=== PATIENT | male | born 1985 | race Caucasian/White ===

== ENCOUNTER 2017-03-16 23:32 | Inpatient (IN) | payer MEDICAID, OTHER ==
[~2017-03-16] VITALS: Ht 175.3 cm; Wt 144.3 kg
[~2017-03-16 23:32] MED LIST: ASPIRIN EC81 MG PO; CARVEDILOL3.125 MG PO; COREG12.5 MG PO; FUROSEMIDE40 MG PO; LIPITOR20 MG; LISINOPRIL10 MG PO; METFORMIN HCL500 MG PO; POTASSIUM CHLO20 ME1 PO; PROAIR HFA INH8.5 GM INH; TRAZODONE HCL50 MG PO
[2017-03-16] MEDS ORDERED: FUROSEMIDE INJ 10 MG/ML 4 ML VIAL IV ONE (23:45)
[2017-03-16] MEDS ORDERED: ASPIRIN 81 MG CHEW TAB PO ONE (23:45)
[2017-03-17] VITALS (84 sets, daily range): BP systolic 106–174; BP diastolic 52–111
[2017-03-17 00:07] LABS: BASOPHILS # (AUTO) 0.1 (0.0-0.1); BASOPHILS % 0.9 % (0.0-1.0); EOSINOPHILS # (AUTO) 0.3 (0.0-0.4); EOSINOPHILS % 4.1 % (0.0-6.0); HEMATOCRIT 63.8 % (38.2-49.6); HEMOGLOBIN 17.3 g/dL (14.0-18.0); LYMPHOCYTES # (AUTO) 1.2 (1.0-3.2); LYMPHOCYTES % 18.2 % (18.0-39.1); MEAN CORPUSCULAR HEMOGLOBIN 24.9 pg (28-32); MEAN CORPUSCULAR HGB CONC 27.1 g/dL (31-35); MEAN CORPUSCULAR VOLUME 91.8 fL (81-99); MONOCYTES # (AUTO) 0.7 (0.2-0.8); MONOCYTES % 10.7 % (4.4-11.3); NEUTROPHILS # (AUTO) 4.2 (2.1-6.9); NEUTROPHILS % 65.9 % (38.7-80.0); PLATELET COUNT 102 x10e3/uL (140-360); RED BLOOD COUNT 6.95 x10e6/uL (4.3-5.7); RED CELL DISTRIBUTION WIDTH 22.2 % (11.7-14.4)
[2017-03-17 00:15] LABS: INR 1.29; PROTHROMBIN TIME 16.8 seconds (11.9-14.5)
[2017-03-17 00:16] LABS: PARTIAL THROMBOPLASTIN TIME 31.5 seconds (23.8-35.5)
[2017-03-17 00:23] LABS: ALANINE AMINOTRANSFERASE 13 IU/L (0-55); ALBUMIN/GLOBULIN RATIO 0.7 (0.8-2.0); ALKALINE PHOSPHATASE 77 IU/L (40-150); ANION GAP 9.3 mmol/L (8-16); BLOOD UREA NITROGEN 10 mg/dL (7-26); BUN/CREATININE RATIO 13 (6-25); CALCIUM 8.2 mg/dL (8.4-10.2); CARBON DIOXIDE 38 mmol/L (22-29); CHLORIDE 99 mmol/L (98-107); CREATINE KINASE 55 IU/L (30-200); EST GLOMERULAR FILTRATION RATE > 60 ML/MIN (60-); GLUCOSE 114 mg/dL (74-118); POTASSIUM 4.3 mmol/L (3.5-5.1); SODIUM 142 mmol/L (136-145)
--- NOTE | 2017-03-17 00:47 | Diagnostic Imaging Report ---
EXAM: CHEST SINGLE (PORTABLE), AP 1 view ORDER DATE: 03/16/2017 11:44 PM Time stamp on exam: 0013 hours INDICATION: Shortness of breath, chest pain COMPARISON: AP view of the chest August 17, 2016 FINDINGS: Very limited exam secondary to body habitus and portable technique LINES/TUBES: None LUNGS: Probable pulmonary edema PLEURA: Limited evaluation HEART AND MEDIASTINUM: Stable enlargement of the cardiomediastinal silhouette BONES AND SOFT TISSUES: No acute findings. IMPRESSION: Cardiomegaly and likely pulmonary edema. Signed by: Dr. Lora Leon M.D. on 03/17/2017 12:43 AM
[2017-03-17] MEDS ORDERED: ASPIRIN 81 MG CHEW TAB PO ONE (01:45)
--- OUTSIDE RECORDS SUMMARY | 2017-03-17 01:46 | XMS REPORT ---
Author Author [facility] Address Unknown Phone Unavailable Care Team Providers Care Marketing Researcher Name Role Phone LEI BRYANT Unavailable Unavailable Problems This patient has no known problems. Allergies, Adverse Reactions, Alerts This patient has no known allergies or adverse reactions. Medications This patient has no known medications. Results Test Description Test Time Test Comments Text Results Atomic Results Result Comments CHEST SINGLE (PORTABLE) [place] [address] Patient Name: CARLITOS TIWARI MR #: [id number] : 1985 Age/Sex: 32/M Req #: [id number] Adm Physician: Ordered by: LEI BRYANT MD Report #: [id number] Location: ER Room/Bed: Procedure: [id number] DX/CHEST SINGLE (PORTABLE) Exam Date: Exam Time: REPORT STATUS: Signed EXAM: CHEST SINGLE (PORTABLE ), AP 1 view ORDER DATE: 03/16/2017 11:44 PM Time stamp on exam: 0013 hours INDICATION: Shortness of breath, chest pain COMPARISON: AP view of the chest August 17, 2016 FINDINGS: Very limited exam secondary to body habitus and portable technique LINES/TUBES: None LUNGS: Probable pulmonary edema PLEURA: Limited evaluation HEART AND MEDIASTINUM: Stable enlargement of the cardiomediastinal silhouette BONES AND SOFT TISSUES: No acute findings. IMPRESSION: Cardiomegaly and likely pulmonary edema. Signed by: Dr. Krystal Prater M.D. on 03/17/2017 12:43 AM Dictated By: KRYSTAL PRATER MD Transcribed By: RONALD on 03/17/1742 COPY TO: LEI BRYANT MD
[2017-03-17] MEDS ORDERED: HYDRALAZINE HCL 20 MG/ML VIAL IV STA (02:10)
[2017-03-17] MEDS ORDERED: HYDRALAZINE HCL 20 MG/ML VIAL ONE (02:17)
[2017-03-17 05:19] LABS: ABG PH 7.31 (7.31-7.41)
[2017-03-17 05:22] LABS: ABG HCO3 44 mmol/L (23-28); ABG PCO2 85 mmHg (41-51); ABG PO2 69 mmHg (80-105)
[2017-03-17] MEDS ORDERED: SUCCINYLCHOLINE CHLORIDE 20 MG/ML 10ML VIAL ONE (06:36)
[2017-03-17] MEDS ORDERED: PROPOFOL IV EMULSION 10MG/ML 100 ML ONE (06:36)
[2017-03-17] MEDS ORDERED: ETOMIDATE 2 MG/ML 10 ML INJ IV ONE (06:36)
--- NOTE | 2017-03-17 06:38 | Diagnostic Imaging Report ---
EXAM: CHEST SINGLE (PORTABLE), AP 1 view ORDER DATE: 03/17/2017 5:29 AM Time stamp on exam: 0534 hours INDICATION: Shortness of breath, G COMPARISON: AP view of the chest were second 2017 FINDINGS: See impression IMPRESSION: Images are essentially nondiagnostic. Recommend repeat imaging excluding the upper abdomen to optimize visualization of the lungs in this patient with large body habitus. Signed by: Dr. Lora Leon M.D. on 03/17/2017 6:34 AM
[2017-03-17] MEDS ORDERED: ROCURONIUM BROMIDE 1 ML ONE (07:20)
[2017-03-17] MEDS: PROPOFOL IV EMULSION 10MG/ML 100 ML IV PRN ×5 (07:30→22:38)
[2017-03-17] MEDS ORDERED: ROCURONIUM BROMIDE 10 MG/ML 5ML VIAL IV ONE (07:45)
--- NOTE | 2017-03-17 07:48 | Diagnostic Imaging Report ---
PROCEDURE: A single AP view of the chest. COMPARISON: Portable chest 08/17/2016. INDICATIONS: STATUS POST INTUBATION FINDINGS: Lines/tubes: Endotracheal catheter is present with the tip projecting over the expected region of the trachea, positioned 6 cm from the kvng. Lungs: Bilateral multifocal airspace opacifications. Pleura: Small left pleural effusion. No pneumothorax. Heart and mediastinum: The cardiac silhouette is enlarged. Prominent mediastinum. Bones: Degenerative changes of the thoracic spine. IMPRESSION: Enlarged cardiac silhouette may represent cardiomegaly or pericardial effusion. Bilateral multifocal airspace opacifications may represent pulmonary edema or developing pneumonia. Dictated by: Paulo Chapa M.D. on 03/17/2017 at 7:57 Electronically approved by: Paulo Chapa M.D. on 03/17/2017 at 7:57
[2017-03-17 08:10] LABS: ABG PH 7.29 (7.31-7.41)
[2017-03-17 08:11] LABS: ABG HCO3 43 mmol/L (23-28); ABG PCO2 90 mmHg (41-51); ABG PO2 76 mmHg (80-105)
[2017-03-17] MEDS ORDERED: FUROSEMIDE INJ 10 MG/ML 4 ML VIAL IV SCH (09:00)
[2017-03-17] MEDS ORDERED: LISINOPRIL 10 MG TAB PO SCH (09:00)
[2017-03-17 09:13] LABS: CREATINE KINASE MB 2.3 ng/mL (0.00-5.00)
[2017-03-17] MEDS: FUROSEMIDE INJ 10 MG/ML 4 ML VIAL IV SCH ×2 (09:41→17:08)
[2017-03-17] MEDS: INSULIN REGULAR, HUMAN 100 UNIT/1 ML 3ML VIAL SQ SCH ×3 (09:41→17:42)
[2017-03-17] MEDS ORDERED: DEXTROSE 50% SYRINGE 50 ML IV PRN ×2 (09:45→23:30)
[2017-03-17] MEDS: ENOXAPARIN SOD INJ 40 MG/0.4 ML SYR SC SCH (09:49)
[2017-03-17] MEDS: FAMOTIDINE 20 MG/2 ML VIAL IV SCH ×2 (09:49→20:00)
[2017-03-17 09:54] LABS: BLOOD UREA NITROGEN 9 mg/dL (7-26); BUN/CREATININE RATIO 11 (6-25); CALCIUM 8.3 mg/dL (8.4-10.2); CARBON DIOXIDE 36 mmol/L (22-29); CHLORIDE 97 mmol/L (98-107); CREATININE, SERUM 0.81 mg/dL (0.72-1.25); EST GLOMERULAR FILTRATION RATE > 60 ML/MIN (60-); GLUCOSE 103 mg/dL (74-118); MAGNESIUM 1.8 MG/DL (1.3-2.1); SODIUM 144 mmol/L (136-145)
--- NOTE | 2017-03-17 12:55 | Consultation ---
DATE OF CONSULTATION: March 17, 2017 CARDIOLOGY CONSULTATION ATTENDING PHYSICIAN: Dr. Kennedy Thank you so much for asking me to see this nice man again in consultation. Mr. Zavala is a 32-year-old man known to me for several years with morbid obesity, sleep apnea, pickwickian syndrome, who presented to the emergency room overnight evidently with chest discomfort and shortness of breath. HISTORY OF PRESENT ILLNESS: Not currently available as the patient has been sedated and intubated. PAST MEDICAL HISTORY: Significant for previous hospitalizations in 2016 and 2017 at this hospital and at [facility] for dyspnea, shortness of breath, chest discomfort and hypertension. Past medical history is significant for type-2, adult-onset diabetes and hypertension. He has morbid obesity and has been diagnosed with sleep apnea and began treatment for sleep apnea with CPAP machine in July 2016. PREVIOUS HOME MEDICATIONS: Include carvedilol, potassium, furosemide, trazodone, lisinopril, Ecotrin, metformin 500 mg b.i.d., ProAir inhaler and Lipitor. REVIEW OF SYSTEMS: Cardiac: Previous cardiac evaluations have been limited by his morbid obesity with his weight ranging between 400 and 450 pounds. Cannot have nuclear studies or cardiac catheterizations Previous echocardiograms have been relatively unremarkable. PERSONAL AND SOCIAL HISTORY AND REVIEW OF SYSTEMS: Not available at this time. PHYSICAL EXAMINATION: GENERAL: A morbidly obese white man who is sedated with propofol on a ventilator. About 5 feet 11 inches tall and about 400 to 450 pounds. HEENT: Unremarkable. NECK: Very thick. THORAX: Heart sounds S1, S2 are equal. Lungs have distant breath sounds. ABDOMEN: Markedly protuberant. EXTREMITIES: Have no significant cyanosis, clubbing or edema. EKG shows sinus rhythm and poor R-wave progression, which is an old change since June 2016. Chest x-ray suggests air-space consolidations. Influenza serology is negative. BNP is 272. Troponins are normal times 2. White cell count is normal at 6.3. Glucose 103, BUN 9, creatinine 0.8. ASSESSMENT 1. Respiratory insufficiency requiring intubation and mechanical ventilation. 2. Morbid obesity/sleep apnea, pickwickian syndrome. 3. Type-2, adult-onset diabetes. 4. Possible pneumonia. 5. History of hypertension. PLAN: Agree with supportive care with ventilator and antibiotics. Will recheck echocardiogram. Do not suspect he has any active coronary problems. His prognosis is guarded, however. Thank you for asking me to see him in consultation. Job#: [id number] cc:MD ANDREAS IRVIN M.D.
[2017-03-17] MEDS ORDERED: ALBUTEROL SULF 0.083% NEB SOLN 3 ML NEB NEB PRN (13:15)
[2017-03-17] MEDS ORDERED: LISINOPRIL 20 MG TAB PO SCH (14:00)
--- NOTE | 2017-03-17 16:49 | Consultation ---
DATE OF CONSULTATION: March 17, 2017 PULMONARY/CRITICAL CARE CONSULTATION REFERRING PHYSICIAN: Dr. Oscar Kennedy. CHIEF COMPLAINT: Respiratory failure. HISTORY OF PRESENT ILLNESS: The patient is a 32-year-old man. He required hospitalization twice in the late spring and early summer of 2016 for obesity-hypoventilation syndrome and respiratory failure. At that time, he was counseled about the urgent need for weight loss. He was seen by endocrinology and started on some antidiabetic medications as well as a weight loss regimen. Over the subsequent months, he lost 100 pounds but has since gained most of it back. The patient came to the emergency department early this morning complaining of chest pain and difficulty breathing. He was subsequently found to have elevated carbon dioxide and required intubation. He is now on a mechanical ventilator and propofol for sedation. PAST SURGICAL HISTORY 1. Right knee meniscal repair. 2. Deviated septum. 3. Tonsillectomy. PAST MEDICAL HISTORY 1. Obstructive sleep apnea. 2. Hypertension. FAMILY HISTORY: Noncontributory. SOCIAL HISTORY: The patient quit smoking several years ago. He is not a drinker. REVIEW OF SYSTEMS: He did not have fever or headache. He did not complain of neck pain. He did have some chest pain. He complained of dyspnea. There was no abdominal pain. He had no nausea or vomiting. He had no focal neurological complaints. He had no rashes. PHYSICAL EXAMINATION VITAL SIGNS: The patient is afebrile. Blood pressure is 142/95, and the pulse is 84. Respiratory rate is 16 with saturation 96%. He is on assist control mode of ventilation. HEENT: No facial swelling or erythema. Nasal mucosa is normal. There is an endotracheal tube in place. LYMPHATIC: No submandibular, cervical or supraclavicular adenopathy. CARDIAC: Regular rate and rhythm with a normal S1 and S2. There are no murmurs or rubs. LUNGS: Clear to auscultation lung fraser. Rhonchorous breath sounds bilaterally. There is no wheezing. ABDOMEN: Soft, nontender. There is no rebound or guarding. EXTREMITIES: 1 to 2+ leg edema. LABORATORY DATA: White blood cell count is 6, hemoglobin 17.3 and platelet count of 102. The RLR-tq-mdibprkvob ratio is normal. The other electrolytes are within normal limits. RADIOGRAPHIC DATA: Chest x-ray shows some cardiomegaly and infiltrates suggestive of congestive heart failure. IMPRESSION 1. Ziqiy-nj-rlexlxn respiratory failure. 2. Obesity-hypoventilation syndrome. 3. Obstructive sleep apnea. 4. Diabetes. 5. Congestive heart failure. PLAN 1. Patient will be given diuretics. 2. Monitor I's and O's closely. 3. Echocardiogram. 4. Continue assist control mode of ventilation for now and wean as tolerated. 5. Patient may require a tracheostomy. He will be high risk for recurrent respiratory failure until he loses weight. Job#: [id number]
[2017-03-17 16:51] LABS: CREATINE KINASE MB 1.9 ng/mL (0.00-5.00)
[2017-03-17] MEDS ORDERED: CARVEDILOL 12.5 MG TAB PO SCH (17:00)
[2017-03-17] MEDS ORDERED: METOPROLOL TARTRATE INJ 1 MG/ML VIAL IV PRN (17:30)
[2017-03-17] MEDS ORDERED: HYDRALAZINE HCL 20 MG/ML VIAL IV PRN (17:30)
[2017-03-17] MEDS: ENALAPRILAT IV INJ 1.25 MG/ML VIAL IV PRN ×2 (17:50→21:10)
[2017-03-17] MEDS ORDERED: ONDANSETRON HCL INJ 2 MG/ML VIAL IV PRN (19:45)
[2017-03-17] MEDS: ALBUTEROL SULF 0.083% NEB SOLN 3 ML NEB NEB SCH ×2 (20:20→23:32)
[2017-03-17] MEDS ORDERED: ENALAPRILAT IV INJ 1.25 MG/ML VIAL IV PRN (23:30)
[2017-03-18] VITALS (83 sets, daily range): BP systolic 95–174; BP diastolic 53–110
[2017-03-18] MEDS: FUROSEMIDE INJ 10 MG/ML 4 ML VIAL IV SCH ×4 (00:30→22:21)
--- NOTE | 2017-03-18 01:20 | Diagnostic Imaging Report ---
EXAM: CHEST SINGLE (PORTABLE), AP 1 view ORDER DATE: 03/18/2017 12:13 AM Time stamp on exam: 0047 hours INDICATION: OG-tube placement COMPARISON: None FINDINGS: See impression IMPRESSION: The tip of the orogastric tube cannot be seen. Signed by: Dr. Lora Leon M.D. on 03/18/2017 1:16 AM
[2017-03-18] MEDS: METOPROLOL TARTRATE INJ 1 MG/ML VIAL IV PRN (02:04)
[2017-03-18] MEDS: ALBUTEROL SULF 0.083% NEB SOLN 3 ML NEB NEB SCH ×6 (03:05→21:31)
[2017-03-18] MEDS: PROPOFOL IV EMULSION 10MG/ML 100 ML IV PRN ×5 (03:15→23:45)
[2017-03-18] MEDS: HYDRALAZINE HCL 20 MG/ML VIAL IV PRN ×2 (03:48→17:59)
[2017-03-18] MEDS: INSULIN REGULAR, HUMAN 100 UNIT/1 ML 3ML VIAL SQ SCH ×4 (06:00→17:59)
[2017-03-18 06:02] LABS: BASOPHILS # (AUTO) 0.1 (0.0-0.1); BASOPHILS % 0.5 % (0.0-1.0); EOSINOPHILS # (AUTO) 0.1 (0.0-0.4); EOSINOPHILS % 0.7 % (0.0-6.0); HEMATOCRIT 62.7 % (38.2-49.6); HEMOGLOBIN 17.4 g/dL (14.0-18.0); LYMPHOCYTES # (AUTO) 0.7 (1.0-3.2); LYMPHOCYTES % 5.3 % (18.0-39.1); MEAN CORPUSCULAR HEMOGLOBIN 24.9 pg (28-32); MEAN CORPUSCULAR HGB CONC 27.8 g/dL (31-35); MEAN CORPUSCULAR VOLUME 89.7 fL (81-99); MONOCYTES % 7.9 % (4.4-11.3); NEUTROPHILS # (AUTO) 10.6 (2.1-6.9); NEUTROPHILS % 85.1 % (38.7-80.0); PLATELET COUNT 118 x10e3/uL (140-360); RED BLOOD COUNT 6.99 x10e6/uL (4.3-5.7); RED CELL DISTRIBUTION WIDTH 22.4 % (11.7-14.4)
[2017-03-18 06:17] LABS: ALANINE AMINOTRANSFERASE 12 IU/L (0-55); ALBUMIN 2.8 g/dL (3.5-5.0); ALBUMIN/GLOBULIN RATIO 0.7 (0.8-2.0); ALKALINE PHOSPHATASE 71 IU/L (40-150); ANION GAP 13.6 mmol/L (8-16); BLOOD UREA NITROGEN 9 mg/dL (7-26); BUN/CREATININE RATIO 10 (6-25); CALCIUM 8.3 mg/dL (8.4-10.2); CHLORIDE 91 mmol/L (98-107); EST GLOMERULAR FILTRATION RATE > 60 ML/MIN (60-); GLUCOSE 98 mg/dL (74-118); MAGNESIUM 1.4 MG/DL (1.3-2.1); POTASSIUM 3.6 mmol/L (3.5-5.1); SODIUM 143 mmol/L (136-145)
[2017-03-18 06:31] LABS: CARBON DIOXIDE 42 mmol/L (22-29)
--- NOTE | 2017-03-18 06:34 | Diagnostic Imaging Report ---
EXAM: CHEST SINGLE (PORTABLE), AP 1 view ORDER DATE: 03/18/2017 6:30 AM Time stamp on exam: 0556 hours INDICATION: Respiratory failure COMPARISON: March 18, 2017 FINDINGS: LINES/TUBES: Endotracheal tube 4 cm above the kvng. Nasal/orogastric tube courses below the diaphragm with tip out of field of view. LUNGS: Pulmonary edema PLEURA: Indeterminate for effusions HEART AND MEDIASTINUM: Cardiomegaly BONES AND SOFT TISSUES: No acute findings. IMPRESSION: Cardiomegaly and pulmonary edema Signed by: Dr. Lora Leon M.D. on 03/18/2017 6:31 AM
[2017-03-18 06:38] LABS: FREE T4 (FREE THYROXINE) 1.05 ng/dL (0.9-1.8); THYROID STIMULATING HORMONE 1.609 uIU/mL (0.350-4.940)
[2017-03-18] MEDS: FAMOTIDINE 20 MG/2 ML VIAL IV SCH ×2 (08:02→22:21)
[2017-03-18] MEDS: LISINOPRIL 20 MG TAB PO SCH (08:03)
[2017-03-18] MEDS: CARVEDILOL 12.5 MG TAB PO SCH ×2 (08:03→17:59)
[2017-03-18] MEDS: ASPIRIN 81 MG ENTERIC COATED PO SCH (08:03)
[2017-03-18] MEDS ORDERED: ASPIRIN 81 MG ENTERIC COATED PO SCH (09:00)
[2017-03-18] MEDS ORDERED: LISINOPRIL 10 MG TAB PO SCH (09:00)
--- NOTE | 2017-03-18 11:15 | History and Physical ---
Primary care physician: The patient does not have a local PCP. CHIEF COMPLAINT: Respiratory distress/failure. HISTORY OF PRESENT ILLNESS: Mr. Zavala is a 32-year-old gentleman with morbid obesity. He weighs almost 500 pounds with pickwickian obstructive sleep apnea and pulmonary hypertension who presents with increasing respiratory distress over the last couple of days with increased swelling of the abdominal pannus and his lower extremities. The patient presented to the ED with respiratory distress which got worse. He had hypoxia and hypercapnic respiratory failure and was urgently intubated by the ER physician. REVIEW OF SYSTEMS: Unobtainable as the patient is intubated. PAST MEDICAL HISTORY: Significant for hypertension and type 2 diabetes, morbid obesity with pickwickian syndrome, chronic respiratory failure dependent on oxygen at home, chronic asthma and obstructive sleep apnea and pulmonary hypertension. PAST SURGICAL HISTORY: He denies any surgery history. REGULAR MEDICATIONS: Carvedilol 12.5 mg twice daily. Lisinopril 40 mg daily. Aspirin 81 mg daily. Metformin 500 mg twice daily. Trazodone 50 mg at bedtime. Lasix 40 mg twice daily. Lipitor 20 mg at bedtime. Albuterol inhaler and nebulizer treatments as needed. Potassium chloride 20 mEq daily. ALLERGIES: NO KNOWN DRUG ALLERGIES. FAMILY HISTORY: Significant for hypertension and diabetes. SOCIAL HISTORY: The patient is . [place]une[place] is his primary language. He does not smoke, drink or use illegal drugs and he is generally independently functioning. PHYSICAL EXAM: PSYCHIATRIC: Unobtainable as the patient is intubated. He is morbidly obese, easily 450 pounds or more, and currently is no distress because he is sedated. He is orally intubated. VITAL SIGNS: Blood pressure 158/101. Pulse 93 and regular. Respiratory rate 16, ventilated. O2 sat 96% on the ventilator. His temperature is 97.0. HEENT: Head is atraumatic. His eyes are anicteric with clear conjunctivae. Ears and nares are without erythema or discharge. Oropharynx is clear. NECK: Is supple with no mass or thyromegaly. LYMPHATIC SYSTEM: He has no palpable cervical, axillary or inguinal adenopathy. CARDIOVASCULAR: Heart has a regular rate and rhythm without murmur or extra heart sounds. He has no carotid bruit. He has trace bipedal edema with palpable dorsal pedal pulses. RESPIRATORY: Lungs reveal diminished breath sounds, some coarse airway noise. He is ventilated and orally intubated. GASTROINTESTINAL: Abdomen is soft without organomegaly, masses or tenderness. Is morbidly obese. He has normal bowel sounds present. CUTANEOUS: His skin is warm and dry to touch with no rash or skin breakdown. MUSCULOSKELETAL: His joints have normal without erythema or swelling. Has no calf tenderness. NEUROLOGIC: Exam is nonfocal. When weaned, the patient is moving all extremities. He had a normal exam prior to intubation. DIAGNOSTIC STUDIES: Chest x-ray shows cardiomegaly and pulmonary edema. His post intubation chest x-ray shows the same. His flu screen was negative. The first blood gas was pH 7.31. PCO2 85. pO2 of 69. Second blood gas oxygen showed a pH of 7.29, a PCO2 of 90 and a po2 of 76 and at that point the patient was intubated. His troponin is 0.015, 0.021. BNP is 272.1. His echocardiogram shows an ejection fraction of 60% to 65% with some right ventricular enlargement and left ventricle concentric left ventricular hypertrophy. His chemistry shows normal electrolytes. CO2 38. Creatinine 0.80. BUN10 for a normal GFR. Glucose 114. Calcium 8.2. His CBC shows a white count 6.38 with normal differential. Hemoglobin 17.3, hematocrit 63.8 and platelet count in 102,000. His PT 16.8 with an INR 1.29 which is basically normal. His transaminases and alkaline phos are normal. Bilirubin slightly elevated at 2.2. IMPRESSION AND PLAN 1. Acute on chronic diastolic heart failure. The patient will be placed on Lasix IV 40 mg q.6 hours. 2. Acute exacerbation of chronic obstructive pulmonary disease/obstructive sleep apnea. The patient will be getting aggressive nebulizer treatments. 3. Acute on chronic respiratory failure. The patient is intubated and will be going to the ICU on the ventilator with pulmonology managing the ventilator. 4. Hypertension. The patient being intubated. They are unable to place a nasogastric tube, it came back with blood from trauma and so will give p.r.n. IV hydralazine, Enalapril and Lopressor to control his blood pressure and heart rate. 5. Type 2 diabetes. Will hold his p.o. meds at this time and use sliding scale insulin q.6 hours to control his blood sugar. 6. For prophylaxis the patient is on Lovenox for DVT prophylaxis and Pepcid for GI prophylaxis. Job#: [id number] GH
[2017-03-18 12:20] LABS: ABG PH 7.44 (7.31-7.41)
[2017-03-18 12:21] LABS: ABG PCO2 74 mmHg (41-51)
[2017-03-18 12:22] LABS: ABG HCO3 49 mmol/L (23-28); ABG PO2 48 mmHg (80-105)
--- NOTE | 2017-03-18 13:37 | Progress Note ---
DATE: March 18, 2017 PULMONARY/CRITICAL CARE PROGRESS NOTE SUBJECTIVE: The patient is still in the emergency department on an assist-control mode of ventilation. He has been on Lasix q.4 h. and negative 5 liters since yesterday. OBJECTIVE VITAL SIGNS: The patient is afebrile. He is still on a pressure-regulated volume control with a tidal volume of 550 and a set rate of 16. His pulse is 99 and his blood pressure is 131/78. His saturation is 98%. HEENT: Shows no facial swelling or erythema. There is an oral endotracheal tube in place. LYMPHATIC: No submandibular, cervical or supraclavicular adenopathy. CARDIAC: Regular rate and rhythm with a normal S1 and S2. There are no murmurs or rubs. LUNGS: Auscultation reveals rhonchorous breath sounds bilaterally. There is no wheezing. ABDOMEN: Soft and nontender. There is no rebound or guarding. EXTREMITIES: Shows 2+ leg edema bilaterally. LABORATORY DATA: The hemoglobin is 17.4, white blood cell count is 12.5. Platelet count is 118. Other laboratory are within normal limits. RADIOGRAPHIC DATA: Chest x-ray shows cardiomegaly and pulmonary edema. IMPRESSION 1. Rwjkx-tf-aoqlnia respiratory failure. 2. Obesity. 3. Hypoventilation syndrome. 4. Cor pulmonale. 5. Type 2 diabetes. PLAN: 1. Continue diuretics. Switch to Diamox to help prevent further CO2 retention. 2. Repeat ABGs now. 3. Continue current antihypertensive regimen. Job#: [id number]
[2017-03-18] MEDS: ENOXAPARIN SOD INJ 40 MG/0.4 ML SYR SC SCH (17:59)
[2017-03-18] MEDS ORDERED: KETOROLAC TROMETHAMINE 30 MG/ML VIAL IV STA (21:56)
[2017-03-19] VITALS (67 sets, daily range): BP systolic 114–178; BP diastolic 53–101
[2017-03-19] MEDS: ALBUTEROL SULF 0.083% NEB SOLN 3 ML NEB NEB SCH ×6 (01:48→22:52)
[2017-03-19] MEDS: PROPOFOL IV EMULSION 10MG/ML 100 ML IV PRN ×5 (04:00→23:33)
[2017-03-19 06:20] LABS: BASOPHILS % 0.4 % (0.0-1.0); EOSINOPHILS # (AUTO) 0.4 (0.0-0.4); EOSINOPHILS % 3.6 % (0.0-6.0); HEMATOCRIT 61.2 % (38.2-49.6); HEMOGLOBIN 17.2 g/dL (14.0-18.0); LYMPHOCYTES # (AUTO) 0.8 (1.0-3.2); LYMPHOCYTES % 7.9 % (18.0-39.1); MEAN CORPUSCULAR HEMOGLOBIN 24.8 pg (28-32); MEAN CORPUSCULAR HGB CONC 28.1 g/dL (31-35); MEAN CORPUSCULAR VOLUME 88.2 fL (81-99); MONOCYTES # (AUTO) 0.8 (0.2-0.8); MONOCYTES % 8.5 % (4.4-11.3); NEUTROPHILS # (AUTO) 7.9 (2.1-6.9); NEUTROPHILS % 79.3 % (38.7-80.0); PLATELET COUNT 104 x10e3/uL (140-360); RED BLOOD COUNT 6.94 x10e6/uL (4.3-5.7); RED CELL DISTRIBUTION WIDTH 23.1 % (11.7-14.4)
[2017-03-19] MEDS: INSULIN REGULAR, HUMAN 100 UNIT/1 ML 3ML VIAL SQ SCH ×4 (06:35→17:58)
[2017-03-19 06:37] LABS: ALANINE AMINOTRANSFERASE 20 IU/L (0-55); ALBUMIN 2.7 g/dL (3.5-5.0); ALKALINE PHOSPHATASE 64 IU/L (40-150); ANION GAP 15.7 mmol/L (8-16); BILIRUBIN,DIRECT 2.5 mg/dL (0.0-5.0); BLOOD UREA NITROGEN 14 mg/dL (7-26); BUN/CREATININE RATIO 16 (6-25); CALCIUM 8.3 mg/dL (8.4-10.2); CARBON DIOXIDE 38 mmol/L (22-29); CHLORIDE 91 mmol/L (98-107); CREATININE, SERUM 0.86 mg/dL (0.72-1.25); EST GLOMERULAR FILTRATION RATE > 60 ML/MIN (60-); GLUCOSE 83 mg/dL (74-118); MAGNESIUM 1.7 MG/DL (1.3-2.1); POTASSIUM 3.7 mmol/L (3.5-5.1); SODIUM 141 mmol/L (136-145)
--- NOTE | 2017-03-19 06:38 | Diagnostic Imaging Report ---
EXAM: CHEST SINGLE (PORTABLE), AP 1 view ORDER DATE: 03/19/2017 5:00 AM Time stamp on exam: 0557 hours INDICATION: Congestive heart failure COMPARISON: AP view of the chest March 18, 2017 FINDINGS: LINES/TUBES: The endotracheal tube is at the thoracic inlet. Nasogastric orogastric tube courses below the diaphragm. LUNGS: Vascular congestion/pulmonary edema. PLEURA: No effusions or pneumothorax. HEART AND MEDIASTINUM: Chappell enlargement of the cardiomediastinal silhouette. BONES AND SOFT TISSUES: No acute findings. IMPRESSION: The endotracheal tube is at the thoracic inlet. No significant interval change in appearance of the chest. Signed by: Dr. Lora Leon M.D. on 03/19/2017 6:34 AM
[2017-03-19] MEDS: FUROSEMIDE INJ 10 MG/ML 4 ML VIAL IV SCH (09:05)
[2017-03-19] MEDS: LISINOPRIL 20 MG TAB PO SCH (09:05)
[2017-03-19] MEDS: CARVEDILOL 12.5 MG TAB PO SCH ×2 (09:05→16:28)
[2017-03-19] MEDS: FAMOTIDINE 20 MG/2 ML VIAL IV SCH ×2 (09:05→20:34)
[2017-03-19] MEDS: ASPIRIN 81 MG ENTERIC COATED PO SCH (09:05)
[2017-03-19 11:58] LABS: ABG PH 7.45 (7.31-7.41)
[2017-03-19 11:59] LABS: ABG PCO2 68 mmHg (41-51)
[2017-03-19 12:00] LABS: ABG HCO3 47 mmol/L (23-28); ABG PO2 49 mmHg (80-105)
[2017-03-19] MEDS ORDERED: CEFTRIAXONE SOD 1 GM/NS 50 ML 50 ML IV SCH (14:15)
[2017-03-19] MEDS: CEFTRIAXONE SOD 1 GM VIAL IV SCH (14:50)
[2017-03-19] MEDS: SODIUM CHLORIDE 0.9% 1000ML 1,000 ML IV SCH (14:59)
[2017-03-19] MEDS ORDERED: AZITHROMYCIN 500MG/NS 250 ML 250 ML IV SCH (15:00)
[2017-03-19] MEDS ORDERED: KETOROLAC TROMETHAMINE 30 MG/ML VIAL IV ONE (15:00)
[2017-03-19] MEDS ORDERED: IOPAMIDOL 370 MG/ML 200 ML INFUS..BTL INJ ONE (15:58)
[2017-03-19] MEDS ORDERED: SODIUM CHLORIDE 0.9% 50ML 50 ML ONE (15:58)
--- NOTE | 2017-03-19 16:11 | Diagnostic Imaging Report ---
EXAM: CT Abdomen and Pelvis WITH contrast INDICATION: Abdominal pain COMPARISON: None. TECHNIQUE: Abdomen and pelvis were scanned utilizing a multidetector helical scanner from the lung base to the pubic symphysis after administration of contrast. Coronal and sagittal reformations were obtained. The examination is limited due to decreased penetration and motion artifact. Protocol: General survey IV CONTRAST: 100 mL of Isovue 370 ORAL CONTRAST: None COMPLICATIONS: None RADIATION DOSE: Total Exam DLP: 943.2 mGy*cm. CTDIvol has been reviewed. It is below the limits set by the Radiation Protocol Committee (RPC). FINDINGS: LINES: Enteric feeding catheter is present with the tip position within the distal stomach. Lower thorax: Bilateral lower lobe airspace opacities. No pneumothorax. Small bilateral pleural effusions. Liver: No focal mass. No hepatomegaly. Normal parenchyma. The hepatic and portal veins are patent. Gallbladder: No gallstones. No gallbladder distention. Biliary tree: No intrahepatic duct dilation. No extrahepatic duct dilation. Spleen: No splenomegaly. No focal mass. Pancreas: Normal parenchymal enhancement. No focal mass. Normal pancreatic duct. No peripancreatic inflammatory changes. Kidneys: No obstructing calculi. No hydronephrosis. No solid enhancing mass. No cysts. No perinephric soft tissue inflammatory changes. Adrenal glands: No adrenal nodules.. Bladder: Nunez catheter is present in a decompressed urinary bladder. Pelvic organs: Normal. GI: No bowel wall thickening. No air-fluid levels. The stomach and small bowel are normal. The colon is normal. Normal appendix. A moderate amount of retained feces limits intraluminal evaluation of the colon. Peritoneum/retroperitoneum: No pneumoperitoneum. No ascites. No drainable fluid collection. Lymph nodes: No lymphadenopathy. . Vessels: The abdominal aorta and iliac vessels are patent. The celiac, superior mesenteric, and inferior mesenteric arteries are patent. Single bilateral renal arteries are patent. . Bones: No focal abnormality. Soft tissues: No focal abnormality. IMPRESSION: No acute abnormality of the abdomen and pelvis. Bilateral lower lobe airspace opacities may represent atelectasis or developing pneumonia. Small bilateral pleural effusions. Signed by: Dr. Paulo Chapa M.D. on 03/19/2017 4:07 PM
[2017-03-19] MEDS: ENOXAPARIN SOD INJ 40 MG/0.4 ML SYR SC SCH (16:28)
[2017-03-19] MEDS: AZITHROMYCIN 500MG/NS 250 ML 250 ML IV SCH (16:28)
[2017-03-19] MEDS: ACETAZOLAMIDE SODIUM 500 MG/VIAL IV SCH (16:48)
[2017-03-19 17:06] LABS: CREATINE KINASE MB 3.1 ng/mL (0.00-5.00)
[2017-03-19] MEDS: VANCOMYCIN 1GM/NS 250 ML 250 ML IV SCH (17:34)
[2017-03-20] VITALS (95 sets, daily range): BP systolic 107–205; BP diastolic 24–133
[2017-03-20] MEDS: SODIUM CHLORIDE 0.9% 1000ML 1,000 ML IV SCH ×3 (00:30→19:52)
[2017-03-20] MEDS: MORPHINE SULFATE 2 MG/ML SYR IV PRN ×4 (01:30→19:59)
[2017-03-20] MEDS ORDERED: MORPHINE SULFATE 2 MG/ML SYR ONE (01:30)
[2017-03-20] MEDS ORDERED: NALOXONE HCL INJ 0.4 MG/ML AMP IV PRN (01:30)
--- NOTE | 2017-03-20 02:16 | Diagnostic Imaging Report ---
EXAM: CHEST SINGLE (PORTABLE), AP 1 view ORDER DATE: 03/20/2017 1:59 AM Time stamp on exam: 0204 hours INDICATION: Endotracheal tube placement COMPARISON: AP view of the chest March 19, 2017 FINDINGS: LINES/TUBES: Endotracheal tube not well seen on this exam, probably still at the thoracic inlet. Distal aspect of nasal/orogastric tube not seen. LUNGS: Pulmonary edema PLEURA: Indeterminate for effusions HEART AND MEDIASTINUM: Stable enlargement of the cardiomediastinal silhouette BONES AND SOFT TISSUES: No acute findings. IMPRESSION: Endotracheal tube not well seen on this exam, probably still at the level of the thoracic inlet. Signed by: Dr. Lora Leon M.D. on 03/20/2017 2:13 AM
[2017-03-20] MEDS: ALBUTEROL SULF 0.083% NEB SOLN 3 ML NEB NEB SCH ×6 (02:40→23:00)
[2017-03-20] MEDS: CEFTRIAXONE SOD 1 GM VIAL IV SCH ×2 (03:21→14:46)
[2017-03-20] MEDS: PROPOFOL IV EMULSION 10MG/ML 100 ML IV PRN ×6 (04:46→22:40)
[2017-03-20] MEDS: INSULIN REGULAR, HUMAN 100 UNIT/1 ML 3ML VIAL SQ SCH ×5 (05:30→23:15)
[2017-03-20] MEDS: VANCOMYCIN 1GM/NS 250 ML 250 ML IV SCH ×2 (05:30→17:22)
[2017-03-20 06:09] LABS: BASOPHILS # (AUTO) 0.1 (0.0-0.1); BASOPHILS % 0.6 % (0.0-1.0); EOSINOPHILS # (AUTO) 0.7 (0.0-0.4); HEMATOCRIT 59.1 % (38.2-49.6); HEMOGLOBIN 16.8 g/dL (14.0-18.0); LYMPHOCYTES # (AUTO) 0.9 (1.0-3.2); LYMPHOCYTES % 8.1 % (18.0-39.1); MEAN CORPUSCULAR HEMOGLOBIN 25.2 pg (28-32); MEAN CORPUSCULAR HGB CONC 28.4 g/dL (31-35); MEAN CORPUSCULAR VOLUME 88.6 fL (81-99); MONOCYTES # (AUTO) 0.9 (0.2-0.8); MONOCYTES % 8.1 % (4.4-11.3); NEUTROPHILS # (AUTO) 8.3 (2.1-6.9); NEUTROPHILS % 76.9 % (38.7-80.0); PLATELET COUNT 126 x10e3/uL (140-360); RED BLOOD COUNT 6.67 x10e6/uL (4.3-5.7); RED CELL DISTRIBUTION WIDTH 22.9 % (11.7-14.4)
--- NOTE | 2017-03-20 06:21 | Diagnostic Imaging Report ---
EXAM: CHEST SINGLE (PORTABLE), AP 1 view ORDER DATE: 03/20/2017 6:00 AM Time stamp on exam: 0458 hours INDICATION: Shortness of breath COMPARISON: AP view of the chest March 20, 2017 at 0204 hours FINDINGS: LINES/TUBES: Endotracheal tube terminates personally 6 cm above the kvng. Nasal/orogastric tube courses below the diaphragm the tip is not seen. LUNGS: Pulmonary edema. PLEURA: No effusions or pneumothorax. HEART AND MEDIASTINUM: Enlargement of the cardiomediastinal silhouette. BONES AND SOFT TISSUES: No acute findings. IMPRESSION: No significant interval change. Signed by: Dr. Lora Leon M.D. on 03/20/2017 6:18 AM
[2017-03-20 06:32] LABS: ALANINE AMINOTRANSFERASE 21 IU/L (0-55); ALBUMIN 2.5 g/dL (3.5-5.0); ALBUMIN/GLOBULIN RATIO 0.6 (0.8-2.0); ALKALINE PHOSPHATASE 55 IU/L (40-150); ANION GAP 16.3 mmol/L (8-16); BLOOD UREA NITROGEN 13 mg/dL (7-26); BUN/CREATININE RATIO 17 (6-25); CALCIUM 8.5 mg/dL (8.4-10.2); CARBON DIOXIDE 34 mmol/L (22-29); CHLORIDE 92 mmol/L (98-107); CREATININE, SERUM 0.77 mg/dL (0.72-1.25); EST GLOMERULAR FILTRATION RATE > 60 ML/MIN (60-); GLUCOSE 89 mg/dL (74-118); POTASSIUM 3.3 mmol/L (3.5-5.1); SODIUM 139 mmol/L (136-145)
[2017-03-20 06:42] LABS: B-TYPE NATRIURETIC PEPTIDE2 20.5 pg/mL (0-100)
[2017-03-20 06:43] LABS: HYPOCHROMASIA SLIGHT; PLATELET ESTIMATE SLIGHTLY DECREASED; PLATELET MORPHOLOGY COMMENT FEW LARGE; RBC MORPHOLOGY COMMENT ABNORMAL
[2017-03-20 06:44] LABS: ANISOCYTOSIS SLIG; HOWELL-JOLLY BODIES FEW; POIKILOCYTOSIS SLIGHT
[2017-03-20] MEDS ORDERED: POTASSIUM CHLORIDE 20MEQ/100ML 200 ML IV ONE (08:00)
[2017-03-20] MEDS ORDERED: POTASSIUM CHLORIDE 100 ML IV ONE (08:30)
[2017-03-20] MEDS: ASPIRIN 81 MG ENTERIC COATED PO SCH (09:00)
[2017-03-20] MEDS ORDERED: ASPIRIN 81 MG CHEW TAB ONE (09:02)
[2017-03-20] MEDS: FUROSEMIDE INJ 10 MG/ML 4 ML VIAL IV SCH (09:24)
[2017-03-20] MEDS: ASPIRIN 81 MG CHEW TAB PO SCH (09:25)
[2017-03-20] MEDS: CARVEDILOL 12.5 MG TAB PO SCH ×2 (09:25→16:15)
[2017-03-20] MEDS: LISINOPRIL 20 MG TAB PO SCH (09:25)
[2017-03-20] MEDS: FAMOTIDINE 20 MG/2 ML VIAL IV SCH ×2 (09:25→20:01)
[2017-03-20 09:55] LABS: ABG HCO3 35 mmol/L (23-28); ABG PCO2 58 mmHg (41-51); ABG PH 7.39 (7.31-7.41); ABG PO2 66 mmHg (80-105)
[2017-03-20] MEDS: HYDRALAZINE HCL 20 MG/ML VIAL IV PRN (13:45)
[2017-03-20] MEDS ORDERED: LORAZEPAM INJ 2 MG/ML VIAL IV ONE (15:00)
[2017-03-20] MEDS: AZITHROMYCIN 500MG/NS 250 ML 250 ML IV SCH (16:15)
[2017-03-20] MEDS: ACETAZOLAMIDE SODIUM 500 MG/VIAL IV SCH (16:15)
[2017-03-20] MEDS: ENOXAPARIN SOD INJ 40 MG/0.4 ML SYR SC SCH (16:15)
--- NOTE | 2017-03-20 17:40 | Consultation ---
DATE OF CONSULTATION: March 20, 2017 GASTROENTEROLOGY CONSULTATION REFERRING PHYSICIAN: Dr. Kennedy REASON FOR CONSULTATION: Elevated LFTs. HISTORY OF PRESENT ILLNESS: Mr. Zavala is a 32-year-old man who is currently intubated in the ICU. He has history of pickwickian, obstructive sleep apnea and morbid obesity. He came in with increasing respiratory distress and has been intubated with hypercapnic respiratory failure. A trach is planned. He is not able to provide history for himself. His bilirubin has increased significantly from 2.2 to 6.5 from admission on March 16 to today, March 20. He has had one direct bilirubin checked which fell within normal parameters. His AST has also increased. Looking at his lifetime summary, he has a history of abnormal LFTs with a total bilirubin of 1.3 to 2 back in June 2016. Additionally, his labs are notable for unexplained thrombocytopenia. CT abdomen and pelvis did not show any abnormality of the liver parenchyma and no hepatomegaly. There are also no biliary issues or splenomegaly noted. PAST MEDICAL HISTORY 1. Diabetes. 2. Hypertension. 3. Morbid obesity. 4. Chronic respiratory failure dependent on oxygen at home. 5. Asthma. 6. Obstructive sleep apnea. 7. History of pulmonary hypertension. MEDICATIONS AND ALLERGIES: Reviewed, please see MAR medication reconciliation form. SOCIAL HISTORY: No alcohol, tobacco or illicit substances. FAMILY HISTORY: Hypertension, diabetes. REVIEW OF SYSTEMS: Unobtainable due to current medical status. PHYSICAL EXAMINATION GENERAL: He is sedated. He is intubated. Morbidly obese. HEENT: Mildly icteric sclera CARDIOVASCULAR: S1, S2. RESPIRATORY: Decreased breath sounds. He is orally intubated. ABDOMEN: Soft. Obese. He has abdominal striae. He has erythematous abdomen, also tattoos. NEUROLOGIC AND PSYCH: Unable to obtain as he is sedated. Hemeonc - no lymphadenopathy or large ecchymosis Electronic health records reviewed for laboratory and radiologic studies as well as history. ASSESSMENT: Elevated liver function tests: It is mostly a cholestatic pattern with the bilirubin increasing, although the AST is also somewhat elevated. His imaging does not detect any evidence of chronic liver disease. However, he does have unexplained thrombocytopenia. There does not appear to be any hepatobiliary issue causing obstruction. Therefore, it is most likely cholestasis. It makes sense to go ahead and check the hepatitis panel which is pending. Particularly tattoos which we noted put him at some risk for hepatitis C potentially. His comorbidities put him at risk for CARLOS and hepatic congestion. In the meantime, would try to optimize him from cardiopulmonary status in case pulmonary hypertension is contributing to strain on the liver and minimize hepatotoxic medications. For now, would continue to monitor LFTs and coags daily. It may be helpful to have hematology see him regarding the thrombocytopenia to discern if there is some other etiology for that. Pending hepatitis panel, we can run some other labs for chronic liver issues. Thank you very much for asking me to see Mr. Zavala. Any questions or concerns, please do not hesitate to contact me. Job#: [id number] MERYL TURNER
--- NOTE | 2017-03-20 22:10 | Consultation ---
DATE OF CONSULTATION: March 20, 2017 HISTORY OF PRESENT ILLNESS: I was kindly asked to see this 32-year-old morbidly obese man for evaluation of tracheostomy tube placement. Patient has required prolonged ventilator support and is unable to be weaned from the ventilator. It is anticipated he will continue to need ventilator support for a long period of time and may need tracheostomy for prolonged period of time for sleep apnea. His history of present illness, past medical history, and past surgical history were reviewed in detail on the chart. PHYSICAL EXAMINATION GENERAL: The patient is morbidly obese, intubated and he is on the ventilator. NECK: There is no abnormal neck anatomy noted. ASSESSMENT: Respiratory failure. PLAN: Tracheostomy Job#: [id number] CF MTDD
[2017-03-21] VITALS (96 sets, daily range): BP systolic 96–150; BP diastolic 48–106
[2017-03-21] MEDS: MORPHINE SULFATE 2 MG/ML SYR IV PRN ×5 (01:11→19:36)
[2017-03-21] MEDS: ALBUTEROL SULF 0.083% NEB SOLN 3 ML NEB NEB SCH ×6 (01:45→23:15)
[2017-03-21] MEDS: CEFTRIAXONE SOD 1 GM VIAL IV SCH ×2 (02:00→15:29)
[2017-03-21] MEDS: PROPOFOL IV EMULSION 10MG/ML 100 ML IV PRN ×5 (02:38→22:23)
[2017-03-21] MEDS: INSULIN REGULAR, HUMAN 100 UNIT/1 ML 3ML VIAL SQ SCH ×4 (05:11→23:23)
[2017-03-21] MEDS: SODIUM CHLORIDE 0.9% 1000ML 1,000 ML IV SCH ×2 (05:12→15:09)
[2017-03-21 06:00] LABS: BASOPHILS % 0.3 % (0.0-1.0); EOSINOPHILS # (AUTO) 0.8 (0.0-0.4); EOSINOPHILS % 7.5 % (0.0-6.0); HEMATOCRIT 58.9 % (38.2-49.6); HEMOGLOBIN 16.4 g/dL (14.0-18.0); LYMPHOCYTES # (AUTO) 0.8 (1.0-3.2); LYMPHOCYTES % 7.7 % (18.0-39.1); MEAN CORPUSCULAR HEMOGLOBIN 24.8 pg (28-32); MEAN CORPUSCULAR HGB CONC 27.8 g/dL (31-35); MEAN CORPUSCULAR VOLUME 89.2 fL (81-99); MONOCYTES % 9.4 % (4.4-11.3); NEUTROPHILS % 74.8 % (38.7-80.0); PLATELET COUNT 122 x10e3/uL (140-360); RED CELL DISTRIBUTION WIDTH 23.2 % (11.7-14.4)
[2017-03-21 06:23] LABS: ANION GAP 13.4 mmol/L (8-16); BLOOD UREA NITROGEN 16 mg/dL (7-26); BUN/CREATININE RATIO 20 (6-25); CALCIUM 8.1 mg/dL (8.4-10.2); CARBON DIOXIDE 30 mmol/L (22-29); CHLORIDE 97 mmol/L (98-107); CREATINE KINASE 879 IU/L (30-200); EST GLOMERULAR FILTRATION RATE > 60 ML/MIN (60-); GLUCOSE 90 mg/dL (74-118); LIPASE 9 U/L (8-78); MAGNESIUM 1.6 MG/DL (1.3-2.1); POTASSIUM 3.4 mmol/L (3.5-5.1); SODIUM 137 mmol/L (136-145)
[2017-03-21] MEDS: VANCOMYCIN 1GM/NS 250 ML 250 ML IV SCH ×2 (06:37→17:34)
[2017-03-21] MEDS: FAMOTIDINE 20 MG/2 ML VIAL IV SCH ×2 (08:32→20:01)
[2017-03-21] MEDS: FUROSEMIDE INJ 10 MG/ML 4 ML VIAL IV SCH (08:32)
[2017-03-21] MEDS: ASPIRIN 81 MG CHEW TAB PO SCH (08:32)
[2017-03-21] MEDS: LISINOPRIL 20 MG TAB PO SCH (08:32)
[2017-03-21] MEDS: CARVEDILOL 12.5 MG TAB PO SCH ×2 (08:32→17:00)
[2017-03-21] MEDS: ACETAZOLAMIDE SODIUM 500 MG/VIAL IV SCH (15:54)
[2017-03-21] MEDS: AZITHROMYCIN 500MG/NS 250 ML 250 ML IV SCH (16:16)
[2017-03-21] MEDS: ENOXAPARIN SOD INJ 40 MG/0.4 ML SYR SC SCH (17:10)
[2017-03-21] MEDS ORDERED: DIPHENHYDRAMINE HCL INJ 1 ML ONE (18:00)
[2017-03-21] MEDS: DIPHENHYDRAMINE HCL INJ 50 MG/ML VIAL IV SCH ×2 (18:05→23:13)
[2017-03-21] MEDS: METOCLOPRAMIDE HCL 10 MG/2ML VIAL IV SCH ×2 (18:05→23:13)
[2017-03-22] VITALS (52 sets, daily range): BP systolic 77–139; BP diastolic 35–85
[2017-03-22] MEDS: SODIUM CHLORIDE 0.9% 1000ML 1,000 ML IV SCH ×2 (01:00→12:30)
[2017-03-22] MEDS: MORPHINE SULFATE 2 MG/ML SYR IV PRN ×4 (01:51→19:00)
[2017-03-22] MEDS: ALBUTEROL SULF 0.083% NEB SOLN 3 ML NEB NEB SCH ×6 (02:15→23:45)
[2017-03-22] MEDS: ACETAZOLAMIDE SODIUM 500 MG/VIAL IV SCH (03:04)
[2017-03-22] MEDS: PROPOFOL IV EMULSION 10MG/ML 100 ML IV PRN ×5 (03:17→23:33)
[2017-03-22] MEDS: DIPHENHYDRAMINE HCL INJ 50 MG/ML VIAL IV SCH ×4 (05:17→23:31)
[2017-03-22] MEDS: INSULIN REGULAR, HUMAN 100 UNIT/1 ML 3ML VIAL SQ SCH ×4 (05:17→23:22)
[2017-03-22] MEDS: METOCLOPRAMIDE HCL 10 MG/2ML VIAL IV SCH ×4 (05:17→23:31)
[2017-03-22 06:03] LABS: BASOPHILS % 0.1 % (0.0-1.0); EOSINOPHILS # (AUTO) 0.5 (0.0-0.4); EOSINOPHILS % 3.6 % (0.0-6.0); HEMATOCRIT 57.2 % (38.2-49.6); LYMPHOCYTES # (AUTO) 0.5 (1.0-3.2); LYMPHOCYTES % 3.5 % (18.0-39.1); MEAN CORPUSCULAR HEMOGLOBIN 25.1 pg (28-32); MEAN CORPUSCULAR VOLUME 89.8 fL (81-99); MONOCYTES # (AUTO) 1.2 (0.2-0.8); MONOCYTES % 8.4 % (4.4-11.3); NEUTROPHILS # (AUTO) 12.2 (2.1-6.9); NEUTROPHILS % 84.1 % (38.7-80.0); PLATELET COUNT 128 x10e3/uL (140-360); RED BLOOD COUNT 6.37 x10e6/uL (4.3-5.7); RED CELL DISTRIBUTION WIDTH 23.1 % (11.7-14.4)
[2017-03-22 06:14] LABS: INR 1.08; PROTHROMBIN TIME 14.6 seconds (11.9-14.5)
[2017-03-22 06:26] LABS: ALANINE AMINOTRANSFERASE 21 IU/L (0-55); ALBUMIN 2.3 g/dL (3.5-5.0); ALBUMIN/GLOBULIN RATIO 0.5 (0.8-2.0); ALKALINE PHOSPHATASE 55 IU/L (40-150); ANION GAP 13.5 mmol/L (8-16); BILIRUBIN,DIRECT 5.2 mg/dL (0.0-5.0); BLOOD UREA NITROGEN 18 mg/dL (7-26); BUN/CREATININE RATIO 21 (6-25); CALCIUM 8.1 mg/dL (8.4-10.2); CARBON DIOXIDE 26 mmol/L (22-29); CHLORIDE 102 mmol/L (98-107); CREATINE KINASE 701 IU/L (30-200); CREATININE, SERUM 0.84 mg/dL (0.72-1.25); EST GLOMERULAR FILTRATION RATE > 60 ML/MIN (60-); GLUCOSE 107 mg/dL (74-118); POTASSIUM 3.5 mmol/L (3.5-5.1); SODIUM 138 mmol/L (136-145)
[2017-03-22 07:02] LABS: EOSINOPHILS % (MANUAL) 2 % (0-7); LYMPHOCYTES % (MANUAL) 2 % (19-48); MONOCYTES % (MANUAL) 7 % (3.4-9.0); NEUTROPHILS % (MANUAL) 89 % (40-74)
[2017-03-22 07:03] LABS: ANISOCYTOSIS SLIGHT
[2017-03-22 07:04] LABS: PLATELET ESTIMATE SLIGHTLY DECREASED; PLATELET MORPHOLOGY COMMENT FEW GIANT; POIKILOCYTOSIS SLIGHT
[2017-03-22 07:05] LABS: HOWELL-JOLLY BODIES FEW; RBC MORPHOLOGY COMMENT ABNORMAL
--- NOTE | 2017-03-22 07:24 | Diagnostic Imaging Report ---
PROCEDURE: CHEST SINGLE (PORTABLE) COMPARISON: Patients [facility], , CHEST SINGLE (PORTABLE), 03/20/2017, 4:58. INDICATIONS: REPOSITION ET TUBE FINDINGS: LUNGS: Moderate pulmonary edema. PLEURA: No effusions or pneumothorax. HEART \T\ MEDIASTINUM: The heart is enlarged. ET tube at the clavicular heads. BONES \T\ SOFT TISSUES: No acute findings. CONCLUSION: Cardiomegaly with moderate pulmonary edema not significantly changed. Mert Ambrose D.O. Dictated by: Mert Ambrose D.O. on 03/22/2017 at 7:34 Electronically approved by: Mert Ambrose D.O. on 03/22/2017 at 7:34
[2017-03-22] MEDS: ASPIRIN 81 MG CHEW TAB PO SCH (10:03)
[2017-03-22] MEDS: FAMOTIDINE 20 MG/2 ML VIAL IV SCH ×2 (10:03→21:08)
[2017-03-22] MEDS: CARVEDILOL 12.5 MG TAB PO SCH ×2 (10:03→17:00)
[2017-03-22] MEDS: FUROSEMIDE INJ 10 MG/ML 4 ML VIAL IV SCH ×2 (10:03→21:08)
[2017-03-22] MEDS: LISINOPRIL 20 MG TAB PO SCH (10:03)
[2017-03-22 16:48] LABS: ABG HCO3 27 mmol/L (23-28); ABG PCO2 48 mmHg (41-51); ABG PH 7.36 (7.31-7.41); ABG PO2 63 mmHg (80-105)
[2017-03-22] MEDS: ENOXAPARIN SOD INJ 40 MG/0.4 ML SYR SC SCH (17:40)
[2017-03-22] MEDS: ACETAMINOPHEN 325 MG/10 ML UDC NG PRN (20:55)
[2017-03-23] VITALS (25 sets, daily range): BP systolic 104–130; BP diastolic 53–80
[2017-03-23] MEDS: SODIUM CHLORIDE 0.9% 1000ML 1,000 ML IV SCH ×3 (03:00→23:00)
[2017-03-23] MEDS: ALBUTEROL SULF 0.083% NEB SOLN 3 ML NEB NEB SCH ×6 (03:15→23:30)
[2017-03-23] MEDS: ACETAMINOPHEN 325 MG/10 ML UDC NG PRN ×2 (04:31→20:43)
[2017-03-23] MEDS: PROPOFOL IV EMULSION 10MG/ML 100 ML IV PRN ×4 (04:31→23:58)
[2017-03-23] MEDS: MORPHINE SULFATE 2 MG/ML SYR IV PRN ×2 (04:54→09:09)
[2017-03-23] MEDS: INSULIN REGULAR, HUMAN 100 UNIT/1 ML 3ML VIAL SQ SCH ×4 (05:20→23:44)
[2017-03-23 06:00] LABS: BASOPHILS # (AUTO) 0.1 (0.0-0.1); BASOPHILS % 0.3 % (0.0-1.0); EOSINOPHILS # (AUTO) 0.4 (0.0-0.4); EOSINOPHILS % 2.4 % (0.0-6.0); HEMATOCRIT 55.5 % (38.2-49.6); HEMOGLOBIN 15.8 g/dL (14.0-18.0); LYMPHOCYTES # (AUTO) 0.9 (1.0-3.2); LYMPHOCYTES % 5.1 % (18.0-39.1); MEAN CORPUSCULAR HEMOGLOBIN 25.3 pg (28-32); MEAN CORPUSCULAR HGB CONC 28.5 g/dL (31-35); MEAN CORPUSCULAR VOLUME 88.9 fL (81-99); MONOCYTES # (AUTO) 1.4 (0.2-0.8); MONOCYTES % 7.8 % (4.4-11.3); NEUTROPHILS # (AUTO) 14.8 (2.1-6.9); NEUTROPHILS % 83.9 % (38.7-80.0); PLATELET COUNT 129 x10e3/uL (140-360); RED BLOOD COUNT 6.24 x10e6/uL (4.3-5.7); RED CELL DISTRIBUTION WIDTH 23.2 % (11.7-14.4)
[2017-03-23] MEDS: DIPHENHYDRAMINE HCL INJ 50 MG/ML VIAL IV SCH ×4 (06:05→23:43)
[2017-03-23] MEDS: METOCLOPRAMIDE HCL 10 MG/2ML VIAL IV SCH ×4 (06:05→23:43)
[2017-03-23 06:30] LABS: ALANINE AMINOTRANSFERASE 19 IU/L (0-55); ALBUMIN 2.3 g/dL (3.5-5.0); ALKALINE PHOSPHATASE 61 IU/L (40-150); ANION GAP 14.8 mmol/L (8-16); BILIRUBIN,DIRECT 5.8 mg/dL (0.0-5.0); BLOOD UREA NITROGEN 19 mg/dL (7-26); BUN/CREATININE RATIO 23 (6-25); CALCIUM 8.6 mg/dL (8.4-10.2); CARBON DIOXIDE 27 mmol/L (22-29); CHLORIDE 101 mmol/L (98-107); CREATININE, SERUM 0.82 mg/dL (0.72-1.25); EST GLOMERULAR FILTRATION RATE > 60 ML/MIN (60-); GLUCOSE 105 mg/dL (74-118); MAGNESIUM 1.7 MG/DL (1.3-2.1); POTASSIUM 3.8 mmol/L (3.5-5.1); SODIUM 139 mmol/L (136-145)
[2017-03-23 07:04] LABS: PLATELET ESTIMATE SLIGHTLY DECREASED; PLATELET MORPHOLOGY COMMENT FEW LARGE; POIKILOCYTOSIS SLIGHT; RBC MORPHOLOGY COMMENT ABNORMAL
[2017-03-23 07:05] LABS: ANISOCYTOSIS SLIG
[2017-03-23] MEDS: ASPIRIN 81 MG CHEW TAB PO SCH (09:00)
[2017-03-23] MEDS: CARVEDILOL 12.5 MG TAB PO SCH ×2 (09:00→18:42)
[2017-03-23] MEDS: LISINOPRIL 20 MG TAB PO SCH (09:00)
[2017-03-23] MEDS: FAMOTIDINE 20 MG/2 ML VIAL IV SCH ×2 (09:09→20:43)
[2017-03-23] MEDS: FUROSEMIDE INJ 10 MG/ML 4 ML VIAL IV SCH ×2 (09:31→20:43)
[2017-03-23 18:01] LABS: AMYLASE 19 U/L (25-125); LIPASE 9 U/L (8-78)
[2017-03-23] MEDS: ENOXAPARIN SOD INJ 40 MG/0.4 ML SYR SC SCH (18:42)
--- NOTE | 2017-03-23 18:51 | Consultation ---
DATE OF CONSULTATION: March 23, 2017 REASON FOR CONSULTATION: 1. Recommendation for antibiotic. 2. Fever. 3. Polyphagia. 4. Pneumonia. HISTORY OF PRESENT ILLNESS: This patient is a 32-year-old gentleman who is morbidly obese patient. He is more than 500 pounds with Pickwickian obstructive sleep apnea and pulmonary hypertension. Comes into the hospital at [facility] with shortness of breath for 3 to 4 days. The patient came to the emergency room and he had to be intubated urgently. He was hypercapnic. Patient has been in the intensive care unit. He has been on several courses of antibiotics and infectious disease consulted for fever. The patient is currently on the vent, comfortable and sedated. PAST MEDICAL HISTORY: Morbidly obese patient with hypertension, diabetes mellitus, Pickwickian syndrome, chronic respiratory failure and home oxygen, chronic asthma, obstructive sleep apnea, and hypertension. PAST SURGICAL HISTORY: Denied. ALLERGIES: NKA. SOCIAL HISTORY: Does not smoke. No drug abuse or alcohol abuse. FAMILY HISTORY: Hypertension and diabetes. HOME MEDICATIONS: He is on carvedilol, lisinopril, aspirin and metformin. Started on Lasix. REVIEW OF SYSTEMS: Could not be obtained except for the skin rash which was reported to me by RN, nothing new. He is intubated and comfortable. LABORATORY DATA: Reviewed. His white count is 17.6, hemoglobin 15ed hematocrit 55, his platelets are 129. Neutrophils 14.8. Blood gas 7.46, pCO2 of 48, pO2 of 63. Sodium 139, potassium 3.9, creatinine 0.82, magnesium 1.7, bilirubin 7.9. MEDICATIONS: He is currently on albuterol, furosemide, propofol, Pepcid, hydralazine, aspirin. PHYSICAL EXAMINATION: GENERAL: He is intubated, comfortable. VITAL SIGNS: Stable, afebrile now. No fever since admission. HEENT: Anicteric. NECK: Supple. CHEST: Hard to assess, just a few crackles. COR: No murmurs. ABDOMEN: Soft, obese. SKIN: Has diffuse erythematous rash. He had a CT of the abdomen and pelvis which was unremarkable, maybe pneumonia in the lower bases versus atelectasis. He had cardiomegaly. IMPRESSION: 1. Respiratory failure. 2. He will be followed by critical care and cardiology. 3. Skin rash, probably drug related. 4. Elevated bilirubin, rule out stasis, maybe from medication versus other. He had a CT scan that did not show any abnormality of the liver. I would suggest to continue antibiotics. I do not think he has pneumonia at the present time, and even if he did, it has been treated in the first few days with antibiotic. Will recheck CBC, recheck chem panel. Will check CBC with diff. Will observe this rash. He had diffuse papular rash all over his abdomen. Will follow. Job#: [id number]
[2017-03-24] VITALS (73 sets, daily range): BP systolic 61–165; BP diastolic 44–110
[2017-03-24] MEDS: ALBUTEROL SULF 0.083% NEB SOLN 3 ML NEB NEB SCH ×5 (03:30→20:00)
[2017-03-24 05:52] LABS: BASOPHILS # (AUTO) 0.1 (0.0-0.1); BASOPHILS % 0.5 % (0.0-1.0); EOSINOPHILS # (AUTO) 0.4 (0.0-0.4); EOSINOPHILS % 3.7 % (0.0-6.0); HEMATOCRIT 57.3 % (38.2-49.6); HEMOGLOBIN 15.9 g/dL (14.0-18.0); LYMPHOCYTES # (AUTO) 0.9 (1.0-3.2); LYMPHOCYTES % 7.6 % (18.0-39.1); MEAN CORPUSCULAR HEMOGLOBIN 24.9 pg (28-32); MEAN CORPUSCULAR HGB CONC 27.7 g/dL (31-35); MEAN CORPUSCULAR VOLUME 89.7 fL (81-99); MONOCYTES % 8.5 % (4.4-11.3); NEUTROPHILS % 79.3 % (38.7-80.0); PLATELET COUNT 158 x10e3/uL (140-360); RED BLOOD COUNT 6.39 x10e6/uL (4.3-5.7); RED CELL DISTRIBUTION WIDTH 23.4 % (11.7-14.4)
[2017-03-24] MEDS: DIPHENHYDRAMINE HCL INJ 50 MG/ML VIAL IV SCH ×3 (05:59→18:19)
[2017-03-24] MEDS: INSULIN REGULAR, HUMAN 100 UNIT/1 ML 3ML VIAL SQ SCH ×3 (05:59→18:00)
[2017-03-24] MEDS: METOCLOPRAMIDE HCL 10 MG/2ML VIAL IV SCH ×3 (05:59→18:20)
[2017-03-24 06:12] LABS: ALANINE AMINOTRANSFERASE 19 IU/L (0-55); ALBUMIN 2.3 g/dL (3.5-5.0); ALBUMIN/GLOBULIN RATIO 0.4 (0.8-2.0); ALKALINE PHOSPHATASE 64 IU/L (40-150); ANION GAP 13.5 mmol/L (8-16); BLOOD UREA NITROGEN 19 mg/dL (7-26); BUN/CREATININE RATIO 23 (6-25); CALCIUM 8.6 mg/dL (8.4-10.2); CARBON DIOXIDE 28 mmol/L (22-29); CHLORIDE 101 mmol/L (98-107); CREATININE, SERUM 0.83 mg/dL (0.72-1.25); EST GLOMERULAR FILTRATION RATE > 60 ML/MIN (60-); GLUCOSE 88 mg/dL (74-118); MAGNESIUM 1.7 MG/DL (1.3-2.1); POTASSIUM 3.5 mmol/L (3.5-5.1); SODIUM 139 mmol/L (136-145)
[2017-03-24] MEDS ORDERED: LIDOCAINE 1% W/EPINEPHRINE 20 ML VIAL ONE (06:26)
--- NOTE | 2017-03-24 06:33 | Diagnostic Imaging Report ---
EXAM: CHEST SINGLE (PORTABLE), AP 1 view ORDER DATE: 03/24/2017 5:00 AM Time stamp on exam: 0555 hours INDICATION: Pneumonia COMPARISON: 03/20/2017 FINDINGS: LINES/TUBES: Endotracheal tube terminates approximately 7.4 cm above the kvng. Advancement is recommended. Nasal/orogastric tube courses below the diaphragm the tip is not seen. LUNGS: Diffuse opacification of the lung fraser, worsening PLEURA: Small left pleural effusion is suspected HEART AND MEDIASTINUM: Severe enlargement of the cardiomediastinal silhouette. BONES AND SOFT TISSUES: No acute findings. IMPRESSION: Worsening airspace disease and consolidation suggestive of ARDS Endotracheal tube repositioning is advised Signed by: Dr. Antione Mcdaniel M.D. on 03/24/2017 6:29 AM
[2017-03-24] MEDS: PROPOFOL IV EMULSION 10MG/ML 100 ML IV PRN ×11 (06:50→22:00)
[2017-03-24 07:46] LABS: ANISOCYTOSIS SLIGHT; BAND NEUTROPHILS % (MANUAL) 1 %; EOSINOPHILS % (MANUAL) 2 % (0-7); LYMPHOCYTES % (MANUAL) 13 % (19-48); MONOCYTES % (MANUAL) 8 % (3.4-9.0); NEUTROPHILS % (MANUAL) 76 % (40-74); PLATELET ESTIMATE ADEQUATE; PLATELET MORPHOLOGY COMMENT FEW LARGE
[2017-03-24 07:47] LABS: POIKILOCYTOSIS SLIGHT
[2017-03-24 07:48] LABS: RBC MORPHOLOGY COMMENT NORMAL
--- NOTE | 2017-03-24 08:33 | Operative Report ---
DATE OF PROCEDURE: March 24, 2017 PREOPERATIVE DIAGNOSIS: Respiratory failure. POSTOPERATIVE DIAGNOSIS: Respiratory failure. PROCEDURE: Tracheostomy with #8 Shiley XLT proximal tracheostomy tube. ANESTHESIA: General. ESTIMATED BLOOD LOSS: Less than 10 mL. COMPLICATIONS: None. OPERATIVE FINDINGS: Normal neck anatomy. OPERATIVE INDICATIONS: This 32-year-old obese man presents with a history of pickwickian syndrome and respiratory failure. He has required prolonged ventilator support, and it is anticipated he will continue to need ventilator support and subsequent pulmonary toilette. The risks, benefits and alternatives to surgical intervention were discussed with the patient, and he gave his informed consent to have this procedure performed. NARRATIVE REPORT: After first obtaining adequate general endotracheal anesthesia through a previously placed endotracheal tube, the area of incision was infiltrated with 1% lidocaine with epinephrine 1:100,000. A total of 10 mL was used. The patient was then prepped and draped in the usual fashion. A 3-cm incision was then made 2 cm above the sternal notch and carried through the subcutaneous tissues with the Bovie educational coordinator. The strap muscles were identified and divided in the midline with the Debra hemostat, and reflected laterally with the Gelpi retractor. The thyroid isthmus was transected using the Bovie educational coordinator. A cricoid hook was inserted. An incision was then made between the 2nd and 3rd tracheal ring with a 15 blade. An inferiorly based flap was then created using curved Neal scissors. The endotracheal tube was partially withdrawn. A #8 Shiley XLT proximal tracheostomy tube then easily inserted through the tracheostomy site. CO2 was confirmed on exhaled gases. The retractors were then removed. The tracheostomy tube was sutured in place with 2-0 nylon and trach ties were applied. The patient was in satisfactory condition at the termination of the procedure. Job#: [id number] NEENA
[2017-03-24] MEDS: FUROSEMIDE INJ 10 MG/ML 4 ML VIAL IV SCH ×2 (09:49→21:00)
[2017-03-24] MEDS: ASPIRIN 81 MG CHEW TAB PO SCH (09:49)
[2017-03-24] MEDS: FAMOTIDINE 20 MG/2 ML VIAL IV SCH ×2 (09:49→21:00)
[2017-03-24] MEDS: LISINOPRIL 20 MG TAB PO SCH (09:50)
[2017-03-24] MEDS: CARVEDILOL 12.5 MG TAB PO SCH ×3 (09:50→21:00)
[2017-03-24] MEDS: MORPHINE SULFATE 2 MG/ML SYR IV PRN ×5 (11:35→22:00)
[2017-03-24] MEDS: ACETAMINOPHEN 325 MG/10 ML UDC NG PRN (13:30)
[2017-03-24 13:57] LABS: ABG HCO3 30 mmol/L (23-28); ABG PCO2 55 mmHg (41-51); ABG PH 7.35 (7.31-7.41); ABG PO2 54 mmHg (80-105)
[2017-03-24] MEDS ORDERED: MEROPENEM 500MG 500 MG in SODIUM CHLORIDE 0.9% 50ML 50 ML IV SCH (15:15)
[2017-03-24] MEDS: SODIUM CHLORIDE 0.9% 1000ML 1,000 ML IV SCH (15:23)
[2017-03-24] MEDS ORDERED: MEROPENEM 500 MG VIAL IV ONE (15:30)
[2017-03-24] MEDS ORDERED: SODIUM CHLORIDE 0.9% 250ML 250 ML ONE (16:19)
[2017-03-24] MEDS: METHYLPREDNISOLONE SOD SUCC 40 MG/ML VIAL IV SCH (16:24)
--- NOTE | 2017-03-24 16:29 | Progress Note ---
DATE: March 24, 2017 SUBJECTIVE: Mr. Zavala remains on the vent. His vent settings reviewed, seems a bit worse. OBJECTIVE VITAL SIGNS: He had fever today, now 101. HEENT: Normocephalic. CHEST: Few rhonchi. COR: S1 and S2. No murmur. ABDOMEN: Soft. SKIN: The skin rash seemed to be diffuse and erythematous. IMPRESSION 1. New fever, concerned about hospital-acquired pneumonia, vent related. We will start him on linezolid and meropenem. 2. Skin rash, probably drug related. I am not so sure it was Zosyn or the vancomycin. We will start him on Benadryl. 3. Concern about acute respiratory distress syndrome now. 4. Fever. We will check blood cultures. It could be infection versus developing acute respiratory distress syndrome. We will discuss with Dr. Barnes. 5. Fever could be related to acute respiratory distress syndrome. 6. We will follow with you. Prognosis is guarded. Job#: [id number] VAS
[2017-03-24] MEDS ORDERED: ROCURONIUM BROMIDE 10 MG/ML 5ML VIAL ONE (17:35)
[2017-03-24] MEDS ORDERED: SEVOFLURANE INHAL SOLN 250 ML PEN BTL ONE (17:35)
[2017-03-24] MEDS ORDERED: PROPOFOL IV EMULSION 10 MG/ML 20 ML VIAL ONE (17:35)
[2017-03-24] MEDS ORDERED: DESFLURANE 240 ML BTL INH ONE (17:35)
[2017-03-24] MEDS ORDERED: MIDAZOLAM HCL 2 MG/2 ML VIAL ONE (17:45)
[2017-03-24] MEDS ORDERED: FENTANYL CITRATE/PF 100MCG/2 ML INJ ONE (17:45)
[2017-03-24] MEDS: ENOXAPARIN SOD INJ 40 MG/0.4 ML SYR SC SCH (18:00)
[2017-03-24] MEDS: LINEZOLID 600 MG/D5W 300ML 300 ML IV SCH (18:20)
[2017-03-25] VITALS (81 sets, daily range): BP systolic 100–134; BP diastolic 57–86
[2017-03-25] MEDS: ALBUTEROL SULF 0.083% NEB SOLN 3 ML NEB NEB SCH ×7 (00:15→23:35)
[2017-03-25] MEDS: MORPHINE SULFATE 2 MG/ML SYR IV PRN ×3 (00:30→21:29)
[2017-03-25] MEDS: PROPOFOL IV EMULSION 10MG/ML 100 ML IV PRN ×12 (02:02→22:30)
[2017-03-25 05:33] LABS: BASOPHILS % 0.5 % (0.0-1.0); EOSINOPHILS # (AUTO) 0.3 (0.0-0.4); EOSINOPHILS % 3.7 % (0.0-6.0); LYMPHOCYTES % 11.2 % (18.0-39.1); MEAN CORPUSCULAR HEMOGLOBIN 24.9 pg (28-32); MEAN CORPUSCULAR HGB CONC 27.8 g/dL (31-35); MEAN CORPUSCULAR VOLUME 89.7 fL (81-99); MONOCYTES # (AUTO) 0.8 (0.2-0.8); MONOCYTES % 9.5 % (4.4-11.3); NEUTROPHILS # (AUTO) 6.6 (2.1-6.9); NEUTROPHILS % 74.6 % (38.7-80.0); PLATELET COUNT 191 x10e3/uL (140-360); RED BLOOD COUNT 6.02 x10e6/uL (4.3-5.7)
[2017-03-25] MEDS: INSULIN REGULAR, HUMAN 100 UNIT/1 ML 3ML VIAL SQ SCH ×4 (05:51→18:00)
[2017-03-25 05:52] LABS: ALANINE AMINOTRANSFERASE 15 IU/L (0-55); ALBUMIN 2.1 g/dL (3.5-5.0); ALBUMIN/GLOBULIN RATIO 0.4 (0.8-2.0); ALKALINE PHOSPHATASE 59 IU/L (40-150); ANION GAP 13.5 mmol/L (8-16); BLOOD UREA NITROGEN 21 mg/dL (7-26); BUN/CREATININE RATIO 25 (6-25); CALCIUM 8.4 mg/dL (8.4-10.2); CARBON DIOXIDE 29 mmol/L (22-29); CHLORIDE 100 mmol/L (98-107); CREATININE, SERUM 0.83 mg/dL (0.72-1.25); EST GLOMERULAR FILTRATION RATE > 60 ML/MIN (60-); GLUCOSE 87 mg/dL (74-118); POTASSIUM 3.5 mmol/L (3.5-5.1); SODIUM 139 mmol/L (136-145)
[2017-03-25] MEDS: DIPHENHYDRAMINE HCL INJ 50 MG/ML VIAL IV SCH ×3 (06:08→17:18)
[2017-03-25] MEDS: METOCLOPRAMIDE HCL 10 MG/2ML VIAL IV SCH ×4 (06:08→17:18)
[2017-03-25] MEDS: METHYLPREDNISOLONE SOD SUCC 40 MG/ML VIAL IV SCH (06:08)
[2017-03-25] MEDS: LINEZOLID 600 MG/D5W 300ML 300 ML IV SCH ×2 (06:08→17:19)
--- NOTE | 2017-03-25 06:21 | Diagnostic Imaging Report ---
EXAM: CHEST SINGLE (PORTABLE), AP 1 view ORDER DATE: 03/25/2017 6:30 AM Time stamp on exam: 0527 hours INDICATION: Respiratory failure COMPARISON: 03/24/2017 and 03/22/2017 FINDINGS: LINES/TUBES: Endotracheal tube terminates approximately 3.6 cm above the kvng. Nasal/orogastric tube courses below the diaphragm the tip is not seen. LUNGS: Diffuse opacification of the lung fraser, slightly improved PLEURA: Small left pleural effusion is suspected HEART AND MEDIASTINUM: Severe enlargement of the cardiomediastinal silhouette. BONES AND SOFT TISSUES: No acute findings. IMPRESSION: Slightly improved airspace disease and consolidation suggestive of ARDS Endotracheal tube is in good position Signed by: Dr. Antione Mcdaniel M.D. on 03/25/2017 6:18 AM
[2017-03-25] MEDS ORDERED: DEXTROSE 5%/0.45% SOD CHL 1,000 ML IV SCH (07:15)
--- NOTE | 2017-03-25 08:44 | Progress Note ---
DATE: March 25, 2017 TIME: 6:57 a.m. OVERNIGHT: Patient underwent tracheostomy placement. REVIEW OF SYSTEMS: Unobtainable. VITAL SIGNS: Have been reviewed. Currently on 100% FiO2 ventilatory support. T-max here was 100.5. Blood pressure as low as 97/54. PHYSICAL EXAMINATION GENERAL: A tired-appearing man resting in bed. HEENT: He has ET tube in place and OG tube in place. CARDIOVASCULAR: Normal S1 and S2. LUNGS: He has reduced breath sounds throughout. ABDOMEN: Soft, nontender, nondistended. EXTREMITIES: He has trace edema. SKIN: Dry. PSYCHIATRIC: Unable to assess. NEUROLOGIC: Not interactive, sedated. LABS: Reviewed. MEDICATIONS: Reviewed. ASSESSMENT AND PLAN: A 32-year-old man. 1. Acute respiratory failure/acute exacerbation of chronic obstructive pulmonary disease. He is status post tracheostomy. Continue vent support. He is on 100% FiO2. Will obtain ABG now. 2. Acute respiratory distress syndrome/pneumonia. Will continue regimen with Solu-Medrol 20 IV q.12 h., linezolid IV, furosemide 40 IV q.12 h. 3. Peripheral edema. Will continue diuretics. 4. Severe sepsis. Patient continues to have fever, low blood pressure. Leukocytosis has been improving. Continue antibiotics as described above. 5. Hyperbilirubinemia with bilirubin in the urine. Bilirubin now is 5.1 GI service on board. Will defer to GI at this time. 6. Hypoglycemia. Will use D5 half-normal saline for nutritional support at this time while the OG tube is on suction. He will need a PEG tube placement. GI service is on board. 7. Prophylaxis: Will continue Lovenox and Pepcid. 8. Disposition: Will hold antihypertensive medications. Will start D5 half-normal for nutritional support. Will ask GI to place a PEG tube. Will continue to treat his severe sepsis and acute respiratory failure with ARDS. Will obtain ABG now. Critical care time more than 35 minutes. Job#: [id number]
[2017-03-25 09:10] LABS: ABG PCO2 58 mmHg (41-51); ABG PH 7.33 (7.31-7.41); ABG PO2 65 mmHg (80-105)
[2017-03-25 09:11] LABS: ABG HCO3 31 mmol/L (23-28)
[2017-03-25] MEDS: ASPIRIN 81 MG CHEW TAB PO SCH (09:14)
[2017-03-25] MEDS: FUROSEMIDE INJ 10 MG/ML 4 ML VIAL IV SCH ×2 (09:14→21:28)
[2017-03-25] MEDS: LISINOPRIL 20 MG TAB PO SCH (09:14)
[2017-03-25] MEDS: FAMOTIDINE 20 MG/2 ML VIAL IV SCH ×2 (09:14→21:28)
[2017-03-25] MEDS: MEROPENEM 500 MG VIAL IV SCH ×2 (11:04→17:18)
[2017-03-25] MEDS ORDERED: MEROPENEM 500MG 500 MG in SODIUM CHLORIDE 0.9% 50ML 50 ML IV SCH (12:00)
[2017-03-25] MEDS: SODIUM CHLORIDE 0.9% 1000ML 1,000 ML IV SCH (15:00)
[2017-03-25] MEDS: ENOXAPARIN SOD INJ 40 MG/0.4 ML SYR SC SCH (17:18)
[2017-03-25] MEDS: CARVEDILOL 12.5 MG TAB PO SCH (17:19)
[2017-03-25] MEDS: HYDROCORTISONE SOD SUCCINATE 100 MG VIAL IV SCH (21:28)
[2017-03-26] VITALS (53 sets, daily range): BP systolic 90–137; BP diastolic 50–96
[2017-03-26] MEDS: DIPHENHYDRAMINE HCL INJ 50 MG/ML VIAL IV SCH ×4 (00:07→18:11)
[2017-03-26] MEDS: MEROPENEM 500 MG VIAL IV SCH ×4 (00:07→18:11)
[2017-03-26] MEDS: METOCLOPRAMIDE HCL 10 MG/2ML VIAL IV SCH ×4 (00:19→18:11)
[2017-03-26] MEDS: PROPOFOL IV EMULSION 10MG/ML 100 ML IV PRN ×14 (01:09→23:04)
[2017-03-26] MEDS: ALBUTEROL SULF 0.083% NEB SOLN 3 ML NEB NEB SCH ×6 (02:05→23:50)
[2017-03-26 05:45] LABS: BASOPHILS # (AUTO) 0.1 (0.0-0.1); BASOPHILS % 0.8 % (0.0-1.0); EOSINOPHILS # (AUTO) 0.1 (0.0-0.4); EOSINOPHILS % 1.6 % (0.0-6.0); HEMATOCRIT 54.7 % (38.2-49.6); HEMOGLOBIN 15.1 g/dL (14.0-18.0); LYMPHOCYTES # (AUTO) 0.9 (1.0-3.2); LYMPHOCYTES % 12.4 % (18.0-39.1); MEAN CORPUSCULAR HEMOGLOBIN 24.8 pg (28-32); MEAN CORPUSCULAR HGB CONC 27.6 g/dL (31-35); MONOCYTES # (AUTO) 0.9 (0.2-0.8); MONOCYTES % 11.9 % (4.4-11.3); NEUTROPHILS # (AUTO) 5.3 (2.1-6.9); NEUTROPHILS % 72.8 % (38.7-80.0); PLATELET COUNT 232 x10e3/uL (140-360); RED BLOOD COUNT 6.08 x10e6/uL (4.3-5.7); RED CELL DISTRIBUTION WIDTH 23.1 % (11.7-14.4)
[2017-03-26] MEDS: LINEZOLID 600 MG/D5W 300ML 300 ML IV SCH ×2 (06:00→18:16)
[2017-03-26 06:01] LABS: ALANINE AMINOTRANSFERASE 16 IU/L (0-55); ALBUMIN 2.2 g/dL (3.5-5.0); ALBUMIN/GLOBULIN RATIO 0.4 (0.8-2.0); ALKALINE PHOSPHATASE 60 IU/L (40-150); ANION GAP 12.7 mmol/L (8-16); BLOOD UREA NITROGEN 22 mg/dL (7-26); BUN/CREATININE RATIO 29 (6-25); CALCIUM 7.5 mg/dL (8.4-10.2); CARBON DIOXIDE 31 mmol/L (22-29); CHLORIDE 98 mmol/L (98-107); CREATININE, SERUM 0.76 mg/dL (0.72-1.25); EST GLOMERULAR FILTRATION RATE > 60 ML/MIN (60-); GLUCOSE 108 mg/dL (74-118); POTASSIUM 3.7 mmol/L (3.5-5.1); SODIUM 138 mmol/L (136-145)
--- NOTE | 2017-03-26 07:09 | Diagnostic Imaging Report ---
EXAM: CHEST SINGLE (PORTABLE), AP 1 view ORDER DATE: 03/26/2017 6:30 AM Time stamp on exam: 0639 hours INDICATION: Respiratory failure COMPARISON: 03/25/2017 and 03/24/2017 FINDINGS: LINES/TUBES: Endotracheal tube terminates approximately 3.6 cm above the kvng. Nasal/orogastric tube courses below the diaphragm the tip is not seen. LUNGS: Diffuse opacification of the lung fraser, unchanged PLEURA: Small left pleural effusion is suspected HEART AND MEDIASTINUM: Severe enlargement of the cardiomediastinal silhouette. BONES AND SOFT TISSUES: No acute findings. IMPRESSION: 1. No interval change in airspace disease and consolidation suggestive of ARDS 2. Endotracheal tube is in good position Signed by: Dr. Antione Mcdaniel M.D. on 03/26/2017 7:05 AM
[2017-03-26] MEDS: INSULIN REGULAR, HUMAN 100 UNIT/1 ML 3ML VIAL SQ SCH ×4 (07:17→18:00)
[2017-03-26] MEDS: SODIUM CHLORIDE 0.9% 1000ML 1,000 ML IV SCH (09:15)
[2017-03-26] MEDS: CARVEDILOL 12.5 MG TAB PO SCH ×2 (09:42→16:12)
[2017-03-26] MEDS: HYDROCORTISONE SOD SUCCINATE 100 MG VIAL IV SCH ×2 (09:42→22:00)
[2017-03-26] MEDS: FUROSEMIDE INJ 10 MG/ML 4 ML VIAL IV SCH ×2 (09:42→21:00)
[2017-03-26] MEDS: ASPIRIN 81 MG CHEW TAB PO SCH (09:42)
[2017-03-26] MEDS: FAMOTIDINE 20 MG/2 ML VIAL IV SCH ×2 (09:42→22:00)
[2017-03-26] MEDS: LISINOPRIL 20 MG TAB PO SCH (09:43)
[2017-03-26] MEDS: MORPHINE SULFATE 2 MG/ML SYR IV PRN ×2 (12:10→18:26)
--- NOTE | 2017-03-26 15:14 | Progress Note ---
DATE: March 26, 2017 TIME: 2 p.m. OVERNIGHT: Now on 90% FiO2 oxygen. PHYSICAL EXAMINATION GENERAL: Resting in bed. OGT tube in place. Tracheostomy in place. CARDIOVASCULAR: Normal S1 and S2. LUNGS: He has reduced breath sounds throughout. ABDOMEN: Soft, nontender, nondistended. Large abdomen. EXTREMITIES: He has 1 to 2+ edema bilaterally. SKIN: Dry. PSYCHIATRIC: Unable to assess. NEUROLOGIC: Sedated. LABS: Reviewed. MEDICATIONS: Reviewed. ASSESSMENT: A 32-year-old man. 1. Acute respiratory failure/acute exacerbation of chronic obstructive pulmonary disease. 2. Acute respiratory distress syndrome/pneumonia. 3. Peripheral edema. 4. Severe sepsis. 5. Hyperbilirubinemia with biliverdin in the urine. 6. Hypoglycemia. PLAN 1. Continue ventilatory support. The patient is on 90% FiO2 now and PEEP 15. 2. He will need PEG tube placement. 3. Continue OG tube feeding. 4. Discontinue D5 half-normal saline. 5. Start insulin drip. 6. Patient remains net positive, and we need him to be net negative. 7. Renal function normal. 8. Hyperbilirubinemia. Bilirubin level went down a bit from 5.1 down to 3.8. 9. No leukocytosis at this time. No fever. 10. All cultures remain negative. 11. Continue supportive care at this time and high PEEP. Critical care time more than 35 minutes. Job#: [id number]
[2017-03-26] MEDS: FUROSEMIDE INJ 100 MG in SODIUM CHLORIDE 0.9% 100 ML 90 ML IV SCH (16:11)
[2017-03-26] MEDS: ENOXAPARIN SOD INJ 40 MG/0.4 ML SYR SC SCH (17:00)
[2017-03-27] VITALS (39 sets, daily range): BP systolic 120–159; BP diastolic 75–90
[2017-03-27] MEDS: MEROPENEM 500 MG VIAL IV SCH ×5 (00:08→23:48)
[2017-03-27] MEDS: METOCLOPRAMIDE HCL 10 MG/2ML VIAL IV SCH ×5 (00:08→23:48)
[2017-03-27] MEDS: PROPOFOL IV EMULSION 10MG/ML 100 ML IV PRN ×11 (00:10→22:55)
[2017-03-27] MEDS: FUROSEMIDE INJ 100 MG in SODIUM CHLORIDE 0.9% 100 ML 90 ML IV SCH ×2 (04:00→16:08)
[2017-03-27] MEDS: ALBUTEROL SULF 0.083% NEB SOLN 3 ML NEB NEB SCH ×6 (05:00→23:25)
[2017-03-27 05:39] LABS: ALANINE AMINOTRANSFERASE 17 IU/L (0-55); ALBUMIN 2.2 g/dL (3.5-5.0); ALBUMIN/GLOBULIN RATIO 0.4 (0.8-2.0); ALKALINE PHOSPHATASE 66 IU/L (40-150); ANION GAP 12.6 mmol/L (8-16); BLOOD UREA NITROGEN 25 mg/dL (7-26); BUN/CREATININE RATIO 32 (6-25); CALCIUM 8.2 mg/dL (8.4-10.2); CARBON DIOXIDE 29 mmol/L (22-29); CHLORIDE 97 mmol/L (98-107); CREATININE, SERUM 0.77 mg/dL (0.72-1.25); EST GLOMERULAR FILTRATION RATE > 60 ML/MIN (60-); GLUCOSE 118 mg/dL (74-118); POTASSIUM 3.6 mmol/L (3.5-5.1); SODIUM 135 mmol/L (136-145)
[2017-03-27] MEDS: INSULIN REGULAR, HUMAN 100 UNIT/1 ML 3ML VIAL SQ SCH ×5 (06:00→23:49)
[2017-03-27] MEDS: DIPHENHYDRAMINE HCL INJ 50 MG/ML VIAL IV SCH ×5 (06:06→23:48)
[2017-03-27] MEDS: LINEZOLID 600 MG/D5W 300ML 300 ML IV SCH ×2 (06:07→17:37)
[2017-03-27 06:38] LABS: BASOPHILS # (AUTO) 0.1 (0.0-0.1); BASOPHILS % 0.9 % (0.0-1.0); EOSINOPHILS # (AUTO) 0.1 (0.0-0.4); EOSINOPHILS % 1.3 % (0.0-6.0); HEMATOCRIT 55.4 % (38.2-49.6); HEMOGLOBIN 15.5 g/dL (14.0-18.0); LYMPHOCYTES # (AUTO) 0.6 (1.0-3.2); LYMPHOCYTES % 7.6 % (18.0-39.1); MEAN CORPUSCULAR HEMOGLOBIN 25.2 pg (28-32); MEAN CORPUSCULAR VOLUME 89.9 fL (81-99); MONOCYTES # (AUTO) 0.7 (0.2-0.8); MONOCYTES % 9.5 % (4.4-11.3); NEUTROPHILS # (AUTO) 6.3 (2.1-6.9); NEUTROPHILS % 80.3 % (38.7-80.0); PLATELET COUNT 262 x10e3/uL (140-360); RED BLOOD COUNT 6.16 x10e6/uL (4.3-5.7); RED CELL DISTRIBUTION WIDTH 22.8 % (11.7-14.4)
[2017-03-27] MEDS: SODIUM CHLORIDE 0.9% 1000ML 1,000 ML IV SCH (07:00)
--- NOTE | 2017-03-27 07:04 | Diagnostic Imaging Report ---
EXAM: CHEST SINGLE (PORTABLE), AP 1 view ORDER DATE: 03/27/2017 6:30 AM Time stamp on exam: 0619 hours INDICATION: COMPARISON: 11/23/2017 FINDINGS: LINES/TUBES: Endotracheal tube terminates approximately 5.8 cm above the kvng. Nasal/orogastric tube courses below the diaphragm the tip is not seen. LUNGS: Improving diffuse opacification of the lung fraser PLEURA: Small left pleural effusion is suspected HEART AND MEDIASTINUM: Severe enlargement of the cardiomediastinal silhouette. BONES AND SOFT TISSUES: No acute findings. IMPRESSION: 1. Improving diffuse airspace disease and consolidation suggestive of ARDS Signed by: Dr. Antione Mcdaniel M.D. on 03/27/2017 7:00 AM
[2017-03-27] MEDS: FUROSEMIDE INJ 10 MG/ML 4 ML VIAL IV SCH (09:30)
[2017-03-27] MEDS: FAMOTIDINE 20 MG/2 ML VIAL IV SCH ×2 (09:30→20:19)
[2017-03-27] MEDS: ASPIRIN 81 MG CHEW TAB PO SCH (09:30)
[2017-03-27] MEDS: LISINOPRIL 20 MG TAB PO SCH (09:30)
[2017-03-27] MEDS: HYDROCORTISONE SOD SUCCINATE 100 MG VIAL IV SCH ×2 (09:30→20:19)
[2017-03-27] MEDS: CARVEDILOL 12.5 MG TAB PO SCH ×2 (09:30→16:44)
--- NOTE | 2017-03-27 10:13 | Progress Note ---
DATE: March 27, 2017 TIME: 5:30 a.m. OVERNIGHT: Remains on Lasix drip. Patient on 90% FIO2 oxygen now. REVIEW OF SYSTEMS: Unobtainable. PHYSICAL EXAMINATION VITAL SIGNS: Have been reviewed. GENERAL: A tired-appearing man resting in bed. HEENT: He has an OG tube in place. He has a tracheostomy in place. CARDIOVASCULAR: Normal S1 and S2. LUNGS: He has coarse breath sounds reduced throughout. ABDOMEN: Large abdomen. EXTREMITIES: He has 1-2+ edema bilaterally, but less than compared to yesterday SKIN: Dry. PSYCHIATRIC: Unable to assess. NEUROLOGICAL: Sedated. LABS: Reviewed. MEDICATIONS: Reviewed. ASSESSMENT: A 32-year-old man with: 1. Acute respiratory failure/acute exacerbation of chronic obstructive pulmonary disease. 2. Peripheral edema/fluid overload. 3. Acute respiratory distress syndrome/pneumonia. 4. Severe sepsis. 5. Hyperbilirubinemia. 6. Hypoglycemia. PLAN 1. Continue ventilator support and now on 90% FIO2 oxygen, 15 of PEEP. 2. Continue diuresis. Need to keep the patient at least 1 L negative. 3. PEG tube placement is pending. 4. Continue feeding by OG tube. 5. Continue Lasix drip. 6. Hyperbilirubinemia. Total bilirubin was 3.8 yesterday and previously 5.1. Will follow up labs this morning. 7. Hyperammonemia. Ammonia was 90 on March 20, 2017. Will obtain an ammonia level today. 8. Place PICC line for better access. 9. Leukocytosis has resolved. 10. Patient is on propofol sedative. 11. Hepatitis panel is negative and flu screen is negative. 12. I's and O's are 1900/2900, -1 L. 13. Continue IV meropenem and stress dose steroids and IV linezolid. 14. Critical care time more than 35 minutes. Job#: [id number] NE
[2017-03-27] MEDS: MORPHINE SULFATE 2 MG/ML SYR IV PRN ×2 (10:45→14:16)
[2017-03-27 15:07] LABS: ABG HCO3 34 mmol/L (23-28); ABG PCO2 59 mmHg (41-51); ABG PH 7.37 (7.31-7.41); ABG PO2 71 mmHg (80-105)
--- NOTE | 2017-03-27 16:23 | Diagnostic Imaging Report ---
PROCEDURE: A single AP view of the chest obtained at 1537 hrs. COMPARISON: Chest x-ray 0619 hours. INDICATIONS: PICC PLACEMENT FINDINGS: Images are compromised due to patient's generous body habitus and underpenetration of the images. Lines/tubes: Right PICC line terminates in the axillary vein. It does not enter the chest. Tracheostomy is in appropriate position. Enteric tube extends past the diaphragm. Lungs: Diffuse groundglass attenuation could be due to atelectasis or infiltrate. The left diaphragm remains opacified Pleura: No large effusions or pneumothorax. Heart and mediastinum: Stable cardiomegaly. Bones: No new findings. IMPRESSION: 1. Right PICC line terminates in the axillary vein. Other support devices as described above. 2. Persistent retrocardiac airspace disease suggestive of atelectasis or infiltrate. Small pleural effusion cannot be excluded. 3. Bilateral air space opacities suggestive of atelectasis or infiltrate. 4. Stable cardiomegaly. Dictated by: Isma Philippe M.D. on 03/27/2017 at 16:33 Electronically approved by: Isma Philippe M.D. on 03/27/2017 at 16:33
[2017-03-27] MEDS: ENOXAPARIN SOD INJ 40 MG/0.4 ML SYR SC SCH (17:00)
[2017-03-27] MEDS: ACETAMINOPHEN 325 MG/10 ML UDC NG PRN (20:19)
[2017-03-28] VITALS (48 sets, daily range): BP systolic 94–163; BP diastolic 48–104
[2017-03-28] MEDS: PROPOFOL IV EMULSION 10MG/ML 100 ML IV PRN ×11 (00:36→23:00)
[2017-03-28] MEDS: SODIUM CHLORIDE 0.9% 1000ML 1,000 ML IV SCH ×2 (03:00→23:00)
[2017-03-28] MEDS: ALBUTEROL SULF 0.083% NEB SOLN 3 ML NEB NEB SCH ×6 (03:05→23:10)
[2017-03-28] MEDS: FUROSEMIDE INJ 100 MG in SODIUM CHLORIDE 0.9% 100 ML 90 ML IV SCH ×2 (04:42→16:31)
[2017-03-28] MEDS: DIPHENHYDRAMINE HCL INJ 50 MG/ML VIAL IV SCH ×4 (05:49→23:53)
[2017-03-28] MEDS: METOCLOPRAMIDE HCL 10 MG/2ML VIAL IV SCH ×4 (05:49→23:53)
[2017-03-28] MEDS: MEROPENEM 500 MG VIAL IV SCH ×4 (05:49→23:53)
[2017-03-28] MEDS: LINEZOLID 600 MG/D5W 300ML 300 ML IV SCH ×2 (05:49→17:30)
[2017-03-28] MEDS: INSULIN REGULAR, HUMAN 100 UNIT/1 ML 3ML VIAL SQ SCH ×4 (05:57→23:53)
[2017-03-28 06:01] LABS: BASOPHILS # (AUTO) 0.1 (0.0-0.1); BASOPHILS % 0.8 % (0.0-1.0); EOSINOPHILS # (AUTO) 0.2 (0.0-0.4); EOSINOPHILS % 1.8 % (0.0-6.0); HEMOGLOBIN 15.2 g/dL (14.0-18.0); LYMPHOCYTES # (AUTO) 1.2 (1.0-3.2); MEAN CORPUSCULAR HEMOGLOBIN 25.1 pg (28-32); MEAN CORPUSCULAR HGB CONC 28.1 g/dL (31-35); MEAN CORPUSCULAR VOLUME 89.3 fL (81-99); MONOCYTES % 10.1 % (4.4-11.3); NEUTROPHILS # (AUTO) 7.3 (2.1-6.9); NEUTROPHILS % 74.9 % (38.7-80.0); PLATELET COUNT 248 x10e3/uL (140-360); RED BLOOD COUNT 6.05 x10e6/uL (4.3-5.7); RED CELL DISTRIBUTION WIDTH 22.5 % (11.7-14.4)
--- NOTE | 2017-03-28 06:29 | Diagnostic Imaging Report ---
CHEST SINGLE (PORTABLE), 03/28/2017 6:00 AM Technique: CHEST SINGLE (PORTABLE) Comparison: 03/27/2017 Clinical history: Respiratory failure Findings: See Impression Impression: Study is degraded by body habitus/portable technique. 1. Lines/Tubes: ET tube 6.9 cm above the kvng. NG tube extends subdiaphragmatically. 2. Persistent diffuse bilateral opacities which could reflect a component of edema or ARDS. 3. Cardiomediastinal silhouette is obscured. 4. Right costophrenic angle is excluded. Signed by: Dr Sasha Milton MD on 03/28/2017 6:25 AM
[2017-03-28 06:30] LABS: ALANINE AMINOTRANSFERASE 19 IU/L (0-55); ALBUMIN 2.2 g/dL (3.5-5.0); ALBUMIN/GLOBULIN RATIO 0.4 (0.8-2.0); ALKALINE PHOSPHATASE 76 IU/L (40-150); ANION GAP 12.3 mmol/L (8-16); BLOOD UREA NITROGEN 20 mg/dL (7-26); BUN/CREATININE RATIO 29 (6-25); CALCIUM 7.5 mg/dL (8.4-10.2); CARBON DIOXIDE 33 mmol/L (22-29); CHLORIDE 101 mmol/L (98-107); EST GLOMERULAR FILTRATION RATE > 60 ML/MIN (60-); GLUCOSE 100 mg/dL (74-118); POTASSIUM 3.3 mmol/L (3.5-5.1); SODIUM 143 mmol/L (136-145)
[2017-03-28 07:40] LABS: ANISOCYTOSIS SLIGHT; HYPOCHROMASIA SLIGHT; PLATELET ESTIMATE ADEQUATE; PLATELET MORPHOLOGY COMMENT FEW LARGE; RBC MORPHOLOGY COMMENT NORMAL
[2017-03-28] MEDS: FAMOTIDINE 20 MG/2 ML VIAL IV SCH ×2 (08:13→20:19)
[2017-03-28] MEDS: HYDROCORTISONE SOD SUCCINATE 100 MG VIAL IV SCH ×2 (08:13→20:19)
[2017-03-28] MEDS: ASPIRIN 81 MG CHEW TAB PO SCH (08:13)
[2017-03-28] MEDS: LISINOPRIL 20 MG TAB PO SCH (08:14)
[2017-03-28] MEDS: CARVEDILOL 12.5 MG TAB PO SCH ×2 (08:14→17:30)
--- NOTE | 2017-03-28 12:11 | Diagnostic Imaging Report ---
PROCEDURE: A single AP view of the chest. COMPARISON: Portable chest 03/28/2017 at 0555 hrs.. INDICATIONS: PICC LINE PLACEMENT FINDINGS: Lines/tubes: Tracheostomy catheter is present with the tip projecting over the expected region of the trachea, position 4 cm from the kvng. Enteric feeding catheter is present with the tip extending below the inferior margin of the examination, likely within the gastric body. Interval removal of a right peripherally inserted central venous catheter. Lungs: Bilateral multifocal airspace opacities. Pleura: There is no pleural effusion or pneumothorax. Heart and mediastinum: The heart and the mediastinum are unremarkable. Bones: No acute bony abnormality. IMPRESSION: Bilateral multifocal airspace opacities may represent edema or pneumonia. Dictated by: Paulo Chapa M.D. on 03/28/2017 at 12:20 Electronically approved by: Paulo Chapa M.D. on 03/28/2017 at 12:20
[2017-03-28] MEDS: MORPHINE SULFATE 2 MG/ML SYR IV PRN (14:09)
--- NOTE | 2017-03-28 14:18 | Diagnostic Imaging Report ---
PROCEDURE: A single AP view of the chest. COMPARISON: Portable chest 03/28/2017. INDICATIONS: PICC LINE PLACEMENT FINDINGS: Lines/tubes: Right peripherally inserted central venous catheter with tip projecting over the expected region of the left brachiocephalic vein. Tracheostomy catheter is present with the tip projecting over the expected region of the trachea, positioned 5 cm from the kvng. Enteric feeding catheter with tip extending below the inferior margin of the examination, likely within the gastric body. Lungs: Bilateral diffuse airspace opacities. Pleura: Small bilateral pleural effusions. No pneumothorax. Heart and mediastinum: Enlarged cardiac silhouette. Bones: No acute bony abnormality. IMPRESSION: Bilateral diffuse airspace opacities may represent pneumonia or edema. Dictated by: Paulo Chapa M.D. on 03/28/2017 at 14:27 Electronically approved by: Paulo Chapa M.D. on 03/28/2017 at 14:27
[2017-03-28] MEDS: FENTANYL CITRATE INJ 2,000 MCG in SODIUM CHLORIDE 0.9% 250ML 210 ML IV PRN (16:31)
[2017-03-28] MEDS: ENOXAPARIN SOD INJ 40 MG/0.4 ML SYR SC SCH (17:30)
[2017-03-28] MEDS: MIDAZOLAM HCL 2 MG/2 ML VIAL IV PRN (17:53)
--- NOTE | 2017-03-28 18:16 | Diagnostic Imaging Report ---
PROCEDURE: A single AP view of the chest. COMPARISON: Patients [facility], DX, CHEST XRAY LINE PLACEMENT, 03/28/2017, 9:44. INDICATIONS: TROUBLE BREATHING FINDINGS: See impression. IMPRESSION: 1. diffuse bilateral interstitial and airspace opacities are likely representing alveolar pulmonary edema versus ARDS. 2. Cardiac silhouette is obscured. 3. Enteric tube is noted below the left hemidiaphragm, however, the tip is not visualized. Right-sided chest PICC line is noted, however, the distal tip is difficult to visualize. The distal portion of the line projects in the proximal SVC. 4. A radiopaque line is partially visualized projecting over the upper trachea, and likely represents the previously visualized tracheostomy tube. Mark Anthony Cueva M.D. Dictated by: Mark Anthony Cueva M.D. on 03/28/2017 at 18:16 Electronically approved by: Mark Anthony Cueva M.D. on 03/28/2017 at 18:16
[2017-03-28] MEDS: ACETAMINOPHEN 325 MG/10 ML UDC NG PRN (23:55)
[2017-03-29] VITALS (130 sets, daily range): BP systolic 68–140; BP diastolic 30–94
[2017-03-29] MEDS: PROPOFOL IV EMULSION 10MG/ML 100 ML IV PRN ×4 (01:07→23:00)
[2017-03-29] MEDS: ALBUTEROL SULF 0.083% NEB SOLN 3 ML NEB NEB SCH ×6 (02:40→23:35)
[2017-03-29] MEDS: FENTANYL CITRATE INJ 2,000 MCG in SODIUM CHLORIDE 0.9% 250ML 210 ML IV PRN ×2 (03:25→17:39)
[2017-03-29] MEDS: FUROSEMIDE INJ 100 MG in SODIUM CHLORIDE 0.9% 100 ML 90 ML IV SCH (04:00)
[2017-03-29] MEDS: MEROPENEM 500 MG VIAL IV SCH ×2 (05:21→12:37)
[2017-03-29] MEDS: METOCLOPRAMIDE HCL 10 MG/2ML VIAL IV SCH ×3 (05:21→18:00)
[2017-03-29] MEDS: LINEZOLID 600 MG/D5W 300ML 300 ML IV SCH ×2 (05:21→18:00)
[2017-03-29] MEDS: DIPHENHYDRAMINE HCL INJ 50 MG/ML VIAL IV SCH ×3 (05:21→18:00)
[2017-03-29] MEDS: INSULIN REGULAR, HUMAN 100 UNIT/1 ML 3ML VIAL SQ SCH ×3 (05:27→18:00)
[2017-03-29 06:05] LABS: BASOPHILS # (AUTO) 0.1 (0.0-0.1); BASOPHILS % 0.6 % (0.0-1.0); EOSINOPHILS # (AUTO) 0.2 (0.0-0.4); EOSINOPHILS % 1.5 % (0.0-6.0); HEMATOCRIT 51.1 % (38.2-49.6); HEMOGLOBIN 13.8 g/dL (14.0-18.0); LYMPHOCYTES # (AUTO) 1.4 (1.0-3.2); MEAN CORPUSCULAR HEMOGLOBIN 25.1 pg (28-32); MEAN CORPUSCULAR VOLUME 92.9 fL (81-99); MONOCYTES # (AUTO) 1.3 (0.2-0.8); MONOCYTES % 8.8 % (4.4-11.3); NEUTROPHILS # (AUTO) 11.3 (2.1-6.9); NEUTROPHILS % 78.4 % (38.7-80.0); PLATELET COUNT 316 x10e3/uL (140-360); RED CELL DISTRIBUTION WIDTH 22.1 % (11.7-14.4)
[2017-03-29 06:13] LABS: INR 1.16; PARTIAL THROMBOPLASTIN TIME 31.2 seconds (23.8-35.5); PROTHROMBIN TIME 13.9 seconds (11.9-14.5)
[2017-03-29 06:30] LABS: ALBUMIN/GLOBULIN RATIO 0.4 (0.8-2.0); ANION GAP 14.3 mmol/L (8-16); CALCIUM 8.3 mg/dL (8.4-10.2); CREATININE, SERUM 1.6 mg/dL (0.72-1.25); POTASSIUM 3.3 mmol/L (3.5-5.1)
[2017-03-29 07:43] LABS: ANISOCYTOSIS SLIGHT; PLATELET ESTIMATE ADEQUATE; RBC MORPHOLOGY COMMENT NORMAL
[2017-03-29 07:44] LABS: PLATELET MORPHOLOGY COMMENT FEW LARGE
--- NOTE | 2017-03-29 08:32 | Progress Note ---
DATE: March 28, 2017 TIME: 6:15 a.m. OVERNIGHT: No events. Remains on ventilator by trach. REVIEW OF SYSTEMS: Unobtainable. PHYSICAL EXAMINATION VITAL SIGNS: Reviewed. GENERAL: A tired-appearing man resting in bed. HEENT: He has tracheostomy in place. He has OG tube in place. CARDIOVASCULAR: Normal S1 and S2. LUNGS: Coarse breath sounds. ABDOMEN: Large abdomen and nontender. EXTREMITIES: He has 2+ leg edema. SKIN: Dry. PSYCHIATRIC: Unable to assess. NEUROLOGIC: Not interactive and sedated. LABS: Reviewed. MEDICATIONS: Reviewed. ASSESSMENT: A 32-year-old man with: 1. Acute respiratory failure/acute exacerbation of chronic obstructive pulmonary disease. 2. Peripheral edema/fluid overload. 3. Acute respiratory distress syndrome/pneumonia. 4. Severe sepsis. 5. Hyperbilirubinemia. 6. Hypoglycemia. PLAN 1. Continue ventilatory support on 90% FIO2. Remains of 15 of PEEP. 2. Continue diuresis. Follow I's and O's. 3. PEG tube placement pending. 4. Continue feeding by OG tube. 5. Hepatitis panel was negative. Flu screen negative. 6. Continue broad-spectrum IV antibiotics. 7. All cultures remain negative. 8. Critical care time more than 35 minutes. Job#: [id number] NEENA
--- NOTE | 2017-03-29 08:47 | Progress Note ---
DATE: March 29, 2017 TIME: 8:12 a.m. OVERNIGHT: Patient's urine output has decreased. REVIEW OF SYSTEMS: Unobtainable. PHYSICAL EXAMINATION VITAL SIGNS: Reviewed. GENERAL: A tired-appearing man resting in bed. HEENT: He has a tracheostomy in place. He has an OG tube in place. CARDIOVASCULAR: Normal S1 and S2. LUNGS: Reduced breath sounds. Coarse breath sounds throughout. ABDOMEN: Large abdomen and nontender. EXTREMITIES: He has 1-2+ leg edema bilaterally. SKIN: Dry. : He has a Nunez in place with brown colored/tea colored urine. PSYCHIATRIC: Unable to assess. He is sedated. NEUROLOGIC: Not interactive. LABS: Reviewed. MEDICATIONS: Reviewed. ASSESSMENT: A 32-year-old man with: 1. Acute respiratory failure /acute exacerbation of chronic obstructive pulmonary disease. 2. Acute respiratory distress syndrome/pneumonia. 3. Peripheral edema. 4. Severe sepsis. 5. Hyperbilirubinemia. 6. Hypoglycemia. 7. Acute kidney injury. PLAN 1. He has decreased urine output. Will consult nephrology to assist in management. He remains on the Lasix drip at 8 mg per hour. 2. PEG tube placement is pending. 3. He has new leukocytosis this morning. His blood pressure is low at 89/51 and temperature 101. The patient is septic. Continues to have severe sepsis with organ dysfunction. All cultures remain negative. The patient is on linezolid and meropenem. I would consider adding antifungal, but this would have more of an impact on his liver. I will defer to infectious disease for management. 4. Acute kidney injury this morning. Will discontinue the Lasix while we await for nephrology assistance in management. 5. Will discontinue lisinopril and discontinue the Lasix drip as mentioned in the setting of acute kidney injury. 6. Medications will need to be renally dosed. 7. The patient continues to have hyperbilirubinemia now at 3.7, although the elevated AST has resolved. His ammonia level was 90 on March 20, 2017. Will check his ammonia level now. Alkaline phosphatase is normal. Hepatitis and flu screen were negative. 8. Will continue monitoring closely in the ICU. Critical care time more than 35 minutes. Job#: [id number] NEENA
[2017-03-29] MEDS: CARVEDILOL 12.5 MG TAB PO SCH ×2 (09:00→17:00)
[2017-03-29] MEDS: HYDROCORTISONE SOD SUCCINATE 100 MG VIAL IV SCH ×2 (09:21→21:00)
[2017-03-29] MEDS: FAMOTIDINE 20 MG/2 ML VIAL IV SCH ×2 (09:21→21:00)
[2017-03-29] MEDS: ASPIRIN 81 MG CHEW TAB PO SCH (09:21)
[2017-03-29] MEDS ORDERED: SODIUM CHLORIDE 0.9% 500ML 500 ML IV SCH (09:34)
--- NOTE | 2017-03-29 12:03 | Diagnostic Imaging Report ---
PROCEDURE: CHEST SINGLE (PORTABLE) COMPARISON: 03/28/2017. INDICATIONS: CHF FINDINGS: See conclusion CONCLUSION: Tracheostomy tube, enteric tube, and right upper extremity PICC remain difficult to visualize though are likely stable in position. No appreciable interval change in confluent bilateral consolidations which may reflect alveolar pulmonary edema or ARDS. Dictated by: David Perez M.D. on 03/29/2017 at 12:03 Electronically approved by: David Perez M.D. on 03/29/2017 at 12:03
[2017-03-29] MEDS: MIDAZOLAM HCL 2 MG/2 ML VIAL IV PRN (12:06)
[2017-03-29] MEDS ORDERED: MIDAZOLAM HCL 2 MG/2 ML VIAL ONE (12:09)
[2017-03-29] MEDS: ACETAMINOPHEN 325 MG/10 ML UDC NG PRN ×2 (12:18→18:30)
[2017-03-29] MEDS ORDERED: VECURONIUM BROMIDE FOR INJ 20 MG VIAL IV STA (13:13)
[2017-03-29 14:11] LABS: ABG HCO3 35 mmol/L (23-28); ABG PCO2 93 mmHg (41-51); ABG PH 7.18 (7.31-7.41); ABG PO2 83 mmHg (80-105)
[2017-03-29] MEDS ORDERED: SODIUM BICARBONATE 8.4% INJ 50 ML SYR IV STA (14:15)
[2017-03-29] MEDS ORDERED: CALCIUM GLUCONATE 10% INJ 0.465 MEQ/ML VIAL ONE (14:52)
[2017-03-29] MEDS ORDERED: SODIUM BICARBONATE 8.4% SYRING 100 ML ONE (14:52)
[2017-03-29] MEDS: MANNITOL 20% IV SCH (15:30)
[2017-03-29] MEDS: FUROSEMIDE IV SCH (15:30)
--- NOTE | 2017-03-29 16:23 | Consultation ---
DATE OF CONSULTATION: March 29, 2017 REASON FOR CONSULTATION: Acute kidney injury, ATN and anuria. History primarily from the chart. HISTORY OF PRESENT ILLNESS: A 32-year-old gentleman currently in the ICU, currently hypotensive, has a tracheostomy and unresponsive with blood gas showing severe respiratory acidosis. Oligoanuria with dark-colored urine suggestive of ATN. Has a chronic indwelling Nunez catheter as well a rate right-sided arm PICC line. Apparently morbidly obese with history of sleep apnea, Pickwickian syndrome with previous hospitalization, history of type 2 diabetes. Apparently, was sent here for respiratory failure from doctor's office. Eventually found to have pneumonia and respiratory failure and subsequently required intubation, and then subsequently has had a trach. No family available. Nurse by bedside. ALLERGIES: NO APPARENT DRUG ALLERGIES. CURRENT MEDICATIONS: Patient was on enalapril p.r.n. He is on hydrocortisone 100 mg IV q.12. He is on enoxaparin. Aspirin 81 mg daily. Albuterol Atrovent nebulizer. He is on a fentanyl drip. Was on Lasix 100 mg IV q.12 and Linezolid 600 mg IV q.12. Meropenem 500 mg IV daily. Was also on lisinopril 40 mg daily which has been stopped. He is on . Morphine p.r.n. For dose schedule, please see MAR. SOCIAL HISTORY: Please see primary care physician note. FAMILY HISTORY: Please see primary care physician note. PHYSICAL EXAMINATION: VITALS: Blood pressure 89 systolic, pulse rate 96, afebrile. Oxygen saturation 94%. HEAD AND NECK: Difficult to examine. He has an OG tube. LUNGS: Harsh vesicular breath sounds. Air entry equal bilaterally. HEART: S1 and S2 audible. ABDOMEN: Obese, soft and nontender. There are tattoos noted on the abdominal wall. FLANKS: Full lower extremity chronic changes with 1+ edema. EXTREMITIES: Tattoo on the arm. IMPRESSION 1. Multiorgan failure. 2. Sepsis. 3. Respiratory failure. 4. Severe respiratory acidosis. PLAN: Will give 2 amps of sodium bicarbonate IV push in addition to. Ordered, will also give 1 amp calcium gluconate. Will give mannitol 12.5 mg IV. Start mannitol, Lasix drip. Will get a temporary dialysis catheter placed in case he needs ultrafiltration. Overall prognosis extremely poor. Has underlying sepsis. Lisinopril appropriately discontinued. Will discontinue enalapril. Please see orders. Job#: [id number] GH
[2017-03-29] MEDS: ENOXAPARIN SOD INJ 40 MG/0.4 ML SYR SC SCH (17:00)
[2017-03-29] MEDS ORDERED: VECURONIUM BROMIDE FOR INJ 20 MG VIAL ONE (17:44)
[2017-03-30] VITALS (74 sets, daily range): BP systolic 81–123; BP diastolic 40–70
[2017-03-30] MEDS ORDERED: NOREPINEPHRINE BITARTRATE/ NS 250 ML ONE (00:04)
[2017-03-30] MEDS: METOCLOPRAMIDE HCL 10 MG/2ML VIAL IV SCH ×4 (00:30→18:00)
[2017-03-30] MEDS: DIPHENHYDRAMINE HCL INJ 50 MG/ML VIAL IV SCH ×4 (00:30→18:00)
[2017-03-30] MEDS: PROPOFOL IV EMULSION 10MG/ML 100 ML IV PRN ×4 (02:00→23:30)
[2017-03-30] MEDS: ALBUTEROL SULF 0.083% NEB SOLN 3 ML NEB NEB SCH ×6 (03:40→23:44)
[2017-03-30] MEDS ORDERED: SODIUM CHLORIDE 0.9% 250ML 250 ML ONE (04:14)
[2017-03-30 05:20] LABS: BASOPHILS # (AUTO) 0.1 (0.0-0.1); BASOPHILS % 0.5 % (0.0-1.0); EOSINOPHILS # (AUTO) 0.1 (0.0-0.4); EOSINOPHILS % 0.5 % (0.0-6.0); HEMATOCRIT 50.5 % (38.2-49.6); HEMOGLOBIN 13.5 g/dL (14.0-18.0); LYMPHOCYTES # (AUTO) 0.9 (1.0-3.2); LYMPHOCYTES % 4.6 % (18.0-39.1); MEAN CORPUSCULAR HGB CONC 26.7 g/dL (31-35); MEAN CORPUSCULAR VOLUME 93.7 fL (81-99); MONOCYTES # (AUTO) 1.5 (0.2-0.8); MONOCYTES % 7.9 % (4.4-11.3); NEUTROPHILS # (AUTO) 15.9 (2.1-6.9); NEUTROPHILS % 85.5 % (38.7-80.0); PLATELET COUNT 348 x10e3/uL (140-360); RED BLOOD COUNT 5.39 x10e6/uL (4.3-5.7); RED CELL DISTRIBUTION WIDTH 22.3 % (11.7-14.4)
[2017-03-30 05:31] LABS: INR 1.15; PROTHROMBIN TIME 13.8 seconds (11.9-14.5)
[2017-03-30 05:32] LABS: PARTIAL THROMBOPLASTIN TIME 28.9 seconds (23.8-35.5)
[2017-03-30 05:41] LABS: ALBUMIN/GLOBULIN RATIO 0.4 (0.8-2.0); ANION GAP 15.8 mmol/L (8-16); CALCIUM 8.5 mg/dL (8.4-10.2); CREATININE, SERUM 3.33 mg/dL (0.72-1.25); POTASSIUM 3.8 mmol/L (3.5-5.1)
[2017-03-30] MEDS: INSULIN REGULAR, HUMAN 100 UNIT/1 ML 3ML VIAL SQ SCH ×4 (06:00→18:00)
--- NOTE | 2017-03-30 06:41 | Diagnostic Imaging Report ---
CHEST SINGLE (PORTABLE), 03/30/2017 5:55 AM Technique: CHEST SINGLE (PORTABLE) Comparison: 03/29/2017 Clinical history: Ventilated Findings: See Impression Impression: Study is significantly degraded by body habitus/portable technique. 1. Lines/Tubes: ET tube 6.5 cm above the kvng. NG tube likely extends subdiaphragmatically, poorly seen distally. 2. Persistent diffuse bilateral opacities which could reflect a component of edema or ARDS. 3. Cardiomediastinal silhouette is partially obscured, enlarged. 4. Right costophrenic angle is excluded. Signed by: Dr Sasha Milton MD on 03/30/2017 6:38 AM
[2017-03-30] MEDS: LINEZOLID 600 MG/D5W 300ML 300 ML IV SCH ×2 (06:54→18:00)
--- NOTE | 2017-03-30 07:06 | Progress Note ---
DATE: March 30, 2017 TIME: 6:40 a.m. OVERNIGHT: The patient increased to 100% oxygen support, vent and 20 of PEEP. REVIEW OF SYSTEMS: Unobtainable. PHYSICAL EXAMINATION VITAL SIGNS: Have been reviewed. GENERAL: A tired-appearing man resting in bed. HEENT: He has an OG tube in place. He has tracheostomy in place. CARDIOVASCULAR: Normal S1 and S2. LUNGS: Coarse breath sounds throughout. Reduced breath sounds. ABDOMEN: Soft. Large abdomen. EXTREMITIES: Less edema, trace to 1+. : He has a Nunez in place. SKIN: Dry. PSYCHIATRIC: Unable to assess. NEUROLOGIC: Opens eyes. LABS: Reviewed. MEDICATIONS: Reviewed. ASSESSMENT: This is a 32-year-old man with: 1. Acute respiratory failure/acute exacerbation of chronic obstructive pulmonary disease. 2. Acute respiratory distress syndrome/pneumonia. 3. Peripheral edema. 4. Severe sepsis. 5. Hyperbilirubinemia. 6. Hypoglycemia. 7. Acute kidney injury. PLAN 1. Renal function not improving. Nephrology on board. Possibly will need dialysis. 2. PEG tube placement is on hold. The patient has an OG tube. Will continue to use that at this time. 3. Leukocytosis: Somewhat worse today. The patient is on linezolid and meropenem. 4. The patient has ARDS. Respiratory status is poor. He is on 100% FIO2 and 20 of PEEP. His ABG yesterday was 7.14/93/83. 5. Chest x-ray yesterday did not show any appreciable change in the bilateral consolidation and alveolar infiltrates. 6. Prognosis is poor. 7. Monitor closely in the ICU. Critical care time more than 35 minutes. Job#: [id number] NEENA
[2017-03-30] MEDS: CARVEDILOL 12.5 MG TAB PO SCH ×2 (08:58→17:00)
[2017-03-30] MEDS: MEROPENEM 500 MG VIAL IV SCH (09:00)
[2017-03-30] MEDS: FAMOTIDINE 20 MG/2 ML VIAL IV SCH ×2 (09:00→23:00)
[2017-03-30] MEDS ORDERED: MEROPENEM 500 MG VIAL IV SCH (09:00)
[2017-03-30] MEDS: ASPIRIN 81 MG CHEW TAB PO SCH (09:00)
[2017-03-30] MEDS: HYDROCORTISONE SOD SUCCINATE 100 MG VIAL IV SCH ×2 (09:00→23:00)
[2017-03-30 10:57] LABS: ABG PH 7.25 (7.31-7.41)
[2017-03-30 10:58] LABS: ABG HCO3 37 mmol/L (23-28); ABG PCO2 85 mmHg (41-51); ABG PO2 106 mmHg (80-105)
[2017-03-30] MEDS: MANNITOL 20% IV SCH ×3 (11:00)
[2017-03-30] MEDS: FUROSEMIDE IV SCH ×3 (11:00)
--- NOTE | 2017-03-30 12:49 | Diagnostic Imaging Report ---
PROCEDURE:ULTRASOUND GUIDANCE FOR VASCULAR ACCESS COMPARISON:None. INDICATIONS:TRIALYSIS CATHETER FINDINGS:The right IJ vein is noted to be patent. Ultrasound guidance was utilized for access for temporary hemodialysis catheter placement. CONCLUSION:Patent right internal jugular vein. Successful ultrasound guidance for temporary hemodialysis catheter placement. Mert Ambrose D.O. Dictated by: Mert Ambrose D.O. on 03/30/2017 at 12:48 Electronically approved by: Mert Ambrose D.O. on 03/30/2017 at 12:48
--- NOTE | 2017-03-30 13:17 | Diagnostic Imaging Report ---
PROCEDURE: A single AP view of the chest. COMPARISON: Patients [facility], DX, CHEST SINGLE (PORTABLE), 03/30/2017, 6:13. INDICATIONS: TRIALYSIS CATHETER PLACEMENT FINDINGS: Lines/tubes: Tracheostomy tube in place. There is also an NG tube with its tip obscured due to technique. Recently placed right internal jugular temporary hemodialysis catheter in appropriate location with tip near the cavoatrial junction. Lungs: Diffuse pulmonary edema slightly worse. Pleura: Bilateral pleural effusions. Heart and mediastinum: The heart is enlarged. Bones: No acute bony abnormality. IMPRESSION: 1. Cardiomegaly with diffuse pulmonary edema. 2. Status post right IJ temporary hemodialysis catheter placement. Mert Ambrose D.O. Dictated by: Mert Ambrose D.O. on 03/30/2017 at 13:17 Electronically approved by: Mert Ambrose D.O. on 03/30/2017 at 13:17
--- NOTE | 2017-03-30 13:20 | Diagnostic Imaging Report ---
PROCEDURE:NON-TUNNELLED CVC CATH PLACMNT COMPARISON:None. INDICATIONS: ISAIAS COMPLICATIONS: None MEDICATIONS: None BLOOD LOSS: Less than 2 cc PROCEDURE: The right internal jugular vein is patent. Local anesthesia with 1% Xylocaine was administered after sterile preparation. Ultrasound was utilized for venous access and puncture with a 21 gauge skinny needle and then placement of a 0.018 inch wire. Micropuncture sheath was then placed over the wire and a 0.035 inch Amplatz Super Stiff wire placed. Serial dilatation was accomplished. A 13 Italian Bard 20 cm long Trialysis catheter was then placed over the wire. Post procedure chest x-ray was ordered. CONCLUSION: Placement of a non-tunneled temporary hemodialysis catheter. Mert Ambrose D.O. Dictated by: Mert Ambrose D.O. on 03/30/2017 at 13:20 Electronically approved by: Mert Ambrose D.O. on 03/30/2017 at 13:20
[2017-03-30] MEDS ORDERED: SODIUM CHLORIDE 0.9% 1000ML 2,000 ML ONE (16:31)
[2017-03-30] MEDS ORDERED: ALBUMIN HUMAN 100 ML IV ONE (16:32)
[2017-03-30] MEDS ORDERED: HEPARIN SOD (PORCINE) 1000 UNIT/ML SDV ONE (16:33)
[2017-03-30] MEDS ORDERED: MANNITOL 25% 12.5GM/50ML 100 ML ONE (16:34)
[2017-03-30] MEDS: ENOXAPARIN SOD INJ 40 MG/0.4 ML SYR SC SCH (17:00)
[2017-03-30] MEDS: FENTANYL CITRATE INJ 2,000 MCG in SODIUM CHLORIDE 0.9% 250ML 210 ML IV PRN (20:33)
[2017-03-31] VITALS (69 sets, daily range): BP systolic 81–179; BP diastolic 40–99
[2017-03-31] MEDS: DIPHENHYDRAMINE HCL INJ 50 MG/ML VIAL IV SCH ×4 (01:08→18:22)
[2017-03-31] MEDS: METOCLOPRAMIDE HCL 10 MG/2ML VIAL IV SCH ×4 (01:08→18:35)
[2017-03-31] MEDS: PROPOFOL IV EMULSION 10MG/ML 100 ML IV PRN ×7 (02:30→22:45)
[2017-03-31] MEDS: ALBUTEROL SULF 0.083% NEB SOLN 3 ML NEB NEB SCH ×6 (03:20→23:40)
[2017-03-31] MEDS: LINEZOLID 600 MG/D5W 300ML 300 ML IV SCH ×2 (05:31→18:22)
[2017-03-31] MEDS: INSULIN REGULAR, HUMAN 100 UNIT/1 ML 3ML VIAL SQ SCH ×4 (06:00→18:24)
[2017-03-31 07:16] LABS: ALBUMIN/GLOBULIN RATIO 0.4 (0.8-2.0); ANION GAP 19.5 mmol/L (8-16); CALCIUM 8.9 mg/dL (8.4-10.2); CREATININE, SERUM 5.02 mg/dL (0.72-1.25); POTASSIUM 4.5 mmol/L (3.5-5.1)
[2017-03-31 07:29] LABS: HEMATOCRIT 51.6 % (38.2-49.6); HEMOGLOBIN 13.8 g/dL (14.0-18.0); MEAN CORPUSCULAR HEMOGLOBIN 25.2 pg (28-32); MEAN CORPUSCULAR HGB CONC 26.7 g/dL (31-35); MEAN CORPUSCULAR VOLUME 94.3 fL (81-99); PLATELET COUNT 438 x10e3/uL (140-360); RED BLOOD COUNT 5.47 x10e6/uL (4.3-5.7); RED CELL DISTRIBUTION WIDTH 22.3 % (11.7-14.4)
--- NOTE | 2017-03-31 07:31 | Progress Note ---
DATE: March 31, 2017 TIME: 6:15 a.m. OVERNIGHT: He is mentioning no urine output. REVIEW OF SYSTEMS: Unobtainable. Overnight, the patient remains on the ventilator. PHYSICAL EXAMINATION GENERAL: A tired-appearing man resting in bed. HEENT: He has a tracheostomy in place. He has an OG tube in place. CARDIOVASCULAR: Normal S1 and S2. LUNGS: Coarse breath sounds throughout. ABDOMEN: Soft and nontender. Large abdomen. EXTREMITIES: He has 2+ leg edema bilaterally. : He has a Nunez in place. SKIN: Dry. PSYCHIATRIC: Unable to assess. NEUROLOGIC: Not interactive. LABS: Reviewed. MEDICATIONS: Reviewed. ASSESSMENT: A 32-year-old man with: 1. Acute respiratory failure/acute exacerbation of chronic obstructive pulmonary disease. 2. Acute respiratory distress syndrome/pneumonia. 3. Peripheral edema. 4. Severe sepsis and septic shock. 5. Hyperbilirubinemia. 6. Hypoglycemia. 7. Acute kidney injury: Started on hemodialysis. PLAN 1. Dialysis per nephrology. 2. PEG tube on hold. 3. Still requires high ventilator support with 90% FIO2 oxygen. 4. Remains on mannitol. 5. The patient is on linezolid and meropenem. 6. Obtain labs this morning. 7. All cultures remain negative. 8. Obtain labs this morning. Supportive care. Prognosis is poor. Job#: [id number] NEENA
[2017-03-31 08:29] LABS: RBC MORPHOLOGY COMMENT NORMAL
[2017-03-31 08:30] LABS: ANISOCYTOSIS SLIG; HYPOCHROMASIA SLIGHT; PLATELET ESTIMATE ADEQUATE; PLATELET MORPHOLOGY COMMENT FEW LARGE; POIKILOCYTOSIS SLIGHT
[2017-03-31] MEDS: CARVEDILOL 12.5 MG TAB PO SCH ×2 (09:00→16:08)
[2017-03-31] MEDS ORDERED: SODIUM CHLORIDE 0.9% 1000ML 2,000 ML ONE (09:12)
[2017-03-31] MEDS: MEROPENEM 500 MG VIAL IV SCH (09:20)
[2017-03-31] MEDS: HYDROCORTISONE SOD SUCCINATE 100 MG VIAL IV SCH ×2 (09:20→22:30)
[2017-03-31] MEDS: ASPIRIN 81 MG CHEW TAB PO SCH (09:20)
[2017-03-31] MEDS: FAMOTIDINE 20 MG/2 ML VIAL IV SCH ×2 (09:20→22:30)
[2017-03-31] MEDS ORDERED: ALBUMIN HUMAN 100 ML IV ONE (09:22)
[2017-03-31] MEDS ORDERED: HEPARIN SOD (PORCINE) 1000 UNIT/ML SDV ONE (09:22)
[2017-03-31] MEDS: NOREPINEPHRINE BITARTRATE/ NS 250 ML IV PRN ×2 (12:03→22:35)
[2017-03-31] MEDS: FENTANYL CITRATE INJ 2,000 MCG in SODIUM CHLORIDE 0.9% 250ML 210 ML IV PRN (13:50)
[2017-03-31 17:18] LABS: ABG HCO3 30 mmol/L (23-28); ABG PCO2 68 mmHg (41-51); ABG PH 7.25 (7.31-7.41); ABG PO2 103 mmHg (80-105)
[2017-03-31] MEDS: ENOXAPARIN SOD INJ 40 MG/0.4 ML SYR SC SCH (18:35)
[2017-03-31] MEDS ORDERED: SODIUM CHLORIDE 0.9% 250ML 250 ML ONE (21:09)
[2017-03-31] MEDS: FUROSEMIDE IV SCH (22:30)
[2017-03-31] MEDS: MANNITOL 20% IV SCH (22:30)
[2017-04-01] VITALS (94 sets, daily range): BP systolic 88–152; BP diastolic 37–104
[2017-04-01] MEDS: DIPHENHYDRAMINE HCL INJ 50 MG/ML VIAL IV SCH ×5 (00:18→23:59)
[2017-04-01] MEDS: METOCLOPRAMIDE HCL 10 MG/2ML VIAL IV SCH ×5 (00:18→23:59)
[2017-04-01] MEDS: PROPOFOL IV EMULSION 10MG/ML 100 ML IV PRN ×6 (02:25→20:38)
[2017-04-01] MEDS: FENTANYL CITRATE INJ 2,000 MCG in SODIUM CHLORIDE 0.9% 250ML 210 ML IV PRN ×2 (03:14→17:25)
[2017-04-01] MEDS: ALBUTEROL SULF 0.083% NEB SOLN 3 ML NEB NEB SCH ×6 (03:20→23:25)
[2017-04-01 04:36] LABS: BASOPHILS # (AUTO) 0.1 (0.0-0.1); BASOPHILS % 0.8 % (0.0-1.0); EOSINOPHILS % 0.2 % (0.0-6.0); HEMATOCRIT 45.6 % (38.2-49.6); HEMOGLOBIN 12.7 g/dL (14.0-18.0); LYMPHOCYTES # (AUTO) 0.7 (1.0-3.2); LYMPHOCYTES % 5.1 % (18.0-39.1); MEAN CORPUSCULAR HEMOGLOBIN 25.4 pg (28-32); MEAN CORPUSCULAR HGB CONC 27.9 g/dL (31-35); MEAN CORPUSCULAR VOLUME 91.2 fL (81-99); MONOCYTES % 8.2 % (4.4-11.3); NEUTROPHILS # (AUTO) 10.8 (2.1-6.9); NEUTROPHILS % 84.9 % (38.7-80.0); PLATELET COUNT 386 x10e3/uL (140-360); RED CELL DISTRIBUTION WIDTH 21.5 % (11.7-14.4)
[2017-04-01 04:55] LABS: ALBUMIN 1.9 g/dL (3.5-5.0); ALBUMIN/GLOBULIN RATIO 0.4 (0.8-2.0); ANION GAP 19.8 mmol/L (8-16); CALCIUM 8.7 mg/dL (8.4-10.2); CREATININE, SERUM 5.76 mg/dL (0.72-1.25); POTASSIUM 4.8 mmol/L (3.5-5.1)
[2017-04-01] MEDS: LINEZOLID 600 MG/D5W 300ML 300 ML IV SCH ×2 (05:53→18:02)
[2017-04-01] MEDS: INSULIN REGULAR, HUMAN 100 UNIT/1 ML 3ML VIAL SQ SCH ×5 (05:53→23:59)
--- NOTE | 2017-04-01 06:05 | Diagnostic Imaging Report ---
CHEST SINGLE (PORTABLE), 04/01/2017 6:00 AM Technique: CHEST SINGLE (PORTABLE) Comparison: 03/30/2017 Clinical history: Respiratory failure Findings: See Impression Impression: Study is significantly degraded by body habitus/portable technique. 1. Lines/Tubes: ET tube 4.6 cm above the kvng. NG tube extends subdiaphragmatically. Right IJ CVC over the cavoatrial junction. Right PICC tip is poorly seen. 2. Mildly improved diffuse bilateral opacities which could reflect a component of edema. 3. Cardiomediastinal silhouette is stable, enlarged. Signed by: Dr Sasha Milton MD on 04/01/2017 6:01 AM
[2017-04-01] MEDS: CARVEDILOL 12.5 MG TAB PO SCH ×2 (09:00→17:00)
[2017-04-01] MEDS: MEROPENEM 500 MG VIAL IV SCH (09:31)
[2017-04-01] MEDS: FAMOTIDINE 20 MG/2 ML VIAL IV SCH ×2 (09:31→20:58)
[2017-04-01] MEDS: HYDROCORTISONE SOD SUCCINATE 100 MG VIAL IV SCH ×2 (09:31→21:30)
[2017-04-01] MEDS: ASPIRIN 81 MG CHEW TAB PO SCH (09:31)
[2017-04-01] MEDS ORDERED: HEPARIN SOD (PORCINE) 1000 UNIT/ML SDV ONE (09:33)
[2017-04-01] MEDS ORDERED: SODIUM CHLORIDE 0.9% 1000ML 2,000 ML ONE (09:34)
--- NOTE | 2017-04-01 15:06 | Progress Note ---
DATE: April 01, 2017 TIME: 11:30 a.m. OVERNIGHT: Patient is now down to 65% FiO2 oxygen by vent. REVIEW OF SYSTEMS: Unobtainable. PHYSICAL EXAMINATION VITAL SIGNS: Reviewed. GENERAL: A tired-appearing man, resting in bed. HEENT: He has OG tube in place. He has tracheostomy in place. CARDIOVASCULAR: Normal S1 and S2. LUNGS: Coarse breath sounds. ABDOMEN: Soft and nontender. Large abdomen. EXTREMITIES: 2+ leg edema bilaterally. : Nunez. SKIN: Dry. PSYCHIATRIC: Unable to assess. NEUROLOGIC: Not interactive, sedated, and restrained. LABS: Reviewed. MEDICATIONS: Reviewed. ASSESSMENT: A 32-year-old man with; 1. Acute respiratory failure/acute exacerbation of chronic obstructive pulmonary disease. 2. Acute respiratory distress syndrome/pneumonia. 3. Peripheral edema. 4. Severe sepsis and septic shock. 5. Hyperbilirubinemia. 6. Hypoglycemia. 7. Acute kidney injury, started on dialysis. PLAN 1. Plan for 3 liters removal by dialysis today. 2. Continue to feed him via OG tube. Possible PEG tube later next week. 3. Continue ventilator support. He is now down to 60% FiO2. 4. Leukocytosis continues to improve. 5. Anemia is stable. 6. Glucose is controlled. 7. Bilirubin level is still elevated at 3.3 total bilirubin. 8. Chest x-ray this morning showed ET tube in good position, some mild improvement in diffuse bilateral opacities seen. 9. Continue IV meropenem, IV linezolid, and IV Lasix. Job#: [id number] VAS
[2017-04-01 16:57] LABS: ABG HCO3 28 mmol/L (23-28); ABG PCO2 65 mmHg (41-51); ABG PH 7.25 (7.31-7.41); ABG PO2 73 mmHg (80-105)
[2017-04-01] MEDS: ENOXAPARIN SOD INJ 40 MG/0.4 ML SYR SC SCH (18:02)
[2017-04-01] MEDS: MANNITOL 20% IV SCH (18:13)
[2017-04-01] MEDS: FUROSEMIDE IV SCH (18:13)
[2017-04-01] MEDS: NOREPINEPHRINE BITARTRATE/ NS 250 ML IV PRN (21:54)
[2017-04-02] VITALS (90 sets, daily range): BP systolic 94–153; BP diastolic 51–95
[2017-04-02] MEDS: PROPOFOL IV EMULSION 10MG/ML 100 ML IV PRN ×7 (00:14→23:30)
[2017-04-02] MEDS: ALBUTEROL SULF 0.083% NEB SOLN 3 ML NEB NEB SCH ×6 (03:23→22:35)
[2017-04-02] MEDS: METOCLOPRAMIDE HCL 10 MG/2ML VIAL IV SCH ×3 (05:44→18:27)
[2017-04-02] MEDS: DIPHENHYDRAMINE HCL INJ 50 MG/ML VIAL IV SCH ×3 (05:44→18:27)
[2017-04-02] MEDS: INSULIN REGULAR, HUMAN 100 UNIT/1 ML 3ML VIAL SQ SCH ×3 (05:44→18:00)
[2017-04-02] MEDS: LINEZOLID 600 MG/D5W 300ML 300 ML IV SCH ×2 (05:44→18:27)
[2017-04-02 05:45] LABS: BASOPHILS # (AUTO) 0.1 (0.0-0.1); BASOPHILS % 0.8 % (0.0-1.0); EOSINOPHILS # (AUTO) 0.3 (0.0-0.4); EOSINOPHILS % 2.4 % (0.0-6.0); HEMATOCRIT 47.5 % (38.2-49.6); HEMOGLOBIN 13.1 g/dL (14.0-18.0); LYMPHOCYTES # (AUTO) 0.7 (1.0-3.2); LYMPHOCYTES % 6.8 % (18.0-39.1); MEAN CORPUSCULAR HGB CONC 27.6 g/dL (31-35); MEAN CORPUSCULAR VOLUME 90.8 fL (81-99); MONOCYTES % 9.4 % (4.4-11.3); NEUTROPHILS # (AUTO) 8.5 (2.1-6.9); NEUTROPHILS % 79.8 % (38.7-80.0); PLATELET COUNT 424 x10e3/uL (140-360); RED BLOOD COUNT 5.23 x10e6/uL (4.3-5.7); RED CELL DISTRIBUTION WIDTH 21.7 % (11.7-14.4)
[2017-04-02 06:12] LABS: ALBUMIN/GLOBULIN RATIO 0.4 (0.8-2.0); ANION GAP 19.5 mmol/L (8-16); CALCIUM 8.7 mg/dL (8.4-10.2); CREATININE, SERUM 5.5 mg/dL (0.72-1.25); POTASSIUM 4.5 mmol/L (3.5-5.1)
--- NOTE | 2017-04-02 06:23 | Diagnostic Imaging Report ---
CHEST SINGLE (PORTABLE), 04/02/2017 6:00 AM Technique: CHEST SINGLE (PORTABLE) Comparison: Previous day Clinical history: Respiratory failure Findings: See Impression Impression: Study is significantly degraded by body habitus/portable technique. 1. Lines/Tubes: ET tube 4.6 cm above the kvng. NG tube extends subdiaphragmatically. Right IJ CVC over the cavoatrial junction. Right PICC at least over the SVC, tip poorly seen. 2. Stable enlarged cardiomediastinal silhouette and diffuse pulmonary opacities. 3. Suspect underlying/layering pleural fluid. Left costophrenic angle is excluded. Signed by: Dr Sasha Milton MD on 04/02/2017 6:20 AM
[2017-04-02] MEDS: FENTANYL CITRATE INJ 2,000 MCG in SODIUM CHLORIDE 0.9% 250ML 210 ML IV PRN ×2 (07:35→20:14)
[2017-04-02] MEDS: MEROPENEM 500 MG VIAL IV SCH (08:24)
[2017-04-02] MEDS: FAMOTIDINE 20 MG/2 ML VIAL IV SCH ×2 (08:24→20:45)
[2017-04-02] MEDS: HYDROCORTISONE SOD SUCCINATE 100 MG VIAL IV SCH ×3 (08:24→21:00)
[2017-04-02] MEDS: CARVEDILOL 12.5 MG TAB PO SCH ×2 (08:24→17:00)
[2017-04-02] MEDS: ASPIRIN 81 MG CHEW TAB PO SCH (08:24)
--- NOTE | 2017-04-02 10:48 | Progress Note ---
DATE: April 02, 2017 TIME: 10 a.m. OVERNIGHT: Patient remains intubated. He is now on 60% FIO2. PHYSICAL EXAMINATION VITAL SIGNS: Reviewed. GENERAL: A tired-appearing man resting in bed. HEENT: He has an OG tube in place. He has a tracheostomy in place. On 60% FIO2. LUNGS: He has mildly coarse breath sounds. ABDOMEN: Large and nontender. EXTREMITIES: He has 1-2+ leg edema. SKIN: Dry. PSYCHIATRIC: Unable to assess. : Nunez in place. LABS: Reviewed. MEDICATIONS: Reviewed. ASSESSMENT: This is a 32-year-old man with: 1. Acute respiratory failure/acute exacerbation of chronic obstructive pulmonary disease. 2. Acute respiratory distress syndrome/pneumonia. 3. Peripheral edema. 4. Severe sepsis and septic shock. 5. Hyperbilirubinemia. 6. Hypoglycemia. 7. Acute kidney injury: Started on dialysis. PLAN 1. Continue dialysis. Fluid status is improving. Less peripheral edema. 2. Continue vent support. He is now on 60% FIO2 and doing better. 3. PEG tube planned for tomorrow morning. 4. Hyperbilirubinemia remains. 5. Continue IV meropenem and IV linezolid and IV Lasix. 6. All cultures remain negative. 7. Leukocytosis has resolved. 8. Worsening hyponatremia. Will need to recheck later today and reduce water flushes. Job#: [id number] NEENA
[2017-04-02 12:02] LABS: BAND NEUTROPHILS % (MANUAL) 7 %; EOSINOPHILS % (MANUAL) 4 % (0-7); LYMPHOCYTES % (MANUAL) 3 % (19-48); MONOCYTES % (MANUAL) 11 % (3.4-9.0); NEUTROPHILS % (MANUAL) 75 % (40-74); PLATELET ESTIMATE ADEQUATE; PLATELET MORPHOLOGY COMMENT NORMAL; RBC MORPHOLOGY COMMENT NORMAL
[2017-04-02 13:41] LABS: ABG HCO3 27 mmol/L (23-28); ABG PCO2 56 mmHg (41-51); ABG PH 7.29 (7.31-7.41); ABG PO2 79 mmHg (80-105)
[2017-04-02 15:13] LABS: ANION GAP 19.9 mmol/L (8-16); CALCIUM 8.7 mg/dL (8.4-10.2); CREATININE, SERUM 5.59 mg/dL (0.72-1.25); POTASSIUM 4.9 mmol/L (3.5-5.1)
[2017-04-03] VITALS (108 sets, daily range): BP systolic 76–170; BP diastolic 32–101
[2017-04-03] MEDS: DIPHENHYDRAMINE HCL INJ 50 MG/ML VIAL IV SCH ×5 (00:22→23:31)
[2017-04-03] MEDS: METOCLOPRAMIDE HCL 10 MG/2ML VIAL IV SCH ×5 (00:22→23:31)
[2017-04-03] MEDS: ALBUTEROL SULF 0.083% NEB SOLN 3 ML NEB NEB SCH ×6 (02:20→22:45)
[2017-04-03] MEDS: PROPOFOL IV EMULSION 10MG/ML 100 ML IV PRN ×3 (03:10→21:45)
[2017-04-03] MEDS: NOREPINEPHRINE BITARTRATE/ NS 250 ML IV PRN ×4 (04:20→21:46)
[2017-04-03] MEDS: INSULIN REGULAR, HUMAN 100 UNIT/1 ML 3ML VIAL SQ SCH ×5 (06:00→23:31)
[2017-04-03] MEDS: LINEZOLID 600 MG/D5W 300ML 300 ML IV SCH (06:02)
[2017-04-03 06:23] LABS: BASOPHILS # (AUTO) 0.1 (0.0-0.1); BASOPHILS % 0.7 % (0.0-1.0); EOSINOPHILS # (AUTO) 0.1 (0.0-0.4); EOSINOPHILS % 0.7 % (0.0-6.0); HEMATOCRIT 44.7 % (38.2-49.6); HEMOGLOBIN 12.4 g/dL (14.0-18.0); LYMPHOCYTES % 9.1 % (18.0-39.1); MEAN CORPUSCULAR HEMOGLOBIN 25.3 pg (28-32); MEAN CORPUSCULAR HGB CONC 27.7 g/dL (31-35); MONOCYTES # (AUTO) 0.9 (0.2-0.8); MONOCYTES % 8.1 % (4.4-11.3); NEUTROPHILS # (AUTO) 8.7 (2.1-6.9); NEUTROPHILS % 80.7 % (38.7-80.0); PLATELET COUNT 384 x10e3/uL (140-360); RED BLOOD COUNT 4.91 x10e6/uL (4.3-5.7); RED CELL DISTRIBUTION WIDTH 21.2 % (11.7-14.4)
--- NOTE | 2017-04-03 06:38 | Diagnostic Imaging Report ---
CHEST SINGLE (PORTABLE), 04/03/2017 5:00 AM Technique: CHEST SINGLE (PORTABLE) Comparison: Previous day Clinical history: Respiratory failure Findings: See Impression Impression: Study is significantly degraded by body habitus/portable technique. 1. Lines/Tubes: ET tube about 5 cm above the kvng, poorly seen. NG tube extends subdiaphragmatically. Right IJ CVC over the cavoatrial junction. Right PICC near the cavoatrial junction, tip poorly seen. 2. Stable enlarged cardiomediastinal silhouette and diffuse pulmonary opacities. 3. Suspect underlying/layering pleural fluid. Right costophrenic angle is excluded. Signed by: Dr Sasha Milton MD on 04/03/2017 6:34 AM
[2017-04-03 07:06] LABS: ANION GAP 19.5 mmol/L (8-16); CALCIUM 8.7 mg/dL (8.4-10.2); CREATININE, SERUM 5.52 mg/dL (0.72-1.25); POTASSIUM 4.5 mmol/L (3.5-5.1)
[2017-04-03] MEDS ORDERED: SODIUM CHLORIDE 0.9% 1000ML 2,000 ML ONE (07:45)
[2017-04-03] MEDS ORDERED: HEPARIN SOD (PORCINE) 1000 UNIT/ML SDV ONE (08:04)
[2017-04-03] MEDS ORDERED: ALBUMIN HUMAN 0 ML IV ONE (08:05)
[2017-04-03] MEDS ORDERED: MANNITOL 25% 12.5GM/50ML 100 ML ONE (08:05)
[2017-04-03 08:13] LABS: ANISOCYTOSIS SLIG; HYPOCHROMASIA SLIGHT; PLATELET ESTIMATE ADEQUATE; PLATELET MORPHOLOGY COMMENT FEW LARGE; POIKILOCYTOSIS SLIG
[2017-04-03 08:14] LABS: RBC MORPHOLOGY COMMENT NORMAL
[2017-04-03] MEDS: CARVEDILOL 12.5 MG TAB PO SCH ×2 (08:39→14:21)
[2017-04-03] MEDS: HYDROCORTISONE SOD SUCCINATE 100 MG VIAL IV SCH ×2 (08:55→21:44)
[2017-04-03] MEDS: FAMOTIDINE 20 MG/2 ML VIAL IV SCH ×2 (08:55→20:52)
[2017-04-03] MEDS: ASPIRIN 81 MG CHEW TAB PO SCH (08:55)
[2017-04-03] MEDS: MEROPENEM 500 MG VIAL IV SCH (08:55)
[2017-04-03] MEDS: FENTANYL CITRATE INJ 2,000 MCG in SODIUM CHLORIDE 0.9% 250ML 210 ML IV PRN ×2 (09:15→20:54)
[2017-04-03] MEDS ORDERED: VASOPRESSIN 100 UNIT in DEXTROSE 5% 100ML 100 ML IV PRN (11:00)
[2017-04-03] MEDS ORDERED: MANNITOL 25% 12.5GM/50 ML VIAL IV PRN (11:00)
[2017-04-03] MEDS ORDERED: ALTEPLASE RECOMBINANT 2 MG/2 ML VIAL IV PRN (11:00)
[2017-04-03] MEDS: VASOPRESSIN 100 UNIT in DEXTROSE 5% 100ML 100 ML IV PRN (11:14)
[2017-04-03] MEDS ORDERED: ALBUMIN HUMAN 50 ML IV PRN (11:15)
[2017-04-03] MEDS: FUROSEMIDE INJ 100 MG in SODIUM CHLORIDE 0.9% 100 ML 90 ML IV SCH ×2 (12:40→12:53)
[2017-04-03] MEDS: ENOXAPARIN SOD INJ 40 MG/0.4 ML SYR SC SCH (17:02)
[2017-04-04] VITALS (102 sets, daily range): BP systolic 65–202; BP diastolic 37–109
[2017-04-04] MEDS: PROPOFOL IV EMULSION 10MG/ML 100 ML IV PRN ×7 (01:28→23:56)
[2017-04-04] MEDS: ALBUTEROL SULF 0.083% NEB SOLN 3 ML NEB NEB SCH ×7 (03:08→23:10)
[2017-04-04 05:45] LABS: BASOPHILS # (AUTO) 0.1 (0.0-0.1); BASOPHILS % 0.8 % (0.0-1.0); EOSINOPHILS # (AUTO) 0.3 (0.0-0.4); EOSINOPHILS % 2.5 % (0.0-6.0); HEMATOCRIT 44.2 % (38.2-49.6); HEMOGLOBIN 12.4 g/dL (14.0-18.0); LYMPHOCYTES # (AUTO) 1.5 (1.0-3.2); LYMPHOCYTES % 12.6 % (18.0-39.1); MEAN CORPUSCULAR HEMOGLOBIN 25.5 pg (28-32); MEAN CORPUSCULAR HGB CONC 28.1 g/dL (31-35); MEAN CORPUSCULAR VOLUME 90.9 fL (81-99); MONOCYTES # (AUTO) 1.4 (0.2-0.8); MONOCYTES % 12.1 % (4.4-11.3); NEUTROPHILS # (AUTO) 8.3 (2.1-6.9); NEUTROPHILS % 71.1 % (38.7-80.0); PLATELET COUNT 311 x10e3/uL (140-360); RED BLOOD COUNT 4.86 x10e6/uL (4.3-5.7); RED CELL DISTRIBUTION WIDTH 21.6 % (11.7-14.4)
[2017-04-04] MEDS: INSULIN REGULAR, HUMAN 100 UNIT/1 ML 3ML VIAL SQ SCH ×4 (06:00→23:54)
[2017-04-04 06:04] LABS: ALBUMIN 2.2 g/dL (3.5-5.0); ALBUMIN/GLOBULIN RATIO 0.4 (0.8-2.0); ANION GAP 19.9 mmol/L (8-16); CALCIUM 8.8 mg/dL (8.4-10.2); CREATININE, SERUM 5.18 mg/dL (0.72-1.25); POTASSIUM 3.9 mmol/L (3.5-5.1)
[2017-04-04] MEDS: VASOPRESSIN 100 UNIT in DEXTROSE 5% 100ML 100 ML IV PRN (07:00)
[2017-04-04 08:29] LABS: EOSINOPHILS % (MANUAL) 3 % (0-7); LYMPHOCYTES % (MANUAL) 8 % (19-48); MONOCYTES % (MANUAL) 10 % (3.4-9.0); NEUTROPHILS % (MANUAL) 79 % (40-74)
[2017-04-04 08:34] LABS: ANISOCYTOSIS SLIGHT; HYPOCHROMASIA SLIGHT; PLATELET ESTIMATE ADEQUATE; PLATELET MORPHOLOGY COMMENT FEW LARGE; POIKILOCYTOSIS SLIGHT
[2017-04-04 08:35] LABS: RBC MORPHOLOGY COMMENT NORMAL
[2017-04-04] MEDS: CARVEDILOL 12.5 MG TAB PO SCH ×2 (08:52→16:19)
[2017-04-04] MEDS ORDERED: HEPARIN SOD (PORCINE) 1000 UNIT/ML SDV IV PRN (09:00)
[2017-04-04] MEDS: NOREPINEPHRINE BITARTRATE/ NS 250 ML IV PRN ×7 (09:30→18:26)
[2017-04-04] MEDS: ASPIRIN 81 MG CHEW TAB PO SCH (09:30)
[2017-04-04] MEDS: FENTANYL CITRATE INJ 2,000 MCG in SODIUM CHLORIDE 0.9% 250ML 210 ML IV PRN ×3 (10:00→18:26)
[2017-04-04] MEDS ORDERED: SODIUM CHLORIDE 0.9% 1000ML 2,000 ML ONE (12:08)
[2017-04-04] MEDS: DIPHENHYDRAMINE HCL INJ 50 MG/ML VIAL IV SCH ×4 (14:05→23:49)
[2017-04-04] MEDS: METOCLOPRAMIDE HCL 10 MG/2ML VIAL IV SCH ×4 (14:05→23:49)
[2017-04-04] MEDS: FAMOTIDINE 20 MG/2 ML VIAL IV SCH ×2 (14:05→21:07)
[2017-04-04] MEDS: HYDROCORTISONE SOD SUCCINATE 100 MG VIAL IV SCH ×2 (14:05→21:07)
[2017-04-04] MEDS: FUROSEMIDE INJ 100 MG in SODIUM CHLORIDE 0.9% 100 ML 90 ML IV SCH ×2 (15:10→18:42)
[2017-04-04 16:08] LABS: ABG PCO2 62 mmHg (41-51); ABG PH 7.26 (7.31-7.41); ABG PO2 70 mmHg (80-105)
[2017-04-04 16:10] LABS: ABG HCO3 28 mmol/L (23-28)
[2017-04-04] MEDS ORDERED: ENOXAPARIN SOD INJ 40 MG/0.4 ML SYR SC SCH (17:00)
[2017-04-05] VITALS (80 sets, daily range): BP systolic 69–175; BP diastolic 36–123
[2017-04-05] MEDS: NOREPINEPHRINE BITARTRATE/ NS 250 ML IV PRN (00:42)
[2017-04-05] MEDS: FUROSEMIDE INJ 100 MG in SODIUM CHLORIDE 0.9% 100 ML 90 ML IV SCH ×5 (00:51→21:15)
[2017-04-05] MEDS: ALBUTEROL SULF 0.083% NEB SOLN 3 ML NEB NEB SCH ×5 (02:55→19:20)
[2017-04-05] MEDS: FENTANYL CITRATE INJ 2,000 MCG in SODIUM CHLORIDE 0.9% 250ML 210 ML IV PRN ×3 (02:55→16:51)
[2017-04-05] MEDS: PROPOFOL IV EMULSION 10MG/ML 100 ML IV PRN ×5 (02:56→23:05)
[2017-04-05 06:03] LABS: ANION GAP 18.8 mmol/L (8-16); CREATININE, SERUM 3.78 mg/dL (0.72-1.25); MAGNESIUM 2.2 MG/DL (1.3-2.1); POTASSIUM 4.8 mmol/L (3.5-5.1)
--- NOTE | 2017-04-05 06:09 | Diagnostic Imaging Report ---
CHEST SINGLE (PORTABLE), 04/05/2017 5:00 AM Technique: CHEST SINGLE (PORTABLE) Comparison: 04/03/2017 Clinical history: Pneumonia Findings: See Impression Impression: Study is significantly degraded by body habitus/portable technique. 1. Lines/Tubes: ET tube about 4.4 cm above the kvng, poorly seen. NG tube extends subdiaphragmatically. Right IJ CVC reaching the cavoatrial junction. Right PICC near the cavoatrial junction, tip not seen. 2. Stable enlarged cardiomediastinal silhouette and diffuse pulmonary edema. 3. Suspect underlying/layering pleural fluid bilaterally. Signed by: Dr. Antione Mcdaniel M.D. on 04/05/2017 6:06 AM
[2017-04-05] MEDS: DIPHENHYDRAMINE HCL INJ 50 MG/ML VIAL IV SCH ×3 (06:45→17:51)
[2017-04-05] MEDS: METOCLOPRAMIDE HCL 10 MG/2ML VIAL IV SCH ×3 (06:45→17:51)
[2017-04-05] MEDS: INSULIN REGULAR, HUMAN 100 UNIT/1 ML 3ML VIAL SQ SCH ×3 (06:49→17:49)
[2017-04-05 07:10] LABS: BASOPHILS # (AUTO) 0.1 (0.0-0.1); BASOPHILS % 0.6 % (0.0-1.0); EOSINOPHILS # (AUTO) 0.2 (0.0-0.4); EOSINOPHILS % 1.8 % (0.0-6.0); HEMATOCRIT 44.4 % (38.2-49.6); HEMOGLOBIN 12.6 g/dL (14.0-18.0); LYMPHOCYTES # (AUTO) 0.9 (1.0-3.2); LYMPHOCYTES % 9.2 % (18.0-39.1); MEAN CORPUSCULAR HEMOGLOBIN 25.5 pg (28-32); MEAN CORPUSCULAR HGB CONC 28.4 g/dL (31-35); MEAN CORPUSCULAR VOLUME 89.9 fL (81-99); MONOCYTES % 9.8 % (4.4-11.3); NEUTROPHILS # (AUTO) 7.8 (2.1-6.9); NEUTROPHILS % 77.7 % (38.7-80.0); PLATELET COUNT 322 x10e3/uL (140-360); RED BLOOD COUNT 4.94 x10e6/uL (4.3-5.7); RED CELL DISTRIBUTION WIDTH 21.2 % (11.7-14.4)
[2017-04-05 07:48] LABS: HYPOCHROMASIA SLIGHT; PLATELET ESTIMATE ADEQUATE; RBC MORPHOLOGY COMMENT NORMAL
[2017-04-05 07:49] LABS: PLATELET MORPHOLOGY COMMENT NORMAL
[2017-04-05] MEDS: CARVEDILOL 12.5 MG TAB PO SCH ×2 (08:57→16:52)
[2017-04-05] MEDS: ASPIRIN 81 MG CHEW TAB PO SCH (09:00)
[2017-04-05] MEDS: FAMOTIDINE 20 MG/2 ML VIAL IV SCH ×2 (09:00→21:34)
[2017-04-05] MEDS: HYDROCORTISONE SOD SUCCINATE 100 MG VIAL IV SCH ×2 (09:00→21:34)
[2017-04-05] MEDS: MIDAZOLAM HCL 2 MG/2 ML VIAL IV PRN (12:20)
[2017-04-05] MEDS ORDERED: CEFAZOLIN SOD 1 GM/NS 50ML 50 ML IV ONE (13:30)
[2017-04-05] MEDS ORDERED: CEFAZOLIN SOD 1 GM VIAL IV NR (14:00)
[2017-04-05 15:54] LABS: ABG PCO2 67 mmHg (41-51); ABG PH 7.28 (7.31-7.41)
[2017-04-05 15:55] LABS: ABG HCO3 32 mmol/L (23-28); ABG PO2 78 mmHg (80-105)
--- NOTE | 2017-04-05 16:03 | Progress Note ---
DATE: April 05, 2017 The patient continues to require propofol and high-dose Fentanyl for sedation. He is on a Lasix drip. He remains on pressure-regulated volume control with a PEEP of 12 and an FI02 of 60%. PHYSICAL EXAMINATION VITAL SIGNS: The patient is afebrile. The vital signs are stable. HEENT: Shows no facial swelling or erythema. The tracheostomy is in good position. CARDIAC: Regular rate and rhythm with normal S1 and S2. There are no murmurs or rubs. LUNGS: Auscultation of the lungs reveals clear breath sounds bilaterally. There is no wheezing. ABDOMEN: Soft and nontender. There is no rebound or guarding. EXTREMITIES: Examination reveals no leg edema or calf tenderness. There is no cyanosis or clubbing. SKIN: Shows no rashes. IMPRESSION 1. [id number] respiratory failure. 2. Ventilator-associated pneumonia. 3. Acute respiratory distress syndrome. 4. Acute renal failure. PLAN: 1. Repeat ABGs. 2. Continue Lasix drip and perform dialysis as indicated by nephrology. 3. Continue antibiotics per infectious disease. 4. Repeat chest x-ray in the a.m. Job#: [id number]
[2017-04-06] VITALS (58 sets, daily range): BP systolic 67–166; BP diastolic 38–109
[2017-04-06] MEDS: DIPHENHYDRAMINE HCL INJ 50 MG/ML VIAL IV SCH ×4 (00:16→17:28)
[2017-04-06] MEDS: METOCLOPRAMIDE HCL 10 MG/2ML VIAL IV SCH ×4 (00:16→17:28)
[2017-04-06] MEDS: ALBUTEROL SULF 0.083% NEB SOLN 3 ML NEB NEB SCH ×6 (02:30→23:15)
[2017-04-06] MEDS: FUROSEMIDE INJ 100 MG in SODIUM CHLORIDE 0.9% 100 ML 90 ML IV SCH ×2 (02:37→07:01)
[2017-04-06 05:39] LABS: BASOPHILS # (AUTO) 0.1 (0.0-0.1); BASOPHILS % 0.6 % (0.0-1.0); EOSINOPHILS # (AUTO) 0.4 (0.0-0.4); HEMOGLOBIN 12.4 g/dL (14.0-18.0); LYMPHOCYTES # (AUTO) 1.1 (1.0-3.2); MEAN CORPUSCULAR HEMOGLOBIN 25.3 pg (28-32); MEAN CORPUSCULAR HGB CONC 28.2 g/dL (31-35); MEAN CORPUSCULAR VOLUME 89.8 fL (81-99); MONOCYTES # (AUTO) 1.2 (0.2-0.8); MONOCYTES % 9.8 % (4.4-11.3); PLATELET COUNT 331 x10e3/uL (140-360); RED CELL DISTRIBUTION WIDTH 21.1 % (11.7-14.4)
[2017-04-06 05:49] LABS: INR 1.05; PROTHROMBIN TIME 12.9 seconds (11.9-14.5)
[2017-04-06 05:59] LABS: ALBUMIN 2.5 g/dL (3.5-5.0); ALBUMIN/GLOBULIN RATIO 0.5 (0.8-2.0); ANION GAP 17.7 mmol/L (8-16); CALCIUM 9.2 mg/dL (8.4-10.2); CREATININE, SERUM 2.63 mg/dL (0.72-1.25); POTASSIUM 3.7 mmol/L (3.5-5.1)
[2017-04-06] MEDS: INSULIN REGULAR, HUMAN 100 UNIT/1 ML 3ML VIAL SQ SCH ×4 (06:00→18:00)
[2017-04-06] MEDS: FENTANYL CITRATE INJ 2,000 MCG in SODIUM CHLORIDE 0.9% 250ML 210 ML IV PRN ×5 (07:21→22:20)
[2017-04-06] MEDS: ASPIRIN 81 MG CHEW TAB PO SCH (07:31)
[2017-04-06] MEDS: FAMOTIDINE 20 MG/2 ML VIAL IV SCH ×2 (07:44→21:11)
[2017-04-06] MEDS: HYDROCORTISONE SOD SUCCINATE 100 MG VIAL IV SCH ×2 (07:44→21:11)
[2017-04-06] MEDS: PROPOFOL IV EMULSION 10MG/ML 100 ML IV PRN ×5 (07:45→23:19)
--- NOTE | 2017-04-06 08:01 | Diagnostic Imaging Report ---
PROCEDURE: CHEST SINGLE (PORTABLE) COMPARISON: 04/05/2017. INDICATIONS: RESPIRATORY FAILURE FINDINGS: Images significantly degraded by patient body habitus. Tracheostomy and right internal jugular central venous catheter are unchanged in position. Interval removal of enteric tube. Stable cardiomegaly with interstitial and alveolar pulmonary edema relative to 04/05/2017. CONCLUSION: Interval removal of enteric tube. Stable position of remaining support lines and tubes. Unchanged cardiomegaly and pulmonary edema. Dictated by: David Perez M.D. on 04/06/2017 at 8:01 Electronically approved by: David Perez M.D. on 04/06/2017 at 8:01
[2017-04-06] MEDS: CARVEDILOL 12.5 MG TAB PO SCH ×2 (08:27→17:00)
[2017-04-06] MEDS: METOPROLOL TARTRATE INJ 1 MG/ML VIAL IV PRN ×2 (08:52→20:14)
[2017-04-06] MEDS: MIDAZOLAM HCL 2 MG/2 ML VIAL IV PRN ×3 (08:52→17:28)
[2017-04-06 13:38] LABS: ABG HCO3 35 mmol/L (23-28); ABG PCO2 67 mmHg (41-51); ABG PH 7.33 (7.31-7.41); ABG PO2 87 mmHg (80-105)
[2017-04-06] MEDS ORDERED: SODIUM CHLORIDE 0.9% 250ML 250 ML ONE (13:41)
--- NOTE | 2017-04-06 14:35 | Operative Report ---
DATE OF PROCEDURE: 2017 PROCEDURE PERFORMED: Upper endoscopy with percutaneous endoscopic gastrotomy placement. POSTOPERATIVE DIAGNOSIS 1. Percutaneous endoscopic gastrotomy placement. 2. Hiatal hernia. 3. Gastritis. ANESTHESIA: IV general. INDICATION: Dysphagia. PROCEDURE IN DETAIL: The risks and benefits were discussed with the patient's family prior to the procedure. Family understands the risks of bleeding, infection and perforation, as well as medication reactions. After the patient was sedated comfortably with MAC anesthesia, an Olympus gastroscope was inserted in the mouth. Subsequently the esophagus was intubated. Evaluation of the esophagus appeared to be normal. Evaluation of the stomach in the forward and retroflex fashions showed evidence of a hiatal hernia as well as gastritis. The duodenum appeared to be normal. The gastroscope was withdrawn back into the stomach. Thumbprinting as well as light reflection was obtained. Subsequently the area was sterilized and then lidocaine local anesthetic was given. Then a 0.5 cm incision was made, and then a trocar needle was inserted into the stomach under direct vision. A wire then was inserted into the stomach under direct vision, and the new 20-[place] PEG was placed. Placement was confirmed endoscopically, and the outer bumper was seen at about 3 cm. Procedure was done without any problem. RECOMMENDATION: Continue on the current care at this point and resume tube feeding later this afternoon. ARLEY TAFOYA MD Job#: [id number] EV Cc: SHONNA LR MD
[2017-04-06] MEDS ORDERED: LIDOCAINE HCL 2% LOCAL INJ 5 ML SDV VIAL INJ ONE (18:15)
[2017-04-06] MEDS ORDERED: PROPOFOL IV EMULSION 10 MG/ML 20 ML VIAL ONE (18:15)
[2017-04-06] MEDS ORDERED: MIDAZOLAM HCL 2 MG/2 ML VIAL ONE (18:32)
[2017-04-07] VITALS (75 sets, daily range): BP systolic 79–137; BP diastolic 43–92
[2017-04-07] MEDS: DIPHENHYDRAMINE HCL INJ 50 MG/ML VIAL IV SCH ×5 (00:15→23:35)
[2017-04-07] MEDS: METOCLOPRAMIDE HCL 10 MG/2ML VIAL IV SCH ×5 (00:15→23:35)
[2017-04-07] MEDS: PROPOFOL IV EMULSION 10MG/ML 100 ML IV PRN ×8 (01:16→23:34)
[2017-04-07] MEDS: ALBUTEROL SULF 0.083% NEB SOLN 3 ML NEB NEB SCH ×6 (02:45→23:15)
[2017-04-07 05:35] LABS: BASOPHILS # (AUTO) 0.1 (0.0-0.1); BASOPHILS % 0.8 % (0.0-1.0); EOSINOPHILS # (AUTO) 0.3 (0.0-0.4); EOSINOPHILS % 3.2 % (0.0-6.0); HEMATOCRIT 42.3 % (38.2-49.6); HEMOGLOBIN 11.8 g/dL (14.0-18.0); LYMPHOCYTES # (AUTO) 1.1 (1.0-3.2); LYMPHOCYTES % 11.6 % (18.0-39.1); MEAN CORPUSCULAR HEMOGLOBIN 25.6 pg (28-32); MEAN CORPUSCULAR HGB CONC 27.9 g/dL (31-35); MEAN CORPUSCULAR VOLUME 91.8 fL (81-99); MONOCYTES # (AUTO) 1.1 (0.2-0.8); MONOCYTES % 12.3 % (4.4-11.3); NEUTROPHILS # (AUTO) 6.5 (2.1-6.9); NEUTROPHILS % 71.2 % (38.7-80.0); PLATELET COUNT 306 x10e3/uL (140-360); RED BLOOD COUNT 4.61 x10e6/uL (4.3-5.7); RED CELL DISTRIBUTION WIDTH 20.7 % (11.7-14.4)
[2017-04-07] MEDS: FENTANYL CITRATE INJ 2,000 MCG in SODIUM CHLORIDE 0.9% 250ML 210 ML IV PRN ×3 (05:40→22:14)
[2017-04-07 05:58] LABS: ALBUMIN 2.6 g/dL (3.5-5.0); ALBUMIN/GLOBULIN RATIO 0.5 (0.8-2.0); ANION GAP 15.4 mmol/L (8-16); CALCIUM 9.2 mg/dL (8.4-10.2); CREATININE, SERUM 1.77 mg/dL (0.72-1.25); MAGNESIUM 2.1 MG/DL (1.3-2.1); PHOSPHORUS 4.7 MG/DL (2.3-4.7); POTASSIUM 3.4 mmol/L (3.5-5.1)
[2017-04-07] MEDS: INSULIN REGULAR, HUMAN 100 UNIT/1 ML 3ML VIAL SQ SCH ×4 (06:00→17:07)
--- NOTE | 2017-04-07 06:47 | Diagnostic Imaging Report ---
CHEST SINGLE (PORTABLE), 04/07/2017 6:30 AM Technique: CHEST SINGLE (PORTABLE) Comparison: 04/05/2017 Clinical history: Respiratory failure Findings: See Impression Impression: Study is significantly degraded by body habitus/portable technique. 1. Lines/Tubes: ET tube about 4.4 cm above the kvng, poorly seen. NG tube extends subdiaphragmatically. Right IJ CVC reaching the cavoatrial junction. Right PICC near the cavoatrial junction, tip not seen. 2. Stable enlarged cardiomediastinal silhouette and diffuse pulmonary edema . 3. More confluent opacity in the left lower lobe retrocardiac region may represent aspiration or pneumonia Signed by: Dr. Antione Mcdaniel M.D. on 04/07/2017 6:44 AM
[2017-04-07] MEDS: ASPIRIN 81 MG CHEW TAB PO SCH (08:47)
[2017-04-07] MEDS: FAMOTIDINE 20 MG/2 ML VIAL IV SCH ×2 (08:47→20:07)
[2017-04-07] MEDS: CARVEDILOL 12.5 MG TAB PO SCH ×2 (08:47→15:04)
[2017-04-07] MEDS: HYDROCORTISONE SOD SUCCINATE 100 MG VIAL IV SCH ×2 (08:47→20:07)
[2017-04-07] MEDS: MIDAZOLAM HCL 2 MG/2 ML VIAL IV PRN ×2 (09:15→11:30)
[2017-04-07] MEDS ORDERED: POTASSIUM CHLORIDE 40 MEQ in DEXTROSE 5% 1,000 ML IV ONE (10:45)
[2017-04-07] MEDS: LINEZOLID 600 MG/D5W 300ML 300 ML IV SCH ×2 (12:19→23:35)
[2017-04-07] MEDS: ACETAMINOPHEN 325 MG/10 ML UDC NG PRN (13:08)
[2017-04-07] MEDS: ENOXAPARIN SOD INJ 40 MG/0.4 ML SYR SC SCH (17:03)
[2017-04-07 20:40] LABS: BASOPHILS # (AUTO) 0.1 (0.0-0.1); EOSINOPHILS # (AUTO) 0.4 (0.0-0.4); EOSINOPHILS % 4.3 % (0.0-6.0); HEMATOCRIT 42.5 % (38.2-49.6); HEMOGLOBIN 11.8 g/dL (14.0-18.0); LYMPHOCYTES # (AUTO) 1.4 (1.0-3.2); LYMPHOCYTES % 13.7 % (18.0-39.1); MEAN CORPUSCULAR HEMOGLOBIN 25.4 pg (28-32); MEAN CORPUSCULAR HGB CONC 27.8 g/dL (31-35); MEAN CORPUSCULAR VOLUME 91.6 fL (81-99); MONOCYTES # (AUTO) 1.3 (0.2-0.8); MONOCYTES % 13.4 % (4.4-11.3); NEUTROPHILS # (AUTO) 6.6 (2.1-6.9); NEUTROPHILS % 66.4 % (38.7-80.0); PLATELET COUNT 286 x10e3/uL (140-360); RED BLOOD COUNT 4.64 x10e6/uL (4.3-5.7); RED CELL DISTRIBUTION WIDTH 20.9 % (11.7-14.4)
[2017-04-07 20:49] LABS: INR 1.15; PROTHROMBIN TIME 13.8 seconds (11.9-14.5)
[2017-04-07 20:50] LABS: PARTIAL THROMBOPLASTIN TIME 30.5 seconds (23.8-35.5)
--- NOTE | 2017-04-07 21:40 | Diagnostic Imaging Report ---
CHEST SINGLE (PORTABLE), 04/07/2017 8:28 PM Technique: CHEST SINGLE (PORTABLE) Comparison: 04/07/2017 at 6:19 AM Clinical history: PICC line placement Findings: See Impression Impression: Study is significantly degraded by body habitus/portable technique. 1. Lines/Tubes: Interval placement of right upper extremity PICC line with tip overlying the subclavian vessels. ET tube about 4.4 cm above the kvng. NG tube extends subdiaphragmatically. Right IJ CVC reaching the cavoatrial junction. Right PICC near the cavoatrial junction, tip not seen. 2. Stable enlarged cardiomediastinal silhouette and diffuse pulmonary edema . 3. More confluent opacity in the left lower lobe retrocardiac region may represent aspiration or pneumonia Signed by: Dr. Antione Mcdaniel M.D. on 04/07/2017 9:37 PM
[2017-04-08] VITALS (84 sets, daily range): BP systolic 96–163; BP diastolic 52–98
[2017-04-08] MEDS: PROPOFOL IV EMULSION 10MG/ML 100 ML IV PRN ×10 (02:30→22:48)
[2017-04-08] MEDS: ALBUTEROL SULF 0.083% NEB SOLN 3 ML NEB NEB SCH ×6 (03:25→22:35)
[2017-04-08] MEDS: FENTANYL CITRATE INJ 2,000 MCG in SODIUM CHLORIDE 0.9% 250ML 210 ML IV PRN ×3 (04:07→17:20)
[2017-04-08] MEDS: METOCLOPRAMIDE HCL 10 MG/2ML VIAL IV SCH ×4 (05:02→23:44)
[2017-04-08] MEDS: DIPHENHYDRAMINE HCL INJ 50 MG/ML VIAL IV SCH ×4 (05:02→23:44)
[2017-04-08 05:24] LABS: BASOPHILS # (AUTO) 0.1 (0.0-0.1); BASOPHILS % 0.9 % (0.0-1.0); EOSINOPHILS # (AUTO) 0.5 (0.0-0.4); EOSINOPHILS % 4.6 % (0.0-6.0); HEMATOCRIT 40.2 % (38.2-49.6); LYMPHOCYTES # (AUTO) 1.1 (1.0-3.2); LYMPHOCYTES % 10.7 % (18.0-39.1); MEAN CORPUSCULAR HEMOGLOBIN 25.5 pg (28-32); MEAN CORPUSCULAR HGB CONC 27.4 g/dL (31-35); MEAN CORPUSCULAR VOLUME 93.1 fL (81-99); MONOCYTES # (AUTO) 1.1 (0.2-0.8); MONOCYTES % 10.1 % (4.4-11.3); NEUTROPHILS # (AUTO) 7.7 (2.1-6.9); NEUTROPHILS % 72.8 % (38.7-80.0); PLATELET COUNT 295 x10e3/uL (140-360); RED BLOOD COUNT 4.32 x10e6/uL (4.3-5.7); RED CELL DISTRIBUTION WIDTH 20.7 % (11.7-14.4)
[2017-04-08 05:42] LABS: ANION GAP 13.8 mmol/L (8-16); BLOOD UREA NITROGEN 73 mg/dL (7-26); BUN/CREATININE RATIO 67 (6-25); CALCIUM 9.2 mg/dL (8.4-10.2); CARBON DIOXIDE 33 mmol/L (22-29); CHLORIDE 104 mmol/L (98-107); CREATININE, SERUM 1.09 mg/dL (0.72-1.25); EST GLOMERULAR FILTRATION RATE > 60 ML/MIN (60-); GLUCOSE 112 mg/dL (74-118); POTASSIUM 3.8 mmol/L (3.5-5.1); SODIUM 147 mmol/L (136-145)
[2017-04-08] MEDS: INSULIN REGULAR, HUMAN 100 UNIT/1 ML 3ML VIAL SQ SCH ×4 (06:00→18:00)
[2017-04-08] MEDS: FAMOTIDINE 20 MG/2 ML VIAL IV SCH ×2 (08:06→19:54)
[2017-04-08] MEDS: ASPIRIN 81 MG CHEW TAB PO SCH (08:06)
[2017-04-08] MEDS: HYDROCORTISONE SOD SUCCINATE 100 MG VIAL IV SCH ×2 (08:06→19:54)
[2017-04-08] MEDS: CARVEDILOL 12.5 MG TAB PO SCH ×2 (09:00→16:47)
[2017-04-08] MEDS: BALSAM PERU/CASTOR OIL 60 GM OINT...G. TP SCH ×4 (09:01→19:53)
[2017-04-08] MEDS: LINEZOLID 600 MG/D5W 300ML 300 ML IV SCH ×2 (11:23→23:44)
[2017-04-08] MEDS ORDERED: MIDAZOLAM HCL 2 MG/2 ML VIAL IV PRN (14:00)
[2017-04-08] MEDS: MIDAZOLAM HCL 2 MG/2 ML VIAL IV PRN ×3 (14:15→22:50)
[2017-04-08] MEDS: DEXTROSE 5% 1,000 ML IV SCH (15:02)
[2017-04-08] MEDS ORDERED: FUROSEMIDE INJ 10 MG/ML 2 ML VIAL IV ONE (15:30)
[2017-04-08 16:03] LABS: ABG HCO3 36 mmol/L (23-28); ABG PCO2 64 mmHg (41-51); ABG PH 7.36 (7.31-7.41); ABG PO2 81 mmHg (80-105)
[2017-04-08] MEDS: ENOXAPARIN SOD INJ 40 MG/0.4 ML SYR SC SCH (17:19)
[2017-04-09] VITALS (71 sets, daily range): BP systolic 100–167; BP diastolic 59–108
[2017-04-09] MEDS: INSULIN REGULAR, HUMAN 100 UNIT/1 ML 3ML VIAL SQ SCH ×5 (00:06→23:45)
[2017-04-09] MEDS: PROPOFOL IV EMULSION 10MG/ML 100 ML IV PRN ×13 (00:25→21:45)
[2017-04-09] MEDS: DEXTROSE 5% 1,000 ML IV SCH (00:56)
[2017-04-09] MEDS: FENTANYL CITRATE INJ 2,000 MCG in SODIUM CHLORIDE 0.9% 250ML 210 ML IV PRN ×4 (01:32→22:14)
[2017-04-09] MEDS: ALBUTEROL SULF 0.083% NEB SOLN 3 ML NEB NEB SCH ×6 (02:45→23:25)
[2017-04-09 05:35] LABS: BASOPHILS # (AUTO) 0.1 (0.0-0.1); BASOPHILS % 0.8 % (0.0-1.0); EOSINOPHILS # (AUTO) 0.7 (0.0-0.4); EOSINOPHILS % 6.6 % (0.0-6.0); HEMATOCRIT 39.6 % (38.2-49.6); HEMOGLOBIN 10.9 g/dL (14.0-18.0); LYMPHOCYTES # (AUTO) 1.1 (1.0-3.2); LYMPHOCYTES % 10.9 % (18.0-39.1); MEAN CORPUSCULAR HEMOGLOBIN 25.4 pg (28-32); MEAN CORPUSCULAR HGB CONC 27.5 g/dL (31-35); MEAN CORPUSCULAR VOLUME 92.3 fL (81-99); MONOCYTES # (AUTO) 0.9 (0.2-0.8); MONOCYTES % 9.3 % (4.4-11.3); NEUTROPHILS # (AUTO) 7.2 (2.1-6.9); NEUTROPHILS % 71.8 % (38.7-80.0); PLATELET COUNT 273 x10e3/uL (140-360); RED BLOOD COUNT 4.29 x10e6/uL (4.3-5.7); RED CELL DISTRIBUTION WIDTH 20.8 % (11.7-14.4)
[2017-04-09] MEDS: METOCLOPRAMIDE HCL 10 MG/2ML VIAL IV SCH ×4 (05:46→23:45)
[2017-04-09] MEDS: DIPHENHYDRAMINE HCL INJ 50 MG/ML VIAL IV SCH ×4 (05:46→23:45)
[2017-04-09 05:56] LABS: ANION GAP 12.6 mmol/L (8-16); BLOOD UREA NITROGEN 48 mg/dL (7-26); BUN/CREATININE RATIO 55 (6-25); CALCIUM 9.1 mg/dL (8.4-10.2); CARBON DIOXIDE 34 mmol/L (22-29); CHLORIDE 104 mmol/L (98-107); CREATININE, SERUM 0.88 mg/dL (0.72-1.25); EST GLOMERULAR FILTRATION RATE > 60 ML/MIN (60-); GLUCOSE 118 mg/dL (74-118); MAGNESIUM 1.3 MG/DL (1.3-2.1); POTASSIUM 3.6 mmol/L (3.5-5.1); SODIUM 147 mmol/L (136-145)
--- NOTE | 2017-04-09 07:06 | Diagnostic Imaging Report ---
CHEST SINGLE (PORTABLE), 04/09/2017 6:30 AM Technique: CHEST SINGLE (PORTABLE) Comparison: 04/07/2017 at 2057 hours Clinical history: Respiratory failure Findings: See Impression Impression: Study is significantly degraded by body habitus/portable technique. 1. Lines/Tubes: Stable position of the right IJ central line catheter with tip overlying at the atriocaval junction. 2. Stable enlarged cardiomediastinal silhouette and diffuse pulmonary edema . 3. Stable confluent opacities bilaterally more significant in the left lower lobe suspicious for developing infection/aspiration Signed by: Dr. Antione Mcdaniel M.D. on 04/09/2017 7:03 AM
[2017-04-09] MEDS: MIDAZOLAM HCL 2 MG/2 ML VIAL IV PRN ×6 (07:38→19:48)
[2017-04-09] MEDS: CARVEDILOL 12.5 MG TAB PO SCH ×2 (09:00→17:00)
[2017-04-09] MEDS: ACETAZOLAMIDE SODIUM 500 MG/VIAL IV SCH (09:18)
[2017-04-09] MEDS: FAMOTIDINE 20 MG/2 ML VIAL IV SCH ×2 (09:18→19:48)
[2017-04-09] MEDS: HYDROCORTISONE SOD SUCCINATE 100 MG VIAL IV SCH ×2 (09:19→19:48)
[2017-04-09] MEDS: BALSAM PERU/CASTOR OIL 60 GM OINT...G. TP SCH ×3 (09:21→19:48)
[2017-04-09] MEDS: ASPIRIN 81 MG CHEW TAB PO SCH (09:21)
[2017-04-09] MEDS ORDERED: DEXTROSE 5% 1,000 ML IV ONE (11:52)
[2017-04-09] MEDS ORDERED: FUROSEMIDE INJ 10 MG/ML 4 ML VIAL IV ONE (12:00)
[2017-04-09] MEDS: LINEZOLID 600 MG/D5W 300ML 300 ML IV SCH ×2 (12:09→23:45)
[2017-04-09] MEDS ORDERED: DEXTROSE 5% 2,000 ML IV ONE (12:15)
[2017-04-09] MEDS: ENOXAPARIN SOD INJ 40 MG/0.4 ML SYR SC SCH (17:54)
[2017-04-10] VITALS (71 sets, daily range): BP systolic 87–154; BP diastolic 49–101
[2017-04-10] MEDS: PROPOFOL IV EMULSION 10MG/ML 100 ML IV PRN ×13 (00:06→23:15)
[2017-04-10] MEDS: ALBUTEROL SULF 0.083% NEB SOLN 3 ML NEB NEB SCH ×6 (02:10→23:20)
[2017-04-10] MEDS: MIDAZOLAM HCL 2 MG/2 ML VIAL IV PRN ×2 (03:53→08:29)
[2017-04-10] MEDS: FENTANYL CITRATE INJ 2,000 MCG in SODIUM CHLORIDE 0.9% 250ML 210 ML IV PRN (03:54)
[2017-04-10] MEDS: INSULIN REGULAR, HUMAN 100 UNIT/1 ML 3ML VIAL SQ SCH ×3 (05:37→18:00)
[2017-04-10] MEDS: METOCLOPRAMIDE HCL 10 MG/2ML VIAL IV SCH ×4 (05:37→23:03)
[2017-04-10] MEDS: DIPHENHYDRAMINE HCL INJ 50 MG/ML VIAL IV SCH ×4 (05:37→23:03)
[2017-04-10 06:03] LABS: BASOPHILS # (AUTO) 0.1 (0.0-0.1); BASOPHILS % 0.6 % (0.0-1.0); EOSINOPHILS # (AUTO) 0.7 (0.0-0.4); EOSINOPHILS % 9.2 % (0.0-6.0); HEMATOCRIT 37.4 % (38.2-49.6); HEMOGLOBIN 10.5 g/dL (14.0-18.0); LYMPHOCYTES # (AUTO) 1.2 (1.0-3.2); LYMPHOCYTES % 14.7 % (18.0-39.1); MEAN CORPUSCULAR HEMOGLOBIN 25.6 pg (28-32); MEAN CORPUSCULAR HGB CONC 28.1 g/dL (31-35); MEAN CORPUSCULAR VOLUME 91.2 fL (81-99); MONOCYTES # (AUTO) 0.9 (0.2-0.8); MONOCYTES % 11.6 % (4.4-11.3); NEUTROPHILS # (AUTO) 5.1 (2.1-6.9); NEUTROPHILS % 63.4 % (38.7-80.0); PLATELET COUNT 276 x10e3/uL (140-360); RED CELL DISTRIBUTION WIDTH 20.8 % (11.7-14.4)
[2017-04-10 06:26] LABS: ANION GAP 13.6 mmol/L (8-16); BLOOD UREA NITROGEN 31 mg/dL (7-26); BUN/CREATININE RATIO 38 (6-25); CALCIUM 9.1 mg/dL (8.4-10.2); CARBON DIOXIDE 33 mmol/L (22-29); CHLORIDE 99 mmol/L (98-107); CREATININE, SERUM 0.82 mg/dL (0.72-1.25); EST GLOMERULAR FILTRATION RATE > 60 ML/MIN (60-); GLUCOSE 97 mg/dL (74-118); POTASSIUM 3.6 mmol/L (3.5-5.1); SODIUM 142 mmol/L (136-145)
[2017-04-10] MEDS ORDERED: FUROSEMIDE INJ 10 MG/ML 4 ML VIAL IV NR (07:45)
[2017-04-10 07:46] LABS: ANISOCYTOSIS SLIG; HYPOCHROMASIA SLIGHT; PLATELET ESTIMATE ADEQUATE; POIKILOCYTOSIS SLIGHT
[2017-04-10 07:48] LABS: PLATELET MORPHOLOGY COMMENT FEW LARGE; RBC MORPHOLOGY COMMENT ABNORMAL
[2017-04-10] MEDS: CARVEDILOL 12.5 MG TAB PO SCH ×2 (10:09→17:00)
[2017-04-10] MEDS: ASPIRIN 81 MG CHEW TAB PO SCH (10:09)
[2017-04-10] MEDS: BALSAM PERU/CASTOR OIL 60 GM OINT...G. TP SCH ×3 (10:09→21:54)
[2017-04-10] MEDS: HYDROCORTISONE SOD SUCCINATE 100 MG VIAL IV SCH ×2 (10:09→21:54)
[2017-04-10] MEDS: FAMOTIDINE 20 MG/2 ML VIAL IV SCH ×2 (10:09→21:54)
[2017-04-10] MEDS: ACETAZOLAMIDE SODIUM 500 MG/VIAL IV SCH (10:09)
[2017-04-10] MEDS: LINEZOLID 600 MG/D5W 300ML 300 ML IV SCH ×2 (12:17→22:46)
[2017-04-10] MEDS ORDERED: MEROPENEM 500MG 500 MG in SODIUM CHLORIDE 0.9% 50ML 50 ML IV SCH (14:00)
[2017-04-10] MEDS: MEROPENEM 500 MG VIAL IV SCH ×2 (14:23→21:58)
[2017-04-10 16:28] LABS: ABG HCO3 36 mmol/L (23-28); ABG PCO2 59 mmHg (41-51); ABG PH 7.39 (7.31-7.41); ABG PO2 70 mmHg (80-105)
[2017-04-10] MEDS: ENOXAPARIN SOD INJ 40 MG/0.4 ML SYR SC SCH (18:06)
[2017-04-11] VITALS (53 sets, daily range): BP systolic 78–152; BP diastolic 35–106
[2017-04-11] MEDS: ALBUTEROL SULF 0.083% NEB SOLN 3 ML NEB NEB SCH ×6 (00:05→19:05)
[2017-04-11] MEDS: PROPOFOL IV EMULSION 10MG/ML 100 ML IV PRN ×15 (01:00→22:44)
[2017-04-11] MEDS ORDERED: POLYETHYLENE GLYCOL 3350 17 GM PACK PO PRN ×2 (01:30→06:30)
[2017-04-11] MEDS: FENTANYL CITRATE INJ 2,000 MCG in SODIUM CHLORIDE 0.9% 250ML 210 ML IV PRN ×3 (02:32→18:33)
[2017-04-11 05:29] LABS: BASOPHILS # (AUTO) 0.1 (0.0-0.1); BASOPHILS % 0.8 % (0.0-1.0); EOSINOPHILS # (AUTO) 0.8 (0.0-0.4); EOSINOPHILS % 9.2 % (0.0-6.0); HEMATOCRIT 34.9 % (38.2-49.6); HEMOGLOBIN 9.8 g/dL (14.0-18.0); LYMPHOCYTES # (AUTO) 1.2 (1.0-3.2); LYMPHOCYTES % 14.8 % (18.0-39.1); MEAN CORPUSCULAR HEMOGLOBIN 25.4 pg (28-32); MEAN CORPUSCULAR HGB CONC 28.1 g/dL (31-35); MEAN CORPUSCULAR VOLUME 90.4 fL (81-99); MONOCYTES # (AUTO) 0.9 (0.2-0.8); MONOCYTES % 10.7 % (4.4-11.3); NEUTROPHILS # (AUTO) 5.4 (2.1-6.9); NEUTROPHILS % 63.9 % (38.7-80.0); PLATELET COUNT 272 x10e3/uL (140-360); RED BLOOD COUNT 3.86 x10e6/uL (4.3-5.7)
[2017-04-11 05:48] LABS: ANION GAP 12.5 mmol/L (8-16); BLOOD UREA NITROGEN 25 mg/dL (7-26); BUN/CREATININE RATIO 30 (6-25); CALCIUM 8.8 mg/dL (8.4-10.2); CARBON DIOXIDE 33 mmol/L (22-29); CHLORIDE 97 mmol/L (98-107); CREATININE, SERUM 0.83 mg/dL (0.72-1.25); EST GLOMERULAR FILTRATION RATE > 60 ML/MIN (60-); GLUCOSE 98 mg/dL (74-118); MAGNESIUM 1.2 MG/DL (1.3-2.1); PHOSPHORUS 5.3 MG/DL (2.3-4.7); POTASSIUM 3.5 mmol/L (3.5-5.1); SODIUM 139 mmol/L (136-145)
[2017-04-11] MEDS: INSULIN REGULAR, HUMAN 100 UNIT/1 ML 3ML VIAL SQ SCH ×5 (06:00→23:23)
[2017-04-11] MEDS: MEROPENEM 500 MG VIAL IV SCH ×3 (06:19→20:58)
[2017-04-11] MEDS: DIPHENHYDRAMINE HCL INJ 50 MG/ML VIAL IV SCH ×4 (06:19→23:11)
[2017-04-11] MEDS: METOCLOPRAMIDE HCL 10 MG/2ML VIAL IV SCH ×4 (06:19→23:11)
--- NOTE | 2017-04-11 06:57 | Diagnostic Imaging Report ---
EXAM: CHEST SINGLE (PORTABLE), AP 1 view ORDER DATE: 04/11/2017 6:30 AM Time stamp on exam: 0636 hours INDICATION: Respiratory failure COMPARISON: April 09 2017 at 0502 hours FINDINGS: LINES/TUBES: Stable right internal jugular vein central line and endotracheal tube and right approach PICC. LUNGS: Complete opacification of the left lung. Increased opacification of the right lung. PLEURA: Indeterminate for effusion on the left. HEART AND MEDIASTINUM: Completely obscured. BONES AND SOFT TISSUES: No acute findings. IMPRESSION: New opacification of the left lung. This could be due to left lung collapse from mucous plugging or effusion. Increased edema in the right lung. Signed by: Dr. Lora Leon M.D. on 04/11/2017 6:53 AM
[2017-04-11] MEDS ORDERED: MAGNESIUM SULFATE 2GM/50ML 50 ML IV ONE (07:30)
[2017-04-11] MEDS ORDERED: POTASSIUM CHLORIDE 20MEQ/100ML 100 ML IV ONE (07:30)
[2017-04-11] MEDS ORDERED: POTASSIUM CHLORIDE IV ONE (08:15)
[2017-04-11] MEDS ORDERED: SODIUM CHLORIDE 0.9% IV ONE (08:15)
[2017-04-11] MEDS: ASPIRIN 81 MG CHEW TAB PO SCH (09:00)
[2017-04-11] MEDS: ACETAZOLAMIDE SODIUM 500 MG/VIAL IV SCH (09:35)
[2017-04-11] MEDS: FAMOTIDINE 20 MG/2 ML VIAL IV SCH ×2 (09:35→19:43)
[2017-04-11] MEDS: HYDROCORTISONE SOD SUCCINATE 100 MG VIAL IV SCH ×3 (09:35→21:04)
[2017-04-11] MEDS: FUROSEMIDE INJ 10 MG/ML 4 ML VIAL IV SCH (09:35)
[2017-04-11] MEDS: COLLAGENASE OINTMENT 30 GM TUBE TP SCH (09:36)
[2017-04-11] MEDS: BALSAM PERU/CASTOR OIL 60 GM OINT...G. TP SCH ×3 (09:36→19:43)
[2017-04-11] MEDS: CARVEDILOL 12.5 MG TAB PO SCH ×2 (10:02→17:00)
[2017-04-11] MEDS: LINEZOLID 600 MG/D5W 300ML 300 ML IV SCH ×2 (11:50→23:11)
[2017-04-11 16:27] LABS: ABG PH 7.34 (7.31-7.41)
[2017-04-11 16:28] LABS: ABG HCO3 35 mmol/L (23-28); ABG PCO2 65 mmHg (41-51); ABG PO2 48 mmHg (80-105)
[2017-04-11] MEDS: ENOXAPARIN SOD INJ 40 MG/0.4 ML SYR SC SCH (17:00)
[2017-04-11] MEDS: MIDAZOLAM HCL 2 MG/2 ML VIAL IV PRN (19:44)
[2017-04-12] VITALS (61 sets, daily range): BP systolic 90–154; BP diastolic 49–103
[2017-04-12] MEDS: PROPOFOL IV EMULSION 10MG/ML 100 ML IV PRN ×10 (00:15→22:45)
[2017-04-12] MEDS: FENTANYL CITRATE INJ 2,000 MCG in SODIUM CHLORIDE 0.9% 250ML 210 ML IV PRN ×2 (00:15→16:00)
[2017-04-12] MEDS: ALBUTEROL SULF 0.083% NEB SOLN 3 ML NEB NEB SCH ×7 (03:15→23:30)
[2017-04-12] MEDS: MEROPENEM 500 MG VIAL IV SCH ×3 (05:11→22:00)
[2017-04-12] MEDS: DIPHENHYDRAMINE HCL INJ 50 MG/ML VIAL IV SCH ×3 (05:12→17:18)
[2017-04-12] MEDS: METOCLOPRAMIDE HCL 10 MG/2ML VIAL IV SCH ×3 (05:12→17:18)
[2017-04-12] MEDS: INSULIN REGULAR, HUMAN 100 UNIT/1 ML 3ML VIAL SQ SCH ×3 (05:53→17:17)
--- NOTE | 2017-04-12 05:58 | Diagnostic Imaging Report ---
EXAM: CHEST SINGLE (PORTABLE), AP 1 view INDICATION: Respiratory failure COMPARISON: AP view of the chest the 2017 at 0636 hours FINDINGS: LINES/TUBES: Stable tracheostomy, right internal jugular vein temporary hemodialysis catheter. Tip of right PICC not well seen on this exam. LUNGS: Slight improved aeration of the left lung. Slight decrease in edema on the right. PLEURA: Indeterminate on the left. HEART AND MEDIASTINUM: Normal size and contour. BONES AND SOFT TISSUES: No acute findings. IMPRESSION: Slight improved aeration of the left lung with likely persistent collapse of the left lower lobe. Signed by: Dr. Lora Leon M.D. on 04/12/2017 5:54 AM
[2017-04-12 06:07] LABS: BASOPHILS # (AUTO) 0.1 (0.0-0.1); EOSINOPHILS # (AUTO) 0.8 (0.0-0.4); EOSINOPHILS % 11.8 % (0.0-6.0); HEMATOCRIT 36.3 % (38.2-49.6); HEMOGLOBIN 10.3 g/dL (14.0-18.0); LYMPHOCYTES # (AUTO) 1.1 (1.0-3.2); LYMPHOCYTES % 15.6 % (18.0-39.1); MEAN CORPUSCULAR HEMOGLOBIN 25.5 pg (28-32); MEAN CORPUSCULAR HGB CONC 28.4 g/dL (31-35); MEAN CORPUSCULAR VOLUME 89.9 fL (81-99); MONOCYTES # (AUTO) 0.8 (0.2-0.8); MONOCYTES % 11.6 % (4.4-11.3); NEUTROPHILS # (AUTO) 4.1 (2.1-6.9); NEUTROPHILS % 59.6 % (38.7-80.0); PLATELET COUNT 252 x10e3/uL (140-360); RED BLOOD COUNT 4.04 x10e6/uL (4.3-5.7)
[2017-04-12 06:24] LABS: ANION GAP 12.8 mmol/L (8-16); BLOOD UREA NITROGEN 21 mg/dL (7-26); BUN/CREATININE RATIO 27 (6-25); CALCIUM 8.8 mg/dL (8.4-10.2); CARBON DIOXIDE 34 mmol/L (22-29); CHLORIDE 97 mmol/L (98-107); CREATININE, SERUM 0.77 mg/dL (0.72-1.25); EST GLOMERULAR FILTRATION RATE > 60 ML/MIN (60-); GLUCOSE 95 mg/dL (74-118); MAGNESIUM 1.5 MG/DL (1.3-2.1); PHOSPHORUS 4.8 MG/DL (2.3-4.7); POTASSIUM 3.8 mmol/L (3.5-5.1); SODIUM 140 mmol/L (136-145)
[2017-04-12] MEDS: MIDAZOLAM HCL 2 MG/2 ML VIAL IV PRN ×7 (07:47→13:31)
[2017-04-12 08:21] LABS: HYPOCHROMASIA SLIGHT; PLATELET ESTIMATE ADEQUATE; PLATELET MORPHOLOGY COMMENT MODERATE LARGE; RBC MORPHOLOGY COMMENT ABNORMAL
[2017-04-12 08:22] LABS: ANISOCYTOSIS MODE; POIKILOCYTOSIS MODERATE; STOMATOCYTES SLIGHT
[2017-04-12] MEDS: CARVEDILOL 12.5 MG TAB PO SCH ×2 (09:00→17:00)
[2017-04-12] MEDS: ASPIRIN 81 MG CHEW TAB PO SCH (09:30)
[2017-04-12] MEDS: FUROSEMIDE INJ 10 MG/ML 4 ML VIAL IV SCH (09:30)
[2017-04-12] MEDS: FAMOTIDINE 20 MG/2 ML VIAL IV SCH ×2 (09:30→21:00)
[2017-04-12] MEDS: ACETAZOLAMIDE SODIUM 500 MG/VIAL IV SCH (09:30)
[2017-04-12] MEDS: HYDROCORTISONE SOD SUCCINATE 100 MG VIAL IV SCH ×2 (09:30→21:00)
[2017-04-12] MEDS: COLLAGENASE OINTMENT 30 GM TUBE TP SCH (10:25)
[2017-04-12] MEDS: BALSAM PERU/CASTOR OIL 60 GM OINT...G. TP SCH ×2 (10:26→14:48)
[2017-04-12] MEDS: LINEZOLID 600 MG/D5W 300ML 300 ML IV SCH ×2 (11:05→22:55)
[2017-04-12] MEDS: MIDAZOLAM HCL 25 MG in SODIUM CHLORIDE 0.9% 50ML 45 ML IV PRN ×2 (14:00→17:51)
[2017-04-12] MEDS ORDERED: SODIUM CHLORIDE 0.9% 250ML 250 ML ONE (22:22)
[2017-04-13] VITALS (82 sets, daily range): BP systolic 108–162; BP diastolic 53–119
[2017-04-13] MEDS: PROPOFOL IV EMULSION 10MG/ML 100 ML IV PRN ×11 (00:30→23:51)
[2017-04-13] MEDS: ALBUTEROL SULF 0.083% NEB SOLN 3 ML NEB NEB SCH ×5 (03:10→18:45)
[2017-04-13] MEDS: METOPROLOL TARTRATE INJ 1 MG/ML VIAL IV PRN (04:15)
[2017-04-13 05:35] LABS: BASOPHILS # (AUTO) 0.1 (0.0-0.1); BASOPHILS % 0.7 % (0.0-1.0); EOSINOPHILS # (AUTO) 0.3 (0.0-0.4); EOSINOPHILS % 3.1 % (0.0-6.0); HEMATOCRIT 34.8 % (38.2-49.6); LYMPHOCYTES # (AUTO) 0.9 (1.0-3.2); LYMPHOCYTES % 9.7 % (18.0-39.1); MEAN CORPUSCULAR HEMOGLOBIN 25.5 pg (28-32); MEAN CORPUSCULAR HGB CONC 28.7 g/dL (31-35); MEAN CORPUSCULAR VOLUME 88.8 fL (81-99); MONOCYTES # (AUTO) 0.7 (0.2-0.8); MONOCYTES % 7.8 % (4.4-11.3); NEUTROPHILS # (AUTO) 7.1 (2.1-6.9); NEUTROPHILS % 78.4 % (38.7-80.0); PLATELET COUNT 272 x10e3/uL (140-360); RED BLOOD COUNT 3.92 x10e6/uL (4.3-5.7); RED CELL DISTRIBUTION WIDTH 20.8 % (11.7-14.4)
[2017-04-13 05:49] LABS: ANION GAP 14.3 mmol/L (8-16); BLOOD UREA NITROGEN 18 mg/dL (7-26); BUN/CREATININE RATIO 25 (6-25); CALCIUM 8.9 mg/dL (8.4-10.2); CARBON DIOXIDE 32 mmol/L (22-29); CHLORIDE 98 mmol/L (98-107); CREATININE, SERUM 0.73 mg/dL (0.72-1.25); EST GLOMERULAR FILTRATION RATE > 60 ML/MIN (60-); GLUCOSE 103 mg/dL (74-118); MAGNESIUM 1.3 MG/DL (1.3-2.1); POTASSIUM 4.3 mmol/L (3.5-5.1); SODIUM 140 mmol/L (136-145)
[2017-04-13] MEDS: INSULIN REGULAR, HUMAN 100 UNIT/1 ML 3ML VIAL SQ SCH ×4 (06:00→18:00)
[2017-04-13] MEDS: BALSAM PERU/CASTOR OIL 60 GM OINT...G. TP SCH ×4 (06:10→21:00)
[2017-04-13] MEDS: MEROPENEM 500 MG VIAL IV SCH ×3 (06:18→22:00)
[2017-04-13] MEDS: DIPHENHYDRAMINE HCL INJ 50 MG/ML VIAL IV SCH ×4 (06:18→17:08)
[2017-04-13] MEDS: METOCLOPRAMIDE HCL 10 MG/2ML VIAL IV SCH ×4 (06:25→17:08)
[2017-04-13] MEDS: ACETAZOLAMIDE SODIUM 500 MG/VIAL IV SCH (08:43)
[2017-04-13] MEDS: FAMOTIDINE 20 MG/2 ML VIAL IV SCH ×2 (08:43→21:00)
[2017-04-13] MEDS: FUROSEMIDE INJ 10 MG/ML 4 ML VIAL IV SCH (08:43)
[2017-04-13] MEDS: ASPIRIN 81 MG CHEW TAB PO SCH (08:44)
[2017-04-13] MEDS: HYDROCORTISONE SOD SUCCINATE 100 MG VIAL IV SCH ×2 (08:44→21:00)
[2017-04-13] MEDS: CARVEDILOL 12.5 MG TAB PO SCH ×2 (08:45→17:08)
[2017-04-13] MEDS: COLLAGENASE OINTMENT 30 GM TUBE TP SCH (08:45)
[2017-04-13] MEDS: FENTANYL CITRATE INJ 2,000 MCG in SODIUM CHLORIDE 0.9% 250ML 210 ML IV PRN (09:13)
[2017-04-13] MEDS: LINEZOLID 600 MG/D5W 300ML 300 ML IV SCH ×2 (11:48→23:45)
[2017-04-13] MEDS: MIDAZOLAM HCL 25 MG in SODIUM CHLORIDE 0.9% 50ML 45 ML IV PRN ×4 (13:04→23:30)
[2017-04-13] MEDS: ENOXAPARIN SOD INJ 40 MG/0.4 ML SYR SC SCH (17:07)
[2017-04-13 17:24] LABS: ABG HCO3 34 mmol/L (23-28); ABG PCO2 53 mmHg (41-51); ABG PH 7.42 (7.31-7.41); ABG PO2 59 mmHg (80-105)
[2017-04-13] MEDS: HYDROMORPHONE 0.2MG/ML-SOD CHL 30ML PCA SYRINGE IV PRN (20:50)
[2017-04-14] VITALS (45 sets, daily range): BP systolic 112–153; BP diastolic 64–95
[2017-04-14] MEDS: PROPOFOL IV EMULSION 10MG/ML 100 ML IV PRN ×17 (00:51→23:11)
[2017-04-14] MEDS: ALBUTEROL SULF 0.083% NEB SOLN 3 ML NEB NEB SCH ×6 (03:05→23:15)
[2017-04-14] MEDS: MIDAZOLAM HCL 25 MG in SODIUM CHLORIDE 0.9% 50ML 45 ML IV PRN ×4 (04:15→20:38)
[2017-04-14] MEDS: METOCLOPRAMIDE HCL 10 MG/2ML VIAL IV SCH ×4 (06:00→17:11)
[2017-04-14] MEDS: INSULIN REGULAR, HUMAN 100 UNIT/1 ML 3ML VIAL SQ SCH ×4 (06:00→18:00)
[2017-04-14] MEDS: DIPHENHYDRAMINE HCL INJ 50 MG/ML VIAL IV SCH ×4 (06:00→17:11)
[2017-04-14] MEDS: MEROPENEM 500 MG VIAL IV SCH ×3 (06:00→21:30)
[2017-04-14 06:04] LABS: BASOPHILS # (AUTO) 0.1 (0.0-0.1); BASOPHILS % 0.7 % (0.0-1.0); EOSINOPHILS # (AUTO) 0.6 (0.0-0.4); EOSINOPHILS % 4.6 % (0.0-6.0); HEMATOCRIT 36.7 % (38.2-49.6); HEMOGLOBIN 10.7 g/dL (14.0-18.0); LYMPHOCYTES # (AUTO) 0.8 (1.0-3.2); LYMPHOCYTES % 6.8 % (18.0-39.1); MEAN CORPUSCULAR HEMOGLOBIN 25.9 pg (28-32); MEAN CORPUSCULAR HGB CONC 29.2 g/dL (31-35); MEAN CORPUSCULAR VOLUME 88.9 fL (81-99); MONOCYTES # (AUTO) 0.6 (0.2-0.8); NEUTROPHILS # (AUTO) 10.1 (2.1-6.9); NEUTROPHILS % 82.5 % (38.7-80.0); PLATELET COUNT 284 x10e3/uL (140-360); RED BLOOD COUNT 4.13 x10e6/uL (4.3-5.7); RED CELL DISTRIBUTION WIDTH 20.7 % (11.7-14.4)
[2017-04-14] MEDS: HYDRALAZINE HCL 20 MG/ML VIAL IV PRN (06:30)
[2017-04-14 06:31] LABS: ANION GAP 12.9 mmol/L (8-16); BLOOD UREA NITROGEN 19 mg/dL (7-26); BUN/CREATININE RATIO 26 (6-25); CALCIUM 9.1 mg/dL (8.4-10.2); CARBON DIOXIDE 32 mmol/L (22-29); CHLORIDE 97 mmol/L (98-107); CREATININE, SERUM 0.73 mg/dL (0.72-1.25); EST GLOMERULAR FILTRATION RATE > 60 ML/MIN (60-); GLUCOSE 104 mg/dL (74-118); MAGNESIUM 1.4 MG/DL (1.3-2.1); POTASSIUM 3.9 mmol/L (3.5-5.1); SODIUM 138 mmol/L (136-145)
[2017-04-14] MEDS: HYDROMORPHONE 0.2MG/ML-SOD CHL 30ML PCA SYRINGE IV PRN ×2 (07:05→08:40)
[2017-04-14] MEDS: ACETAZOLAMIDE SODIUM 500 MG/VIAL IV SCH (10:18)
[2017-04-14] MEDS: HYDROCORTISONE SOD SUCCINATE 100 MG VIAL IV SCH (10:20)
[2017-04-14] MEDS: ASPIRIN 81 MG CHEW TAB PO SCH (10:20)
[2017-04-14] MEDS: FAMOTIDINE 20 MG/2 ML VIAL IV SCH ×2 (10:20→20:30)
[2017-04-14] MEDS: FUROSEMIDE INJ 10 MG/ML 4 ML VIAL IV SCH (10:20)
[2017-04-14] MEDS: CARVEDILOL 12.5 MG TAB PO SCH ×2 (10:21→16:49)
[2017-04-14] MEDS: LINEZOLID 600 MG/D5W 300ML 300 ML IV SCH (11:45)
[2017-04-14] MEDS: COLLAGENASE OINTMENT 30 GM TUBE TP SCH (12:23)
[2017-04-14] MEDS: BALSAM PERU/CASTOR OIL 60 GM OINT...G. TP SCH ×3 (12:23→20:30)
[2017-04-14] MEDS ORDERED: SODIUM CHLORIDE 0.9% 50ML 50 ML ONE (13:23)
[2017-04-14] MEDS: ENOXAPARIN SOD INJ 40 MG/0.4 ML SYR SC SCH (16:49)
[2017-04-14 17:21] LABS: ABG HCO3 35 mmol/L (23-28); ABG PCO2 57 mmHg (41-51); ABG PH 7.39 (7.31-7.41); ABG PO2 87 mmHg (80-105)
[2017-04-15] VITALS (105 sets, daily range): BP systolic 107–181; BP diastolic 66–129
[2017-04-15] MEDS: LINEZOLID 600 MG/D5W 300ML 300 ML IV SCH ×2 (00:29→12:28)
[2017-04-15] MEDS: PROPOFOL IV EMULSION 10MG/ML 100 ML IV PRN ×12 (00:33→21:26)
[2017-04-15] MEDS: METOCLOPRAMIDE HCL 10 MG/2ML VIAL IV SCH ×4 (00:33→18:26)
[2017-04-15] MEDS: DIPHENHYDRAMINE HCL INJ 50 MG/ML VIAL IV SCH ×4 (00:33→18:26)
[2017-04-15] MEDS: MIDAZOLAM HCL 25 MG in SODIUM CHLORIDE 0.9% 50ML 45 ML IV PRN (00:33)
[2017-04-15] MEDS: ALBUTEROL SULF 0.083% NEB SOLN 3 ML NEB NEB SCH ×6 (02:40→23:20)
[2017-04-15 05:43] LABS: BASOPHILS # (AUTO) 0.1 (0.0-0.1); BASOPHILS % 1.1 % (0.0-1.0); EOSINOPHILS # (AUTO) 0.6 (0.0-0.4); EOSINOPHILS % 8.9 % (0.0-6.0); HEMATOCRIT 35.5 % (38.2-49.6); HEMOGLOBIN 10.5 g/dL (14.0-18.0); LYMPHOCYTES # (AUTO) 1.1 (1.0-3.2); MEAN CORPUSCULAR HEMOGLOBIN 26.3 pg (28-32); MEAN CORPUSCULAR HGB CONC 29.6 g/dL (31-35); MEAN CORPUSCULAR VOLUME 88.8 fL (81-99); MONOCYTES # (AUTO) 0.8 (0.2-0.8); MONOCYTES % 10.5 % (4.4-11.3); NEUTROPHILS # (AUTO) 4.6 (2.1-6.9); NEUTROPHILS % 64.1 % (38.7-80.0); PLATELET COUNT 225 x10e3/uL (140-360); RED CELL DISTRIBUTION WIDTH 21.2 % (11.7-14.4)
[2017-04-15] MEDS: MEROPENEM 500 MG VIAL IV SCH ×3 (05:44→21:26)
[2017-04-15] MEDS: INSULIN REGULAR, HUMAN 100 UNIT/1 ML 3ML VIAL SQ SCH ×4 (06:00→18:00)
[2017-04-15 06:01] LABS: ANION GAP 13.4 mmol/L (8-16); BLOOD UREA NITROGEN 18 mg/dL (7-26); BUN/CREATININE RATIO 25 (6-25); CALCIUM 8.8 mg/dL (8.4-10.2); CARBON DIOXIDE 31 mmol/L (22-29); CHLORIDE 97 mmol/L (98-107); CREATININE, SERUM 0.73 mg/dL (0.72-1.25); EST GLOMERULAR FILTRATION RATE > 60 ML/MIN (60-); GLUCOSE 86 mg/dL (74-118); MAGNESIUM 1.4 MG/DL (1.3-2.1); POTASSIUM 3.4 mmol/L (3.5-5.1); SODIUM 138 mmol/L (136-145)
--- NOTE | 2017-04-15 06:18 | Diagnostic Imaging Report ---
EXAM: CHEST SINGLE (PORTABLE), AP 1 view INDICATION: Intubated COMPARISON: AP view of the chest April 12, 2017 FINDINGS: LINES/TUBES: Stable tracheostomy tube and right internal jugular vein temporary hemodialysis catheter. LUNGS: Stable bilateral airspace opacities. PLEURA: Indeterminate for effusion on the left. HEART AND MEDIASTINUM: Stable appearance. BONES AND SOFT TISSUES: No acute findings. IMPRESSION: No significant interval change. Signed by: Dr. Lora Leon M.D. on 04/15/2017 6:14 AM
[2017-04-15] MEDS: ASPIRIN 81 MG CHEW TAB PO SCH (08:26)
[2017-04-15] MEDS: FUROSEMIDE INJ 10 MG/ML 4 ML VIAL IV SCH (08:26)
[2017-04-15] MEDS: FAMOTIDINE 20 MG/2 ML VIAL IV SCH ×2 (08:26→21:26)
[2017-04-15] MEDS: ACETAZOLAMIDE SODIUM 500 MG/VIAL IV SCH (08:26)
[2017-04-15] MEDS: CARVEDILOL 12.5 MG TAB PO SCH ×2 (08:26→16:19)
[2017-04-15] MEDS: BALSAM PERU/CASTOR OIL 60 GM OINT...G. TP SCH ×3 (08:27→21:26)
[2017-04-15] MEDS: COLLAGENASE OINTMENT 30 GM TUBE TP SCH (08:27)
[2017-04-15] MEDS ORDERED: POTASSIUM CHLORIDE 20MEQ/100ML 100 ML IV NR (13:00)
[2017-04-15] MEDS ORDERED: HYDROMORPHONE 0.2MG/ML-SOD CHL 30ML PCA SYRINGE IV PRN (13:00)
--- NOTE | 2017-04-15 13:45 | Progress Note ---
DATE: April 15, 2017 Mr. Zavala was alert at the present time, does not seem in acute distress. OBJECTIVE: VITAL SIGNS: Stable currently. T-max 98.8. HEENT: Normocephalic. Not icteric. CHEST: Few crackles. COR: No murmur. ABDOMEN: Soft. IMPRESSION 1. Respiratory failure in a patient with underlying morbidly obese patient with acute respiratory distress syndrome and pneumonia health-related. 2. Sepsis on admission, seems to be better. 3. Morbidly obese patient. 4. Acute respiratory distress syndrome. 5. Diabetes mellitus. From infectious disease point of view, he is currently stable to finish 8 days of IV antibiotic. He is currently on linezolid and meropenem. He did have skin rash with vancomycin. We will follow. Job#: [id number] VAS
[2017-04-15] MEDS: ENOXAPARIN SOD INJ 40 MG/0.4 ML SYR SC SCH (16:19)
[2017-04-15] MEDS: MIDAZOLAM HCL 2 MG/2 ML VIAL IV PRN ×2 (16:37→20:12)
[2017-04-16] VITALS (85 sets, daily range): BP systolic 90–155; BP diastolic 51–104
[2017-04-16] MEDS: LINEZOLID 600 MG/D5W 300ML 300 ML IV SCH ×3 (00:25→23:45)
[2017-04-16] MEDS: DIPHENHYDRAMINE HCL INJ 50 MG/ML VIAL IV SCH ×2 (00:25→06:03)
[2017-04-16] MEDS: METOCLOPRAMIDE HCL 10 MG/2ML VIAL IV SCH ×5 (00:25→23:45)
[2017-04-16] MEDS: PROPOFOL IV EMULSION 10MG/ML 100 ML IV PRN ×6 (01:09→10:35)
[2017-04-16] MEDS: ALBUTEROL SULF 0.083% NEB SOLN 3 ML NEB NEB SCH ×6 (03:10→23:16)
[2017-04-16] MEDS: MIDAZOLAM HCL 2 MG/2 ML VIAL IV PRN (04:49)
[2017-04-16] MEDS: INSULIN REGULAR, HUMAN 100 UNIT/1 ML 3ML VIAL SQ SCH ×5 (06:00→23:45)
[2017-04-16] MEDS: MEROPENEM 500 MG VIAL IV SCH ×3 (06:03→23:49)
[2017-04-16] MEDS: ACETAMINOPHEN 325 MG/10 ML UDC NG PRN (06:12)
[2017-04-16 06:50] LABS: ANION GAP 15.6 mmol/L (8-16); BLOOD UREA NITROGEN 16 mg/dL (7-26); BUN/CREATININE RATIO 21 (6-25); CALCIUM 9.1 mg/dL (8.4-10.2); CARBON DIOXIDE 28 mmol/L (22-29); CHLORIDE 96 mmol/L (98-107); CREATININE, SERUM 0.75 mg/dL (0.72-1.25); EST GLOMERULAR FILTRATION RATE > 60 ML/MIN (60-); GLUCOSE 101 mg/dL (74-118); MAGNESIUM 1.5 MG/DL (1.3-2.1); POTASSIUM 3.6 mmol/L (3.5-5.1); SODIUM 136 mmol/L (136-145)
[2017-04-16 09:00] LABS: BASOPHILS # (AUTO) 0.1 (0.0-0.1); BASOPHILS % 0.4 % (0.0-1.0); EOSINOPHILS % 6.7 % (0.0-6.0); HEMOGLOBIN 11.8 g/dL (14.0-18.0); LYMPHOCYTES # (AUTO) 0.9 (1.0-3.2); LYMPHOCYTES % 6.6 % (18.0-39.1); MEAN CORPUSCULAR HEMOGLOBIN 26.2 pg (28-32); MEAN CORPUSCULAR HGB CONC 30.3 g/dL (31-35); MEAN CORPUSCULAR VOLUME 86.7 fL (81-99); MONOCYTES # (AUTO) 1.1 (0.2-0.8); NEUTROPHILS # (AUTO) 11.1 (2.1-6.9); NEUTROPHILS % 77.9 % (38.7-80.0); PLATELET COUNT 262 x10e3/uL (140-360); RED CELL DISTRIBUTION WIDTH 20.9 % (11.7-14.4)
[2017-04-16] MEDS: CARVEDILOL 12.5 MG TAB PO SCH ×2 (09:00→17:00)
[2017-04-16] MEDS: FUROSEMIDE INJ 10 MG/ML 4 ML VIAL IV SCH (09:42)
[2017-04-16] MEDS: ASPIRIN 81 MG CHEW TAB PO SCH (09:42)
[2017-04-16] MEDS: BALSAM PERU/CASTOR OIL 60 GM OINT...G. TP SCH ×3 (09:42→20:18)
[2017-04-16] MEDS: ACETAZOLAMIDE SODIUM 500 MG/VIAL IV SCH (09:42)
[2017-04-16] MEDS: FAMOTIDINE 20 MG/2 ML VIAL IV SCH ×2 (09:42→20:18)
[2017-04-16] MEDS: COLLAGENASE OINTMENT 30 GM TUBE TP SCH (09:42)
[2017-04-16 13:31] LABS: ABG HCO3 31 mmol/L (23-28); ABG PCO2 49 mmHg (41-51); ABG PO2 71 mmHg (80-105)
[2017-04-16 18:03] LABS: ABG HCO3 30 mmol/L (23-28); ABG PCO2 48 mmHg (41-51); ABG PO2 59 mmHg (80-105)
[2017-04-16] MEDS: ENOXAPARIN SOD INJ 40 MG/0.4 ML SYR SC SCH (18:46)
[2017-04-16] MEDS: ONDANSETRON HCL INJ 2 MG/ML VIAL IV PRN (20:05)
[2017-04-16] MEDS: PROMETHAZINE 25MG/ NS 50ML (IV) IV ONE (22:00)
[2017-04-17] VITALS (41 sets, daily range): BP systolic 112–157; BP diastolic 75–119
[2017-04-17] MEDS: MIDAZOLAM HCL 2 MG/2 ML VIAL IV PRN ×2 (00:06→14:20)
[2017-04-17] MEDS: PROMETHAZINE 25MG/ NS 50ML (IV) IV ONE (00:06)
[2017-04-17] MEDS: DEXMEDETOMIDINE HCL 200 MCG in SODIUM CHLORIDE 0.9% 50ML 48 ML IV PRN ×3 (00:07→05:10)
[2017-04-17] MEDS ORDERED: PROMETHAZINE 25MG/SOD CHL 0.9% 50 ML ONE (00:16)
[2017-04-17] MEDS: ALBUTEROL SULF 0.083% NEB SOLN 3 ML NEB NEB SCH ×6 (02:34→22:50)
[2017-04-17] MEDS: ONDANSETRON HCL INJ 2 MG/ML VIAL IV PRN ×2 (03:35→17:29)
[2017-04-17] MEDS: INSULIN REGULAR, HUMAN 100 UNIT/1 ML 3ML VIAL SQ SCH ×3 (05:09→18:00)
[2017-04-17] MEDS: MEROPENEM 500 MG VIAL IV SCH ×3 (05:09→22:16)
[2017-04-17] MEDS: METOCLOPRAMIDE HCL 10 MG/2ML VIAL IV SCH ×3 (05:09→19:34)
--- NOTE | 2017-04-17 05:58 | Diagnostic Imaging Report ---
EXAM: CHEST SINGLE (PORTABLE), AP 1 view INDICATION: Congestive heart failure COMPARISON: AP view of the chest April 15, 2017 FINDINGS: LINES/TUBES: Stable position of right internal jugular vein temporary hemodialysis catheter and tracheostomy and partially visualized right approach PICC. LUNGS: Stable bilateral airspace opacities. PLEURA: No effusions or pneumothorax. HEART AND MEDIASTINUM: Stable enlargement of the cardiac mediastinal silhouette. BONES AND SOFT TISSUES: No acute findings. IMPRESSION: No interval change in appearance of the chest. Signed by: Dr. Lora Leon M.D. on 04/17/2017 5:54 AM
[2017-04-17 06:17] LABS: BASOPHILS # (AUTO) 0.1 (0.0-0.1); BASOPHILS % 0.4 % (0.0-1.0); EOSINOPHILS # (AUTO) 0.6 (0.0-0.4); EOSINOPHILS % 5.2 % (0.0-6.0); HEMATOCRIT 38.2 % (38.2-49.6); HEMOGLOBIN 11.4 g/dL (14.0-18.0); LYMPHOCYTES # (AUTO) 0.7 (1.0-3.2); LYMPHOCYTES % 6.3 % (18.0-39.1); MEAN CORPUSCULAR HEMOGLOBIN 26.1 pg (28-32); MEAN CORPUSCULAR HGB CONC 29.8 g/dL (31-35); MEAN CORPUSCULAR VOLUME 87.6 fL (81-99); MONOCYTES # (AUTO) 0.9 (0.2-0.8); MONOCYTES % 7.4 % (4.4-11.3); NEUTROPHILS # (AUTO) 9.4 (2.1-6.9); NEUTROPHILS % 80.4 % (38.7-80.0); PLATELET COUNT 224 x10e3/uL (140-360); RED BLOOD COUNT 4.36 x10e6/uL (4.3-5.7); RED CELL DISTRIBUTION WIDTH 20.6 % (11.7-14.4)
[2017-04-17 06:45] LABS: ANION GAP 13.3 mmol/L (8-16); BLOOD UREA NITROGEN 20 mg/dL (7-26); BUN/CREATININE RATIO 28 (6-25); CALCIUM 9.1 mg/dL (8.4-10.2); CARBON DIOXIDE 29 mmol/L (22-29); CHLORIDE 94 mmol/L (98-107); CREATININE, SERUM 0.71 mg/dL (0.72-1.25); EST GLOMERULAR FILTRATION RATE > 60 ML/MIN (60-); GLUCOSE 107 mg/dL (74-118); MAGNESIUM 1.5 MG/DL (1.3-2.1); POTASSIUM 3.3 mmol/L (3.5-5.1); SODIUM 133 mmol/L (136-145)
[2017-04-17] MEDS: FUROSEMIDE INJ 10 MG/ML 4 ML VIAL IV SCH (09:53)
[2017-04-17] MEDS: ACETAZOLAMIDE SODIUM 500 MG/VIAL IV SCH (09:53)
[2017-04-17] MEDS: FAMOTIDINE 20 MG/2 ML VIAL IV SCH ×2 (09:53→21:17)
[2017-04-17] MEDS: ASPIRIN 81 MG CHEW TAB PO SCH (09:53)
[2017-04-17] MEDS: BALSAM PERU/CASTOR OIL 60 GM OINT...G. TP SCH ×3 (09:54→20:56)
[2017-04-17] MEDS: COLLAGENASE OINTMENT 30 GM TUBE TP SCH (09:54)
[2017-04-17] MEDS: CARVEDILOL 12.5 MG TAB PO SCH ×2 (09:54→17:00)
[2017-04-17] MEDS: HYDROMORPHONE 1MG/1ML INJ IV SCH ×3 (15:05→22:15)
[2017-04-17 15:48] LABS: ABG HCO3 33 mmol/L (23-28); ABG PCO2 54 mmHg (41-51); ABG PH 7.39 (7.31-7.41); ABG PO2 66 mmHg (80-105)
--- NOTE | 2017-04-17 16:11 | Progress Note ---
DATE: April 16, 2017 Mr. Zavala remains in ICU, alert, does not have any problems at the present time. His eyes are open, follows simple commands. PHYSICAL EXAMINATION VITAL SIGNS: He had a temperature of 101.2 on April, but on April 16, 2017, it was 100.5. HEENT: Normocephalic. NECK: Supple. CHEST: Few crackles. COR: S1, S2. No murmur. ABDOMEN: Soft. LABS: White count is 14.19, hemoglobin 11.8, and he has platelets of 262,000. Sodium 136, potassium 3.6, and creatinine 0.75. IMPRESSIONS 1. Fever, could be at this point related to antibiotic. Patient has been on antibiotic. He is currently on linezolid. Will discontinue linezolid. 2. Morbidly obese patient. 3. Status post ARDS. 4. Status post pneumonia. PLAN: Will follow. Job#: [id number]
[2017-04-17] MEDS: ENOXAPARIN SOD INJ 40 MG/0.4 ML SYR SC SCH (19:34)
[2017-04-18] VITALS (29 sets, daily range): BP systolic 105–152; BP diastolic 75–111
[2017-04-18] MEDS: METOCLOPRAMIDE HCL 10 MG/2ML VIAL IV SCH ×4 (00:17→16:25)
[2017-04-18] MEDS: HYDROMORPHONE 1MG/1ML INJ IV SCH ×3 (02:15→11:32)
[2017-04-18] MEDS: ALBUTEROL SULF 0.083% NEB SOLN 3 ML NEB NEB SCH ×6 (02:16→23:20)
[2017-04-18] MEDS: MEROPENEM 500 MG VIAL IV SCH ×3 (05:30→22:03)
[2017-04-18] MEDS: INSULIN REGULAR, HUMAN 100 UNIT/1 ML 3ML VIAL SQ SCH ×4 (06:00→17:39)
[2017-04-18] MEDS: ACETAZOLAMIDE SODIUM 500 MG/VIAL IV SCH (09:20)
[2017-04-18] MEDS: FUROSEMIDE INJ 10 MG/ML 4 ML VIAL IV SCH (09:20)
[2017-04-18] MEDS: CARVEDILOL 12.5 MG TAB PO SCH ×2 (09:20→16:25)
[2017-04-18] MEDS: ASPIRIN 81 MG CHEW TAB PO SCH (09:20)
[2017-04-18] MEDS: FAMOTIDINE 20 MG/2 ML VIAL IV SCH ×2 (10:42→22:03)
[2017-04-18] MEDS: COLLAGENASE OINTMENT 30 GM TUBE TP SCH (11:16)
[2017-04-18] MEDS: BALSAM PERU/CASTOR OIL 60 GM OINT...G. TP SCH ×3 (11:16→22:03)
[2017-04-18] MEDS: ONDANSETRON HCL INJ 2 MG/ML VIAL IV PRN ×2 (11:52→22:06)
[2017-04-18] MEDS ORDERED: MIDAZOLAM HCL 2 MG/2 ML VIAL IV PRN (15:15)
[2017-04-18] MEDS: ENOXAPARIN SOD INJ 40 MG/0.4 ML SYR SC SCH (16:24)
[2017-04-18] MEDS: FENTANYL 75MCG/HR PATCH TD SCH (17:10)
[2017-04-19] VITALS (21 sets, daily range): BP systolic 123–165; BP diastolic 71–97
[2017-04-19] MEDS: METOCLOPRAMIDE HCL 10 MG/2ML VIAL IV SCH ×4 (00:06→16:29)
[2017-04-19] MEDS: HYDROMORPHONE 1MG/1ML INJ IV PRN ×2 (02:02→08:02)
[2017-04-19] MEDS: ACETAMINOPHEN 325 MG/10 ML UDC NG PRN (02:30)
[2017-04-19] MEDS: ALBUTEROL SULF 0.083% NEB SOLN 3 ML NEB NEB SCH ×5 (02:50→23:26)
[2017-04-19] MEDS: MEROPENEM 500 MG VIAL IV SCH (05:21)
[2017-04-19] MEDS: INSULIN REGULAR, HUMAN 100 UNIT/1 ML 3ML VIAL SQ SCH ×5 (05:22→23:59)
[2017-04-19 05:53] LABS: BASOPHILS # (AUTO) 0.1 (0.0-0.1); BASOPHILS % 0.9 % (0.0-1.0); EOSINOPHILS # (AUTO) 0.4 (0.0-0.4); EOSINOPHILS % 3.5 % (0.0-6.0); HEMATOCRIT 36.4 % (38.2-49.6); HEMOGLOBIN 10.7 g/dL (14.0-18.0); LYMPHOCYTES # (AUTO) 1.3 (1.0-3.2); LYMPHOCYTES % 12.1 % (18.0-39.1); MEAN CORPUSCULAR HEMOGLOBIN 26.2 pg (28-32); MEAN CORPUSCULAR HGB CONC 29.4 g/dL (31-35); MONOCYTES % 8.9 % (4.4-11.3); NEUTROPHILS # (AUTO) 8.1 (2.1-6.9); NEUTROPHILS % 74.1 % (38.7-80.0); PLATELET COUNT 214 x10e3/uL (140-360); RED BLOOD COUNT 4.09 x10e6/uL (4.3-5.7); RED CELL DISTRIBUTION WIDTH 20.8 % (11.7-14.4)
[2017-04-19 06:13] LABS: BLOOD UREA NITROGEN 35 mg/dL (7-26); BUN/CREATININE RATIO 50 (6-25); CALCIUM 9.1 mg/dL (8.4-10.2); CARBON DIOXIDE 32 mmol/L (22-29); CHLORIDE 100 mmol/L (98-107); EST GLOMERULAR FILTRATION RATE > 60 ML/MIN (60-); GLUCOSE 98 mg/dL (74-118); MAGNESIUM 1.8 MG/DL (1.3-2.1); PHOSPHORUS 3.6 MG/DL (2.3-4.7); SODIUM 143 mmol/L (136-145)
--- NOTE | 2017-04-19 06:42 | Diagnostic Imaging Report ---
EXAMINATION: CHEST SINGLE (PORTABLE) INDICATION: Respiratory failure COMPARISON: 04/17/2017 and 04/15/2017 FINDINGS: TUBES and LINES: Tracheostomy tube, right IJ central line catheter and right upper extremity PICC line are stable in good position. LUNGS: Lungs are not well inflated. There are bibasilar atelectasis. There is perihilar interstitial opacities, consistent with interstitial edema. PLEURA: No pleural effusion or pneumothorax. HEART AND MEDIASTINUM: Cardiac size is moderately enlarged. There are atherosclerotic calcifications within the aorta. BONES AND SOFT TISSUES: No acute osseous lesion. Soft tissues are unremarkable. UPPER ABDOMEN: No free air under the diaphragm. IMPRESSION: 1. Tubes and lines are stable in good position. 2. Stable cardiogenic pulmonary edema with mild improvement in bibasilar opacities. Signed by: Dr. Antione Mcdaniel M.D. on 04/19/2017 6:38 AM
[2017-04-19] MEDS ORDERED: MAGNESIUM SULFATE 2GM/50ML 50 ML IV ONE (07:30)
[2017-04-19] MEDS: ASPIRIN 81 MG CHEW TAB PO SCH (07:58)
[2017-04-19] MEDS: CARVEDILOL 12.5 MG TAB PO SCH ×3 (07:58→16:29)
[2017-04-19] MEDS: FAMOTIDINE 20 MG/2 ML VIAL IV SCH ×2 (07:58→09:00)
[2017-04-19] MEDS: FUROSEMIDE INJ 10 MG/ML 4 ML VIAL IV SCH (07:58)
[2017-04-19] MEDS ORDERED: SODIUM CHLORIDE 0.9% IV ONE (08:00)
[2017-04-19] MEDS ORDERED: POTASSIUM CHLORIDE IV ONE (08:00)
[2017-04-19] MEDS: BALSAM PERU/CASTOR OIL 60 GM OINT...G. TP SCH ×3 (09:00→20:13)
[2017-04-19] MEDS: COLLAGENASE OINTMENT 30 GM TUBE TP SCH (09:00)
[2017-04-19] MEDS: ACETAZOLAMIDE SODIUM 500 MG/VIAL IV SCH (10:00)
[2017-04-19] MEDS: ENOXAPARIN SOD INJ 40 MG/0.4 ML SYR SC SCH (16:29)
[2017-04-19 17:06] LABS: ABG HCO3 35 mmol/L (23-28); ABG PCO2 53 mmHg (41-51); ABG PH 7.43 (7.31-7.41); ABG PO2 71 mmHg (80-105)
[2017-04-19] MEDS: METOCLOPRAMIDE HCL 10 MG TAB PEG SCH (18:00)
[2017-04-19] MEDS: HYDROCODONE/APAP 10MG-325MG TAB PO PRN (19:37)
[2017-04-20] VITALS (27 sets, daily range): BP systolic 114–166; BP diastolic 64–117
[2017-04-20] MEDS: METOCLOPRAMIDE HCL 10 MG TAB PEG SCH ×4 (00:07→19:00)
[2017-04-20] MEDS: HYDROCODONE/APAP 10MG-325MG TAB PO PRN ×3 (00:07→20:33)
[2017-04-20 06:11] LABS: BASOPHILS # (AUTO) 0.1 (0.0-0.1); BASOPHILS % 1.1 % (0.0-1.0); EOSINOPHILS # (AUTO) 0.6 (0.0-0.4); EOSINOPHILS % 6.4 % (0.0-6.0); HEMATOCRIT 37.6 % (38.2-49.6); LYMPHOCYTES # (AUTO) 1.4 (1.0-3.2); LYMPHOCYTES % 15.9 % (18.0-39.1); MEAN CORPUSCULAR HEMOGLOBIN 26.1 pg (28-32); MEAN CORPUSCULAR HGB CONC 29.3 g/dL (31-35); MEAN CORPUSCULAR VOLUME 89.3 fL (81-99); MONOCYTES # (AUTO) 0.7 (0.2-0.8); MONOCYTES % 7.8 % (4.4-11.3); NEUTROPHILS # (AUTO) 5.9 (2.1-6.9); NEUTROPHILS % 68.7 % (38.7-80.0); PLATELET COUNT 214 x10e3/uL (140-360); RED BLOOD COUNT 4.21 x10e6/uL (4.3-5.7); RED CELL DISTRIBUTION WIDTH 20.4 % (11.7-14.4)
[2017-04-20 06:45] LABS: ALANINE AMINOTRANSFERASE 34 IU/L (0-55); ALBUMIN 2.9 g/dL (3.5-5.0); ALBUMIN/GLOBULIN RATIO 0.6 (0.8-2.0); ALKALINE PHOSPHATASE 80 IU/L (40-150); ANION GAP 13.3 mmol/L (8-16); BLOOD UREA NITROGEN 35 mg/dL (7-26); BUN/CREATININE RATIO 56 (6-25); CALCIUM 8.9 mg/dL (8.4-10.2); CARBON DIOXIDE 31 mmol/L (22-29); CHLORIDE 101 mmol/L (98-107); CREATININE, SERUM 0.62 mg/dL (0.72-1.25); EST GLOMERULAR FILTRATION RATE > 60 ML/MIN (60-); GLUCOSE 97 mg/dL (74-118); POTASSIUM 3.3 mmol/L (3.5-5.1); SODIUM 142 mmol/L (136-145)
[2017-04-20] MEDS ORDERED: ACETAZOLAMIDE 500 MG CAP PEG SCH (09:00)
[2017-04-20] MEDS ORDERED: ACETAZOLAMIDE 250 MG TAB PO SCH (09:00)
[2017-04-20] MEDS: FAMOTIDINE 20 MG TAB PEG SCH ×2 (09:27→18:59)
[2017-04-20] MEDS: ASPIRIN 81 MG CHEW TAB PO SCH (09:27)
[2017-04-20] MEDS: ACETAZOLAMIDE 250 MG TAB PO SCH (09:27)
[2017-04-20] MEDS: FUROSEMIDE 40 MG TAB PEG SCH (09:27)
[2017-04-20] MEDS: CARVEDILOL 12.5 MG TAB PO SCH ×2 (09:53→19:00)
[2017-04-20] MEDS ORDERED: ONDANSETRON HCL INJ 2 MG/ML VIAL ONE (12:05)
[2017-04-20] MEDS: BALSAM PERU/CASTOR OIL 60 GM OINT...G. TP SCH ×3 (14:24→20:33)
[2017-04-20] MEDS: COLLAGENASE OINTMENT 30 GM TUBE TP SCH (14:24)
--- NOTE | 2017-04-20 15:36 | Diagnostic Imaging Report ---
PROCEDURE:X-RAY ABDOMEN - KUB COMPARISON:None. INDICATIONS:ABDOMINAL PAIN, VOMITING FINDINGS: Moderate gaseous distention of the colon, without air-filled, dilated loops. No radiopaque densities project over the genitourinary system. No acute bony abnormalities. CONCLUSION: Moderate gaseous distention of the colon, without air-filled, dilated loops to suggest obstruction. Mark Anthony Cueva M.D. Dictated by: Mark Anthony Cueva M.D. on 04/20/2017 at 15:36 Electronically approved by: Mark Anthony Cueva M.D. on 04/20/2017 at 15:36
[2017-04-20] MEDS: ENOXAPARIN SOD INJ 40 MG/0.4 ML SYR SC SCH (19:00)
[2017-04-20] MEDS ORDERED: POTASSIUM CHLORIDE 20MEQ/100ML 100 ML IV ONE (19:30)
[2017-04-20] MEDS: ONDANSETRON HCL 4 MG ORAL DISINTEGRATING TAB PO PRN (20:33)
[2017-04-21] VITALS (22 sets, daily range): BP systolic 125–169; BP diastolic 83–109
[2017-04-21] MEDS: METOCLOPRAMIDE HCL 10 MG TAB PEG SCH ×4 (00:01→18:22)
--- NOTE | 2017-04-21 01:32 | Diagnostic Imaging Report ---
EXAMINATION: CHEST SINGLE (PORTABLE) INDICATION: Possible aspiration COMPARISON: 04/19/2017 FINDINGS: TUBES and LINES: Tracheostomy tube is visualized, stable 4.8 cm above the kvng. Right IJ central line catheter and right upper extremity PICC line are stable. LUNGS: Lungs are not well inflated. There are bibasilar atelectasis. There is perihilar interstitial opacities. PLEURA: No pleural effusion or pneumothorax. HEART AND MEDIASTINUM: Cardiac size is moderately enlarged. There are atherosclerotic calcifications within the aorta. BONES AND SOFT TISSUES: No acute osseous lesion. Soft tissues are unremarkable. UPPER ABDOMEN: No free air under the diaphragm. IMPRESSION: Findings are suspicious for cardiogenic pulmonary edema, stable. No evidence of new consolidation. Signed by: Dr. Antione Mcdaniel M.D. on 04/21/2017 1:28 AM
[2017-04-21] MEDS: ONDANSETRON HCL 4 MG ORAL DISINTEGRATING TAB PO PRN (02:58)
[2017-04-21] MEDS: HYDROCODONE/APAP 10MG-325MG TAB PO PRN (02:58)
[2017-04-21 06:10] LABS: BASOPHILS # (AUTO) 0.1 (0.0-0.1); BASOPHILS % 0.9 % (0.0-1.0); EOSINOPHILS # (AUTO) 0.5 (0.0-0.4); EOSINOPHILS % 6.1 % (0.0-6.0); HEMATOCRIT 37.4 % (38.2-49.6); HEMOGLOBIN 10.9 g/dL (14.0-18.0); LYMPHOCYTES # (AUTO) 1.2 (1.0-3.2); LYMPHOCYTES % 15.7 % (18.0-39.1); MEAN CORPUSCULAR HEMOGLOBIN 26.3 pg (28-32); MEAN CORPUSCULAR HGB CONC 29.1 g/dL (31-35); MEAN CORPUSCULAR VOLUME 90.3 fL (81-99); MONOCYTES # (AUTO) 0.7 (0.2-0.8); MONOCYTES % 9.6 % (4.4-11.3); NEUTROPHILS # (AUTO) 5.2 (2.1-6.9); NEUTROPHILS % 67.3 % (38.7-80.0); PLATELET COUNT 202 x10e3/uL (140-360); RED BLOOD COUNT 4.14 x10e6/uL (4.3-5.7); RED CELL DISTRIBUTION WIDTH 20.3 % (11.7-14.4)
[2017-04-21 06:41] LABS: ALANINE AMINOTRANSFERASE 65 IU/L (0-55); ALBUMIN/GLOBULIN RATIO 0.6 (0.8-2.0); ALKALINE PHOSPHATASE 89 IU/L (40-150); ANION GAP 14.3 mmol/L (8-16); BLOOD UREA NITROGEN 31 mg/dL (7-26); BUN/CREATININE RATIO 48 (6-25); CALCIUM 9.3 mg/dL (8.4-10.2); CARBON DIOXIDE 30 mmol/L (22-29); CHLORIDE 102 mmol/L (98-107); CREATININE, SERUM 0.65 mg/dL (0.72-1.25); EST GLOMERULAR FILTRATION RATE > 60 ML/MIN (60-); GLUCOSE 105 mg/dL (74-118); POTASSIUM 3.3 mmol/L (3.5-5.1); SODIUM 143 mmol/L (136-145)
[2017-04-21] MEDS: FAMOTIDINE 20 MG TAB PEG SCH ×2 (10:00→18:22)
[2017-04-21] MEDS: FUROSEMIDE 40 MG TAB PEG SCH (10:00)
[2017-04-21] MEDS: ASPIRIN 81 MG CHEW TAB PO SCH (10:00)
[2017-04-21] MEDS: ACETAZOLAMIDE 250 MG TAB PO SCH (10:01)
[2017-04-21] MEDS: CARVEDILOL 12.5 MG TAB PO SCH ×2 (10:01→18:40)
[2017-04-21] MEDS: BALSAM PERU/CASTOR OIL 60 GM OINT...G. TP SCH ×3 (15:00→19:53)
[2017-04-21] MEDS ORDERED: POTASSIUM CHLORIDE 20MEQ/100ML 200 ML IV ONE (15:15)
[2017-04-21] MEDS ORDERED: POTASSIUM CHLORIDE 250 ML IV ONE (15:30)
[2017-04-21] MEDS: FENTANYL 75MCG/HR PATCH TD SCH (18:22)
[2017-04-21] MEDS: COLLAGENASE OINTMENT 30 GM TUBE TP SCH (18:22)
[2017-04-21] MEDS: ENOXAPARIN SOD INJ 40 MG/0.4 ML SYR SC SCH (18:22)
[2017-04-22] VITALS (21 sets, daily range): BP systolic 126–161; BP diastolic 75–102
[2017-04-22] MEDS: METOCLOPRAMIDE HCL 10 MG TAB PEG SCH ×4 (00:19→17:24)
[2017-04-22] MEDS: ONDANSETRON HCL 4 MG ORAL DISINTEGRATING TAB PO PRN ×3 (00:19→10:30)
[2017-04-22 05:02] LABS: BASOPHILS # (AUTO) 0.1 (0.0-0.1); EOSINOPHILS # (AUTO) 0.4 (0.0-0.4); EOSINOPHILS % 5.6 % (0.0-6.0); HEMATOCRIT 35.4 % (38.2-49.6); HEMOGLOBIN 10.4 g/dL (14.0-18.0); LYMPHOCYTES # (AUTO) 1.1 (1.0-3.2); LYMPHOCYTES % 15.9 % (18.0-39.1); MEAN CORPUSCULAR HEMOGLOBIN 26.7 pg (28-32); MEAN CORPUSCULAR HGB CONC 29.4 g/dL (31-35); MEAN CORPUSCULAR VOLUME 90.8 fL (81-99); MONOCYTES # (AUTO) 0.7 (0.2-0.8); MONOCYTES % 9.4 % (4.4-11.3); NEUTROPHILS # (AUTO) 4.7 (2.1-6.9); PLATELET COUNT 204 x10e3/uL (140-360); RED CELL DISTRIBUTION WIDTH 19.7 % (11.7-14.4)
[2017-04-22 05:27] LABS: ANION GAP 14.4 mmol/L (8-16); BLOOD UREA NITROGEN 30 mg/dL (7-26); BUN/CREATININE RATIO 46 (6-25); CALCIUM 9.3 mg/dL (8.4-10.2); CARBON DIOXIDE 30 mmol/L (22-29); CHLORIDE 103 mmol/L (98-107); CREATININE, SERUM 0.65 mg/dL (0.72-1.25); EST GLOMERULAR FILTRATION RATE > 60 ML/MIN (60-); GLUCOSE 100 mg/dL (74-118); MAGNESIUM 1.9 MG/DL (1.3-2.1); POTASSIUM 3.4 mmol/L (3.5-5.1); SODIUM 144 mmol/L (136-145)
[2017-04-22] MEDS: BALSAM PERU/CASTOR OIL 60 GM OINT...G. TP SCH ×2 (09:29→14:33)
[2017-04-22] MEDS: ACETAZOLAMIDE 250 MG TAB PO SCH (09:29)
[2017-04-22] MEDS: ASPIRIN 81 MG CHEW TAB PO SCH (09:29)
[2017-04-22] MEDS: FAMOTIDINE 20 MG TAB PEG SCH ×2 (09:29→17:23)
[2017-04-22] MEDS: FUROSEMIDE 40 MG TAB PEG SCH (09:29)
[2017-04-22] MEDS: COLLAGENASE OINTMENT 30 GM TUBE TP SCH (09:29)
[2017-04-22] MEDS: CARVEDILOL 12.5 MG TAB PO SCH ×2 (09:30→17:24)
[2017-04-22] MEDS ORDERED: POTASSIUM CHLORIDE 20MEQ/15ML UDC NG ONE (16:00)
[2017-04-22] MEDS: ENOXAPARIN SOD INJ 40 MG/0.4 ML SYR SC SCH (17:24)
[2017-04-23] VITALS (14 sets, daily range): BP systolic 94–156; BP diastolic 64–102
[2017-04-23] MEDS: HYDROCODONE/APAP 10MG-325MG TAB PO PRN ×2 (00:25→15:36)
[2017-04-23] MEDS: METOCLOPRAMIDE HCL 10 MG TAB PEG SCH ×4 (00:25→19:00)
[2017-04-23] MEDS: BALSAM PERU/CASTOR OIL 60 GM OINT...G. TP SCH ×4 (00:25→21:00)
[2017-04-23] MEDS: ONDANSETRON HCL 4 MG ORAL DISINTEGRATING TAB PO PRN ×4 (00:25→21:22)
[2017-04-23 06:23] LABS: BASOPHILS # (AUTO) 0.1 (0.0-0.1); BASOPHILS % 1.5 % (0.0-1.0); EOSINOPHILS # (AUTO) 0.5 (0.0-0.4); EOSINOPHILS % 7.4 % (0.0-6.0); HEMATOCRIT 34.6 % (38.2-49.6); HEMOGLOBIN 10.3 g/dL (14.0-18.0); LYMPHOCYTES # (AUTO) 1.4 (1.0-3.2); MEAN CORPUSCULAR HGB CONC 29.8 g/dL (31-35); MEAN CORPUSCULAR VOLUME 90.8 fL (81-99); MONOCYTES # (AUTO) 0.7 (0.2-0.8); MONOCYTES % 9.8 % (4.4-11.3); NEUTROPHILS # (AUTO) 4.1 (2.1-6.9); NEUTROPHILS % 61.2 % (38.7-80.0); PLATELET COUNT 200 x10e3/uL (140-360); RED BLOOD COUNT 3.81 x10e6/uL (4.3-5.7); RED CELL DISTRIBUTION WIDTH 19.6 % (11.7-14.4)
[2017-04-23 06:42] LABS: ANION GAP 12.4 mmol/L (8-16); BLOOD UREA NITROGEN 34 mg/dL (7-26); BUN/CREATININE RATIO 50 (6-25); CALCIUM 8.9 mg/dL (8.4-10.2); CARBON DIOXIDE 31 mmol/L (22-29); CHLORIDE 102 mmol/L (98-107); CREATININE, SERUM 0.68 mg/dL (0.72-1.25); EST GLOMERULAR FILTRATION RATE > 60 ML/MIN (60-); GLUCOSE 103 mg/dL (74-118); MAGNESIUM 1.8 MG/DL (1.3-2.1); POTASSIUM 3.4 mmol/L (3.5-5.1); SODIUM 142 mmol/L (136-145)
[2017-04-23] MEDS: ACETAZOLAMIDE 250 MG TAB PO SCH (10:30)
[2017-04-23] MEDS: FUROSEMIDE 40 MG TAB PEG SCH (10:30)
[2017-04-23] MEDS: CARVEDILOL 12.5 MG TAB PO SCH ×2 (10:30→19:00)
[2017-04-23] MEDS: FAMOTIDINE 20 MG TAB PEG SCH ×2 (10:30→17:00)
[2017-04-23] MEDS: COLLAGENASE OINTMENT 30 GM TUBE TP SCH (15:51)
[2017-04-23] MEDS: PROMETHAZINE HCL 25 MG TAB PEG PRN (21:22)
[2017-04-24] VITALS (23 sets, daily range): BP systolic 113–165; BP diastolic 61–97
[2017-04-24] MEDS: METOCLOPRAMIDE HCL 10 MG TAB PEG SCH ×4 (00:29→17:15)
[2017-04-24 05:10] LABS: BASOPHILS # (AUTO) 0.1 (0.0-0.1); BASOPHILS % 0.8 % (0.0-1.0); EOSINOPHILS # (AUTO) 0.5 (0.0-0.4); EOSINOPHILS % 5.8 % (0.0-6.0); HEMATOCRIT 35.2 % (38.2-49.6); HEMOGLOBIN 10.4 g/dL (14.0-18.0); LYMPHOCYTES # (AUTO) 1.4 (1.0-3.2); LYMPHOCYTES % 16.6 % (18.0-39.1); MEAN CORPUSCULAR HEMOGLOBIN 26.7 pg (28-32); MEAN CORPUSCULAR HGB CONC 29.5 g/dL (31-35); MEAN CORPUSCULAR VOLUME 90.5 fL (81-99); MONOCYTES # (AUTO) 0.7 (0.2-0.8); MONOCYTES % 8.4 % (4.4-11.3); NEUTROPHILS # (AUTO) 5.8 (2.1-6.9); PLATELET COUNT 207 x10e3/uL (140-360); RED BLOOD COUNT 3.89 x10e6/uL (4.3-5.7); RED CELL DISTRIBUTION WIDTH 19.7 % (11.7-14.4)
[2017-04-24 05:29] LABS: ANION GAP 12.3 mmol/L (8-16); BLOOD UREA NITROGEN 30 mg/dL (7-26); BUN/CREATININE RATIO 43 (6-25); CARBON DIOXIDE 30 mmol/L (22-29); CHLORIDE 101 mmol/L (98-107); CREATININE, SERUM 0.69 mg/dL (0.72-1.25); EST GLOMERULAR FILTRATION RATE > 60 ML/MIN (60-); GLUCOSE 94 mg/dL (74-118); MAGNESIUM 1.7 MG/DL (1.3-2.1); POTASSIUM 3.3 mmol/L (3.5-5.1); SODIUM 140 mmol/L (136-145)
[2017-04-24 05:48] LABS: CREATINE KINASE 15 IU/L (30-200)
[2017-04-24] MEDS: ONDANSETRON HCL 4 MG ORAL DISINTEGRATING TAB PO PRN ×2 (06:26→12:14)
--- NOTE | 2017-04-24 08:42 | Diagnostic Imaging Report ---
PROCEDURE: CHEST SINGLE (PORTABLE) COMPARISON: None. INDICATIONS: TRACHEOSTOMY, ON VENT. CHEST PAIN FINDINGS: LUNGS: Worsening pulmonary edema. PLEURA: Small left pleural effusion. HEART \T\ MEDIASTINUM: The heart remains enlarged. Tracheostomy catheter and right IJ non-tunneled HD catheter again noted. BONES \T\ SOFT TISSUES: No acute findings. CONCLUSION: Worsening pulmonary edema. Mert Ambrose D.O. Dictated by: Mert Ambrose D.O. on 04/24/2017 at 8:42 Electronically approved by: Mert Ambrose D.O. on 04/24/2017 at 8:42
[2017-04-24] MEDS: FUROSEMIDE 40 MG TAB PEG SCH (08:51)
[2017-04-24] MEDS: CARVEDILOL 12.5 MG TAB PO SCH ×2 (08:52→16:15)
[2017-04-24] MEDS: ACETAZOLAMIDE 250 MG TAB PO SCH (08:52)
[2017-04-24] MEDS: COLLAGENASE OINTMENT 30 GM TUBE TP SCH (08:53)
[2017-04-24] MEDS: BALSAM PERU/CASTOR OIL 60 GM OINT...G. TP SCH ×2 (08:53→12:13)
[2017-04-24] MEDS: PROMETHAZINE HCL 25 MG TAB PEG PRN ×2 (08:53→16:16)
[2017-04-24] MEDS: FAMOTIDINE 20 MG TAB PEG SCH ×2 (09:02→16:15)
[2017-04-24 14:49] LABS: CREATINE KINASE 13 IU/L (30-200)
[2017-04-24 23:21] LABS: CREATINE KINASE 13 IU/L (30-200)
[2017-04-25] VITALS (15 sets, daily range): BP systolic 103–135; BP diastolic 57–85
[2017-04-25] MEDS: ONDANSETRON HCL 4 MG ORAL DISINTEGRATING TAB PO PRN ×3 (00:21→16:32)
[2017-04-25] MEDS: BALSAM PERU/CASTOR OIL 60 GM OINT...G. TP SCH ×4 (00:21→22:51)
[2017-04-25] MEDS: PROMETHAZINE HCL 25 MG TAB PEG PRN ×3 (00:21→17:58)
[2017-04-25] MEDS: METOCLOPRAMIDE HCL 10 MG TAB PEG SCH ×4 (00:21→17:17)
[2017-04-25 06:10] LABS: BASOPHILS # (AUTO) 0.1 (0.0-0.1); BASOPHILS % 0.9 % (0.0-1.0); EOSINOPHILS # (AUTO) 0.6 (0.0-0.4); EOSINOPHILS % 8.9 % (0.0-6.0); HEMATOCRIT 34.6 % (38.2-49.6); HEMOGLOBIN 10.5 g/dL (14.0-18.0); LYMPHOCYTES # (AUTO) 1.6 (1.0-3.2); LYMPHOCYTES % 24.5 % (18.0-39.1); MEAN CORPUSCULAR HEMOGLOBIN 27.2 pg (28-32); MEAN CORPUSCULAR HGB CONC 30.3 g/dL (31-35); MEAN CORPUSCULAR VOLUME 89.6 fL (81-99); MONOCYTES # (AUTO) 0.7 (0.2-0.8); NEUTROPHILS # (AUTO) 3.5 (2.1-6.9); NEUTROPHILS % 54.5 % (38.7-80.0); PLATELET COUNT 193 x10e3/uL (140-360); RED BLOOD COUNT 3.86 x10e6/uL (4.3-5.7); RED CELL DISTRIBUTION WIDTH 19.3 % (11.7-14.4)
[2017-04-25 06:32] LABS: ANION GAP 11.6 mmol/L (8-16); BLOOD UREA NITROGEN 29 mg/dL (7-26); BUN/CREATININE RATIO 43 (6-25); CALCIUM 8.8 mg/dL (8.4-10.2); CARBON DIOXIDE 29 mmol/L (22-29); CHLORIDE 101 mmol/L (98-107); CREATININE, SERUM 0.67 mg/dL (0.72-1.25); EST GLOMERULAR FILTRATION RATE > 60 ML/MIN (60-); GLUCOSE 96 mg/dL (74-118); MAGNESIUM 1.6 MG/DL (1.3-2.1); PHOSPHORUS 4.6 MG/DL (2.3-4.7); POTASSIUM 3.6 mmol/L (3.5-5.1); SODIUM 138 mmol/L (136-145)
[2017-04-25] MEDS: FUROSEMIDE 40 MG TAB PEG SCH (09:17)
[2017-04-25] MEDS: ACETAZOLAMIDE 250 MG TAB PO SCH (09:17)
[2017-04-25] MEDS: COLLAGENASE OINTMENT 30 GM TUBE TP SCH (09:17)
[2017-04-25] MEDS: FAMOTIDINE 20 MG TAB PEG SCH ×2 (09:17→17:17)
[2017-04-25] MEDS: CARVEDILOL 12.5 MG TAB PO SCH ×2 (09:17→17:17)
[2017-04-25] MEDS ORDERED: LORAZEPAM 1 MG TAB PO PRN (16:15)
[2017-04-25] MEDS: HYDROCODONE/APAP 10MG-325MG TAB PO PRN (17:23)
[2017-04-26] VITALS (8 sets, daily range): BP systolic 100–136; BP diastolic 66–89
[2017-04-26] MEDS: METOCLOPRAMIDE HCL 10 MG TAB PEG SCH ×5 (00:22→23:34)
[2017-04-26] MEDS: PROMETHAZINE HCL 25 MG TAB PEG PRN ×2 (00:22→23:34)
[2017-04-26] MEDS: HYDROCODONE/APAP 10MG-325MG TAB PEG PRN ×2 (00:22→18:04)
[2017-04-26 06:25] LABS: BASOPHILS # (AUTO) 0.1 (0.0-0.1); BASOPHILS % 1.1 % (0.0-1.0); EOSINOPHILS # (AUTO) 0.5 (0.0-0.4); EOSINOPHILS % 7.9 % (0.0-6.0); HEMATOCRIT 33.9 % (38.2-49.6); HEMOGLOBIN 10.3 g/dL (14.0-18.0); LYMPHOCYTES # (AUTO) 1.6 (1.0-3.2); LYMPHOCYTES % 25.4 % (18.0-39.1); MEAN CORPUSCULAR HEMOGLOBIN 27.2 pg (28-32); MEAN CORPUSCULAR HGB CONC 30.4 g/dL (31-35); MEAN CORPUSCULAR VOLUME 89.4 fL (81-99); MONOCYTES # (AUTO) 0.8 (0.2-0.8); MONOCYTES % 12.8 % (4.4-11.3); NEUTROPHILS # (AUTO) 3.2 (2.1-6.9); NEUTROPHILS % 52.5 % (38.7-80.0); PLATELET COUNT 206 x10e3/uL (140-360); RED BLOOD COUNT 3.79 x10e6/uL (4.3-5.7); RED CELL DISTRIBUTION WIDTH 19.5 % (11.7-14.4)
[2017-04-26 06:43] LABS: ANION GAP 11.6 mmol/L (8-16); BLOOD UREA NITROGEN 31 mg/dL (7-26); BUN/CREATININE RATIO 44 (6-25); CALCIUM 8.8 mg/dL (8.4-10.2); CARBON DIOXIDE 30 mmol/L (22-29); CHLORIDE 99 mmol/L (98-107); CREATININE, SERUM 0.71 mg/dL (0.72-1.25); EST GLOMERULAR FILTRATION RATE > 60 ML/MIN (60-); GLUCOSE 109 mg/dL (74-118); POTASSIUM 3.6 mmol/L (3.5-5.1); SODIUM 137 mmol/L (136-145)
[2017-04-26] MEDS: CARVEDILOL 12.5 MG TAB PO SCH ×2 (10:24→17:42)
[2017-04-26] MEDS: ACETAZOLAMIDE 250 MG TAB PO SCH (10:24)
[2017-04-26] MEDS: FAMOTIDINE 20 MG TAB PEG SCH ×2 (10:24→17:35)
[2017-04-26] MEDS: BALSAM PERU/CASTOR OIL 60 GM OINT...G. TP SCH ×3 (17:42→19:56)
[2017-04-26] MEDS: COLLAGENASE OINTMENT 30 GM TUBE TP SCH (17:42)
--- NOTE | 2017-04-26 19:20 | Progress Note ---
DATE: April 26, 2017 Mr. Zavala is doing better. He is out of ICU. He is laying in bed comfortably. PHYSICAL EXAMINATION GENERAL: Alert, oriented, does not seem to be in any acute distress. VITAL SIGNS: Stable, currently afebrile. HEENT: Not icteric. NECK: Supple. CHEST: Clear bilaterally. HEART: S1 and S2, no murmur. ABDOMEN: Soft. LABORATORY DATA: Reviewed. His white count is 6.1, hemoglobin 10, sodium 137, potassium 3.6. Last cultures were from April 19 and showed MRSA from the wound. MEDICATIONS: He is on Coreg, Santyl, Pepcid, Reglan, Diamox, [place], Zofran. He is off antibiotics. IMPRESSION: 1. Pneumonia, resolved. 2. Respiratory failure, better. PLAN: From infectious disease point of view, continue with PT and OT. Off antibiotics. Job#: [id number]
[2017-04-27] VITALS (7 sets, daily range): BP systolic 91–137; BP diastolic 57–93
[2017-04-27] MEDS: METOCLOPRAMIDE HCL 10 MG TAB PEG SCH ×3 (05:13→16:56)
[2017-04-27 05:56] LABS: BASOPHILS # (AUTO) 0.1 (0.0-0.1); EOSINOPHILS # (AUTO) 0.5 (0.0-0.4); EOSINOPHILS % 7.9 % (0.0-6.0); HEMATOCRIT 32.3 % (38.2-49.6); HEMOGLOBIN 9.9 g/dL (14.0-18.0); LYMPHOCYTES # (AUTO) 1.7 (1.0-3.2); LYMPHOCYTES % 28.9 % (18.0-39.1); MEAN CORPUSCULAR HEMOGLOBIN 27.5 pg (28-32); MEAN CORPUSCULAR HGB CONC 30.7 g/dL (31-35); MEAN CORPUSCULAR VOLUME 89.7 fL (81-99); MONOCYTES # (AUTO) 0.6 (0.2-0.8); MONOCYTES % 10.5 % (4.4-11.3); NEUTROPHILS # (AUTO) 3.1 (2.1-6.9); NEUTROPHILS % 51.5 % (38.7-80.0); PLATELET COUNT 230 x10e3/uL (140-360); RED CELL DISTRIBUTION WIDTH 19.4 % (11.7-14.4)
[2017-04-27 06:47] LABS: ANION GAP 11.7 mmol/L (8-16); BLOOD UREA NITROGEN 29 mg/dL (7-26); BUN/CREATININE RATIO 45 (6-25); CALCIUM 8.5 mg/dL (8.4-10.2); CARBON DIOXIDE 29 mmol/L (22-29); CHLORIDE 100 mmol/L (98-107); CREATININE, SERUM 0.65 mg/dL (0.72-1.25); EST GLOMERULAR FILTRATION RATE > 60 ML/MIN (60-); GLUCOSE 115 mg/dL (74-118); MAGNESIUM 1.7 MG/DL (1.3-2.1); POTASSIUM 3.7 mmol/L (3.5-5.1); SODIUM 137 mmol/L (136-145)
--- NOTE | 2017-04-27 06:57 | Diagnostic Imaging Report ---
CHEST SINGLE (PORTABLE), 04/27/2017 5:00 AM Technique: CHEST SINGLE (PORTABLE) Comparison: 04/21/2017 Clinical history: Pulmonary edema Findings: See Impression Impression: 1. Limited by portable technique, motion and soft tissue attenuation 2. Tracheostomy and right PICC noted. 3. Grossly stable enlarged cardiomediastinal silhouette. 4. Increased diffuse opacities, favor edema.. Signed by: Dr Sasha Milton MD on 04/27/2017 6:54 AM
[2017-04-27] MEDS: CARVEDILOL 12.5 MG TAB PO SCH ×2 (09:00→17:00)
[2017-04-27] MEDS: PROMETHAZINE HCL 25 MG TAB PEG PRN (09:16)
[2017-04-27] MEDS: ACETAZOLAMIDE 250 MG TAB PO SCH (09:56)
[2017-04-27] MEDS: FAMOTIDINE 20 MG TAB PEG SCH ×2 (09:56→16:56)
[2017-04-27] MEDS: COLLAGENASE OINTMENT 30 GM TUBE TP SCH (09:56)
[2017-04-27] MEDS: BALSAM PERU/CASTOR OIL 60 GM OINT...G. TP SCH ×3 (09:56→20:54)
[2017-04-27] MEDS: HYDROCODONE/APAP 10MG-325MG TAB PEG PRN ×3 (12:20→20:54)
--- NOTE | 2017-04-27 13:57 | Diagnostic Imaging Report ---
Modified Barium Swallow, 04/27/2017 Clinical history: Safety evaluation. Comparison: None Technique: A modified barium swallow was performed in conjunction with speech pathology. Various viscosities of barium and barium-coated food items were administered under fluoroscopic observation. Fluoroscopy time: 1 minute 38 seconds Cumulative air kerma: 11.87 mGy Findings: No evidence of laryngeal penetration or aspiration. Premature spillage with all consistencies. Diffuse trace residue. Impression: No evidence of laryngeal penetration or aspiration. This report was generated with voice-recognition technology. Errors in installment agent can occur. Please interpret accordingly and contact a radiologist if there are any questions regarding the report. Signed by: Dr. Alfred Castillo M.D. on 04/27/2017 1:54 PM
[2017-04-28] VITALS (7 sets, daily range): BP systolic 113–149; BP diastolic 61–106
[2017-04-28] MEDS: METOCLOPRAMIDE HCL 10 MG TAB PEG SCH ×5 (01:54→23:04)
[2017-04-28 06:58] LABS: BASOPHILS % 0.7 % (0.0-1.0); EOSINOPHILS # (AUTO) 0.4 (0.0-0.4); EOSINOPHILS % 7.1 % (0.0-6.0); HEMATOCRIT 33.1 % (38.2-49.6); HEMOGLOBIN 10.1 g/dL (14.0-18.0); LYMPHOCYTES # (AUTO) 1.4 (1.0-3.2); LYMPHOCYTES % 23.6 % (18.0-39.1); MEAN CORPUSCULAR HEMOGLOBIN 27.3 pg (28-32); MEAN CORPUSCULAR HGB CONC 30.5 g/dL (31-35); MEAN CORPUSCULAR VOLUME 89.5 fL (81-99); MONOCYTES # (AUTO) 0.7 (0.2-0.8); MONOCYTES % 11.7 % (4.4-11.3); NEUTROPHILS # (AUTO) 3.3 (2.1-6.9); NEUTROPHILS % 56.7 % (38.7-80.0); PLATELET COUNT 218 x10e3/uL (140-360); RED CELL DISTRIBUTION WIDTH 19.3 % (11.7-14.4)
[2017-04-28 07:16] LABS: ANION GAP 11.7 mmol/L (8-16); BLOOD UREA NITROGEN 20 mg/dL (7-26); BUN/CREATININE RATIO 30 (6-25); CARBON DIOXIDE 26 mmol/L (22-29); CHLORIDE 100 mmol/L (98-107); CREATININE, SERUM 0.67 mg/dL (0.72-1.25); EST GLOMERULAR FILTRATION RATE > 60 ML/MIN (60-); GLUCOSE 102 mg/dL (74-118); POTASSIUM 3.7 mmol/L (3.5-5.1); SODIUM 134 mmol/L (136-145)
[2017-04-28] MEDS: ACETAZOLAMIDE 250 MG TAB PO SCH (09:00)
[2017-04-28] MEDS: BALSAM PERU/CASTOR OIL 60 GM OINT...G. TP SCH ×3 (09:00→17:47)
[2017-04-28] MEDS: COLLAGENASE OINTMENT 30 GM TUBE TP SCH (09:00)
[2017-04-28] MEDS: FAMOTIDINE 20 MG TAB PEG SCH ×2 (09:02→17:46)
[2017-04-28] MEDS: HYDROCODONE/APAP 10MG-325MG TAB PEG PRN ×3 (09:03→22:07)
[2017-04-28] MEDS: CARVEDILOL 12.5 MG TAB PO SCH ×2 (09:50→17:00)
--- NOTE | 2017-04-28 11:56 | Diagnostic Imaging Report ---
PROCEDURE:X-RAY ABDOMEN - KUB COMPARISON:KUB dated 04/20/17 INDICATIONS:VOMITING FINDINGS: See conclusion. CONCLUSION: Very limited study due to the body habitus and underpenetration. Nonobstructive bowel gas pattern. Residual contrast is seen within descending colon. Dictated by: Olaf Wen M.D. on 04/28/2017 at 11:55 Electronically approved by: Olaf Wen M.D. on 04/28/2017 at 11:55
--- NOTE | 2017-04-28 15:36 | Progress Note ---
DATE: April 28, 2017 INFECTIOUS DISEASE PROGRESS NOTE SUBJECTIVE: Mr. Zavala is doing much better. He has no complaints. He is off antibiotic, stable. REVIEW OF SYSTEMS HEENT: Negative. He still has a trach. PULMONARY: Negative. CARDIAC: Negative. : Negative. PHYSICAL EXAMINATION GENERAL: He is alert, oriented, does not seem to be in acute distress. VITAL SIGNS: Stable. Afebrile. HEENT: He does not appear icteric. Normocephalic. NECK: Supple. No JVD, no lymphadenopathy, no thyromegaly. CHEST: Clear bilaterally. HEART: S1 and S2. No S3 or S4, no murmur. ABDOMEN: Soft. Obese. No tenderness. No hepatosplenomegaly. EXTREMITIES: No edema. SKIN: No rash. MEDICATION: List reviewed here. He is still on [place] p.r.n., Diamox, Proventil, p.r.n., Coreg, Santyl, Pepcid and Ativan. LABORATORY DATA: Also reviewed. White count is 5.8, hemoglobin of 10, hematocrit of 33. His sodium 134, potassium 3.7. IMPRESSION 1. Pneumonia, resolved. 1. Adult respiratory distress syndrome, improving. 2. Obesity. From infectious disease point of view, there is no need for antibiotic. Patient's discharge planning per others. Will sign off. Job#: [id number] STEPHAN
[2017-04-28] MEDS: PROMETHAZINE HCL 25 MG TAB PEG PRN (17:48)
[2017-04-29] VITALS (7 sets, daily range): BP systolic 135–152; BP diastolic 72–88
[2017-04-29] MEDS: METOCLOPRAMIDE HCL 10 MG TAB PEG SCH ×3 (06:00→22:51)
[2017-04-29 07:44] LABS: BASOPHILS # (AUTO) 0.1 (0.0-0.1); BASOPHILS % 0.7 % (0.0-1.0); EOSINOPHILS # (AUTO) 0.3 (0.0-0.4); EOSINOPHILS % 4.9 % (0.0-6.0); HEMOGLOBIN 10.3 g/dL (14.0-18.0); LYMPHOCYTES # (AUTO) 1.7 (1.0-3.2); LYMPHOCYTES % 24.1 % (18.0-39.1); MEAN CORPUSCULAR HEMOGLOBIN 27.5 pg (28-32); MEAN CORPUSCULAR HGB CONC 31.2 g/dL (31-35); MONOCYTES # (AUTO) 0.7 (0.2-0.8); MONOCYTES % 10.3 % (4.4-11.3); NEUTROPHILS # (AUTO) 4.2 (2.1-6.9); NEUTROPHILS % 59.9 % (38.7-80.0); PLATELET COUNT 239 x10e3/uL (140-360); RED BLOOD COUNT 3.75 x10e6/uL (4.3-5.7); RED CELL DISTRIBUTION WIDTH 19.9 % (11.7-14.4)
[2017-04-29 07:59] LABS: ANION GAP 13.5 mmol/L (8-16); BLOOD UREA NITROGEN 17 mg/dL (7-26); BUN/CREATININE RATIO 22 (6-25); CALCIUM 9.6 mg/dL (8.4-10.2); CARBON DIOXIDE 24 mmol/L (22-29); CHLORIDE 97 mmol/L (98-107); CREATININE, SERUM 0.76 mg/dL (0.72-1.25); EST GLOMERULAR FILTRATION RATE > 60 ML/MIN (60-); GLUCOSE 78 mg/dL (74-118); POTASSIUM 3.5 mmol/L (3.5-5.1); SODIUM 131 mmol/L (136-145)
[2017-04-29] MEDS: BALSAM PERU/CASTOR OIL 60 GM OINT...G. TP SCH ×3 (08:38→22:50)
[2017-04-29] MEDS: FAMOTIDINE 20 MG TAB PEG SCH ×2 (08:38→16:20)
[2017-04-29] MEDS: CARVEDILOL 12.5 MG TAB PO SCH ×2 (08:38→16:20)
[2017-04-29] MEDS: COLLAGENASE OINTMENT 30 GM TUBE TP SCH (08:38)
[2017-04-29] MEDS: ACETAZOLAMIDE 250 MG TAB PO SCH (08:38)
[2017-04-29] MEDS: SODIUM CHLORIDE 0.9% 1000ML 1,000 ML IV SCH (10:24)
[2017-04-29] MEDS ORDERED: FUROSEMIDE INJ 10 MG/ML 4 ML VIAL IV SCH (14:45)
[2017-04-30 00:13] VITALS: BP 119/69
[2017-04-30 00:16] VITALS: BP 119/69
[2017-04-30 04:09] VITALS: BP 122/59
--- NOTE | 2017-04-30 04:11 | Diagnostic Imaging Report ---
CHEST 2 VIEWS, Technique: CHEST 2 VIEWS Comparison: 04/27/2017 Clinical history: Infiltrates DISCUSSION: Lateral is degraded by motion. Stable tracheostomy and right PICC cavoatrial junction. Mildly enlarged cardiomediastinal silhouette. Improved bilateral opacities with mild residual bibasilar interstitial opacity. No effusion or pneumothorax. IMPRESSION: Improved diffuse opacities/presumed edema. Mild bibasilar opacity which could be due to edema/atelectasis, aspiration or infection. Signed by: Dr Sasha Milton MD on 04/30/2017 4:07 AM
[2017-04-30] MEDS: METOCLOPRAMIDE HCL 10 MG TAB PEG SCH ×3 (05:03→22:45)
[2017-04-30] MEDS: SODIUM CHLORIDE 0.9% 1000ML 1,000 ML IV SCH (05:43)
[2017-04-30] MEDS: FAMOTIDINE 20 MG TAB PEG SCH ×2 (08:35→16:17)
[2017-04-30] MEDS: COLLAGENASE OINTMENT 30 GM TUBE TP SCH (08:35)
[2017-04-30] MEDS: BALSAM PERU/CASTOR OIL 60 GM OINT...G. TP SCH ×3 (08:35→21:00)
[2017-04-30] MEDS: CARVEDILOL 12.5 MG TAB PO SCH ×2 (08:35→16:17)
[2017-04-30] MEDS: ACETAZOLAMIDE 250 MG TAB PO SCH (08:35)
[2017-04-30 08:58] LABS: BASOPHILS % 0.4 % (0.0-1.0); EOSINOPHILS # (AUTO) 0.3 (0.0-0.4); EOSINOPHILS % 4.4 % (0.0-6.0); HEMOGLOBIN 9.7 g/dL (14.0-18.0); LYMPHOCYTES # (AUTO) 1.6 (1.0-3.2); MEAN CORPUSCULAR HEMOGLOBIN 27.6 pg (28-32); MEAN CORPUSCULAR HGB CONC 31.3 g/dL (31-35); MEAN CORPUSCULAR VOLUME 88.1 fL (81-99); MONOCYTES # (AUTO) 0.8 (0.2-0.8); MONOCYTES % 11.4 % (4.4-11.3); NEUTROPHILS # (AUTO) 4.1 (2.1-6.9); NEUTROPHILS % 60.5 % (38.7-80.0); PLATELET COUNT 244 x10e3/uL (140-360); RED BLOOD COUNT 3.52 x10e6/uL (4.3-5.7); RED CELL DISTRIBUTION WIDTH 19.7 % (11.7-14.4)
[2017-04-30 09:15] LABS: ALANINE AMINOTRANSFERASE 349 IU/L (0-55); ALBUMIN 3.2 g/dL (3.5-5.0); ALBUMIN/GLOBULIN RATIO 0.7 (0.8-2.0); ALKALINE PHOSPHATASE 108 IU/L (40-150); ANION GAP 13.5 mmol/L (8-16); BLOOD UREA NITROGEN 17 mg/dL (7-26); BUN/CREATININE RATIO 21 (6-25); CALCIUM 9.3 mg/dL (8.4-10.2); CARBON DIOXIDE 24 mmol/L (22-29); CHLORIDE 101 mmol/L (98-107); CREATININE, SERUM 0.82 mg/dL (0.72-1.25); EST GLOMERULAR FILTRATION RATE > 60 ML/MIN (60-); GLUCOSE 95 mg/dL (74-118); POTASSIUM 3.5 mmol/L (3.5-5.1); SODIUM 135 mmol/L (136-145)
[2017-04-30 10:39] VITALS: BP 140/81
[2017-04-30 15:55] VITALS: BP 109/56
[2017-04-30 20:00] VITALS: BP 133/83
[2017-05-01] VITALS: BP 128/71
[2017-05-01] MEDS: SODIUM CHLORIDE 0.9% 1000ML 1,000 ML IV SCH (01:52)
[2017-05-01 04:00] VITALS: BP 148/91
[2017-05-01] MEDS: METOCLOPRAMIDE HCL 10 MG TAB PEG SCH ×2 (06:00→15:02)
[2017-05-01 06:25] LABS: BASOPHILS % 0.6 % (0.0-1.0); EOSINOPHILS # (AUTO) 0.3 (0.0-0.4); EOSINOPHILS % 4.9 % (0.0-6.0); HEMATOCRIT 30.5 % (38.2-49.6); HEMOGLOBIN 9.5 g/dL (14.0-18.0); LYMPHOCYTES # (AUTO) 1.3 (1.0-3.2); LYMPHOCYTES % 19.8 % (18.0-39.1); MEAN CORPUSCULAR HEMOGLOBIN 28.1 pg (28-32); MEAN CORPUSCULAR HGB CONC 31.1 g/dL (31-35); MEAN CORPUSCULAR VOLUME 90.2 fL (81-99); MONOCYTES # (AUTO) 0.7 (0.2-0.8); MONOCYTES % 10.2 % (4.4-11.3); NEUTROPHILS # (AUTO) 4.4 (2.1-6.9); NEUTROPHILS % 64.2 % (38.7-80.0); PLATELET COUNT 232 x10e3/uL (140-360); RED BLOOD COUNT 3.38 x10e6/uL (4.3-5.7); RED CELL DISTRIBUTION WIDTH 19.8 % (11.7-14.4)
[2017-05-01 07:01] LABS: ANION GAP 11.3 mmol/L (8-16); BLOOD UREA NITROGEN 12 mg/dL (7-26); BUN/CREATININE RATIO 16 (6-25); CALCIUM 9.1 mg/dL (8.4-10.2); CARBON DIOXIDE 24 mmol/L (22-29); CHLORIDE 105 mmol/L (98-107); CREATININE, SERUM 0.74 mg/dL (0.72-1.25); EST GLOMERULAR FILTRATION RATE > 60 ML/MIN (60-); GLUCOSE 100 mg/dL (74-118); MAGNESIUM 1.7 MG/DL (1.3-2.1); POTASSIUM 3.3 mmol/L (3.5-5.1); SODIUM 137 mmol/L (136-145)
[2017-05-01 08:00] VITALS: BP 107/74
[2017-05-01] MEDS: CARVEDILOL 12.5 MG TAB PO SCH ×3 (08:09→16:32)
[2017-05-01] MEDS: FAMOTIDINE 20 MG TAB PEG SCH ×2 (10:01→16:32)
[2017-05-01] MEDS: ACETAZOLAMIDE 250 MG TAB PO SCH (10:01)
[2017-05-01 10:05] VITALS: BP 107/74
[2017-05-01] MEDS ORDERED: Collagenase TP (10:59)
[2017-05-01] MEDS ORDERED: Ondansetron Oral Disintegratin PO (10:59)
[2017-05-01 11:55] VITALS: BP 142/83
[2017-05-01] MEDS: BALSAM PERU/CASTOR OIL 60 GM OINT...G. TP SCH (13:29)
[2017-05-01] MEDS: COLLAGENASE OINTMENT 30 GM TUBE TP SCH (13:29)
[2017-05-01 16:03] VITALS: BP 157/87
--- NOTE | 2017-06-12 18:05 | Discharge Summary ---
PRIMARY CARE PROVIDER: Is not a local doctor. ADMITTING DIAGNOSIS 1. Respiratory distress/respiratory failure. 2. Ascyp-lm-rrmyidz respiratory failure requiring ventilation. 3. Yresx-xc-aelpxui diastolic congestive heart failure. 4. Acute exacerbation of chronic obstructive pulmonary disease. 5. Obstructive sleep apnea. 6. Hypertension complicated by chronic diastolic heart failure. 7. Type 2 diabetes. DISCHARGE DIAGNOSIS 1. Respiratory distress/respiratory failure. 2. Vwysy-xh-drdcyqy respiratory failure requiring ventilation. 3. Whczs-hi-kimbftt diastolic congestive heart failure. 4. Acute exacerbation of chronic obstructive pulmonary disease. 5. Obstructive sleep apnea. 6. Hypertension complicated by chronic diastolic heart failure. 7. Type 2 diabetes. 8. Episodes of hyponatremia. 9. Stage 2 sacral decubitus ulcer. 10. Pneumonia. 11. Adult respiratory distress syndrome. 12. Status post tracheostomy and percutaneous endoscopic gastrotomy placement. BRIEF HISTORY: Mr. Zavala is a 32-year-old gentleman morbidly obese, weighing over 400 pounds, with obstructive sleep apnea and COPD, who presents in respiratory failure. The patient is chronically O2 and BiPAP dependent at home. He presents with respiratory distress that progressed to require intubation in the emergency department. HOSPITAL COURSE: The patient was never successfully extubated. He continued to have chronic respiratory failure and vent dependence. His chest x-ray initially thought to be CHF. The patient was diuresed with IV Lasix. His BNP normalized. He continued to have a chest x-ray that showed interstitial pattern and possible pulmonary fibrosis versus pneumonia. The patient was treated with antibiotics. He had a localized cellulitis of the abdominal wall that was treated with IV vancomycin, and he had elevated liver enzymes. Workup was negative. CT was negative. It was felt to be due to fatty infiltration. The elevated transaminases resolved on their own. The patient eventually received a tracheostomy and PEG placement. The patient was weaned from the ventilator using the trach. He eventually was weaned to a trach collar. He continued to have tube feeding although was being trained on a [place] valve with the intention of being able to eat. The patient's insurance did not provide LTAC coverages. The patient was kept for a prolonged period of time basically because we had no place to send him. He passed a modified barium swallow with a [place] valve and was started on an ADA diet before discharge. Eventually he was sent home with a trach with O2 by trach collar at home. He had a PEG in place which was not being used. He was eating a diabetic diet. He had lost a substantial amount of weight. At the time of discharge we weighed 333 pounds down from 400. The patient was discharged to his home on an ADA diet with O2 by trach collar with instructions to follow up with his PCP within 2 weeks. SHONNA LR MD Job#: [id number] EV
== END 2017-05-01 18:16 | disposition home health service (06) | DRG 4 ==
LOC: ER 23:32 → ERHOLD 03-17 01:33 → UNDOADMIN 03-17 01:42 → ERHOLD 03-17 01:42 → ICU 03-19 18:44 → IMCU 04-25 21:23 → MED/SURG2 04-28 21:53
PROVIDERS: ADMIT Internal Medicine; ATTEND Internal Medicine
PROC: 5A1955Z Respiratory Ventilation, Greater than 96 Consecutive Hours (ICD-10-PCS; principal; 2017-03-17)
PROC: 0BH17EZ Insertion of Endotracheal Airway into Trachea, Via Natural or Artificial Opening (ICD-10-PCS; principal; 2017-03-17)
PROC: 0B110F4 Bypass Trachea to Cutaneous with Tracheostomy Device, Open Approach (ICD-10-PCS; 2017-03-24)
PROC: 02HV33Z Insertion of Infusion Device into Superior Vena Cava, Percutaneous Approach (ICD-10-PCS; 2017-03-27)
PROC: 5A1D70Z Performance of Urinary Filtration, Intermittent, Less than 6 Hours Per Day (ICD-10-PCS; 2017-03-30)
PROC: 0DH68UZ Insertion of Feeding Device into Stomach, Via Natural or Artificial Opening Endoscopic (ICD-10-PCS; 2017-04-06)
DX: J96.22 Acute and chronic respiratory failure with hypercapnia (principal); R65.21 Severe sepsis with septic shock; N17.0 Acute kidney failure with tubular necrosis; I50.33 Acute on chronic diastolic (congestive) heart failure; A41.9 Sepsis, unspecified organism; J18.9 Pneumonia, unspecified organism; K83.1 Obstruction of bile duct; B37.89 Other sites of candidiasis; J95.851 Ventilator associated pneumonia; E87.2 Acidosis; E66.2 Morbid (severe) obesity with alveolar hypoventilation; J44.1 Chronic obstructive pulmonary disease with (acute) exacerbation; N17.9 Acute kidney failure, unspecified; E87.1 Hypo-osmolality and hyponatremia; R17 Unspecified jaundice; E87.0 Hyperosmolality and hypernatremia; Z68.43 Body mass index [BMI] 50.0-59.9, adult; I11.0 Hypertensive heart disease with heart failure; I27.81 Cor pulmonale (chronic); E11.649 Type 2 diabetes mellitus with hypoglycemia without coma; D69.6 Thrombocytopenia, unspecified; J96.21 Acute and chronic respiratory failure with hypoxia; Z99.81 Dependence on supplemental oxygen; Z87.891 Personal history of nicotine dependence; L27.1 Localized skin eruption due to drugs and medicaments taken internally; E80.6 Other disorders of bilirubin metabolism; J80 Acute respiratory distress syndrome; R53.81 Other malaise; E87.6 Hypokalemia; E83.42 Hypomagnesemia; R13.10 Dysphagia, unspecified; R11.10 Vomiting, unspecified; B95.62 Methicillin resistant Staphylococcus aureus infection as the cause of diseases classified elsewhere; K29.70 Gastritis, unspecified, without bleeding; K44.9 Diaphragmatic hernia without obstruction or gangrene; I27.20 Pulmonary hypertension, unspecified; L89.152 Pressure ulcer of sacral region, stage 2; L89.322 Pressure ulcer of left buttock, stage 2; L89.312 Pressure ulcer of right buttock, stage 2
CPT/HCPCS: 36415; 36556; 36569; 36600; 71045; 71046; 74018; 74177; 74230; 74470; 76937; 80048; 80053; 80076; 80202; 82140; 82150; 82248; 82550; 82553; 82805; 82948; 83605; 83690; 83735; 83880; 84100; 84439; 84443; 84484; 84550; 85007; 85025; 85027; 85610; 85730; 87040; 87070; 87071; 87086; 87186; 87205; 87400; 90962; 92522; 93005; 93306; 94002; 94003; 94640; 94660; 96360; 96361; 97139; 99285; J0330; J0360; J0456; J0610; J0690; J0696; J1170; J1200; J1644; J1650; J1720; J1885; J1940; J2001; J2020; J2060; J2150; J2185; J2250; J2270; J2405; J2550; J2765; J2920; J2997; J3370; J3480; J7030; J7050; J7070; Q9967

== ENCOUNTER 2017-12-15 14:05 | Emergency (ER) | payer OTHER ==
[~2017-12-15] VITALS: Ht 175.3 cm; Wt 176.4 kg
[~2017-12-15 14:05] MED LIST changes: +Collagenase TP; +Ondansetron Oral Disintegratin PO
--- OUTSIDE RECORDS SUMMARY | 2017-12-15 14:08 | XMS REPORT | CCD ---
Author Author Auto Generated Organization [facility] Address Unknown Phone Unavailable Care Team Providers Care Dairy Lab Technician Name Role Phone Kendall Gamboa CP Allergies, Adverse Reactions, Alerts Substance Reaction Status NKDA Active Medications Medication Instructions Start Date End Date Status influenza virus 0.5 ml, Route: IM, Drug Form: SUSP, 03/26/2013 03/26/2013 Completed vaccine, inactivated Daily, Start date: 03/26/13 18:00:00, Duration: 1 doses or times, Stop date: 03/26/13 18:00:00(Same as: Fluzone, Fluvirin) Shake well prior to administration aspirin 81 mg 81 mg=1 tab, PO, Daily, # 30 tab, 0 03/26/2013 04/25/2013 Ordered tablet, enteric Refill(s) coated aspirin 324 mg, 4 tab, Route: PO, Drug 03/26/2013 03/26/2013 Completed form: CHEWTAB, ONCE, Dosing Weight 159.091, kg, Priority: STAT, Start date: 03/26/13 3:00:00, Stop date: 03/26/13 3:00:00Take with food. Saline Flush 0.9% 5 mL, Route: IVP, Drug Form: INJ, 03/26/2013 03/26/2013 Discontinued Dosing Weight 159.091, kg, Q8H, PRN Line Flush, Start date: 03/26/13 3:00:00, Duration: 30 day, Stop date: 04/25/13 2:59:00, Administer at least once every 8 hours Administer at least once every 8 hours(Same as: BD Posiflush) Saline Flush 0.9% 5 ml, Route: IVP, Drug Form: INJ, 03/26/2013 03/26/2013 Discontinued Dosing Weight 159.091, kg, PRN, PRN Line Flush, Start date: 03/26/13 8:23:00, Duration: 30 day, Stop date: 04/25/13 9:22:00Same as: BD Posiflush Sterile Saline Flush 0.9% 5 ml, Route: IVP, Drug Form: INJ, 03/26/2013 03/26/2013 Discontinued Dosing Weight 159.091, kg, Q12H, Start date: 03/26/13 9:00:00, Duration: 30 day, Stop date: 04/24/13 21:00:00Same as: BD Posiflush Sterile lisinopril 5 mg, 1 tab, Route: PO, Drug form: 03/26/2013 03/26/2013 Discontinued TAB, Daily, Dosing Weight 159.091, kg, Start date: 03/26/13 9:00:00, Duration: 30 day, Stop date: 04/24/13 9:00:00(Same as: Prinivil, Zestril) nitroglycerin SL Tab 0.4 mg, 1 tab, Route: SL, Drug 03/26/2013 03/26/2013 Discontinued form: TAB, Q5Min, Dosing Weight 159.091, kg, PRN Chest Pain, Start date: 03/26/13 8:23:00, Duration: 3 doses or times, Stop date: Limited # of times(Same as:Nitroquick, Nitrostat)"Do Not Crush" Sublingual tablet morphine Sulfate 2 mg, 1 mL, Route: IVP, Drug form: 03/26/2013 03/26/2013 Discontinued INJ, Q2H, Dosing Weight 159.091, kg, PRN Pain Score 4-6, Start date: 03/26/13 8:23:00, Duration: 30 day, Stop date: 04/25/13 8:22:00(Same as:MORPhine Sulfate) aspirin 325 mg 325 mg, Route: PO, Drug form: TAB, 03/26/2013 03/26/2013 Completed tablet ONCE, Dosing Weight 159.091, kg, Start date: 03/26/13 8:23:00, Stop date: 03/26/13 8:23:00 influenza virus 0.5 ml, Route: IM, Drug Form: SUSP, 03/26/2013 03/26/2013 Completed vaccine, inactivated Start date: 03/26/13 18:00:00, Stop date: 03/26/13 18:00:00 nitroglycerin 2% 1 inch, Route: TOP, Dosing Weight 03/26/2013 03/26/2013 Completed topical ointment 159.091, kg, ONCE, STAT, Start date: 03/26/13 3:20:00, Stop date: 03/26/13 3:20:00 nitroglycerin 0.4 mg 0.4 mg, 1 tab, Route: SL, Drug 03/26/2013 03/26/2013 Discontinued sublingual tablet form: TAB, Q5Min, PRN Chest Pain, Start date: 03/26/13 13:29:00, Duration: 30 day, Stop date: 04/25/13 14:28:00(Same as:Nitroquick, Nitrostat)"Do Not Crush" Sublingual tablet atropine 0.5 mg, 5 mL, Route: IVP, Drug 03/26/2013 03/26/2013 Discontinued form: INJ, PRN, PRN Bradycardia, Start date: 03/26/13 13:29:00, Duration: 30 day, Stop date: 04/25/13 14:28:00 Immunizations Vaccine Date Status influenza virus vaccine, inactivated 03/26/2013 Not Done Vital Signs Most recent to oldest [Reference Range]: 1 2 3 Height 180.34 cm (03/26/2013 01:25:00) Temperature Oral [96.4-99.1 DegF] 97.4 DegF (03/26/2013 16:00:00) 97.3 DegF (03/26/2013 13:00:00) 98.3 DegF (03/26/2013 11:47:00) Systolic Blood Pressure [90-140 mmHg] 109 mmHg (03/26/2013 16:00:00) 143 mmHg *HI* (03/26/2013 13:00:00) 133 mmHg (03/26/2013 11:47:00) Diastolic Blood Pressure [60-90 mmHg] 68 mmHg (03/26/2013 16:00:00) 90 mmHg (03/26/2013 13:00:00) 77 mmHg (03/26/2013 11:47:00) Respiratory Rate [14-20 BRMIN] 18 BRMIN (03/26/2013 16:00:00) 20 BRMIN (03/26/2013 13:00:00) 22 BRMIN *HI* (03/26/2013 11:47:00) Peripheral Pulse Rate [60-100 bpm] 105 bpm *HI* (03/26/2013 16:00:00) 87 bpm (03/26/2013 13:00:00) 103 bpm *HI* (03/26/2013 11:47:00) Weight 159.091 kg (03/26/2013 01:25:00) Results URINALYSIS Most recent to oldest [Reference Range]: 1 2 3 UA Turbidity [Clear] Marked *ABN* (03/26/2013 04:20:00) UA Color [Yellow] Yellow *NA* (03/26/2013 04:20:00) UA pH [5.0-8.0] 7.0 (03/26/2013 04:20:00) UA Spec Grav [<=1.030] 1.026 (03/26/2013 04:20:00) UA Glucose [Negative mg/dL] Negative mg/dL *NA* (03/26/2013 04:20:00) UA Blood [Negative] Negative (03/26/2013 04:20:00) UA Ketones [Negative mg/dL] Negative mg/dL *NA* (03/26/2013 04:20:00) UA Protein [Negative mg/dL] 30 mg/dL *ABN* (03/26/2013 04:20:00) UA Urobilinogen [0.1-1.0 mg/dL] 2.0 mg/dL *HI* (03/26/2013 04:20:00) UA Bili [Negative] Negative *NA* (03/26/2013 04:20:00) UA Leuk Est [Negative] Trace *ABN* (03/26/2013 04:20:00) UA Nitrite [Negative] Negative (03/26/2013 04:20:00) UA WBC [0-5 /HPF] 5 /HPF (03/26/2013 04:20:00) UA RBC [0-2 /HPF] 4 /HPF *HI* (03/26/2013 04:20:00) UA Bacteria [None Seen /HPF] Occasional /HPF *NA* (03/26/2013 04:20:00) UA Sq Epi None Seen *NA* (03/26/2013 04:20:00) UA Mucus [None Seen /LPF] Many /LPF *ABN* (03/26/2013 04:20:00) CHEMISTRY Most recent to oldest [Reference Range]: 1 2 3 Sodium Lvl [135-145 mEq/L] 140 mEq/L (03/26/2013 03:13:00) Potassium Lvl [3.5-5.1 mEq/L] 3.7 mEq/L (03/26/2013 03:13:00) Chloride Lvl [95-109 mEq/L] 102 mEq/L (03/26/2013 03:13:00) CO2 [24-32 mEq/L] 31 mEq/L (03/26/2013 03:13:00) AGAP [10.0-20.0 mEq/L] 10.7 mEq/L (03/26/2013 03:13:00) Creatinine Lvl [0.5-1.4 mg/dL] 0.9 mg/dL (03/26/2013 03:13:00) eGFR 117 mL/min/1.73m2 1 *NA* (03/26/2013 03:13:00) BUN [7-22 mg/dL] 11 mg/dL (03/26/2013 03:13:00) B/C Ratio [6-25] 12 (03/26/2013 03:13:00) Glucose Lvl [70-99 mg/dL] 103 mg/dL 2 *HI* (03/26/2013 03:13:00) Total Protein [6.4-8.4 g/dL] 8.6 g/dL *HI* (03/26/2013 03:13:00) Albumin Lvl [3.5-5.0 g/dL] 3.9 g/dL (03/26/2013 03:13:00) Globulin [2.0-4.0 g/dL] 4.7 g/dL *HI* (03/26/2013 03:13:00) A/G Ratio [0.7-1.6] 0.8 (03/26/2013 03:13:00) Calcium Lvl [8.5-10.5 mg/dL] 8.7 mg/dL (03/26/2013 03:13:00) ALT [0-65 unit/L] 149 unit/L *HI* (03/26/2013:13:00) AST [0-37 unit/L] 88 unit/L *HI* (03/26/2013::00) Alk Phos [39-136 unit/L] 90 unit/L (03/26/2013:13:00) Bili Total [0.2-1.3 mg/dL] 0.7 mg/dL (03/26/2013:13:00) Total CK [12-191 unit/L] 191 unit/L (03/26/2013:13:00) 194 unit/L *HI* (03/26/2013:10:00) 205 unit/L *HI* (03/26/2013:13:00) CK MB [0.5-3.6 ng/mL] 2.8 ng/mL (03/26/2013:13:00) 2.8 ng/mL (03/26/2013:10:00) 3.2 ng/mL (03/26/2013:13:00) CK MB Index [0.0-2.5] 1.5 (03/26/2013:13:00) 1.4 (03/26/2013:10:00) 1.6 (03/26/2013:13:00) Troponin-I [0.00-0.40 ng/mL] <0.02 ng/mL (03/26/2013:13:00) <0.02 ng/mL (03/26/2013:10:00) <0.02 ng/mL (03/26/2013:13:00) BNP [<=100 pg/mL] 3 pg/mL 3 (03/26/2013 03:13:00) U Amph Scr [Negative] Negative *NA* (03/26/2013 04:20:00) U [place] Scr [Negative] Negative *NA* (03/26/2013 04:20:00) U Benzodia Scr [Negative] Negative *NA* (03/26/2013 04:20:00) U Cocaine Scr [Negative] Negative *NA* (03/26/2013 04:20:00) U Opiate Scr [Negative] Negative *NA* (03/26/2013 04:20:00) U Phencyc Scr [Negative] Negative *NA* (03/26/2013 04:20:00) U Cannab Scr [Negative] Negative *NA* (03/26/2013 04:20:00) UDS Note See Note 4 *NA* (03/26/2013 04:20:00) 1Result Comment: The eGFR is calculated using the CKD-EPI formula. In most young, healthy individuals the eGFR will be >90 mL/min/1.73m2. The eGFR declines with age. An eGFR of 60-89 may be normal in some populations, particularly the elderly, for whom the CKD-EPI formula has not been extensively validated. Use of the eGFR is not recommended in the following populations: Individuals with unstable creatinine concentrations, including patients and those with serious co-morbid conditions. Patients with extremes in muscle mass or diet. The data above are obtained from the National Kidney Disease Education Program ( NKDEP) which additionally recommends that when the eGFR is used in patients with extremes of body mass index for purposes of drug dosing, the eGFR should be mul tiplied by the estimated BMI. 2Interpretive Data: Adult reference range values reflect the clinical guidelines of the [place] [employer]. 3Interpretive Data: Elevated results are in line with increasing severity of congestive heart failure. Minor elevations between 100 and 300 may be seen with Myocardial Ischemia, Sodium retaining drugs, and compensated/treated heart failure. 4Interpretive Data: Drugs reported as positive have not been confirmed by a second method and should be used for medical purposes only. To order confirmation, contact laboratory. note: Below are cut-off concentrations for all urine drugs of abuse performed in the laboratory. Some drugs listed in the table may not be included in this panel. Description Cut-off concentration Amphetamine 1000 ng/mL Barbiturates 200 ng/mL Benzodiazepines 300 ng/mL Cocaine metabolites 300 ng/mL Opiates 300 ng/mL Phencyclidine 25 ng/mL Propoxyphene 300 ng/mL Marijuana metabolites 50 ng/mL Methadone 300 ng/mL Urine alcohol 20 mg/dL HEMATOLOGY Most recent to oldest [Reference Range]: 1 2 3 WBC [3.7-10.4 K/CMM] 8.9 K/CMM (03/26/2013 09:10:00) 10.9 K/CMM *HI* (03/26/2013:13:00) RBC [4.70-6.10 M/CMM] 4.99 M/CMM (03/26/2013:10:00) 5.31 M/CMM (03/26/2013:13:00) Hgb [14.0-18.0 g/dL] 15.2 g/dL (03/26/2013:10:00) 16.0 g/dL (03/26/2013:13:00) Hct [42.0-54.0 %] 45.1 % (03/26/2013::00) 48.6 % (03/26/2013:13:00) MCV [80.0-94.0 fL] 90.4 fL (03/26/2013:10:00) 91.5 fL (03/26/2013:13:00) MCH [27.0-31.0 pg] 30.5 pg (03/26/2013:10:00) 30.0 pg (03/26/2013:13:00) MCHC [32.0-36.0 g/dL] 33.7 g/dL (03/26/2013:10:00) 32.8 g/dL (03/26/2013:13:00) RDW [11.5-14.5 %] 14.6 % *HI* (03/26/2013::00) 14.7 % *HI* (03/26/2013:13:00) Platelet [133-450 K/CMM] 223 K/CMM (03/26/2013:10:00) 264 K/CMM (03/26/2013:13:00) MPV [7.4-10.4 fL] 7.6 fL (03/26/2013:10:00) 8.2 fL (03/26/2013:13:00) Segs [45.0-75.0 %] 61.4 % (03/26/2013 09:10:00) 61.7 % (03/26/2013 03:13:00) Lymphocytes [20.0-40.0 %] 26.6 % (03/26/2013 09:10:00) 26.4 % (03/26/2013 03:13:00) Monocytes [2.0-12.0 %] 8.3 % (03/26/2013 09:10:00) 8.8 % (03/26/2013 03:13:00) Eosinophils [0.0-4.0 %] 2.8 % (03/26/2013 09:10:00) 2.6 % (03/26/2013 03:13:00) Basophils [0.0-1.0 %] 0.9 % (03/26/2013 09:10:00) 0.5 % (03/26/2013 03:13:00) Segs-Bands # [1.5-8.1 K/CMM] 5.4 K/CMM (03/26/2013 09:10:00) 6.7 K/CMM (03/26/2013 03:13:00) Lymphocytes # [1.0-5.5 K/CMM] 2.4 K/CMM (03/26/2013 09:10:00) 2.9 K/CMM (03/26/2013 03:13:00) Monocytes # [0.0-0.8 K/CMM] 0.7 K/CMM (03/26/2013 09:10:00) 1.0 K/CMM *HI* (03/26/2013 03:13:00) Eosinophils # [0.0-0.5 K/CMM] 0.2 K/CMM (03/26/2013 09:10:00) 0.3 K/CMM (03/26/2013 03:13:00) Basophils # [0.0-0.2 K/CMM] 0.1 K/CMM (03/26/2013 09:10:00) 0.1 K/CMM (03/26/2013 03:13:00) PT [12.0-14.7 seconds] 14.0 seconds (03/26/2013 09:10:00) 13.5 seconds (03/26/2013 03:13:00) INR [0.85-1.17] 1.09 5 (03/26/2013 09:10:00) 1.04 6 (03/26/2013 03:13:00) D-Dimer 0.62 ug/mL FEU 7 *NA* (03/26/2013 03:13:00) PTT [22.9-35.8 seconds] 28.1 seconds 8 (03/26/2013 09:10:00) 29.3 seconds 9 (03/26/2013 03:13:00) 5Interpretive Data: RECOMMENDED RANGES FOR PROTIME INR: 2.0-3.0 for most medical and surgical thromboembolic states. 2.5-3.5 for artificial heart valves and recurrent embolism. INR SHOULD BE USED ONLY FOR PATIENTS ON STABLE ANTICOAGULANT THERAPY. 6Interpretive Data: RECOMMENDED RANGES FOR PROTIME INR: 2.0-3.0 for most medical and surgical thromboembolic states. 2.5-3.5 for artificial heart valves and recurrent embolism. INR SHOULD BE USED ONLY FOR PATIENTS ON STABLE ANTICOAGULANT THERAPY. 7Interpretive Data: In DIC, quantitative D-Dimer is generally greater than 0.66 ug/mL FEU. Values of quantitative D-Dimer less than 0.40 ug/mL FEU have been reported to be associated with a low probability of deep vein thrombosis/pulmonary embolism. This test alone should not be used to rule out DVT/PE. 8Interpretive Data: Heparin Therapeutic Range: 57 - 92 Seconds 9Interpretive Data: Heparin Therapeutic Range: 57 - 92 Seconds IMMUNOLOGY Most recent to oldest [Reference Range]: 1 2 3 Hep Bs Ag [Negative] Negative *NA* (03/26/2013 15:13:00) Hep C Ab [Negative] Negative *NA* (03/26/2013 15:13:00)
--- OUTSIDE RECORDS SUMMARY | 2017-12-15 14:08 | XMS REPORT | Summary of Care ---
Author Organization Unknown Address Unknown Phone Unavailable Encounter TAMMI Tian(MANEUL) [id number] Date(s): 06/24/13 - 06/24/13 [facility] [address] [address] Discharge Diagnosis: Acute chest pain Discharge Diagnosis: Acute Hyperglycemia Discharge Diagnosis: Blood pressure elevated Discharge Disposition: Home Physician Attending: Wyatt No DO Reason for Visit CHEST PAIN Vital Signs 1 2 3 Most recent to oldest [Reference Range]: 98.5 DegF (06/24/13 5:42 AM) 98.8 DegF (06/24/13 12:03 AM) Temperature Oral [96.4-99.1 DegF] 163 mmHg *HI* (06/24/13 6:36 AM) 195 mmHg *HI* (06/24/13 5:42 AM) 172 mmHg *HI* (06/24/13 4:21 AM) Systolic Blood Pressure [90-140 mmHg] 78 mmHg (06/24/13 6:36 AM) 92 mmHg *HI* (06/24/13 5:42 AM) 104 mmHg *HI* (06/24/13 4:21 AM) Diastolic Blood Pressure [60-90 mmHg] 23 BRMIN *HI* (06/24/13 6:36 AM) 21 BRMIN *HI* (06/24/13 5:42 AM) 25 BRMIN *HI* (06/24/13 4:21 AM) Respiratory Rate [14-20 BRMIN] 89 bpm (06/24/13 5:42 AM) 96 bpm (06/24/13 4:21 AM) 93 bpm (06/24/13 3:41 AM) Peripheral Pulse Rate [60-100 bpm] Problem List Condition Effective Dates Status Health Status Informant Chest Resolved pain(Confirmed) Allergies, Adverse Reactions, Alerts Substance Reaction Severity Status NKDA Active Medications glipiZIDE 5 mg oral tablet 5 mg=1 tab, PO, Daily, # 14 tab, 0 Refill(s) Start Date: 06/24/13 Status: Ordered metoprolol 25 mg oral tablet, extended release 25 mg, PO, Daily, # 14 tab, 0 Refill(s) Start Date: 06/24/13 Stop Date: 07/08/13 Status: Ordered Results ELECTROLYTES 1 2 3 Most recent to oldest [Reference Range]: 138 mEq/L (06/24/13 1:15 AM) Sodium Lvl [135-145 mEq/L] 4.2 mEq/L (06/24/13 1:15 AM) Potassium Lvl [3.5-5.1 mEq/L] 100 mEq/L (06/24/13 1:15 AM) Chloride Lvl [95-109 mEq/L] 34 mEq/L *HI* (06/24/13 1:15 AM) CO2 [24-32 mEq/L] 8.2 mEq/L *LOW* (06/24/13 1:15 AM) AGAP [10.0-20.0 mEq/L] CHEM PANEL 1 2 3 Most recent to oldest [Reference Range]: 0.9 mg/dL (06/24/13 1:15 AM) Creatinine Lvl [0.5-1.4 mg/dL] 117 mL/min/1.73m2 1 *NA* (06/24/13 1:15 AM) eGFR 7 mg/dL (06/24/13 1:15 AM) BUN [7-22 mg/dL] 8 (06/24/13 1:15 AM) B/C Ratio [6-25] 257 mg/dL 2 *HI* (06/24/13 1:15 AM) Glucose Lvl [70-99 mg/dL] 7.4 g/dL (06/24/13 1:15 AM) Total Protein [6.4-8.4 g/dL] 3.3 g/dL *LOW* (06/24/13 1:15 AM) Albumin Lvl [3.5-5.0 g/dL] 4.1 g/dL *HI* (06/24/13 1:15 AM) Globulin [2.0-4.0 g/dL] 0.8 (06/24/13 1:15 AM) A/G Ratio [0.7-1.6] 8.3 mg/dL *LOW* (06/24/13 1:15 AM) Calcium Lvl [8.5-10.5 mg/dL] 1.7 mg/dL *LOW* (06/24/13 1:15 AM) Magnesium Lvl [1.8-2.4 mg/dL] 117 unit/L *HI* (06/24/13 1:15 AM) ALT [0-65 unit/L] 65 unit/L *HI* (06/24/13 1:15 AM) AST [0-37 unit/L] 91 unit/L (06/24/13 1:15 AM) Alk Phos [39-136 unit/L] 0.4 mg/dL (06/24/13 1:15 AM) Bili Total [0.2-1.3 mg/dL] 1Result Comment: The eGFR is calculated using [...] values reflect the clinical guidelines of the [place] [employer]. CARDIAC ENZYMES 1 2 3 Most recent to oldest [Reference Range]: 164 unit/L (06/24/13 5:20 AM) 196 unit/L *HI* (06/24/13 1:15 AM) Total CK [12-191 unit/L] 3.6 ng/mL (06/24/13 5:20 AM) 4.2 ng/mL *HI* (06/24/13 1:15 AM) 4.1 ng/mL *HI* (06/24/13 1:15 AM) CK MB [0.5-3.6 ng/mL] 2.2 (06/24/13 5:20 AM) 2.1 (06/24/13 1:15 AM) CK MB Index [0.0-2.5] <0.02 ng/mL (06/24/13 5:20 AM) <0.02 ng/mL (06/24/13 1:15 AM) Troponin-I [0.00-0.40 ng/mL] HEMATOLOGY 1 2 3 Most recent to oldest [Reference Range]: 10.3 K/CMM (06/24/13 1:15 AM) WBC [3.7-10.4 K/CMM] 5.01 M/CMM (06/24/13 1:15 AM) RBC [4.70-6.10 M/CMM] 15.6 g/dL (06/24/13 1:15 AM) Hgb [14.0-18.0 g/dL] 46.7 % (06/24/13 1:15 AM) Hct [42.0-54.0 %] 93.3 fL (06/24/13 1:15 AM) MCV [80.0-94.0 fL] 31.1 pg *HI* (06/24/13 1:15 AM) MCH [27.0-31.0 pg] 33.3 g/dL (06/24/13 1:15 AM) MCHC [32.0-36.0 g/dL] 15.0 % *HI* (06/24/13 1:15 AM) RDW [11.5-14.5 %] 211 K/CMM (06/24/13 1:15 AM) Platelet [133-450 K/CMM] 7.4 fL (06/24/13 1:15 AM) MPV [7.4-10.4 fL] 69.8 % (06/24/13 1:15 AM) Segs [45.0-75.0 %] 20.6 % (06/24/13 1:15 AM) Lymphocytes [20.0-40.0 %] 7.0 % (06/24/13 1:15 AM) Monocytes [2.0-12.0 %] 2.4 % (06/24/13 1:15 AM) Eosinophils [0.0-4.0 %] 0.2 % (06/24/13 1:15 AM) Basophils [0.0-1.0 %] 7.2 K/CMM (06/24/13 1:15 AM) Segs-Bands # [1.5-8.1 K/CMM] 2.1 K/CMM (06/24/13 1:15 AM) Lymphocytes # [1.0-5.5 K/CMM] 0.7 K/CMM (06/24/13 1:15 AM) Monocytes # [0.0-0.8 K/CMM] 0.2 K/CMM (06/24/13 1:15 AM) Eosinophils # [0.0-0.5 K/CMM] 0.0 K/CMM (06/24/13 1:15 AM) Basophils # [0.0-0.2 K/CMM] 34.2 seconds 3 (06/24/13 1:15 AM) PTT [22.9-35.8 seconds] 3Interpretive Data: Heparin Therapeutic Range: 57 - 92 Seconds Medications Administered During Your Visit No data available for this section Immunizations Vaccine Date Refusal Reason influenza virus vaccine, inactivated 03/26/13 Patient Refuses
--- OUTSIDE RECORDS SUMMARY | 2017-12-15 14:08 | XMS REPORT | Summary of Care ---
Author Organization Unknown Address Unknown Phone Unavailable Encounter TAMMI Tian(MANUEL) [id number] Date(s): 08/22/13 - 08/22/13 [facility] [address] [place] Discharge Diagnosis: Elevated blood sugar level Discharge Diagnosis: Otitis externa Discharge Disposition: Home Physician Attending: Matheus Gracia MD Reason for Visit EAR PAIN Vital Signs Most recent to 1 2 oldest [Reference Range]: Temperature Oral 98.2 DegF 98.6 DegF [96.4-99.1 DegF] (08/22/13 2:16 AM) (08/22/13 12:09 AM) Systolic Blood 180 mmHg 191 mmHg Pressure [90-140 *HI* *HI* mmHg] (08/22/13 2:16 AM) (08/22/13 12:09 AM) Diastolic Blood 72 mmHg 95 mmHg Pressure [60-90 (08/22/13 2:16 AM) *HI* mmHg] (08/22/13 12:09 AM) Respiratory Rate 22 BRMIN 20 BRMIN [14-20 BRMIN] *HI* (08/22/13 12:09 AM) (08/22/13 2:16 AM) Peripheral Pulse 88 bpm 88 bpm Rate [60-100 bpm] (08/22/13 2:16 AM) (08/22/13 12:09 AM) Weight 172.727 kg (08/22/13 12:09 AM) Problem List Condition Effective Dates Status Health Status Informant Chest Resolved pain(Confirmed) Allergies, Adverse Reactions, Alerts Substance Reaction Severity Status NKDA Active Medications antipyrine-benzocaine otic solution 2 drp, Route: LEFT EAR, QID, Drug form: SOLN, Start date: 08/22/13 9:00:00, Dura tion: 30 day, Stop date: 09/20/13 21:00:00 Notes: (antipyrine-benzocaine 15 ml otic SOLN) (Same as: Auralgan Otic) Start Date: 08/22/13 Stop Date: 08/22/13 Status: Canceled ciprofloxacin-dexamethasone 0.3%-0.1% otic suspension 4 drp, OTIC, BID, # 8 ml, 0 Refill(s) Start Date: 08/22/13 Status: Ordered [place] 10/325 oral tablet 1 tab, Route: PO, Dosing Weight 172.727, kg, ONCE, Start date: 08/22/13 1:04:00, Stop date: 08/22/13 1:04:00 Start Date: 08/22/13 Stop Date: 08/22/13 Status: Completed [place] 5/325 oral tablet 1-2 tab, PO, Q4-6H, Pain, # 15 tab, 0 Refill(s) Start Date: 08/22/13 Stop Date: 08/27/13 Status: Ordered Medications Administered During Your Visit No data available for this section Immunizations Vaccine Date Refusal Reason influenza virus vaccine, inactivated 03/26/13 Patient Refuses
--- OUTSIDE RECORDS SUMMARY | 2017-12-15 14:08 | XMS REPORT | Continuity of Care Document ---
Author Author [facility] Interface Address Unknown Phone Unavailable Problems Problem Status Onset Date Classification Date Reported Comments Source Discharge Diagnosis: Abdominal pain in male patient 11/01/2013 11/04/2013 [facility] Discharge Diagnosis: Dyspnea 11/01/2013 11/04/2013 [facility] CHEST PAIN, SOB Active 10/31/2013 [facility] EAR PAIN Active 10/08/2013 [facility] HYPOXIA Active 10/08/2013 [facility] Discharge Diagnosis: Elevated blood sugar level 08/22/2013 08/25/2013 [facility] Discharge Diagnosis: Otitis externa 08/22/2013 08/25/2013 [facility] Discharge Diagnosis: Acute chest pain 06/24/2013 06/26/2013 [facility] Discharge Diagnosis: Acute Hyperglycemia 06/24/2013 06/26/2013 [facility] Discharge Diagnosis: Blood pressure elevated 06/24/2013 06/26/2013 [facility] CHEST PAIN Active 06/23/2013 [facility] SOB Active 03/26/2013 [facility] EXERTIONAL CHEST PAIN Active 03/26/2013 [facility] Morbid obesity Resolved 02/14/2012 Problem 11/04/2013 [facility] Sleep apnea Resolved 02/14/2004 Problem 11/04/2013 [facility] Chest pain Resolved Problem 11/04/2013 [facility] Medications Medication Details Route Status Patient Instructions Ordering Provider Order Date Source Acetaminophen 325 MG / Hydrocodone Bitartrate 5 MG Oral Tablet [[place] 5/325] 1-2 tab, PO, Q4-6H, Pain, # 30 tab, 0 Refill(s) Active 11/01/2013 [facility] Ondansetron 4 mg, Route: IVP, ONCE, Dosing Weight 181.818, kg, Priority: STAT, Start date: 10/31/13 23:15:00, Stop date: 10/31/13 23:15:00 Inactive 11/01/2013 [facility] Saline Flush 0.9% 10 mL, Route: IVP, Drug Form: INJ, Dosing Weight 181.818, kg, PRN, PRN Line Flush, Start date: 10/31/13 23:15:00, Duration: 30 day, Stop date: 11/30/13 23:14:00Notes: (Same as: BD Posiflush) No Longer Active 11/01/2013 [facility] Morphine 4 mg, Route: IVP, ONCE, Dosing Weight 181.818, kg, Priority: STAT, Start date: 10/31/13 23:15:00, Stop date: 10/31/13 23:15:00 Inactive 11/01/2013 [facility] Atropine 0.5 mg, 5 mL, Route: IVP, Drug form: INJ, PRN, Dosing Weight 185, kg, PRN Bradycardia, Start date: 10/09/13 22:08:00, Duration: 30 day, Stop date: 11/08/13 22:07:00, HR No Longer Active 10/10/2013 [facility] Nitroglycerin 0.4 mg, 1 tab, Route: SL, Drug form: TAB, Q5Min, Dosing Weight 185, kg, PRN Chest Pain, Start date: 10/09/13 22:08:00, Duration: 30 day, Stop date: 11/08/13 22:07:00, Chest Pain [id number]: (Same as:Alberto [place]) "Do Not Crush" Sublingual tablet No Longer Active 10/10/2013 [facility] Sulfamethoxazole 800 MG / Trimethoprim 160 MG Oral Tablet 1 tab, PO, [id number], # 20 tab, 0 Refill(s) Active 10/09/2013 [facility] Ofloxacin 3 MG/ML Otic Solution See Instructions, 5 drops BOTH EARS BID, # 10 mL, 0 Refill(s)Special Instructions: 5 drops BOTH EARS BID Active 10/09/2013 [facility] lisinopril 5 mg oral tablet 5 mg=1 tab, PO, Daily, # 30 tab, 0 Refill(s) Active 10/09/2013 [facility] Lisinopril 5 mg, 1 tab, Route: PO, Drug form: TAB, Daily, Dosing Weight 185, kg, Start date: 10/08/13 17:42:00, Duration: 30 day, Stop date: 11/07/13 9:00:00Notes: (Same as: Prinivil, Zestril) No Longer Active 10/08/2013 [facility] Ofloxacin 5 drp, Route: BOTH EARS, BID, Drug form: SOLN, Start date: 10/08/13 17:00:00, Duration: 30 day, Stop date: 11/07/13 9:00:00Notes: (Same as: Floxin Otic) No Longer Active 10/08/2013 [facility] Lovenox 40 mg, 0.4 mL, Route: SUB-Q, Drug form: INJ, [id number], Dosing Weight 159.091, kg, Start date: 10/08/13 17:00:00, Duration: 30 day, Stop date: 11/06/13 17:00:00Notes: (Same as: Lovenox) No Longer Active 10/08/2013 [facility] Bactrim DS 1 tab, Route: PO, Drug Form: TAB, Dosing Weight 159.091, kg, [id number], Start date: 10/08/13 16:00:00, Duration: 30 day, Stop date: 11/07/13 4:00:00Notes: One DS tablet=trimethoprim 160mg + sulfamethoxazole 800 mg On empty stomach with a glass of water. 1 hr before meals (Same As: Bactrim DS, Septra DS) No Longer Active 10/08/2013 [facility] Acetaminophen 650 mg, 2 tab, Route: PO, Drug form: TAB, Q4H, Dosing Weight 159.091, kg, PRN Pain 1-3/Temp > 100.4 F, Start date: 10/08/13 15:56:00, Duration: 30 day, Stop date: 11/07/13 15:55:00Notes: Do not exceed 4 gm/day. (Same as: Tylenol) No Longer Active 10/08/2013 [facility] Ondansetron 4 mg, 2 mL, Route: IVP, Drug form: INJ, Q8H, Dosing Weight 159.091, kg, PRN Nausea & Vomiting, Start date: 10/08/13 15:56:00, Duration: 30 day, Stop date: 11/07/13 15:55:00Notes: (Same as: Zofran) No Longer Active 10/08/2013 [facility] Acetaminophen 325 MG / Hydrocodone Bitartrate 5 MG Oral Tablet 1 tab, Route: PO, Drug Form: TAB, Dosing Weight 159.091, kg, Q4H, PRN Pain Score 4-6, Start date: 10/08/13 15:56:00, Duration: 30 day, Stop date: 11/07/13 15:55:00Notes: (Same as: [place] 325/5) Do not exceed 4gm/day of acetaminophen. No Longer Active 10/08/2013 [facility] Albuterol 0.833 MG/ML / Ipratropium [place] 0.167 MG/ML Inhalant Solution 3 mL, Route: NEB, Drug Form: SOLN, Dosing Weight 159.091, kg, ONCE, STAT, Start date: 10/08/13 12:43:00, Stop date: 10/08/13 12:43:00 Inactive 10/08/2013 [facility] Prednisone 60 mg, 3 tab, Route: PO, Drug form: TAB, ONCE, Dosing Weight 159.091, kg, Priority: STAT, Start date: 10/08/13 12:43:00, Stop date: 10/08/13 12:43:00Notes: Take with food. Inactive 10/08/2013 [facility] Saline Flush 0.9% 10 mL, Route: IVP, Drug Form: INJ, Dosing Weight 159.091, kg, PRN, PRN Line Flush, Start date: 10/08/13 12:43:00, Duration: 30 day, Stop date: 11/07/13 12:42:00Notes: Same as: BD Posiflush Sterile No Longer Active 10/08/2013 [facility] Saline Flush 0.9% 10 mL, Route: IVP, Drug Form: INJ, Dosing Weight 159.091, kg, PRN, PRN Line Flush, Start date: 10/08/13 9:19:00, Duration: 30 day, Stop date: 11/07/13 9:18:00Notes: Same as: BD Posiflush Sterile No Longer Active 10/08/2013 [facility] Antipyrine 54 MG/ML / Benzocaine 14 MG/ML Otic Solution 2 drp, Route: LEFT EAR, QID, Drug form: SOLN, Start date: 08/22/13 9:00:00, Duration: 30 day, Stop date: 09/20/13 21:00:00Notes: (antipyrine-benzocaine 15 ml otic SOLN) (Same as: Auralgan Otic) Inactive 08/22/2013 [facility] Ciprofloxacin 3 MG/ML / Dexamethasone 1 MG/ML Otic Suspension 4 drp, OTIC, BID, # 8 ml, 0 Refill(s) Active 08/22/2013 [facility] Acetaminophen 325 MG / Hydrocodone Bitartrate 5 MG Oral Tablet [[place] 5/325] 1-2 tab, PO, Q4-6H, Pain, # 15 tab, 0 Refill(s) Active 08/22/2013 [facility] Acetaminophen 325 MG / Hydrocodone Bitartrate 10 MG Oral Tablet [[place] 10/325] 1 tab, Route: PO, Dosing Weight 172.727, kg, ONCE, Start date: 08/22/13 1:04:00, Stop date: 08/22/13 1:04:00 Inactive 08/22/2013 [facility] metoprolol 25 mg oral tablet, extended release 25 mg, PO, Daily, # 14 tab, 0 Refill(s) Active 06/24/2013 [facility] Glipizide 5 MG Oral Tablet 5 mg=1 tab, PO, Daily, # 14 tab, 0 Refill(s) Active 06/24/2013 [facility] influenza virus vaccine, inactivated 0.5 ml, Route: IM, Drug Form: SUSP, Daily, Start date: 03/26/13 18:00:00, Duration: 1 doses or times, Stop date: 03/26/13 18:00:00(Same as: Fluzone, Fluvirin) Shake well prior to administration Inactive SYSTEM 03/27/2013 [facility] aspirin 81 mg tablet, enteric coated 81 mg=1 tab, PO, Daily, # 30 tab, 0 Refill(s) Active [facility] 03/26/2013 [facility] nitroglycerin 0.4 mg sublingual tablet 0.4 mg, 1 tab, Route: SL, Drug form: TAB, Q5Min, PRN Chest Pain, Start date: 03/26/13 13:29:00, Duration: 30 day, Stop date: 04/25/13 14:28:00(Same as:Nitroquick, Nitrostat) "Do Not Crush" Sublingual tablet Inactive [facility] 03/26/2013 [facility] atropine 0.5 mg, 5 mL, Route: IVP, Drug form: INJ, PRN, PRN Bradycardia, Start date: 03/26/13 13:29:00, Duration: 30 day, Stop date: 04/25/13 14:28:00 Inactive [place] 03/26/2013 [facility] Saline Flush 0.9% 5 ml, Route: IVP, Drug Form: INJ, Dosing Weight 159.091, kg, Q12H, Start date: 03/26/13 9:00:00, Duration: 30 day, Stop date: 04/24/13 21:00:00Same as: BD Posiflush Sterile Inactive [facility] 03/26/2013 [facility] lisinopril 5 mg, 1 tab, Route: PO, Drug form: TAB, Daily, Dosing Weight 159.091, kg, Start date: 03/26/13 9:00:00, Duration: 30 day, Stop date: 04/24/13 9:00:00(Same as: Prinivil, Zestril) Inactive [facility] 03/26/2013 [facility] Saline Flush 0.9% 5 ml, Route: IVP, Drug Form: INJ, Dosing Weight 159.091, kg, PRN, PRN Line Flush, Start date: 03/26/13 8:23:00, Duration: 30 day, Stop date: 04/25/13 9:22:00Same as: BD Posiflush Sterile Inactive [facility] 03/26/2013 [facility] nitroglycerin SL Tab 0.4 mg, 1 tab, Route: SL, Drug form: TAB, Q5Min, Dosing Weight 159.091, kg, PRN Chest Pain, Start date: 03/26/13 8:23:00, Duration: 3 doses or times, Stop date: Limited # of times(Same as:Nitroquick, Nitrostat) "Do Not Crush" Sublingual tablet Inactive [place] 03/26/2013 [facility] morphine Sulfate 2 mg, 1 mL, Route: IVP, Drug form: INJ, Q2H, Dosing Weight 159.091, kg, PRN Pain Score 4-6, Start date: 03/26/13 8:23:00, Duration: 30 day, Stop date: 04/25/13 8:22:00(Same as:MORPhine Sulfate) Inactive [facility] 03/26/2013 [facility] aspirin 325 mg tablet 325 mg, Route: PO, Drug form: TAB, ONCE, Dosing Weight 159.091, kg, Start date: 03/26/13 8:23:00, Stop date: 03/26/13 8:23:00 Inactive [place] 03/26/2013 [facility] nitroglycerin 2% topical ointment 1 inch, Route: TOP, Dosing Weight 159.091, kg, ONCE, STAT, Start date: 03/26/13 3:20:00, Stop date: 03/26/13 3:20:00 Inactive [place] 03/26/2013 [facility] aspirin 324 mg, 4 tab, Route: PO, Drug form: CHEWTAB, ONCE, Dosing Weight 159.091, kg, Priority: STAT, Start date: 03/26/13 3:00:00, Stop date: 03/26/13 3:00:00Take with food. Inactive [place] 03/26/2013 [facility] Saline Flush 0.9% 5 mL, Route: IVP, Drug Form: INJ, Dosing Weight 159.091, kg, Q8H, PRN Line Flush, Start date: 03/26/13 3:00:00, Duration: 30 day, Stop date: 04/25/13 2:59:00, Administer at least once every 8 hoursAdminister at least once every 8 hours(Same as: BD Posiflush) Inactive [place] 03/26/2013 [facility] Allergies, Adverse Reactions, Alerts Substance Category Reaction Severity Reaction type Status Date Reported Comments Source Immunizations Immunization Date Given Site Status Last Updated Comments Source influenza virus vaccine, inactivated 03/27/2013 Not Given [place] influenza virus vaccine, inactivated 03/27/2013 Not Given [place] [facility] Results Order Name Results Value Reference Range Date Interpretation Comments Source URINE AND STOOL UA Sq Epi None Seen 11/01/2013 [facility] URINE AND STOOL UA RBC 11 /HPF 0 - 2 11/01/2013 [facility] URINE AND STOOL UA Mucus Few /LPF None Seen /LPF 11/01/2013 [facility] URINE AND STOOL UA Urobilinogen 4.0 mg/dL 0.1 - 1.0 11/01/2013 [facility] URINE AND STOOL UA Nitrite Negative (11/01/13 1:45 AM) Negative 11/01/2013 [facility] URINE AND STOOL UA Leuk Est Negative (11/01/13 1:45 AM) Negative 11/01/2013 [facility] URINE AND STOOL UA Protein 100 mg/dL Negative mg/dL 11/01/2013 [facility] URINE AND STOOL UA Glucose Negative mg/dL Negative mg/dL 11/01/2013 [facility] URINE AND STOOL UA Ketones Negative mg/dL Negative mg/dL 11/01/2013 [facility] URINE AND STOOL UA WBC 4 /HPF 0 - 5 11/01/2013 [facility] URINE AND STOOL UA Spec Grav 1.026 <=1.030 11/01/2013 [facility] URINE AND STOOL UA Bili Negative *NA* (11/01/13 1:45 AM) Negative 11/01/2013 [facility] URINE AND STOOL UA Blood Negative (11/01/13 1:45 AM) Negative 11/01/2013 [facility] URINE AND STOOL UA pH 7.0 5.0 - 8.0 11/01/2013 [facility] URINE AND STOOL UA Color Yellow *NA* (11/01/13 1:45 AM) Yellow 11/01/2013 [facility] URINE AND STOOL UA Turbidity Clear (11/01/13 1:45 AM) Clear 11/01/2013 [facility] CARDIAC ENZYMES Total CK 111 unit/L 12 - 191 11/01/2013 [facility] CARDIAC ENZYMES CK MB 2.4 ng/mL 0.5 - 3.6 11/01/2013 [facility] CARDIAC ENZYMES Troponin-I null 0.00 - 0.40 11/01/2013 [facility] CARDIAC ENZYMES CK MB Index 2.2 0.0 - 2.5 11/01/2013 [facility] CHEM PANEL Phosphorus 3.1 mg/dL 2.5 - 4.5 11/01/2013 [facility] CHEM PANEL Lipase Lvl 73 unit/L 73 - 393 11/01/2013 [facility] CHEM PANEL Magnesium Lvl 1.7 mg/dL 1.8 - 2.4 11/01/2013 [facility] CHEM PANEL eGFR 122 mL/min/1.73m2 11/01/2013 1Result Comment: The eGFR is calculated using [...] from the National Kidney Disease Education Program (NKDEP) which additionally recommends that when the eGFR is used in patients with extremes of body mass index for purposes of drug dosing, the eGFR should be multiplied by the estimated BMI. [facility] CHEM PANEL B/C Ratio 11 6 - 25 11/01/2013 [facility] CHEM PANEL Globulin 4.5 g/dL 2.0 - 4.0 11/01/2013 [facility] CHEM PANEL A/G Ratio 0.7 0.7 - 1.6 11/01/2013 [facility] CHEM PANEL ALT 106 unit/L 0 - 65 11/01/2013 [facility] CHEM PANEL AST 68 unit/L 0 - 37 11/01/2013 [facility] CHEM PANEL AGAP 6.0 meq/L 10.0 - 20.0 11/01/2013 [facility] CHEM PANEL Bili Total 0.4 mg/dL 0.2 - 1.3 11/01/2013 [facility] CHEM PANEL Alk Phos 80 unit/L 39 - 136 11/01/2013 [facility] CHEM PANEL Potassium Lvl 4.0 meq/L 3.5 - 5.1 11/01/2013 [facility] CHEM PANEL Creatinine Lvl 0.8 mg/dL 0.5 - 1.4 11/01/2013 [facility] CHEM PANEL Sodium Lvl 139 meq/L 135 - 145 11/01/2013 [facility] CHEM PANEL Albumin Lvl 3.3 g/dL 3.5 - 5.0 11/01/2013 [facility] CHEM PANEL Calcium Lvl 8.6 mg/dL 8.5 - 10.5 11/01/2013 [facility] CHEM PANEL Total Protein 7.8 g/dL 6.4 - 8.4 11/01/2013 [facility] CHEM PANEL BUN 9 mg/dL 7 - 22 11/01/2013 [facility] CHEM PANEL Glucose Lvl 151 mg/dL 70 - 99 11/01/2013 2Interpretive Data: Adult reference range values reflect the clinical guidelines of the [place] [employer]. [facility] CHEM PANEL Chloride Lvl 101 meq/L 95 - 109 11/01/2013 [facility] CHEM PANEL CO2 36 meq/L 24 - 32 11/01/2013 [facility] HEMATOLOGY PTT 25.2 s 22.9 - 35.8 11/01/2013 4Interpretive Data: Heparin Therapeutic Range: 57 - 92 Seconds [facility] PT 13.3 s 12.0 - 14.7 11/01/2013 [facility] INR 1.01 0.85 - 1.17 11/01/2013 3Interpretive Data: RECOMMENDED RANGES FOR PROTIME INR: 2.0-3.0 for most medical and surgical thromboembolic states. 2.5-3.5 for artificial heart valves and recurrent embolism. INR SHOULD BE USED ONLY FOR PATIENTS ON STABLE ANTICOAGULANT THERAPY. [facility] RBC 5.92 M/CMM 4.70 - 6.10 11/01/2013 [facility] Hgb 17.3 g/dL 14.0 - 18.0 11/01/2013 [facility] MCH 29.1 pg 27.0 - 31.0 11/01/2013 [facility] WBC 8.6 K/CMM 3.7 - 10.4 11/01/2013 [facility] Platelet 183 K/CMM 133 - 450 11/01/2013 [facility] MPV 7.7 fL 7.4 - 10.4 11/01/2013 [facility] Hct 52.8 % 42.0 - 54.0 11/01/2013 [facility] MCV 89.1 fL 80.0 - 94.0 11/01/2013 [facility] MCHC 32.7 g/dL 32.0 - 36.0 11/01/2013 [facility] RDW 16.7 % 11.5 - 14.5 11/01/2013 [facility] Basophils # 0.1 K/CMM 0.0 - 0.2 11/01/2013 [facility] Eosinophils # 0.2 K/CMM 0.0 - 0.5 11/01/2013 [facility] Monocytes # 0.7 K/CMM 0.0 - 0.8 11/01/2013 [facility] Lymphocytes # 2.0 K/CMM 1.0 - 5.5 11/01/2013 [facility] Segs 65.4 % 45.0 - 75.0 11/01/2013 [facility] Lymphocytes 23.8 % 20.0 - 40.0 11/01/2013 [facility] Segs-Bands # 5.6 K/CMM 1.5 - 8.1 11/01/2013 [facility] Monocytes 7.6 % 2.0 - 12.0 11/01/2013 [facility] HEMATOLOGY Basophils 1.0 % 0.0 - 1.0 11/01/2013 [facility] HEMATOLOGY Eosinophils 2.2 % 0.0 - 4.0 11/01/2013 [facility] Abdomen/Pelvis w IV contrast CT Abdomen/Pelvis w IV contrast CT CT abdomen and pelvis with IV contrast, Nov 01, 2013 12:48:13 AM CLINICAL HISTORY: Abdominal pain, acute ; IV and Oral Contrast TECHNIQUE: Routine 5 mm thick axial images of the abdomen and pelvis are obtained with oral and IV contrast. Routine 5 minute delayed images were obtained. Coronal and sagittal reformations were created. COMPARISON: None FINDINGS: Visualized lung bases are clear. Mild diffuse fatty infiltration of liver is present. Spleen, pancreas, adrenal glands, and kidneys are normal. The ureters are unremarkable. Partially distended bladder is unremarkable. Gallbladder is present. The stomach, small intestine, and colon are normal. Appendix is normal. No free air or free fluid is visualized within the abdominal cavity. No mesenteric or retroperitoneal lymphadenopathy is present. Umbilical hernia with a 1.8 cm mouth contains simple fat only. Bones are unremarkable. IMPRESSION: Mild diffuse fatty infiltration of liver. SL: 14 11/01/2013 - - Read by: Trevor Thompson MD Dictated Date/time: 11/01/13 01:05 Electronically Signed by: Trevor Thompson MD 11/01/13 01:07 FINAL REPORT [facility] Chest 1view Chest 1view EXAM: CHEST 1 VIEW DATE: Oct 31, 2013 11:34:00 PM INDICATION: Chest pain COMPARISON: Chest x-ray 10/08/2013. TECHNIQUE: AP chest radiograph. FINDINGS: Examine severely limited due to patient body habitus and technique. The lung volumes are low. Left retrocardiac airspace opacity is seen. There are bilateral interstitial and hazy airspace opacities. The cardiac silhouette is enlarged.. IMPRESSION: 1. Severely limited examination. 2. Cardiomegaly. 3. Left retrocardiac opacity may represent subsegmental atelectasis or pneumonia. 4. Bilateral interstitial and hazy airspace opacity may be artifactual in nature or represent pulmonary edema. A layering pleural effusion is not ruled out. A two-view chest x-ray is recommended when feasible. SL: 12 10/31/2013 - - Read by: Greg Enriquez MD Dictated Date/time: 10/31/13 23:49 Electronically Signed by: Greg Enriquez MD 11/01/13 00:00 FINAL REPORT [facility] CHEM PANEL eGFR 122 mL/min/1.73m2 10/09/2013 1Result Comment: The eGFR is calculated using [...] from the National Kidney Disease Education Program (NKDEP) which additionally recommends that when the eGFR is used in patients with extremes of body mass index for purposes of drug dosing, the eGFR should be multiplied by the estimated BMI. [facility] CHEM PANEL Chloride Lvl 98 meq/L 95 - 109 10/09/2013 [facility] CHEM PANEL CO2 34 meq/L 24 - 32 10/09/2013 [facility] CHEM PANEL Potassium Lvl 4.4 meq/L 3.5 - 5.1 10/09/2013 [facility] CHEM PANEL Calcium Lvl 8.5 mg/dL 8.5 - 10.5 10/09/2013 [facility] CHEM PANEL AGAP 11.4 meq/L 10.0 - 20.0 10/09/2013 [facility] CHEM PANEL Glucose Lvl 80 mg/dL 70 - 99 10/09/2013 3Interpretive Data: Adult reference range values reflect the clinical guidelines of the [place] [employer]. [facility] CHEM PANEL Creatinine Lvl 0.8 mg/dL 0.5 - 1.4 10/09/2013 [facility] CHEM PANEL Sodium Lvl 139 meq/L 135 - 145 10/09/2013 [facility] CHEM PANEL BUN 9 mg/dL 7 - 22 10/09/2013 [facility] HEMATOLOGY Monocytes # 0.8 K/CMM 0.0 - 0.8 10/09/2013 [facility] HEMATOLOGY Segs-Bands # 6.7 K/CMM 1.5 - 8.1 10/09/2013 [facility] HEMATOLOGY Lymphocytes # 2.0 K/CMM 1.0 - 5.5 10/09/2013 [facility] HEMATOLOGY Basophils 0.4 % 0.0 - 1.0 10/09/2013 [facility] HEMATOLOGY Monocytes 8.1 % 2.0 - 12.0 10/09/2013 [facility] HEMATOLOGY Eosinophils 0.3 % 0.0 - 4.0 10/09/2013 [facility] Lymphocytes 20.6 % 20.0 - 40.0 10/09/2013 [facility] Segs 70.6 % 45.0 - 75.0 10/09/2013 [facility] Platelet 246 K/CMM 133 - 450 10/09/2013 [facility] RDW 16.9 % 11.5 - 14.5 10/09/2013 [facility] MCHC 32.7 g/dL 32.0 - 36.0 10/09/2013 [facility] MPV 7.9 fL 7.4 - 10.4 10/09/2013 [facility] RBC 5.83 M/CMM 4.70 - 6.10 10/09/2013 [facility] Hgb 17.0 g/dL 14.0 - 18.0 10/09/2013 [facility] WBC 9.5 K/CMM 3.7 - 10.4 10/09/2013 [facility] MCH 29.2 pg 27.0 - 31.0 10/09/2013 [facility] Hct 52.0 % 42.0 - 54.0 10/09/2013 [facility] MCV 89.2 fL 80.0 - 94.0 10/09/2013 [facility] IMMUNOLOGY CDC HIV 4th GEN Negative (10/08/13 10:15 AM) Negative 10/08/2013 [facility] CARDIAC ENZYMES CK MB Index 2.9 0.0 - 2.5 10/08/2013 [facility] CARDIAC ENZYMES Total CK 113 unit/L 12 - 191 10/08/2013 [facility] CARDIAC ENZYMES CK MB 3.3 ng/mL 0.5 - 3.6 10/08/2013 [facility] CARDIAC ENZYMES Troponin-I null 0.00 - 0.40 10/08/2013 [facility] CHEM PANEL eGFR 117 mL/min/1.73m2 10/08/2013 2Result Comment: The eGFR is calculated using the [...] from the National Kidney Disease Education Program (NKDEP) which additionally recommends that when the eGFR is used in patients with extremes of body mass index for purposes of drug dosing, the eGFR should be multiplied by the estimated BMI. [facility] CHEM PANEL Globulin 4.6 g/dL 2.0 - 4.0 10/08/2013 [facility] CHEM PANEL A/G Ratio 0.7 0.7 - 1.6 10/08/2013 [facility] CHEM PANEL Alk Phos 80 unit/L 39 - 136 10/08/2013 [facility] CHEM PANEL Bili Total 0.5 mg/dL 0.2 - 1.3 10/08/2013 [facility] CHEM PANEL AGAP 10.2 meq/L 10.0 - 20.0 10/08/2013 [facility] CHEM PANEL B/C Ratio 8 6 - 25 10/08/2013 [facility] CHEM PANEL AST 60 unit/L 0 - 37 10/08/2013 [facility] CHEM PANEL Albumin Lvl 3.2 g/dL 3.5 - 5.0 10/08/2013 [facility] CHEM PANEL ALT 94 unit/L 0 - 65 10/08/2013 [facility] CHEM PANEL Total Protein 7.8 g/dL 6.4 - 8.4 10/08/2013 [facility] CHEM PANEL Chloride Lvl 98 meq/L 95 - 109 10/08/2013 [facility] CHEM PANEL CO2 35 meq/L 24 - 32 10/08/2013 [facility] CHEM PANEL Calcium Lvl 8.4 mg/dL 8.5 - 10.5 10/08/2013 [facility] CHEM PANEL BUN 7 mg/dL 7 - 22 10/08/2013 [facility] CHEM PANEL Creatinine Lvl 0.9 mg/dL 0.5 - 1.4 10/08/2013 [facility] CHEM PANEL Sodium Lvl 139 meq/L 135 - 145 10/08/2013 [facility] CHEM PANEL Potassium Lvl 4.2 meq/L 3.5 - 5.1 10/08/2013 [facility] CHEM PANEL Glucose Lvl 143 mg/dL 70 - 99 10/08/2013 4Interpretive Data: Adult reference range values reflect the clinical guidelines of the [place] [employer]. [facility] HEMATOLOGY Monocytes # 0.5 K/CMM 0.0 - 0.8 10/08/2013 [facility] HEMATOLOGY Eosinophils 2.5 % 0.0 - 4.0 10/08/2013 [facility] HEMATOLOGY Basophils # 0.1 K/CMM 0.0 - 0.2 10/08/2013 [facility] HEMATOLOGY Eosinophils # 0.2 K/CMM 0.0 - 0.5 10/08/2013 [facility] [facility] Lymphocytes # 1.8 K/CMM 1.0 - 5.5 10/08/2013 [facility] Segs-Bands # 4.6 K/CMM 1.5 - 8.1 10/08/2013 [facility] Basophils 0.9 % 0.0 - 1.0 10/08/2013 [facility] Monocytes 7.6 % 2.0 - 12.0 10/08/2013 [facility] Lymphocytes 25.1 % 20.0 - 40.0 10/08/2013 [facility] Segs 63.9 % 45.0 - 75.0 10/08/2013 [facility] MPV 7.7 fL 7.4 - 10.4 10/08/2013 [facility] RDW 16.8 % 11.5 - 14.5 10/08/2013 [facility] Platelet 202 K/CMM 133 - 450 10/08/2013 [facility] Hgb 16.5 g/dL 14.0 - 18.0 10/08/2013 [facility] RBC 5.77 M/CMM 4.70 - 6.10 10/08/2013 [facility] MCHC 31.8 g/dL 32.0 - 36.0 10/08/2013 [facility] MCH 28.6 pg 27.0 - 31.0 10/08/2013 [facility] WBC 7.2 K/CMM 3.7 - 10.4 10/08/2013 [facility] MCV 89.8 fL 80.0 - 94.0 10/08/2013 [facility] Hct 51.8 % 42.0 - 54.0 10/08/2013 [facility] D-Dimer 0.55 ug/mL FEU 10/08/2013 5Interpretive Data: In DIC, quantitative D-Dimer is generally greater than 0.66 ug/mL FEU. Values of quantitative D-Dimer less than 0.40 ug/mL FEU have been reported to be associated with a low probability of deep vein thrombosis/pulmonary embolism. This test alone should not be used to rule out DVT/PE. [facility] SPECIAL CHEMISTRY Hgb A1C 7.8 % <=5.6 % 10/08/2013 [facility] Chest w contrast CT Chest w contrast CT CHEST CT WITH CONTRAST HISTORY: Dyspnea on exertion COMPARISON: Chest x-ray performed earlier the same day DLP: 955.09 TECHNIQUE: Acquisition of axial images from the base of the neck the upper abdomen following the administration of intravenous contrast, utilizing a multidetector CT. Sagittal and coronal reformatted images were performed. Findings: Negative for intrinsic filling defect in the main pulmonary trunk, the right and left main pulmonary arteries, or the proximal segmental branches.The heart and mediastinum are normal. No thoracic aortic aneurysm or dissection is seen. Negative for mediastinal or hilar lymphadenopathy. The lungs are clear without consolidation or effusion. Limited evaluation of the upper abdomen is normal. No bony destructive lesions. Impression: 1. Negative for pulmonary embolism. SL: 12 10/08/2013 - - Read by: Hubert Romo MD Dictated Date/time: 10/08/13 12:59 Electronically Signed by: Hubert Romo MD 10/08/13 13:01 FINAL REPORT [facility] Chest 2 views Chest 2 views EXAM: Chest 2 views DATE: Oct 08, 2013 09:47:44 AM INDICATION: Dyspnea COMPARISON: None TECHNIQUE: PA and lateral chest radiographs. FINDINGS: Bilateral lungs are clear No pleural effusions are identified. The cardiomediastinal contours remain mildly prominent. The skeleton is intact. IMPRESSION: No acute intrathoracic abnormality. No significant interval change compared to 06/24/2013. SL: 13 10/08/2013 - - Read by: Greg Enriquez MD Dictated Date/time: 10/08/13 09:53 Electronically Signed by: Greg Enriquez MD 10/08/13 09:54 FINAL REPORT [facility] CARDIAC ENZYMES Troponin-I null 0.00 - 0.40 06/24/2013 [facility] CARDIAC ENZYMES Total CK 164 unit/L 12 - 191 06/24/2013 [facility] CARDIAC ENZYMES CK MB 3.6 ng/mL 0.5 - 3.6 06/24/2013 [facility] CARDIAC ENZYMES CK MB Index 2.2 0.0 - 2.5 06/24/2013 [facility] CARDIAC ENZYMES CK MB 4.2 ng/mL 0.5 - 3.6 06/24/2013 [facility] CARDIAC ENZYMES Total CK 196 unit/L 12 - 191 06/24/2013 [facility] CARDIAC ENZYMES Troponin-I null 0.00 - 0.40 06/24/2013 [facility] CARDIAC ENZYMES CK MB Index 2.1 0.0 - 2.5 06/24/2013 [facility] CARDIAC ENZYMES CK MB 4.1 ng/mL 0.5 - 3.6 06/24/2013 [facility] CHEM PANEL Magnesium Lvl 1.7 mg/dL 1.8 - 2.4 06/24/2013 [facility] CHEM PANEL eGFR 117 mL/min/1.73m2 06/24/2013 1Result Comment: The eGFR is calculated using [...] from the National Kidney Disease Education Program (NKDEP) which additionally recommends that when the eGFR is used in patients with extremes of body mass index for purposes of drug dosing, the eGFR should be multiplied by the estimated BMI. [facility] CHEM PANEL AST 65 unit/L 0 - 37 06/24/2013 [facility] CHEM PANEL Bili Total 0.4 mg/dL 0.2 - 1.3 06/24/2013 [facility] CHEM PANEL Alk Phos 91 unit/L 39 - 136 06/24/2013 [facility] CHEM PANEL Albumin Lvl 3.3 g/dL 3.5 - 5.0 06/24/2013 [facility] CHEM PANEL Calcium Lvl 8.3 mg/dL 8.5 - 10.5 06/24/2013 [facility] CHEM PANEL Total Protein 7.4 g/dL 6.4 - 8.4 06/24/2013 [facility] CHEM PANEL ALT 117 unit/L 0 - 65 06/24/2013 [facility] CHEM PANEL Potassium Lvl 4.2 meq/L 3.5 - 5.1 06/24/2013 [facility] CHEM PANEL Sodium Lvl 138 meq/L 135 - 145 06/24/2013 [facility] CHEM PANEL CO2 34 meq/L 24 - 32 06/24/2013 [facility] CHEM PANEL Chloride Lvl 100 meq/L 95 - 109 06/24/2013 [facility] CHEM PANEL Creatinine Lvl 0.9 mg/dL 0.5 - 1.4 06/24/2013 [facility] CHEM PANEL BUN 7 mg/dL 7 - 22 06/24/2013 [facility] CHEM PANEL Glucose Lvl 257 mg/dL 70 - 99 06/24/2013 2Interpretive Data: Adult reference range values reflect the clinical guidelines of the [place] [employer]. [facility] CHEM PANEL A/G Ratio 0.8 0.7 - 1.6 06/24/2013 [facility] CHEM PANEL Globulin 4.1 g/dL 2.0 - 4.0 06/24/2013 [facility] CHEM PANEL B/C Ratio 8 6 - 25 06/24/2013 [facility] CHEM PANEL AGAP 8.2 meq/L 10.0 - 20.0 06/24/2013 [facility] MPV 7.4 fL 7.4 - 10.4 06/24/2013 [facility] Platelet 211 K/CMM 133 - 450 06/24/2013 [facility] RDW 15.0 % 11.5 - 14.5 06/24/2013 [facility] MCH 31.1 pg 27.0 - 31.0 06/24/2013 [facility] MCV 93.3 fL 80.0 - 94.0 06/24/2013 [facility] MCHC 33.3 g/dL 32.0 - 36.0 06/24/2013 [facility] Hct 46.7 % 42.0 - 54.0 06/24/2013 [facility] RBC 5.01 M/CMM 4.70 - 6.10 06/24/2013 [facility] Hgb 15.6 g/dL 14.0 - 18.0 06/24/2013 [facility] WBC 10.3 K/CMM 3.7 - 10.4 06/24/2013 [facility] PTT 34.2 s 22.9 - 35.8 06/24/2013 3Interpretive Data: Heparin Therapeutic Range: 57 - 92 Seconds [facility] HEMATOLOGY Segs 69.8 % 45.0 - 75.0 06/24/2013 [facility] Monocytes # 0.7 K/CMM 0.0 - 0.8 06/24/2013 [facility] HEMATOLOGY Eosinophils # 0.2 K/CMM 0.0 - 0.5 06/24/2013 [facility] HEMATOLOGY Basophils # 0.0 K/CMM 0.0 - 0.2 06/24/2013 [facility] HEMATOLOGY Monocytes 7.0 % 2.0 - 12.0 06/24/2013 [facility] HEMATOLOGY Eosinophils 2.4 % 0.0 - 4.0 06/24/2013 [facility] HEMATOLOGY Basophils 0.2 % 0.0 - 1.0 06/24/2013 [facility] HEMATOLOGY Segs-Bands # 7.2 K/CMM 1.5 - 8.1 06/24/2013 [facility] HEMATOLOGY Lymphocytes 20.6 % 20.0 - 40.0 06/24/2013 [facility] HEMATOLOGY Lymphocytes # 2.1 K/CMM 1.0 - 5.5 06/24/2013 [facility] Chest 2 views Chest 2 views HISTORY: Chest pain. Chest 2 views. Comparison 03/26/2013. Lungs are clear. Heart size normal. No pleural effusion or pneumothorax. IMPRESSION: No acute finding. SL:13 06/24/2013 - - Read by: Mike Hernández MD Dictated Date/time: 06/24/13 01:56 Electronically Signed by: Mike Hernández 06/24/13 01:56 FINAL REPORT [facility] CHEMISTRY CK MB 2.8 ng/mL 0.5 - 3.6 03/26/2013 Normal [facility] CHEMISTRY CK-MB INDEX 1.5 0.0 - 2.5 03/26/2013 Normal [facility] CHEMISTRY Troponin-I null 0.00 - 0.40 03/26/2013 Normal [facility] CHEMISTRY Total CK 191 unit/L 12 - 191 03/26/2013 Normal [facility] IMMUNOLOGY Hep Bs Ag Negative *NA* (03/26/2013 15:13:00) Negative 03/26/2013 [facility] IMMUNOLOGY Hep C Ab Negative *NA* (03/26/2013 15:13:00) Negative 03/26/2013 [facility] CHEMISTRY Troponin-I null 0.00 - 0.40 03/26/2013 Normal [facility] CHEMISTRY Total CK 194 unit/L 12 - 191 03/26/2013 HI [facility] CHEMISTRY CK-MB INDEX 1.4 0.0 - 2.5 03/26/2013 Normal [facility] CHEMISTRY CK MB 2.8 ng/mL 0.5 - 3.6 03/26/2013 Normal [facility] HEMATOLOGY Monocytes 8.3 % 2.0 - 12.0 03/26/2013 Normal [facility] Eosinophils 2.8 % 0.0 - 4.0 03/26/2013 Normal [facility] Lymphocytes 26.6 % 20.0 - 40.0 03/26/2013 Normal [facility] Segs 61.4 % 45.0 - 75.0 03/26/2013 Normal [facility] Basophils 0.9 % 0.0 - 1.0 03/26/2013 Normal [facility] Lymphocytes # 2.4 K/CMM 1.0 - 5.5 03/26/2013 Normal [facility] Segs-Bands # 5.4 K/CMM 1.5 - 8.1 03/26/2013 Normal [facility] Monocytes # 0.7 K/CMM 0.0 - 0.8 03/26/2013 Normal [facility] Basophils # 0.1 K/CMM 0.0 - 0.2 03/26/2013 Normal [facility] Eosinophils # 0.2 K/CMM 0.0 - 0.5 03/26/2013 Normal [facility] aPTT 28.1 s 22.9 - 35.8 03/26/2013 Normal 8Interpretive Data: Heparin Therapeutic Range: 57 - 92 Seconds [facility] PROTIME 14.0 s 12.0 - 14.7 03/26/2013 Normal [facility] INR 1.09 0.85 - 1.17 03/26/2013 Normal 5Interpretive Data: RECOMMENDED RANGES FOR PROTIME INR: 2.0-3.0 for most medical and surgical thromboembolic states. 2.5-3.5 for artificial heart valves and recurrent embolism. INR SHOULD BE USED ONLY FOR PATIENTS ON STABLE ANTICOAGULANT THERAPY. [facility] Platelet 223 K/CMM 133 - 450 03/26/2013 Normal [facility] MPV 7.6 fL 7.4 - 10.4 03/26/2013 Normal [facility] MCHC 33.7 g/dL 32.0 - 36.0 03/26/2013 Normal [facility] RDW 14.6 % 11.5 - 14.5 03/26/2013 [place] [facility] WBC X 10x3 8.9 K/CMM 3.7 - 10.4 03/26/2013 Normal [facility] Hgb 15.2 g/dL 14.0 - 18.0 03/26/2013 Normal [facility] HEMATOLOGY Hct 45.1 % 42.0 - 54.0 03/26/2013 Normal [facility] HEMATOLOGY RBC X 10x6 4.99 M/CMM 4.70 - 6.10 03/26/2013 Normal [facility] HEMATOLOGY MCV 90.4 fL 80.0 - 94.0 03/26/2013 Normal [facility] HEMATOLOGY MCH 30.5 pg 27.0 - 31.0 03/26/2013 Normal [facility] CHEMISTRY UDS Note See Note 4 *NA* (03/26/2013 04:20:00) 03/26/2013 4Interpretive Data: Drugs reported as positive have [...] Methadone 300 ng/mL Urine alcohol 20 mg/dL [facility] CHEMISTRY U Phencyc Scr Negative *NA* (03/26/2013 04:20:00) Negative 03/26/2013 [facility] CHEMISTRY U Opiate Scr Negative *NA* (03/26/2013 04:20:00) Negative 03/26/2013 [facility] CHEMISTRY U Benzodia Scr Negative *NA* (03/26/2013 04:20:00) Negative 03/26/2013 [facility] CHEMISTRY U Cannab Scr Negative *NA* (03/26/2013 04:20:00) Negative 03/26/2013 [facility] CHEMISTRY U Cocaine Scr Negative *NA* (03/26/2013 04:20:00) Negative 03/26/2013 [facility] CHEMISTRY U [place] Scr Negative *NA* (03/26/2013 04:20:00) Negative 03/26/2013 [facility] CHEMISTRY U Amph Scr Negative *NA* (03/26/2013 04:20:00) Negative 03/26/2013 [facility] URINALYSIS UA Sq Epi None Seen 03/26/2013 [facility] URINALYSIS UA Blood Negative (03/26/2013 04:20:00) Negative 03/26/2013 Normal [facility] URINALYSIS UA Ketones Negative mg/dL Negative 03/26/2013 [facility] UA Bili Negative *NA* (03/26/2013 04:20:00) Negative 03/26/2013 [facility]IN[facility]YSIS UA Glucose Negative mg/dL Negative 03/26/2013 [facility] UA pH 7.0 5.0 - 8.0 03/26/2013 Normal [facility] URINALYSIS UA Protein 30 mg/dL Negative 03/26/2013 [facility]IN[facility]YS[facility] UA Turbidity Marked *ABN* (03/26/2013 04:20:00) Clear 03/26/2013 [facility] URINALYSIS UA Spec Grav 1.026 <=1.030 03/26/2013 Normal [facility] URINALYSIS UA Color Yellow *NA* (03/26/2013 04:20:00) Yellow 03/26/2013 [facility] UA Bacteria Occasional /HPF None Seen 03/26/2013 [facility] UA Mucus Many /LPF None Seen 03/26/2013 [facility]INALYS[facility] UA Urobilinogen 2.0 mg/dL 0.1 - 1.0 03/26/2013 [employer] [facility] URINALYSIS UA Nitrite Negative (03/26/2013 04:20:00) Negative 03/26/2013 Normal [facility] URINALYSIS UA RBC 4 /HPF 0 - 2 03/26/2013 [employer] URINALYSIS UA WBC 5 /HPF 0 - 5 03/26/2013 Normal [facility] URINALYSIS UA Leuk Est Trace *ABN* (03/26/2013 04:20:00) Negative 03/26/2013 ABN [facility] CHEMISTRY BNP 3 pg/mL <=100 03/26/2013 Normal 3Interpretive Data: Elevated results are in line with increasing severity of congestive heart failure. Minor elevations between 100 and 300 may be seen with Myocardial Ischemia, Sodium retaining drugs, and compensated/treated heart failure. [facility] CHEMISTRY CK MB 3.2 ng/mL 0.5 - 3.6 03/26/2013 Normal [facility] CHEMISTRY Total CK 205 unit/L 12 - 191 03/26/2013 [facility] CHEMISTRY eGFR 117 mL/min/1.73m2 03/26/2013 1Result Comment: The eGFR is calculated using [...] from the National Kidney Disease Education Program (NKDEP) which additionally recommends that when the eGFR is used in patients with extremes of body mass index for purposes of drug dosing, the eGFR should be multiplied by the estimated BMI. [facility] CHEMISTRY Globulin 4.7 g/dL 2.0 - 4.0 03/26/2013 [facility] CHEMISTRY A/G Ratio 0.8 0.7 - 1.6 03/26/2013 Normal [facility] CHEMISTRY ASPARTATE TRANSAMINASE 88 unit/L 0 - 37 03/26/2013 [place] [facility] CHEMISTRY AGAP 10.7 meq/L 10.0 - 20.0 03/26/2013 Normal [facility] CHEMISTRY ALANINE AMINOTRANSFERASE 149 unit/L 0 - 65 03/26/2013 [facility] CHEMISTRY Alk Phos 90 unit/L 39 - 136 03/26/2013 Normal [facility] CHEMISTRY B/C Ratio 12 6 - 25 03/26/2013 Normal [facility] CHEMISTRY Chloride Lvl 102 meq/L 95 - 109 03/26/2013 Normal [facility] CHEMISTRY CO2 31 meq/L 24 - 32 03/26/2013 Normal [facility] CHEMISTRY Bili Total 0.7 mg/dL 0.2 - 1.3 03/26/2013 Normal [facility] CHEMISTRY Glucose Lvl 103 mg/dL 70 - 99 03/26/2013 [place] 2Interpretive Data: Adult reference range values reflect the clinical guidelines of the [place] [employer]. [facility] CHEMISTRY BUN 11 mg/dL 7 - 22 03/26/2013 Normal [facility] CHEMISTRY Calcium Lvl 8.7 mg/dL 8.5 - 10.5 03/26/2013 Normal [facility] CHEMISTRY Total Protein 8.6 g/dL 6.4 - 8.4 03/26/2013 [place] [facility] CHEMISTRY Albumin Lvl 3.9 g/dL 3.5 - 5.0 03/26/2013 Normal [facility] CHEMISTRY Creatinine Lvl 0.9 mg/dL 0.5 - 1.4 03/26/2013 Normal [facility] CHEMISTRY Sodium Lvl 140 meq/L 135 - 145 03/26/2013 Normal [facility] CHEMISTRY Potassium Lvl 3.7 meq/L 3.5 - 5.1 03/26/2013 Normal [facility] CHEMISTRY Troponin-I null 0.00 - 0.40 03/26/2013 Normal [facility] CHEMISTRY CK-MB INDEX 1.6 0.0 - 2.5 03/26/2013 Normal [facility] HEMATOLOGY WBC X 10x3 10.9 K/CMM 3.7 - 10.4 03/26/2013 HI [facility] HEMATOLOGY RBC X 10x6 5.31 M/CMM 4.70 - 6.10 03/26/2013 Normal [facility] HEMATOLOGY Hgb 16.0 g/dL 14.0 - 18.0 03/26/2013 Normal [facility] Hct 48.6 % 42.0 - 54.0 03/26/2013 Normal [facility] MCV 91.5 fL 80.0 - 94.0 03/26/2013 Normal [facility] MCH 30.0 pg 27.0 - 31.0 03/26/2013 Normal [facility] HEMATOLOGY RDW 14.7 % 11.5 - 14.5 03/26/2013 HI [facility] HEMATOLOGY MPV 8.2 fL 7.4 - 10.4 03/26/2013 Normal [facility] MCHC 32.8 g/dL 32.0 - 36.0 03/26/2013 Normal [facility] Platelet 264 K/CMM 133 - 450 03/26/2013 Normal [facility] HEMATOLOGY D-Dimer 0.62 ug/mL FEU 03/26/2013 7Interpretive Data: In DIC, quantitative D-Dimer is generally greater than 0.66 ug/mL FEU. Values of quantitative D-Dimer less than 0.40 ug/mL FEU have been reported to be associated with a low probability of deep vein thrombosis/pulmonary embolism. This test alone should not be used to rule out DVT/PE. [facility] HEMATOLOGY INR 1.04 0.85 - 1.17 03/26/2013 Normal 6Interpretive Data: RECOMMENDED RANGES FOR PROTIME INR: 2.0-3.0 for most medical and surgical thromboembolic states. 2.5-3.5 for artificial heart valves and recurrent embolism. INR SHOULD BE USED ONLY FOR PATIENTS ON STABLE ANTICOAGULANT THERAPY. [facility] aPTT 29.3 s 22.9 - 35.8 03/26/2013 Normal 9Interpretive Data: Heparin Therapeutic Range: 57 - 92 Seconds [facility] PROTIME 13.5 s 12.0 - 14.7 03/26/2013 Normal [facility] Eosinophils 2.6 % 0.0 - 4.0 03/26/2013 Normal [facility] Monocytes 8.8 % 2.0 - 12.0 03/26/2013 Normal [facility] Segs-Bands # 6.7 K/CMM 1.5 - 8.1 03/26/2013 Normal [facility] Basophils 0.5 % 0.0 - 1.0 03/26/2013 Normal [facility] Lymphocytes 26.4 % 20.0 - 40.0 03/26/2013 Normal [facility] Segs 61.7 % 45.0 - 75.0 03/26/2013 Normal [facility] Monocytes # 1.0 K/CMM 0.0 - 0.8 03/26/2013 [place] [facility] Lymphocytes # 2.9 K/CMM 1.0 - 5.5 03/26/2013 Normal [facility] Eosinophils # 0.3 K/CMM 0.0 - 0.5 03/26/2013 Normal [facility] Basophils # 0.1 K/CMM 0.0 - 0.2 03/26/2013 Normal [facility] Chest w contrast CT Chest w contrast CT CTA chest, Mar 26, 2013 04:41:50 AM CLINICAL HISTORY: chest pain ; See Clinic Indication TECHNIQUE: Routine 2.5 mm thick axial images of the chest were obtained with IV contrast via pulmonary embolism protocol. Subsequent 5 mm thick axial images of the chest were obtained. Coronal and sagittal reformations were created. COMPARISON: Chest radiograph earlier today FINDINGS: Study is limited secondary to delayed both IV contrast timing, with mostly contrast present in the arterial circulation. However, no pulmonary arterial thrombus is present as can be visualized centrally up to the lobar arteries. More distal laceration cannot be performed. Heart size is mildly enlarged. Lungs are clear. Pleural spaces are clear. No mediastinal or hilar lymphadenopathy is present. Bones of the thoracic cage are normal. Adrenal glands are normal. Mild diffuse fatty infiltration of liver is present. IMPRESSION: 1. Limited study secondary to delayed IV contrast bolus timing. Negative for pulmonary embolism as can be visualized centrally upto the lobar pulmonary arteries.. 2. Mild cardiomegaly.. 3. Mild diffuse fatty infiltration of liver. SL: 14 03/26/2013 - - Read by: Trevor Thompson Date/time: 03/26/13 04:42 Electronically Signed by: Trevor Thompson MD 03/26/13 04:50 FINAL REPORT [facility] Vital Signs Vital Sign Value Date Comments Source Systolic (mm Hg) 180 11/01/2013 [facility] Diastolic (mm Hg) 102 11/01/2013 [facility] Diastolic (mm Hg) 105 11/01/2013 [facility] Systolic (mm Hg) 192 11/01/2013 [facility] Diastolic (mm Hg) 115 11/01/2013 [facility] Respitory Rate 30 11/01/2013 [facility] Heart Rate 93 11/01/2013 [facility] Temperature Oral (F) 98.4 F 11/01/2013 [facility] Systolic (mm Hg) 200 11/01/2013 [facility] Height 167.64 cm 11/01/2013 [facility] Weight 181.818 11/01/2013 [facility] BMI Calculated 64.7 11/01/2013 [facility] Respitory Rate 18 10/10/2013 [facility] Heart Rate 87 10/10/2013 [facility] Temperature Oral (F) 98.3 F 10/10/2013 [facility] Systolic (mm Hg) 135 10/10/2013 [facility] Diastolic (mm Hg) 76 10/10/2013 [facility] Respitory Rate 20 10/10/2013 [facility] Diastolic (mm Hg) 75 10/10/2013 [facility] Temperature Oral (F) 97.8 F 10/10/2013 [facility] Systolic (mm Hg) 125 10/10/2013 [facility] Respitory Rate 20 10/10/2013 [facility] Heart Rate 98 10/10/2013 [facility] Diastolic (mm Hg) 88 10/10/2013 [facility] Systolic (mm Hg) 119 10/10/2013 [facility] Temperature Oral (F) 97.5 F 10/10/2013 [facility] Heart Rate 99 10/10/2013 [facility] Height 180.34 cm 10/08/2013 [facility] BMI Calculated 56.88 10/08/2013 [facility] Height 180.34 cm 10/08/2013 [facility] Weight 185 10/08/2013 [facility] Height 180.34 cm 10/08/2013 [facility] BMI Calculated 48.92 10/08/2013 [facility] Weight 159.091 10/08/2013 [facility] Diastolic (mm Hg) 72 08/22/2013 [facility] Systolic (mm Hg) 180 08/22/2013 [facility] Respitory Rate 22 08/22/2013 [facility] Heart Rate 88 08/22/2013 [facility] Temperature Oral (F) 98.2 F 08/22/2013 [facility] Weight 172.727 08/22/2013 [facility] Diastolic (mm Hg) 95 08/22/2013 [facility] Respitory Rate 20 08/22/2013 [facility] Heart Rate 88 08/22/2013 [facility] Temperature Oral (F) 98.6 F 08/22/2013 [facility] Systolic (mm Hg) 191 08/22/2013 [facility] Systolic (mm Hg) 163 06/24/2013 [facility] Respitory Rate 23 06/24/2013 [facility] Diastolic (mm Hg) 78 06/24/2013 [facility] Systolic (mm Hg) 195 06/24/2013 [facility] Diastolic (mm Hg) 92 06/24/2013 [facility] Respitory Rate 21 06/24/2013 [facility] Heart Rate 89 06/24/2013 [facility] Temperature Oral (F) 98.5 F 06/24/2013 [facility] Respitory Rate 25 06/24/2013 [facility] Diastolic (mm Hg) 104 06/24/2013 [facility] Heart Rate 96 06/24/2013 [facility] Systolic (mm Hg) 172 06/24/2013 [facility] Heart Rate 93 06/24/2013 [facility] Temperature Oral (F) 98.8 F 06/24/2013 [facility] Heart Rate 105 03/26/2013 [facility] Respitory Rate 18 03/26/2013 [facility] Temperature Oral (F) 97.4 F 03/26/2013 [facility] Systolic (mm Hg) 109 03/26/2013 [facility] Diastolic (mm Hg) 68 03/26/2013 [facility] Diastolic (mm Hg) 90 03/26/2013 [facility] Systolic (mm Hg) 143 03/26/2013 [facility] Heart Rate 87 03/26/2013 [facility] Respitory Rate 20 03/26/2013 [facility] Temperature Oral (F) 97.3 F 03/26/2013 [facility] Diastolic (mm Hg) 77 03/26/2013 [facility] Systolic (mm Hg) 133 03/26/2013 [facility] Respitory Rate 22 03/26/2013 [facility] Heart Rate 103 03/26/2013 [facility] Temperature Oral (F) 98.3 F 03/26/2013 [facility] Weight 159.091 03/26/2013 [facility] Height 180.34 cm 03/26/2013 [facility] Encounters Location Location Details Encounter Type Encounter Number Reason For Visit Attending Provider ADM Date DC Date Status Source [facility] OU [id number] BLANK SANDIE 03/26/2013 03/26/2013 Active [facility] [id number] Wyatt No 06/24/2013 06/24/2013 [facility] [id number] Matheus Gracia 08/22/2013 08/22/2013 [facility] OBS Observation Patient [id number] Elisha Blevins 10/08/2013 10/10/2013 [facility] [id number] Manuel Guillermo 11/01/2013 11/01/2013 [facility] Procedures Procedure Code Date Perfomer Comments Source Arthroscopy of knee [id number] 02/13/2003 [facility] Medical procedure on nose [id number] 02/13/1997 [facility]
--- OUTSIDE RECORDS SUMMARY | 2017-12-15 14:09 | XMS REPORT | Summary of Care ---
Author Organization Unknown Address Unknown Phone Unavailable Encounter TAMMI Tian(MANUEL) [id number] Date(s): 10/31/13 - 11/01/13 [facility] [address] [address] Discharge Diagnosis: Abdominal pain in male patient Discharge Diagnosis: Dyspnea Discharge Disposition: Home Physician Attending: Manuel Guillermo MD Reason for Visit CHEST PAIN, SOB Vital Signs 1 2 3 Most recent to oldest [Reference Range]: 167.64 cm (10/31/13 10:46 PM) Height 98.4 DegF (10/31/13 10:46 PM) Temperature Oral [96.4-99.1 DegF] 180 mmHg *HI* (11/01/13 2:06 AM) 192 mmHg *HI* (11/01/13 12:16 AM) 200 mmHg *HI* (10/31/13 10:46 PM) Systolic Blood Pressure [90-140 mmHg] 102 mmHg *HI* (11/01/13 2:06 AM) 105 mmHg *HI* (11/01/13 12:16 AM) 115 mmHg *HI* (10/31/13 10:46 PM) Diastolic Blood Pressure [60-90 mmHg] 30 BRMIN *HI* (10/31/13 10:46 PM) Respiratory Rate [14-20 BRMIN] 93 bpm (10/31/13 10:46 PM) Peripheral Pulse Rate [60-100 bpm] 181.818 kg (10/31/13 10:46 PM) Weight 64.7 m2 (10/31/13 10:46 PM) Body Mass Index Problem List Condition Effective Dates Status Health Status Informant Chest Resolved pain(Confirmed) Morbid 02/14/12 Resolved obesity(Confirmed) Sleep 02/14/04 Resolved apnea(Confirmed) Allergies, Adverse Reactions, Alerts Substance Reaction Severity Status NKDA Active Medications morphine Sulfate 4 mg, Route: IVP, ONCE, Dosing Weight 181.818, kg, Priority: STAT, Start date: 0 10/31/13 23:15:00, Stop date: 10/31/13 23:15:00 Start Date: 10/31/13 Stop Date: 10/31/13 Status: Completed Cammal 5/325 oral tablet 1-2 tab, PO, Q4-6H, Pain, # 30 tab, 0 Refill(s) Start Date: 11/01/13 Stop Date: 11/06/13 Status: Ordered ondansetron 4 mg, Route: IVP, ONCE, Dosing Weight 181.818, kg, Priority: STAT, Start date: 0 10/31/13 23:15:00, Stop date: 10/31/13 23:15:00 Start Date: 10/31/13 Stop Date: 10/31/13 Status: Completed Saline Flush 0.9% 10 mL, Route: IVP, Drug Form: INJ, Dosing Weight 181.818, kg, PRN, PRN Line Flus h, Start date: 10/31/13 23:15:00, Duration: 30 day, Stop date: 11/30/13 23:14:00 Notes: (Same as: BD Posiflush) Start Date: 10/31/13 Stop Date: 11/01/13 Status: Discontinued Results ELECTROLYTES Most recent to 1 oldest [Reference Range]: Sodium Lvl [135-145 139 mEq/L mEq/L] (10/31/13 11:39 PM) Potassium Lvl 4.0 mEq/L [3.5-5.1 mEq/L] (10/31/13 11:39 PM) Chloride Lvl [95-109 101 mEq/L mEq/L] (10/31/13 11:39 PM) CO2 [24-32 mEq/L] 36 mEq/L *HI* (10/31/13 11:39 PM) AGAP [10.0-20.0 6.0 mEq/L mEq/L] *LOW* (10/31/13 11:39 PM) CHEM PANEL Most recent to 1 oldest [Reference Range]: Creatinine Lvl 0.8 mg/dL [0.5-1.4 mg/dL] (10/31/13 11:39 PM) eGFR 122 mL/min/1.73m2 1 *NA* (10/31/13 11:39 PM) BUN [7-22 mg/dL] 9 mg/dL (10/31/13 11:39 PM) B/C Ratio [6-25] 11 (10/31/13 11:39 PM) Glucose Lvl [70-99 151 mg/dL 2 mg/dL] *HI* (10/31/13 11:39 PM) Total Protein 7.8 g/dL [6.4-8.4 g/dL] (10/31/13 11:39 PM) Albumin Lvl [3.5-5.0 3.3 g/dL g/dL] *LOW* (10/31/13 11:39 PM) Globulin [2.0-4.0 4.5 g/dL g/dL] *HI* (10/31/13 11:39 PM) A/G Ratio [0.7-1.6] 0.7 (10/31/13 11:39 PM) Calcium Lvl 8.6 mg/dL [8.5-10.5 mg/dL] (10/31/13 11:39 PM) Phosphorus [2.5-4.5 3.1 mg/dL mg/dL] (10/31/13 11:39 PM) Magnesium Lvl 1.7 mg/dL [1.8-2.4 mg/dL] *LOW* (10/31/13 11:39 PM) ALT [0-65 unit/L] 106 unit/L *HI* (10/31/13 11:39 PM) AST [0-37 unit/L] 68 unit/L *HI* (10/31/13 11:39 PM) Alk Phos [39-136 80 unit/L unit/L] (10/31/13 11:39 PM) Bili Total [0.2-1.3 0.4 mg/dL mg/dL] (10/31/13 11:39 PM) Lipase Lvl [73-393 73 unit/L unit/L] (10/31/13 11:39 PM) 1Result Comment: The eGFR is calculated using [...] values reflect the clinical guidelines of the [place] [employer]. CARDIAC ENZYMES Most recent to 1 oldest [Reference Range]: Total CK [12-191 111 unit/L unit/L] (10/31/13 11:39 PM) CK MB [0.5-3.6 2.4 ng/mL ng/mL] (10/31/13 11:39 PM) CK MB Index 2.2 [0.0-2.5] (10/31/13 11:39 PM) Troponin-I <0.02 ng/mL [0.00-0.40 ng/mL] (10/31/13 11:39 PM) URINE AND STOOL Most recent to 1 oldest [Reference Range]: UA Turbidity [Clear] Clear (11/01/13 1:45 AM) UA Color [Yellow] Yellow *NA* (11/01/13 1:45 AM) UA pH [5.0-8.0] 7.0 (11/01/13 1:45 AM) UA Spec Grav 1.026 [<=1.030] (11/01/13 1:45 AM) UA Glucose [Negative Negative mg/dL mg/dL] *NA* (11/01/13 1:45 AM) UA Blood [Negative] Negative (11/01/13 1:45 AM) UA Ketones [Negative Negative mg/dL mg/dL] *NA* (11/01/13 1:45 AM) UA Protein [Negative 100 mg/dL mg/dL] *ABN* (11/01/13 1:45 AM) UA Urobilinogen 4.0 mg/dL [0.1-1.0 mg/dL] *HI* (11/01/13 1:45 AM) UA Bili [Negative] Negative *NA* (11/01/13 1:45 AM) UA Leuk Est Negative [Negative] (11/01/13 1:45 AM) UA Nitrite Negative [Negative] (11/01/13 1:45 AM) UA WBC [0-5 /HPF] 4 /HPF (11/01/13 1:45 AM) UA RBC [0-2 /HPF] 11 /HPF *HI* (11/01/13 1:45 AM) UA Sq Epi None Seen *NA* (11/01/13 1:45 AM) UA Mucus [None Seen Few /LPF /LPF] *NA* (11/01/13 1:45 AM) HEMATOLOGY Most recent to 1 oldest [Reference Range]: WBC [3.7-10.4 K/CMM] 8.6 K/CMM (10/31/13 11:39 PM) RBC [4.70-6.10 5.92 M/CMM M/CMM] (10/31/13 11:39 PM) Hgb [14.0-18.0 g/dL] 17.3 g/dL (10/31/13 11:39 PM) Hct [42.0-54.0 %] 52.8 % (10/31/13 11:39 PM) MCV [80.0-94.0 fL] 89.1 fL (10/31/13 11:39 PM) MCH [27.0-31.0 pg] 29.1 pg (10/31/13 11:39 PM) MCHC [32.0-36.0 32.7 g/dL g/dL] (10/31/13 11:39 PM) RDW [11.5-14.5 %] 16.7 % *HI* (10/31/13 11:39 PM) Platelet [133-450 183 K/CMM K/CMM] (10/31/13 11:39 PM) MPV [7.4-10.4 fL] 7.7 fL (10/31/13 11:39 PM) Segs [45.0-75.0 %] 65.4 % (10/31/13 11:39 PM) Lymphocytes 23.8 % [20.0-40.0 %] (10/31/13 11:39 PM) Monocytes [2.0-12.0 7.6 % %] (10/31/13 11:39 PM) Eosinophils [0.0-4.0 2.2 % %] (10/31/13 11:39 PM) Basophils [0.0-1.0 1.0 % %] (10/31/13 11:39 PM) Segs-Bands # 5.6 K/CMM [1.5-8.1 K/CMM] (10/31/13 11:39 PM) Lymphocytes # 2.0 K/CMM [1.0-5.5 K/CMM] (10/31/13 11:39 PM) Monocytes # [0.0-0.8 0.7 K/CMM K/CMM] (10/31/13 11:39 PM) Eosinophils # 0.2 K/CMM [0.0-0.5 K/CMM] (10/31/13 11:39 PM) Basophils # [0.0-0.2 0.1 K/CMM K/CMM] (10/31/13 11:39 PM) PT [12.0-14.7 13.3 seconds seconds] (10/31/13 11:39 PM) INR [0.85-1.17] 1.01 3 (10/31/13 11:39 PM) PTT [22.9-35.8 25.2 seconds 4 seconds] (10/31/13 11:39 PM) 3Interpretive Data: RECOMMENDED RANGES FOR PROTIME INR: 2.0-3.0 for most medical and surgical thromboembolic states. 2.5-3.5 for artificial heart valves and recurrent embolism. INR SHOULD BE USED ONLY FOR PATIENTS ON STABLE ANTICOAGULANT THERAPY. 4Interpretive Data: Heparin Therapeutic Range: 57 - 92 Seconds Medications Administered During Your Visit No data available for this section Immunizations Vaccine Date Refusal Reason influenza virus vaccine, inactivated 03/26/13 Patient Refuses Social History Social History Type Response Substance Abuse Use: Past, Type: Marijuana, Route Inhaled, Frequency: 1-2 times per week, Previous treatment: None, IV drug use: No, Has drug use interfered with your work or home life? No, Ready to change: No, Concerns about substance abuse in household: No, Drug Cessation Education Provided Yes Alcohol Use: Past, Type: Beer, Type: Liquor, Frequency: 1-2 times per week, Previous treatment: Alcoholics Anonymous, Has alcohol use interfered with work or home life? No, Do you ever drink more than intended? Yes, Has anyone been hurt or at risk by your drinking? No, Ready to change: Yes, Concerns about alcohol use in household: No Smoking Status Former smoker, Type: Cigarettes, Previous treatment: None, Ready to change: Yes, Concerns about tobacco use in household: No, Exposure to Tobacco Smoke None, Cigarette Smoking Last 365 Days Yes, Reg Smoking Cessation Counseling Yes
--- OUTSIDE RECORDS SUMMARY | 2017-12-15 14:09 | XMS REPORT | Summary of Care ---
Author Organization Unknown Address Unknown Phone Unavailable Encounter HQ Asmita(MANUEL) [id number] Date(s): 10/08/13 - 10/10/13 [facility] [address] [address] Discharge Disposition: Against Medical Advise Physician Attending: Elisha Blevins MD Physician Admitting: Elisha Blevins MD Reason for Visit HYPOXIA Vital Signs 1 2 3 Most recent to oldest [Reference Range]: 180.34 cm (10/08/13 5:13 PM) 180.34 cm (10/08/13 4:43 PM) 180.34 cm (10/08/13 8:56 AM) Height 185 kg (10/08/13 5:13 PM) Current Weight 98.3 DegF (10/10/13 11:25 AM) 97.8 DegF (10/10/13 7:00 AM) 97.5 DegF (10/10/13 4:00 AM) Temperature Oral [96.4-99.1 DegF] 135 mmHg (10/10/13 11:25 AM) 125 mmHg (10/10/13 7:00 AM) 119 mmHg (10/10/13 4:00 AM) Systolic Blood Pressure [90-140 mmHg] 76 mmHg (10/10/13 11:25 AM) 75 mmHg (10/10/13 7:00 AM) 88 mmHg (10/10/13 4:00 AM) Diastolic Blood Pressure [60-90 mmHg] 18 BRMIN (10/10/13 11:25 AM) 20 BRMIN (10/10/13 8:23 AM) 20 BRMIN (10/10/13 7:00 AM) Respiratory Rate [14-20 BRMIN] 87 bpm (10/10/13 11:25 AM) 98 bpm (10/10/13 7:00 AM) 99 bpm (10/10/13 4:00 AM) Peripheral Pulse Rate [60-100 bpm] 185 kg (10/08/13 4:43 PM) 159.091 kg (10/08/13 8:56 AM) Weight 56.88 m2 (10/08/13 4:43 PM) 48.92 m2 (10/08/13 8:56 AM) Body Mass Index Problem List Condition Effective Dates Status Health Status Informant Chest Resolved pain(Confirmed) Morbid 02/14/12 Resolved obesity(Confirmed) Sleep 02/14/04 Resolved apnea(Confirmed) Allergies, Adverse Reactions, Alerts Substance Reaction Severity Status NKDA Active Medications acetaminophen 650 mg, 2 tab, Route: PO, Drug form: TAB, Q4H, Dosing Weight 159.091, kg, PRN Pa in 1-3/Temp > 100.4 F, Start date: 10/08/13 15:56:00, Duration: 30 day, Stop date: 11/07/13 15:55:00 Notes: Do not exceed 4 gm/day. (Same as: Tylenol) Start Date: 10/08/13 Stop Date: 10/10/13 Status: Discontinued acetaminophen-hydrocodone 325 mg-5 mg oral tablet 1 tab, Route: PO, Drug Form: TAB, Dosing Weight 159.091, kg, Q4H, PRN Pain Score 4-6, Start date: 10/08/13 15:56:00, Duration: 30 day, Stop date: 11/07/13 15:55 :00 Notes: (Same as: [place] 325/5) Do not exceed 4gm/day of acetaminophen. Start Date: 10/08/13 Stop Date: 10/10/13 Status: Discontinued albuterol-ipratropium 2.5-0.5 mg inhalation solution 3 mL, Route: NEB, Drug Form: SOLN, Dosing Weight 159.091, kg, ONCE, STAT, Start date: 10/08/13 12:43:00, Stop date: 10/08/13 12:43:00 Start Date: 10/08/13 Stop Date: 10/08/13 Status: Completed atropine 0.5 mg, 5 mL, Route: IVP, Drug form: INJ, PRN, Dosing Weight 185, kg, PRN Bradyc ardia, Start date: 10/09/13 22:08:00, Duration: 30 day, Stop date: 11/08/13 22:0 7:00, HR <40 Start Date: 10/09/13 Stop Date: 10/10/13 Status: Discontinued Bactrim DS 1 tab, Route: PO, Drug Form: TAB, Dosing Weight 159.091, kg, [id number], Start date : 10/08/13 16:00:00, Duration: 30 day, Stop date: 11/07/13 4:00:00 Notes: One DS tablet=trimethoprim 160mg + sulfamethoxazole [address] empty [address] ach with a glass of water. 1 hr before meals (Same As: Bactrim DS, Septra DS) Start Date: 10/08/13 Stop Date: 10/10/13 Status: Discontinued lisinopril 5 mg, 1 tab, Route: PO, Drug form: TAB, Daily, Dosing Weight 185, kg, Start date : 10/08/13 17:42:00, Duration: 30 day, Stop date: 11/07/13 9:00:00 Notes: (Same as: Prinivil, Zestril) Start Date: 10/08/13 Stop Date: 10/10/13 Status: Discontinued lisinopril 5 mg oral tablet 5 mg=1 tab, PO, Daily, # 30 tab, 0 Refill(s) Start Date: 10/09/13 Status: Ordered Lovenox 40 mg, 0.4 mL, Route: SUB-Q, Drug form: INJ, [id number], Dosing Weight 159.091, kg , Start date: 10/08/13 17:00:00, Duration: 30 day, Stop date: 11/06/13 17:00:00 Notes: (Same as: Lovenox) Start Date: 10/08/13 Stop Date: 10/10/13 Status: Discontinued nitroglycerin 0.4 mg, 1 tab, Route: SL, Drug form: TAB, Q5Min, Dosing Weight 185, kg, PRN Ches t Pain, Start date: 10/09/13 22:08:00, Duration: 30 day, Stop date: 11/08/13 22: 07:00, Chest Pain X3 Notes: (Same as:Nitroquick, Nitrostat)"Do Not Crush" Sublingual tablet Start Date: 10/09/13 Stop Date: 10/10/13 Status: Discontinued ofloxacin otic 5 drp, Route: BOTH EARS, BID, Drug form: SOLN, Start date: 10/08/13 17:00:00, Du ration: 30 day, Stop date: 11/07/13 9:00:00 Notes: (Same as: Floxin Otic) Start Date: 10/08/13 Stop Date: 10/10/13 Status: Discontinued ofloxacin otic 0.3% solution See Instructions, 5 drops BOTH EARS BID, # 10 mL, 0 Refill(s) Special Instructions: 5 drops BOTH EARS BID Start Date: 10/09/13 Status: Ordered ondansetron 4 mg, 2 mL, Route: IVP, Drug form: INJ, Q8H, Dosing Weight 159.091, kg, PRN Naus ea & Vomiting, Start date: 10/08/13 15:56:00, Duration: 30 day, Stop date: 11/07/13 15:55:00 Notes: (Same as: Zofran) Start Date: 10/08/13 Stop Date: 10/10/13 Status: Discontinued predniSONE 60 mg, 3 tab, Route: PO, Drug form: TAB, ONCE, Dosing Weight 159.091, kg, Priori ty: STAT, Start date: 10/08/13 12:43:00, Stop date: 10/08/13 12:43:00 Notes: Take with food. Start Date: 10/08/13 Stop Date: 10/08/13 Status: Completed Saline Flush 0.9% 10 mL, Route: IVP, Drug Form: INJ, Dosing Weight 159.091, kg, PRN, PRN Line Flus h, Start date: 10/08/13 12:43:00, Duration: 30 day, Stop date: 11/07/13 12:42:00 Notes: Same as: BD Posiflush Sterile Start Date: 10/08/13 Stop Date: 10/09/13 Status: Discontinued Saline Flush 0.9% 10 mL, Route: IVP, Drug Form: INJ, Dosing Weight 159.091, kg, PRN, PRN Line Flus h, Start date: 10/08/13 9:19:00, Duration: 30 day, Stop date: 11/07/13 9:18:00 Notes: Same as: BD Posiflush Sterile Start Date: 10/08/13 Stop Date: 10/09/13 Status: Discontinued sulfamethoxazole-trimethoprim 800 mg-160 mg oral tablet 1 tab, PO, [id number], # 20 tab, 0 Refill(s) Start Date: 10/09/13 Status: Ordered Results ELECTROLYTES Most recent to 1 2 oldest [Reference Range]: Sodium Lvl [135-145 139 mEq/L 139 mEq/L mEq/L] (10/09/13 4:47 AM) (10/08/13 9:35 AM) Potassium Lvl 4.4 mEq/L 4.2 mEq/L [3.5-5.1 mEq/L] (10/09/13 4:47 AM) (10/08/13 9:35 AM) Chloride Lvl [95-109 98 mEq/L 98 mEq/L mEq/L] (10/09/13 4:47 AM) (10/08/13 9:35 AM) CO2 [24-32 mEq/L] 34 mEq/L 35 mEq/L *HI* *HI* (10/09/13 4:47 AM) (10/08/13 9:35 AM) AGAP [10.0-20.0 11.4 mEq/L 10.2 mEq/L mEq/L] (10/09/13 4:47 AM) (10/08/13 9:35 AM) CHEM PANEL Most recent to 1 2 oldest [Reference Range]: Creatinine Lvl 0.8 mg/dL 0.9 mg/dL [0.5-1.4 mg/dL] (10/09/13 4:47 AM) (10/08/13 9:35 AM) eGFR 122 mL/min/1.73m2 1 117 mL/min/1.73m2 2 *NA* *NA* (10/09/13 4:47 AM) (10/08/13 9:35 AM) BUN [7-22 mg/dL] 9 mg/dL 7 mg/dL (10/09/13 4:47 AM) (10/08/13 9:35 AM) B/C Ratio [6-25] 8 (10/08/13 9:35 AM) Glucose Lvl [70-99 80 mg/dL 3 143 mg/dL 4 mg/dL] (10/09/13 4:47 AM) *HI* (10/08/13 9:35 AM) Total Protein 7.8 g/dL [6.4-8.4 g/dL] (10/08/13 9:35 AM) Albumin Lvl [3.5-5.0 3.2 g/dL g/dL] *LOW* (10/08/13 9:35 AM) Globulin [2.0-4.0 4.6 g/dL g/dL] *HI* (10/08/13 9:35 AM) A/G Ratio [0.7-1.6] 0.7 (10/08/13 9:35 AM) Calcium Lvl 8.5 mg/dL 8.4 mg/dL [8.5-10.5 mg/dL] (10/09/13 4:47 AM) *LOW* (10/08/13 9:35 AM) ALT [0-65 unit/L] 94 unit/L *HI* (10/08/13 9:35 AM) AST [0-37 unit/L] 60 unit/L *HI* (10/08/13 9:35 AM) Alk Phos [39-136 80 unit/L unit/L] (10/08/13 9:35 AM) Bili Total [0.2-1.3 0.5 mg/dL mg/dL] (10/08/13 9:35 AM) 1Result Comment: The eGFR is calculated using [...] be mul tiplied by the estimated BMI. 2Result Comment: The eGFR is calculated using [...] be mul tiplied by the estimated BMI. 3Interpretive Data: Adult reference range values reflect the clinical guidelines of the [place] [employer]. 4Interpretive Data: Adult reference range values reflect the clinical guidelines of the [place] [employer]. CARDIAC ENZYMES Most recent to [Reference Range]: Total CK [12-191 113 unit/L unit/L] (10/08/13 9:35 AM) CK MB [0.5-3.6 3.3 ng/mL ng/mL] (10/08/13 9:35 AM) CK MB Index 2.9 [0.0-2.5] *HI* (10/08/13 9:35 AM) Troponin-I <0.02 ng/mL [0.00-0.40 ng/mL] (10/08/13 9:35 AM) SPECIAL CHEMISTRY Most recent to [Reference Range]: Hgb A1C [<=5.6 %] 7.8 % *HI* (10/08/13 9:35 AM) IMMUNOLOGY Most recent to [Reference Range]: CDC HIV 4th GEN Negative [Negative] (10/08/13 10:15 AM) HEMATOLOGY Most recent to [Reference Range]: WBC [3.7-10.4 K/CMM] 9.5 K/CMM 7.2 K/CMM (10/09/13 4:47 AM) (10/08/13 9:35 AM) RBC [4.70-6.10 5.83 M/CMM 5.77 M/CMM M/CMM] (10/09/13 4:47 AM) (10/08/13 9:35 AM) Hgb [14.0-18.0 g/dL] 17.0 g/dL 16.5 g/dL (10/09/13 4:47 AM) (10/08/13 9:35 AM) Hct [42.0-54.0 %] 52.0 % 51.8 % (10/09/13 4:47 AM) (10/08/13 9:35 AM) MCV [80.0-94.0 fL] 89.2 fL 89.8 fL (10/09/13 4:47 AM) (10/08/13 9:35 AM) MCH [27.0-31.0 pg] 29.2 pg 28.6 pg (10/09/13 4:47 AM) (10/08/13 9:35 AM) MCHC [32.0-36.0 32.7 g/dL 31.8 g/dL g/dL] (10/09/13 4:47 AM) *LOW* (10/08/13 9:35 AM) RDW [11.5-14.5 %] 16.9 % 16.8 % *HI* *HI* (10/09/13 4:47 AM) (10/08/13 9:35 AM) Platelet [133-450 246 K/CMM 202 K/CMM K/CMM] (10/09/13 4:47 AM) (10/08/13 9:35 AM) MPV [7.4-10.4 fL] 7.9 fL 7.7 fL (10/09/13 4:47 AM) (10/08/13 9:35 AM) Segs [45.0-75.0 %] 70.6 % 63.9 % (10/09/13 4:47 AM) (10/08/13 9:35 AM) Lymphocytes 20.6 % 25.1 % [20.0-40.0 %] (10/09/13 4:47 AM) (10/08/13 9:35 AM) Monocytes [2.0-12.0 8.1 % 7.6 % %] (10/09/13 4:47 AM) (10/08/13 9:35 AM) Eosinophils [0.0-4.0 0.3 % 2.5 % %] (10/09/13 4:47 AM) (10/08/13 9:35 AM) Basophils [0.0-1.0 0.4 % 0.9 % %] (10/09/13 4:47 AM) (10/08/13 9:35 AM) Segs-Bands # 6.7 K/CMM 4.6 K/CMM [1.5-8.1 K/CMM] (10/09/13 4:47 AM) (10/08/13 9:35 AM) Lymphocytes # 2.0 K/CMM 1.8 K/CMM [1.0-5.5 K/CMM] (10/09/13 4:47 AM) (10/08/13 9:35 AM) Monocytes # [0.0-0.8 0.8 K/CMM 0.5 K/CMM K/CMM] (10/09/13 4:47 AM) (10/08/13 9:35 AM) Eosinophils # 0.2 K/CMM [0.0-0.5 K/CMM] (10/08/13 9:35 AM) Basophils # [0.0-0.2 0.1 K/CMM K/CMM] (10/08/13 9:35 AM) D-Dimer 0.55 ug/mL FEU 5 *NA* (10/08/13 9:35 AM) 5Interpretive Data: In DIC, quantitative D-Dimer is generally greater than 0.66 ug/mL FEU. Values of quantitative D-Dimer less than 0.40 ug/mL FEU have been reported to be associated with a low probability of deep vein thrombosis/pulmonary embolism. This test alone should not be used to rule out DVT/PE. Medications Administered During Your Visit No data available for this section Immunizations Vaccine Date Refusal Reason influenza virus vaccine, inactivated 03/26/13 Patient Refuses Procedures Procedure Type Body Site Date of Procedure Related Diagnosis Arthroscopy of knee 02/13/03 12:00 AM Medical procedure on nose 02/13/97 12:00 AM Social History Social History Type Response Substance [...] Days Yes, Reg Smoking Cessation Counseling Yes Assessment and Plan Extracted from: Title: Clinical Document Author: Elisha Blevins MD Date: 10/10/13 Medicine Progress Daily Chief Complaint: hypoxia Subjective & Interval history: Patient seen and examined. Patient without complaints. No chest pain or sob. dicharge held as patient has no oxygen or benefits. Objective: Vital Signs (last 24 hrs) Last Charted Minimum Maximum Temp98.3 (OCT 10:25)97.3 (OCT 10 00:00)98.3 (OCT 10:) Heart Rate87 (OCT 10:25)78 (OCT 09 15:32)H 103 (OCT 10 00:00) Resp Rate 18 (OCT 10:25)18 (OCT 09 20:00)20 (OCT 09 15:32) CVS484 (OCT 10:)116 (OCT 10 00:00)H 168 (OCT 09 20:00) DBP76 (OCT 10 11:25)75 (OCT 09 20:00)H 105 (OCT 09 15:32) Medications and labs reviewed as below. PHYSICAL EXAM: GENERAL: AAO X Currently, in NAD HEENT: NCAT, PERRL, EOMI, morbidly obese NECK: Supple, midline trachea LUNGS: CTAB, No rales, rhonchi or wheezes. CARDIOVASCULAR: S1, S2 normal. No gallops, rubs or murmurs. ABDOMEN: Soft, nontender and nondistended. Bowel sounds present. EXTREMITIES: No edema, clubbing or cyanosis. SKIN: No rashes. IMPRESSION: 1. Recurrent otitis externa. 2. Suspected diabetes mellitus. 3. Morbid obesity. 4. Obesity hypoventilatory syndrome; however, patient is now hypoxic while awake. PLAN & TREATMENT continue current treatment dc once oxygen is arranged for. Advised against leaving AMA. Risk of hypoxia and loss of life and limb discussed with the patient. For details see orders. Disposition: Input/Output RecordInOutBal 09/2823hr Tot 0 0 0 09/2723hr Tot 1306 0 1306 Scheduled Meds (4):enoxaparin (Lovenox), lisinopril, ofloxacin otic, sulfamethoxazole-trimethoprim (Bactrim DS) Unscheduled Meds: None PRN Meds (5):acetaminophen-hydrocodone (acetaminophen-hydrocodone 325 mg-5 mg oral tablet), acetaminophen, atropine, nitroglycerin, ondansetron One Time Meds: None Continuous Infusions: None Labs (Last four charted values) WBC 9.5(OCT 09)7.2(OCT 08) Hgb 17.0(OCT 09)16.5(OCT 08) Hct 52.0(OCT 09)51.8(OCT 08) Plt 246(OCT 09)202(OCT 08) Na 139(OCT 09)139(OCT 08) K 4.4(OCT 09)4.2(OCT 08) CO2 H 34(OCT 09)H 35(OCT 08) Cl 98(OCT 09)98(OCT 08) Cr 0.8(OCT 09)0.9(OCT 08) BUN 9(OCT 09)7(OCT 08) Glucose Random 80(OCT 09)H 143(OCT 08) Ca 8.5(OCT 09)L 8.4(OCT 08) Troponin <0.02(OCT 08) CK MB 3.3(OCT 08) Total CK 113(OCT 08) Extracted from: Title: Clinical Document Author: Elisha Blevins MD Date: 10/09/13 [id number] Dictated discharge.
--- OUTSIDE RECORDS SUMMARY | 2017-12-15 14:09 | XMS REPORT | Summary of Care ---
Author Author Helen Mock Organization Unknown Address Unknown Phone Unavailable Care Team Providers Care Copywriter Name Role Phone Helen Mock Unavailable Unavailable Functional Status Name Dates Details Functional status health issues are not documented Status: Name Dates Details Cognitive status health issues are not documented Status: Problems Name Dates Details Fracture of metacarpal base of right hand, closed (815.02, S62.319A) Status: Active Closed displaced fracture of base of fifth metacarpal bone of right hand, initial encounter (815.02, S62.316A) Status: Active Closed displaced fracture of shaft of fourth metacarpal bone of right hand, initial encounter (815.03, S62.324A) Status: Active Medications Name Dates Details No Reported Medications Active Allergies and Adverse Reactions Name Dates Details No Known Drug Allergies (Allergy) Status: Active Past Medical History Name Dates Details History of back pain (V13.59, Z87.39) Status: Resolved History of hypertension (V12.59, Z86.79) Status: Resolved History of pneumonia (V12.61, Z87.01) Status: Resolved Procedures Procedure Dates Details History of Knee surgery Completed Immunization Name Dates Details Immunizations not documented Family History Name Dates Details Family history of Heart trouble (429.9, I51.9) Comments: Family History Status: Active Family history of diabetes mellitus (V18.0, Z83.3) Comments: Family History Status: Active Family history of hypertension (V17.49, Z82.49) Comments: Family History Status: Active Family history of arthritis (V17.7, Z82.61) Comments: Family History Status: Active Family history of malignant neoplasm (V16.9, Z80.9) Comments: Family History Status: Active Family history of cerebrovascular accident (CVA) (V17.1, Z82.3) Comments: Family History Status: Active Social History Name Dates Details Unknown if ever smoked Vital Signs Date Test Result Details No Known Vitals to report Results Date Description Value Details [id number] [U] XRAY HAND MIN 3 VWS RIGHT 27726 XR HAND MIN 3 VWS RIGHT Images acquired, not reported on this accession number. [id number] [U] XRAY HAND MIN 3 VWS RIGHT [id number] XR HAND MIN 3 VWS RIGHT Images acquired, not reported on this accession number. [id number] [U] XR HAND MIN 3 VWS BILATERAL XR HAND MIN 3 VWS BILATERAL Images acquired, not reported on this accession number. Plan of Care Name Dates Details Planned Observations Planned Goals not documented Instructions Name Dates Details Instructions not documented Encounters Appointment; JULIANO TORRES M.D. Encounter Diagnosis: Problem not documented On: 29-Aug-2017 14:15 Appointment; VAIBHAV ELLSWORTH M.D. Encounter Diagnosis: Problem not documented On: 05-Sep-2017 11:00
[2017-12-15] MEDS ORDERED: HYDRALAZINE HCL 25 MG TAB PO NR (14:30)
[2017-12-15] MEDS ORDERED: NITROGLYCERIN 2% OINT 1 GM PKT TOP ONE (14:30)
[2017-12-15] MEDS ORDERED: ENALAPRILAT IV INJ 1.25 MG/ML VIAL IV ONE (14:45)
--- NOTE | 2017-12-15 15:58 | Diagnostic Imaging Report ---
Examination: Single AP view of the chest. COMPARISON: April 30, 2017 INDICATION: Tracheostomy DISCUSSION: Lines/tubes: Tracheostomy. Lungs: The lungs are well-inflated. Central venous congestion. No pneumonia or pulmonary edema. Pleura: No pleural effusion or pneumothorax. Heart and mediastinum: Heart is enlarged. Bones and soft tissues: No acute bony abnormalities. IMPRESSION: Cardiomegaly with central venous congestion Signed by: Dr. Sim Herrera M.D. on 12/15/2017 3:55 PM
[2017-12-15] MEDS ORDERED: NIFEDIPINE 10 MG CAP PO ONE (16:15)
--- NOTE | 2017-12-15 16:36 | History and Physical ---
CHIEF COMPLAINT: Dislodged trach and elevated blood pressure. HISTORY OF PRESENT ILLNESS: The patient is a 32-year-old man with severe obstructive sleep apnea and obesity-hypoventilation syndrome. He was hospitalized at [facility] in 2014 and again in 2017 with obesity-hypoventilation syndrome and hypercapnic respiratory failure. In 2017, he required a tracheostomy. He has been losing weight since that time. However, he still is almost 400 pounds. He has a trach at home, which he has been caring for. He changes and cleans the inner cannula but apparently it dislodged today, and he had trouble getting it back in. When he arrived at the emergency department, they noticed the inner cannula was out, and they replaced it. They also noticed an elevated blood pressure and gave him some clonidine. PAST MEDICAL HISTORY 1. Obesity-hypoventilation syndrome. 2. Chronic respiratory failure. 3. Obstructive sleep apnea. 4. Hypertension. PAST SURGICAL HISTORY: Status post tracheostomy. FAMILY HISTORY: The patient is not an active smoker or drinker. He recently applied for disability. ALLERGIES: NO KNOWN DRUG ALLERGIES. FAMILY HISTORY: Noncontributory. REVIEW OF SYSTEMS: There is no headache or fever. He has no throat pain. There is no neck pain. He does not complain of chest pain or dyspnea. He has no cough. There is no abdominal pain. He has no nausea or vomiting. He has no leg pain. PHYSICAL EXAMINATION VITALS: Blood pressure is 190/100. Oxygen saturation is normal. Tracheostomy site looks clean. There is no drainage. CARDIOVASCULAR: Regular rate and rhythm with normal S1 and S2. RESPIRATORY: Auscultation of the lungs reveals clear breath sounds bilaterally. There is no wheezing. ABDOMEN: Soft and nontender. There is no rebound or guarding. EXTREMITIES: No leg edema or calf tenderness. There is no cyanosis or clubbing. SKIN: No rashes. NEUROLOGIC: Exam shows no focal abnormalities. IMPRESSION 1. [id number] respiratory failure. 2. Obstructive sleep apnea. 3. Obesity-hypoventilation syndrome requiring tracheostomy. 4. Hypertension. PLAN 1. Patient will continue trach care. 2. He will obtain his antihypertensives. Apparently he ran out of antihypertensive medication several days ago. 3. Continue weight loss. Job#: [id number]
== END 2017-12-15 16:31 | disposition left against medical advice (07) ==
LOC: ER 14:05
DX: J95.09 Other tracheostomy complication (principal); J96.20 Acute and chronic respiratory failure, unspecified whether with hypoxia or hypercapnia; E66.2 Morbid (severe) obesity with alveolar hypoventilation; I10 Essential (primary) hypertension; I51.9 Heart disease, unspecified; G47.33 Obstructive sleep apnea (adult) (pediatric)
CPT/HCPCS: 36415; 71045; 93005; 99284

== ENCOUNTER 2020-08-11 18:29 | Emergency (ER) | payer OTHER ==
[~2020-08-11] VITALS: Ht 175.3 cm; Wt 176.4 kg
[2020-08-11] MEDS ORDERED: CEFTRIAXONE 1 GM in SODIUM CHLORIDE 0.9% 50ML 50 ML IV ONE (19:00)
[2020-08-11] MEDS ORDERED: DEXAMETHASONE 10MG/ML PF INJ IV ONE (19:00)
[2020-08-11 19:06] LABS: BASOPHILS # (AUTO) 0.1 (0.0-0.1); BASOPHILS % 0.6 % (0.0-1.0); EOSINOPHILS # (AUTO) 0.1 (0.0-0.4); HEMATOCRIT 51.7 % (38.2-49.6); HEMOGLOBIN 17.4 g/dL (14.0-18.0); LYMPHOCYTES # (AUTO) 2.1 (1.0-3.2); LYMPHOCYTES % 22.9 % (18.0-39.1); MEAN CORPUSCULAR HEMOGLOBIN 31.1 pg (28-32); MEAN CORPUSCULAR HGB CONC 33.7 g/dL (31-35); MEAN CORPUSCULAR VOLUME 92.5 fL (81-99); MONOCYTES # (AUTO) 0.8 (0.2-0.8); MONOCYTES % 8.4 % (4.4-11.3); NEUTROPHILS # (AUTO) 6.1 (2.1-6.9); NEUTROPHILS % 66.8 % (38.7-80.0); PLATELET COUNT 181 x10e3/uL (140-360); RED BLOOD COUNT 5.59 x10e6/uL (4.3-5.7); RED CELL DISTRIBUTION WIDTH 13.7 % (11.7-14.4)
[2020-08-11 19:24] LABS: ALBUMIN 4.6 g/dL (3.5-5.0); ALBUMIN/GLOBULIN RATIO 1.3 (0.8-2.0); ANION GAP 15.1 mmol/L (8-16); CALCIUM 9.1 mg/dL (8.4-10.2); CREATININE, SERUM 1.12 mg/dL (0.72-1.25); POTASSIUM 4.1 mmol/L (3.5-5.1)
[2020-08-11] MEDS ORDERED: IOPAMIDOL 370 MG/ML 200 ML INFUS..BTL INJ ONE (20:33)
[2020-08-11] MEDS ORDERED: SODIUM CHLORIDE 0.9% 50ML 50 ML ONE (20:33)
[2020-08-11] MEDS ORDERED: DEXAMETHASONE SOD PHOS 10 MG/1 ML VIAL ONE (20:40)
[2020-08-11] MEDS ORDERED: KETOROLAC TROMETHAMINE 30 MG/ML VIAL IV STA (22:33)
[2020-08-11] MEDS ORDERED: PREDNISONE50 MG PO (22:54)
[2020-08-11] MEDS ORDERED: AUGMENTIN 875-1 EACH PO (22:54)
== END 2020-08-11 23:43 | disposition home or self-care (01) ==
LOC: ER 18:48
DX: R06.02 Shortness of breath (principal); R07.0 Pain in throat; I10 Essential (primary) hypertension; I50.9 Heart failure, unspecified
CPT/HCPCS: 36415; 70491; 71260; 80053; 85025; 93005; 99284; J0696; J1100; J1885; Q9967

== ENCOUNTER 2023-09-29 00:20 | Emergency (ER) | payer SELFPAY ==
[~2023-09-29] VITALS: Ht 180.3 cm; Wt 176.4 kg
[2023-09-29 00:20] VITALS: RESP 22
[~2023-09-29 00:20] MED LIST changes: +AUGMENTIN 875-1 EACH PO; +PREDNISONE50 MG PO
[2023-09-29 01:04] LABS: BASOPHILS % 0.7 % (0.0-1.0); EOSINOPHILS # (AUTO) 0.1 (0.0-0.4); EOSINOPHILS % 1.8 % (0.0-6.0); HEMOGLOBIN 16.7 g/dL (14.0-18.0); LYMPHOCYTES # (AUTO) 0.3 (1.0-3.2); LYMPHOCYTES % 4.9 % (18.0-39.1); MEAN CORPUSCULAR HEMOGLOBIN 31.7 pg (28-32); MEAN CORPUSCULAR HGB CONC 34.1 g/dL (31-35); MEAN CORPUSCULAR VOLUME 93.2 fL (81-99); MONOCYTES # (AUTO) 0.6 (0.2-0.8); MONOCYTES % 9.8 % (4.4-11.3); NEUTROPHILS # (AUTO) 5.1 (2.1-6.9); NEUTROPHILS % 82.5 % (38.7-80.0); PLATELET COUNT 172 x10e3/uL (140-360); RED BLOOD COUNT 5.26 x10e6/uL (4.3-5.7); RED CELL DISTRIBUTION WIDTH 13.2 % (11.7-14.4); WHITE BLOOD COUNT 6.12 x10e3/uL (4.8-10.8)
[2023-09-29 01:30] VITALS: PULSE 82; TEMP 98.4
[2023-09-29] MEDS: ACETAMINOPHEN 1000 MG/100 ML IV STA (01:39)
[2023-09-29] MEDS: ONDANSETRON HCL INJ 2MG/ML 2ML 2 MG/ML VIAL IV STA (01:40)
[2023-09-29 01:44] LABS: ALBUMIN 4.2 g/dL (3.5-5.0); ALBUMIN/GLOBULIN RATIO 1.2 (0.8-2.0); ANION GAP 12.9 mmol/L (8-16); CALCIUM 9.1 mg/dL (8.4-10.2); POTASSIUM 3.9 mmol/L (3.5-5.1); TOTAL PROTEIN 7.6 g/dL (6.5-8.1)
[2023-09-29 02:00] LABS: INFLUENZAE A&B ANTIGEN (RAPID) NEGATIVE (NEGATIVE); RESPIRATORY SYNC. VIRUS NEGATIVE (NEGATIVE)
[2023-09-29 02:12] VITALS: BP 152/93; O2SAT 95
== END 2023-09-29 02:10 | disposition home or self-care (01) ==
LOC: ER 00:25
DX: R50.9 Fever, unspecified (principal); U07.1 COVID-19; I10 Essential (primary) hypertension; I50.9 Heart failure, unspecified; E78.5 Hyperlipidemia, unspecified; E66.01 Morbid (severe) obesity due to excess calories; R94.31 Abnormal electrocardiogram [ECG] [EKG]
CPT/HCPCS: 36415; 71045; 80053; 83880; 84484; 85025; 87400; 87420; 93005; 99284; J0131; J2405; U0002